=== PATIENT | male | born 1960 | race Caucasian/White ===

== ENCOUNTER 2021-05-28 15:37 | Emergency (ER) | payer BC, SELFPAY ==
--- OUTSIDE RECORDS SUMMARY | 2021-05-28 15:40 | XMS REPORT | Continuity of Care Document ---
:1960 Author Organization [facility] t Address 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 Allergies, Adverse Reactions, Alerts Allergy Allergy Status Severity Reaction(s) Onset Inactive Treating Comm ents Source Name Type Date Date Clinician NO KNOWN Drug Active Univers ALLERGIE Class ity of S [facility] Social History Social Habit Start Date Stop Date Quantity Comments Source Exposure to Yes University of SARS-CoV-2 (event) [facility] Cigarettes smoked 2015-12-19 2015-12-19 Univers ity of current (pack per 00:00:00 00:00:00 ) - Reported Branch Cigarette 2015-12-19 2015-12-19 University of pack-years 00:00:00 00:00:00 [facility] Tobacco use and 2015-12-19 2015-12-19 Former user Universi ty of exposure 00:00:00 00:00:00 [facility] Alcohol intake 2015-12-19 2015-12-19 University of 00:00:00 00:00:00 [facility] History of tobacco 2012-09-29 Snuff User Univer sity of use 00:00:00 [facility] Sex Assigned At [birth year] Universit y of 00:00:00 00:00:00 [facility] Smoking Status Start Date Stop Date Source Former smoker 2015-12-19 00:00:00 2015-12-19 00:00:00 Universi ty [facility] Medications Ordered Filled Start Stop Current Ordering Indication Dosage Frequency Signature Comments Components Source Medication Medication Date Date Medication? Clinician (SIG) Name Name No known No Univers medications [facility] No known No Univers medications [facility] No known No Univers medications [facility] No known No Univers medications [facility] Immunizations Ordered Filled Immunization Date Status Comments Sour e Immunization Name Name SARS-COV-2 COVID-19 2020-07-27 Completed Unive rsity of PFIZER VACCINE 00:00:00 [facility] SARS-COV-2 COVID-19 2020-07-27 Completed Unive rsity of PFIZER VACCINE 00:00:00 [facility] SARS-COV-2 COVID-19 2020-07-27 Completed Unive rsity of PFIZER VACCINE 00:00:00 [facility] SARS-COV-2 COVID-19 2020-07-27 Completed Unive rsity of PFIZER VACCINE 00:00:00 [facility] SARS-COV-2 COVID-19 2020-07-27 Completed Unive rsity of PFIZER VACCINE 00:00:00 [facility] Procedures Procedure Date / Time Performed Performing Clinician Sour e ASSIGNMENT OF BENEFITS 2020-08-05 18:34:40 Doctor Unassigned, No [facility] Plan of Care Planned Activity Planned Date Details Comments Source Future Scheduled 2020-12-04 INFLUENZA VACCINE [facility] [place] Test 00:00:00 (Season Ended) [code = [facility] INFLUENZA VACCINE (Season Ended)] Future Scheduled 2020-08-17 SARS-CoV-2 [facility]COVID-19) [facility] [place]00 Vaccine (2 - Pfizer [facility] 2-dose series) [code = SARS-CoV-2 (COVID-19) Vaccine (2 - Pfizer 2-dose series)] Future Scheduled 2010 Screening for occult Uni versity [facility] Test 00:00:00 blood in feces Medical Bran h (procedure) [code = 011530453] Future Scheduled 2010 Stool DNA-based Universi ty [facility] Test 00:00:00 colorectal cancer Medical Br anch screening (procedure) [code = 861955413715506] Future Scheduled 2010 [facility]00 sigmoidoscopy Medical Branch (procedure) [code = 63326637] Future Scheduled 2010 Screening for University [facility] Test 00:00:00 malignant neoplasm of Medica l Branch colon (procedure) [code = 225706388] Future Scheduled 2010 Screening for [facility] Test 00:00:00 malignant neoplasm of Medica l Branch colon (procedure) [code = 870001058] Future Scheduled 2010 [facility]00 Vaccine (SHINGRIX) (1 Medica l Branch of 2) [code = Zoster Recombinant Vaccine (SHINGRIX) (1 of 2)] Future Scheduled 1979 DTaP,Tdap,and [facility]d [facility] 00:[facility]:00 Vaccines (1 - Tdap) Medical Branch [code = DTaP,Tdap,and Td Vaccines (1 - Tdap)] Future Scheduled 1978 [facility]atitis [facility]00 (procedure) [code = Medical Branch [id number]] Future Scheduled 1972 [facility]00 (procedure) [code = Medical Branch [id number]] Encounters Start End Encounter Admission Attending Care Care Encounter Source Date/Time Date/Time Type Type Clinicians Facility Department ID 2020-08-24 2020-08-24 Outpatient R EBNI [facility] [id number] Univers 10:10:00 10:10:00 [facility] 2020-08-24 2020-08-24 Outpatient R [facility] [id number] Univers 08:20:00 08:20:00 [id number] [facility] 2020-08-22 2020-08-23 Inpatient U SATISH RAZAH [facility] [id number] [facility] 14:08:00 21:04:00 ALEJANDRA 2020-08-08 2020-08-08 Letter Lab, Pcp [facility] [id number] Univers 00:00:00 00:00:00 (Out) [facility] Health [id number] it [facility] [place] [id number] [place] as Professio [phone] Nm dical nal 044 [place] Office [facility] One 2020-08-08 2020-08-08 Letter Lab, Pcp [facility] [id number] Univers 00:00:00 00:00:00 (Out) Covid Health [id number] it [facility] [place] [id number] [place] as Professio [phone] Nm dical nal 044 [facility] One 2020-08-05 2020-08-05 Laboratory Lab, Adc Fam Pob I [facility] [id number] Univers 13:35:13 13:55:13 Only Tamie L[facility] [id number] [facility] [place] [id number] [place] as Professio [phone] Nm dical nal 044 [facility] 2020-08-05 2020-08-05 Outpatient R [facility] [id number] Univers 13:00:00 13:00:00 [id number] ity [facility] 2020-08-05 2020-08-05 [id number] Univers 13:00:00 13:00:00 TAMIE ity [facility] 2020-08-05 2020-08-05 Orders Doctor FRANCISCO [id number] Univers 00:00:00 00:00:00 Only UnassignedLIO [id number] ity of [place] [facility] [id number] [place] as [phone] [address] 2020-07-27 2020-07-27 [facility] [id number] Univers 08:20:00 08:20:00 AMARI [id number] [facility] 2020-07-27 2020-07-27 Outpatient Ami CORTEZ [facility] [id number] Univers 08:20:00 08:20:00 AMARI [facility] Results This patient has no known results.
[2021-05-28] MEDS ORDERED: LORazepam 2 MG/ML VIAL ONE (17:01)
[2021-05-28 17:18] LABS: Urine Blood Negative (Negative); Urine Glucose Negative (Negative); Urine Protein Negative (Negative); Urine pH 7.5 (5.0-7.0)
[2021-05-28 17:37] LABS: Absolute Lymphocytes (CBC) 1.8 K/uL (0.7-4.9); Lymphocytes % 29.3 % (15.3-44.8); MPV 7.2 fL (7.6-11.3); RBC Red Blood Cell Count 4.65 M/uL (4.33-5.43)
[2021-05-28 17:40] LABS: Protime INR 0.78
[2021-05-28 17:43] LABS: Barbiturates NEGATIVE (NEGATIVE); Benzodiazepines NEGATIVE (NEGATIVE); Cocaine NEGATIVE (NEGATIVE); METHAMPHETAM NEGATIVE (NEGATIVE); Methadone NEGATIVE (NEGATIVE); Opiates NEGATIVE (NEGATIVE); Phencyclidine NEGATIVE (NEGATIVE); THC Cannibis NEGATIVE (NEGATIVE)
[2021-05-28 18:05] LABS: ALT/SGPT 39 U/L (12-78); AST/SGOT 35 U/L (15-37); Albumin 3.9 g/dL (3.4-5.0); Alkaline Phosphatase 77 U/L (45-117); BUN Blood Urea Nitrogen 9 mg/dL (7-18); Bicarbonate 33 mmol/L (21-32); Bilirubin Total 0.1 mg/dL (0.2-1.0); Glucose Level 98 mg/dL (74-106); Potassium 3.8 mmol/L (3.5-5.1); Protein, Total 7.6 g/dL (6.4-8.2); Sodium Level 136 mmol/L (136-145)
[2021-05-28 18:06] LABS: Bilirubin Direct < 0.1 mg/dL (0-0.2)
[2021-05-28] MEDS ORDERED: FOLIC ACID 1 MG, MULTIVITAMINS INJ 10 ML, THIAMINE HCL 100 MG in NA CHLORIDE 0.9% 1,000 ML IV ONE (19:00)
--- NOTE | 2021-05-29 15:21 | EDPHYS ---
Physician Documentation [facility] Name: Jak Gauthier Age: 61 yrs Sex: Male : 1960 Arrival Date: 05/28/2021 Time: 15:38 Bed 18 Private MD: ED Physician Bethany Thibodeaux HPI: 05/28 16:30 This 61 yrs old Male presents to ER via Ambulatory with complaints of ETOH Abuse, Psych cp Problem. 16:30 The patient presents to the emergency department with psychosis, has experienced cp auditory hallucinations, voices are telling patient to commit sucide, voices are telling patient to cause harm to someone else. 16:30 Onset: The symptoms/episode began/occurred today. Past psychiatric history: Prior cp diagnosis: bipolar disorder, schizophrenia. Associated signs and symptoms: Pertinent positives; substance abuse, Pertinent negatives: abdominal pain, chest pain, fever. Severity of symptoms: in the emergency department the symptoms are unchanged despite home interventions. Historical: - Allergies: 15:44 No Known Allergies; ap3 - PMHx: 15:44 Alcoholism; Bipolar disorder; Schizophrenia; Depressive disorder; ap3 - Immunization history:: Client reports receiving the 2nd dose of the Covid vaccine, Pneumococcal vaccine is not up to date, Flu vaccine is not up to date. - Social history:: Smoking status: Patient reports the use of cigarette tobacco products, smokes one pack cigarettes per day. Patient uses alcohol, on a daily basis. patient/guardian reports recent binge of alcohol consumption. Patient uses street drugs, Methamphetamine (Meth). ROS: 16:35 Constitutional: Negative for fever, poor PO intake. cp 16:35 Eyes: Negative for injury, pain, redness, and discharge. cp 16:35 Cardiovascular: Negative for chest pain, palpitations. 16:35 Respiratory: Negative for cough, shortness of breath, wheezing. 16:35 Abdomen/GI: Negative for abdominal pain, nausea, vomiting, and diarrhea. 16:35 Psych: Positive for auditory hallucinations. 16:35 All other systems are negative. Exam: 16:40 Constitutional: The patient appears in no acute distress, alert, awake, cp non-diaphoretic, well developed, well nourished. 16:40 Head/Face: Normocephalic, atraumatic. cp 16:40 Eyes: Periorbital structures: appear normal, Conjunctiva: normal, no exudate, no injection, Sclera: no appreciated abnormality, Lids and lashes: appear normal, bilaterally. 16:40 ENT: External ear(s): are unremarkable, Nose: is normal, Mouth: Lips: moist, Oral mucosa: moist, Posterior pharynx: Airway: no evidence of obstruction, patent. 16:40 Chest/axilla: Inspection: normal. 16:40 Cardiovascular: Rate: normal, Rhythm: regular. 16:40 Respiratory: the patient does not display signs of respiratory distress, Respirations: normal, no use of accessory muscles, no retractions, labored breathing, is not present, Breath sounds: are clear throughout, no decreased breath sounds, no stridor, no wheezing. 16:40 Abdomen/GI: Exam negative for discomfort, distension, guarding, Inspection: abdomen appears normal. 16:40 Neuro: Orientation: to person, place \\T\\ time. Mentation: able to follow commands, Motor: moves all fours, strength is normal. 16:40 Psych: Behavior/mood is cooperative, Judgement / Insight is impaired. Delusions/hallucinations auditory hallucinations. 18:35 ECG was reviewed by the Attending Physician. cp Vital Signs: 15:42 BP 149 / 91; Pulse 87; Resp 18; Temp 98.1; Pulse Ox 98% ; Weight 79.38 kg; Height 6 ft. ap3 1 in. (185.42 cm); 05/29 00:16 BP 155 / 80; Pulse 88; Resp 18; Temp 98.2; Pulse Ox 93% ; al4 05:28 BP 149 / 72; Pulse 86; Resp 20; Pulse Ox 95% on R/A; sf1 05/30 01:31 BP 152 / 94; Pulse 70; Resp 15; Temp 97.6(TE); Pulse Ox 96% on R/A; ll3 06:59 BP 153 / 99; Pulse 65; Resp 16; Pulse Ox 96% on R/A; ll3 07:14 BP 142 / 76; Pulse 80; Resp 18; Pulse Ox 99% on R/A; dominique 19:58 BP 159 / 90 LA Supine (auto/reg); Pulse 78 MON; Resp 16 S; Temp 97.8; Pulse Ox 98% on sv1 R/A; 05/28 15:42 Body Mass Index 23.09 (79.38 kg, 185.42 cm) ap3 MDM: 05/28 16:28 Patient medically screened. 18:15 Data reviewed: vital signs, nurses notes, lab test result(s), EKG. 18:15 Test interpretation: by ED physician or midlevel provider: ECG. 05/29 06:14 ED course: ETOH negative now, calling [facility] out for evaluation.. rn 05/30 05:42 ED course: Pt sleeping comfortably, stable vitals, still awaiting transfer. . rn 05/28 16:29 Order name: Acetaminophen; Complete Time: 18:08 05/28 18:08 Interpretation: Reviewed. 05/28 16:29 Order name: Basic Metabolic Panel; Complete Time: 18:08 05/28 18:08 Interpretation: Normal except: CO2 33; GFR 89. 05/28 16:29 Order name: CBC with Diff; Complete Time: 18:08 05/28 18:08 Interpretation: Normal except: MPV 7.2. 05/28 16:29 Order name: ETOH Level; Complete Time: 18:08 05/28 18:08 Interpretation: Abnormal: ETOH 289. 05/28 16:29 Order name: Hepatic Function; Complete Time: 18:08 05/28 16:29 Order name: PT-INR; Complete Time: 18:08 cp 05/28 16:29 Order name: Ptt, Activated; Complete Time: 18:08 05/28 16:29 Order name: Salicylate; Complete Time: 18:08 05/28 16:29 Order name: Urine Drug Screen; Complete Time: 18:08 05/28 18:09 Interpretation: Reviewed. 05/28 17:18 Order name: Urine Dipstick-Ancillary; Complete Time: 18:08 EDMS 05/29 02:18 Order name: ETOH Level; Complete Time: 06:12 cp 05/29 09:35 Order name: SARS-COV-2 RT PCR (Document "Date of Onset" if Symptomatic); Complete Time: em1 15:06 05/28 16:29 Order name: EKG; Complete Time: 16:30 cp 05/28 16:29 Order name: EKG - Nurse/Tech; Complete Time: 18:38 cp 05/28 16:29 Order name: IV Saline Lock; Complete Time: 17:12 cp 05/28 16:29 Order name: Labs collected and sent; Complete Time: 17:12 cp 05/28 16:29 Order name: Suicide Precautions; Complete Time: 17:12 cp 05/28 16:29 Order name: Suicide Screening ([place]); Complete Time: 18:38 cp 05/28 16:29 Order name: Urine Dipstick-Ancillary (obtain specimen); Complete Time: 17:12 cp 05/28 17:12 Order name: Diet Finger Food; Complete Time: 17:12 bp 05/29 07:14 Order name: Diet Finger Food; Complete Time: 07:14 [facility] EC/23 18:35 Rate is 90 beats/min. Rhythm is regular. VT interval is normal. QRS interval is normal. cp QT interval is normal. T waves are Inverted in lead aVR. Interpreted by me. Reviewed by me. Administered Medications: 17:10 Drug: Ativan (LORazepam) 1 mg Route: IVP; Site: right forearm; bp 18:11 Follow up: Response: No adverse reaction; No change in condition bp 18:40 Drug: Banana Bag - (NS 0.9% 1000 ml, foLIC Acid 1 mg, Thiamine 100 mg, Multivitamin 1 bp amp) Route: IV; Rate: 150 ml/hr; Site: right antecubital; Disposition Summary: 05/29/21 15:20 Transfer Ordered Transfer Location: Psych Facility cp Reason: Higher level of care cp Condition: Stable cp Problem: an ongoing problem cp Symptoms: have improved cp Accepting Physician: Dr. Rm Behavioral(05/30/21 23:28) sv1 Diagnosis - Schizophrenia, unspecified cp Forms: - Medication Reconciliation Form cp - SBAR form cp Signatures: Dispatcher [employer] EDJose Meier MD MD rn Mike Ley PA PA cp Kal Faye RN RN bp Maria Teresa Ivey RN RN ap3 Jacob Langston MD MD [facility] Luis Lancaster RN RN sv1 Corrections: (The following items were deleted from the chart) 05/30 22:13 05/29 15:20 Doctor cp [facility] 05/30 23:28 22:13 Dr. Rm Behavioral [facility] sv1
--- NOTE | 2021-05-29 15:21 | ER ---
Nurse's Notes [facility] Name: Jak Gauthier Age: 61 yrs Sex: Male : 1960 Arrival Date: 05/28/2021 Time: 15:38 Bed 18 Private MD: Diagnosis: Schizophrenia, unspecified Presentation: 05/28 15:42 Chief complaint: Patient states: "my brain tells me to kill and to ." He is unsure ap3 at this time if his brain wants him to kill other people more than it wants him to kill himself. He reports not having any sleep for approx one week. Sister is with him, who says she picked him up from his residence. He has a recent uribe of alcohol. Patient us agitated and restless at this time. Coronavirus screen: At this time, the client does not indicate any symptoms associated with coronavirus-19. Ebola Screen: No symptoms or risks identified at this time. Initial Sepsis Screen: Does the patient meet any 2 criteria? No. Patient's initial sepsis screen is negative. Does the patient have a suspected source of infection? No. Patient's initial sepsis screen is negative. Risk Assessment: Do you want to hurt yourself or someone else? Patient reports desire/thoughts of hurting themselves or someone else. Provider notified. Onset of symptoms was May 28, 2021. 15:42 Method Of Arrival: Ambulatory ap3 15:42 Acuity: AMARA 2 ap3 16:00 Note Next of kin is patients sister. Sisters name Jolanta [phone]. ap3 Triage Assessment: 15:46 General: Appears distressed, Behavior is agitated, anxious, fussy, restless, Smells of ap3 alcohol. Pain: Complains of pain in lower back and legs. Neuro: Level of Consciousness is awake, alert, Oriented to person, place. Neuro: Level of Consciousness is Oriented to Patient currently hearing voices. . Cardiovascular: Patient's skin is warm and dry. Respiratory: Airway is patent Respiratory effort is even, unlabored. Historical: - Allergies: 15:44 No Known Allergies; ap3 - PMHx: 15:44 Alcoholism; Bipolar disorder; Schizophrenia; Depressive disorder; ap3 - Immunization history:: Client reports receiving the 2nd dose of the Covid vaccine, Pneumococcal vaccine is not up to date, Flu vaccine is not up to date. - Social history:: Smoking status: Patient reports the use of cigarette tobacco products, smokes one pack cigarettes per day. Patient uses alcohol, on a daily basis. patient/guardian reports recent binge of alcohol consumption. Patient uses street drugs, Methamphetamine (Meth). Screenin:48 Abuse screen: Denies threats or abuse. Nutritional screening: hasn't eaten much in ap3 approx one week. Tuberculosis screening: No symptoms or risk factors identified. 18:41 Fall Risk None identified. bp Assessment: 16:30 General: Appears in no apparent distress. comfortable, Behavior is calm, cooperative, bp appropriate for age, Smells of alcohol, RECD PT AMBULATORY FROM TRIAGE WITH FAMILY. PT AFFECT CHEERFUL, LAUGHING WITH SISTER.. Pain: Denies pain. Neuro: Level of Consciousness is awake, alert, obeys commands, Oriented to Appropriate for age. Cardiovascular: No deficits noted. Respiratory: No deficits noted. GI: No signs and/or symptoms were reported involving the gastrointestinal system. : No signs and/or symptoms were reported regarding the genitourinary system. EENT: No deficits noted. Derm: No deficits noted. Musculoskeletal: No deficits noted. 18:00 Reassessment: PT DENIES SI, STATES "I JUST BEEN DRINKING TOO MUCH. I ACTUALLY BAILEY bp LOVE MYSELF. OTHER PEOPLE ARE KIND OF IRRITATING, THAT'S ALL.". 18:15 Reassessment: MED REQUEST FAXED TO PHARMACY. bp 19:00 General: Appears in no apparent distress. comfortable, Behavior is calm, cooperative. al4 Pain: Denies pain. Neuro: Level of Consciousness is awake, alert, obeys commands, Oriented to person, place, time, situation. Cardiovascular: Capillary refill < 3 seconds Patient's skin is warm and dry. Respiratory: Airway is patent Respiratory effort is even, unlabored, Respiratory pattern is regular, symmetrical. GI: No signs and/or symptoms were reported involving the gastrointestinal system. : No signs and/or symptoms were reported regarding the genitourinary system. EENT: No signs and/or symptoms were reported regarding the EENT system. Derm: No signs and/or symptoms reported regarding the dermatologic system. Musculoskeletal: Range of motion: intact in all extremities. 20:00 Reassessment: Patient is alert, oriented x 3, equal unlabored respirations, skin al4 warm/dry/pink. 21:00 Reassessment: Patient is alert, oriented x 3, equal unlabored respirations, skin al4 warm/dry/pink. 22:00 Reassessment: Patient is alert, oriented x 3, equal unlabored respirations, skin al4 warm/dry/pink. 23:00 Reassessment: patient is sleeping. patient is in no apparent distress. al4 05/29 00:00 Reassessment: Patient is alert, oriented x 3, equal unlabored respirations, skin al4 warm/dry/pink. 01:00 Reassessment: Report given to MICHELE George. al4 07:36 Reassessment: pt awake and states that he is feeling better, no si thoughts at this jh6 time. Pt also reports that he has been off his meds for 2mo because he lost his insurance and has been unable to afford them . Pt live at home with his mother at this time. 13:47 Reassessment: Patient is alert, oriented x 3, equal unlabored respirations, skin jh6 warm/dry/pink. states back pain chronic and repositioned for comfort. 19:00 Reassessment: Patient is alert, oriented x 3, equal unlabored respirations, skin ll3 warm/dry/pink. 23:00 Reassessment: Patient is alert, oriented x 3, equal unlabored respirations, skin ll3 warm/dry/pink. 05/30 06:59 Reassessment: States "I have been off my medication for the past few months and have ll3 been feeling weird ever since, I cant really tell you what they say but my voices tell me weird things", denies wanting to hurt self or others, states feeling better since being here but not feeling 100%. 20:13 Reassessment: VS stable. No acute distress noted. . sv1 23:16 Reassessment: [facility] here to transfer the patient. His belongings were given sv1 to EMS. No acute distress noted.. Psych: 05/28 15:49 [place] Suicide Severity Screening: In the past month, have you wished you were ap3 or wished you could go to sleep and not wake up? Patient responds "yes." Based off the client's responses additional C-SSRS screening is required. "In the past month, have you actually had any thoughts of killing yourself?" Patient responds "yes." Based off the client's response additional [place] suicide severity screening questions to be further documented on paper forms. "In your lifetime, have you ever done anything, started to do anything, or prepared to do anything to end your life?" Patient responds "yes." Patient reports suicidal intent within 3 past months. [place] Suicide Severity Screening: patient has urges to kill others and himself based of the voices he hears, however he denies having a current plan in how to do so. Subjective: Patient's mood is angry, irritable, hopeless, Hallucinations are auditory. Objective: Patient is irritable, restless, Speech is rambling. Patient uses 12 pack of beer, hourly. Last use was within the hour. 20:00 Interventions: Removed personal items and placed in bag. Patient placed in hospital al4 gown. Safety Checks: Personal items have been removed. Door is open. 20:00 [place] Suicide Severity Screening: In the past month, have you wished you were al4 or wished you could go to sleep and not wake up? Patient responds "yes." "In the past month, have you actually had any thoughts of killing yourself?" Patient responds "no." "In your lifetime, have you ever done anything, started to do anything, or prepared to do anything to end your life?" Patient responds "no.". Objective: Patient is cooperative, Speech is slow. 05/30 23:18 Commitment: Patient will be a voluntary commitment. sv1 Vital Signs: 05/28 15:42 BP 149 / 91; Pulse 87; Resp 18; Temp 98.1; Pulse Ox 98% ; Weight 79.38 kg; Height 6 ft. ap3 1 in. (185.42 cm); 05/29 00:16 BP 155 / 80; Pulse 88; Resp 18; Temp 98.2; Pulse Ox 93% ; al4 05:28 BP 149 / 72; Pulse 86; Resp 20; Pulse Ox 95% on R/A; sf1 05/30 01:31 BP 152 / 94; Pulse 70; Resp 15; Temp 97.6(TE); Pulse Ox 96% on R/A; ll3 06:59 BP 153 / 99; Pulse 65; Resp 16; Pulse Ox 96% on R/A; ll3 07:14 BP 142 / 76; Pulse 80; Resp 18; Pulse Ox 99% on R/A; dominique 19:58 BP 159 / 90 LA Supine (auto/reg); Pulse 78 MON; Resp 16 S; Temp 97.8; Pulse Ox 98% on sv1 R/A; 05/28 15:42 Body Mass Index 23.09 (79.38 kg, 185.42 cm) ap3 ED Course: 05/28 15:38 Patient arrived in ED. as 15:44 Triage completed. ap3 15:48 Arm band placed on right wrist. ap3 15:56 Pt visited by sister. ap3 16:21 Kal Faye, RN is Primary Nurse. bp 16:22 Mike Ley PA is PHCP. cp 16:23 Bethany Thibodeaux MD is Attending Physician. cp 17:12 Inserted saline lock: 20 gauge in right forearm, using aseptic technique. Blood bp collected. 18:41 Patient has correct armband on for positive identification. Bed in low position. Call bp light in reach. Side rails up X2. 19:01 Primary Nurse role handed off by Kal Faye, RN mw2 19:30 No apparent distress. Resting quietly. Safety Checks: Personal items have been removed. al4 The door is open or patient has been placed in a hallway bed/chair. Sitter not present at this time Note: collar trimmer aware. 19:30 Guillermo Escobar is Primary Nurse. al4 20:00 No apparent distress. Resting quietly. Safety Checks: The door is open or patient has al4 been placed in a hallway bed/chair. Sitter not present at this time. 20:30 No apparent distress. Resting quietly. Safety Checks: The door is open or patient has al4 been placed in a hallway bed/chair. Sitter not present at this time. 21:00 No apparent distress. Resting quietly. Safety Checks: The door is open or patient has al4 been placed in a hallway bed/chair. Sitter not present at this time. 21:30 No apparent distress. Resting quietly. Safety Checks: The door is open or patient has al4 been placed in a hallway bed/chair. Sitter not present at this time. 22:00 No apparent distress. Resting quietly. Safety Checks: The door is open or patient has al4 been placed in a hallway bed/chair. Sitter not present at this time. 22:25 Warm blanket given. PO fluids given. al4 22:38 No apparent distress. Resting quietly. Safety Checks: The door is open or patient has al4 been placed in a hallway bed/chair. Sitter present at this time. 05/29 04:10 Diet tray given. PO fluids given. sf1 05:29 ETOH Level Sent. sf1 06:[address] [facility] Crisis Line spoke to Jessica to have a screener evaluate the mw2 patient. 08:00 Screener from [facility] called to arrange Facetime screening session; all em1 clinical information faxed to the [facility]. 05/30 07:13 No apparent distress. Safety Checks: Personal items have been removed. The door is open dominique or patient has been placed in a hallway bed/chair. Sitter not present at this time due to or because no sitter available, charge aware. 08:30 faxed patient records to the following facilities in attempt to find placement/ [facility]; [facility]; [facility]; [facility]; [facility]; [facility]; [facility]; [facility]; [facility]; [facility]; and [facility]. 11:10 Palak from [facility] called to decline the patient in transfer/ Did not meet eb criteria. 11:39 Lisa from [facility] called to decline the patient in transfer due to being at eb capacity. 14:33 facesheet updated / faxed to [facility] as requested by [facility] Eduardo. 15:19 called and faxed to [facility]/ [facility] they are at capacity but will eb update his information. 23:17 No provider procedures requiring assistance completed. sv1 23:19 Patient did not have IV access during this emergency room visit. sv1 Administered Medications: 05/28 17:10 Drug: Ativan (LORazepam) 1 mg Route: IVP; Site: right forearm; bp 18:11 Follow up: Response: No adverse reaction; No change in condition bp 18:40 Drug: Banana Bag - (NS 0.9% 1000 ml, foLIC Acid 1 mg, Thiamine 100 mg, Multivitamin 1 bp amp) Route: IV; Rate: 150 ml/hr; Site: right antecubital; Output: 21:00 Urine: 300ml (Voided); Total: 300ml. al4 Outcome: 05/29 15:20 ER care complete, transfer ordered by MD. gandhi 05/30 23:17 Transferred Note: [facility] sv1 23:18 Condition: stable sv1 23:18 Instructed on the need for transfer. 23:28 Patient left the ED. sv1 Signatures: Gisella Shelton Eric em1 Mike Ley PA PA Kal Navarro, RN RN bp Maria Teresa Ivey, RN RN ap3 Pat Escamilla 2 Marina Omalley Lynsea RN RN 3 Reena Hackett RN RN jh6 Guillermo Escobar al4 Luis Lancaster RN RN sv1 GiuliaStageMady brice RN RN Doris Short RN RN sf1 Corrections: (The following items were deleted from the chart) 05/28 15:52 15:42 Chief complaint: Patient states: "my brain tells me to kill and to ." He is ap3 unsure at this time if his brain wants him to kill other people more than it wants him to kill himself. He reports not having any sleep for approx one week. ap3 21:59 21:37 Guillermo Escobar is Primary Nurse. al4 al4
[2021-05-30 23:49] VITALS: BP 159/90; TEMP 97.8; O2SAT 98
== END 2021-05-30 23:28 ==
LOC: ER 15:37 → EDBD 15:37 → ER 05-30 23:28
DX: F20.9 Schizophrenia, unspecified (principal); F10.20 Alcohol dependence, uncomplicated; F17.210 Nicotine dependence, cigarettes, uncomplicated; Z20.822 Contact with and (suspected) exposure to COVID-19
CPT/HCPCS: 85025; 80048; 36415; 80320 ×2; 80329 ×2; 85610; 80076; 85730; 81003; 80307; 99285; U0003; J3411; J7030

== ENCOUNTER 2022-07-28 16:48 | Emergency (ER) | payer BC ==
--- OUTSIDE RECORDS SUMMARY | 2022-07-28 16:51 | XMS REPORT | Continuity of Care Document ---
:1960 Author Organization [facility] t Address [address] [place] [address]. [address] [place] [address] Care Team Providers Name Role Phone DOUGLAS Attending Clinician Unavailable TRAVON BAZAN Attending Clinician Unavailable Kj Raza Attending Clinician KJ RAZA Attending Clinician Unavailable Lab, Pcp Covid Attending Clinician Unavailable Lab, Adc Fam Pob I Attending Clinician Unavailable Tamie Gonzalez Attending Clinician TAMIE HENDERSON Attending Clinician Unavailable Doctor Unassigned, [place] Attending Clinician Unavailable AMARI CORTEZ Attending Clinician Unavailable DOUGLAS Admitting Clinician Unavailable Francisco Hanna Jr Admitting Clinician FRANCISCO HANNA Admitting Clinician Unavailable Payers Payer Name Policy Type Policy Number Effective Date Expiration Date [place] [id number] 2022 ADVANTAGE (HMO) 00:00:00 [facility] BLUE [id number] 2020 [place] [facility] [place]:00 Problems Condition Condition Condition Status Onset Resolution Last Treating Co mments Source Name Details Category Date Date Treatment Clinician Date Schizoaffe Schizoaffe Problem Active S weeny ctive ctive 3-24 Communi disorder, Disorder, 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 l Clinics Anxiety Anxiety Problem Active [place] disorder Disorder 3-24 Commun i 00:00: ty 00 Hospita l Clinics Anemia Anemia Problem Active 2023-0 Weld 3-23 Communi 00:00: ty 00 Hospita Clinics Insomnia Insomnia Problem Active Sween y 3-02 Communi 00:00: ty 00 Hospita Clinics Chronic Chronic Problem Active [place]eld back pain Back Pain 3- Comm uni 00:00: ty 00 Hospita Clinics Auditory Auditory Problem Active Sween y hallucinat Hallucinat 3-02 Co mmuni ions ions 00:00: ty 00 Hospita Clinics Schizophre Schizophre Problem Active S weeny shavon shavon 3- Communi 00:00: ty 00 Hospita Clinics Tobacco Tobacco Problem Active [place] user User 3- Communi 00:00: ty 00 Hospita Clinics AMS AMS Diagnosis Active 2020-08-31 Mem oria Active 08-22 21:37:00 l 08/22/2020 00:00: Terrance bermudez [address] Allergies, Adverse Reactions, Alerts Allergy Allergy Status Severity Reaction(s) Onset Inactive Treating Comm ents Source Name Type Date Date Clinician NO KNOWN Drug Active Univers ALLERGIE Class ity of S [facility] No Known No Known Active Memori a Medicati Medicati l on on Zohaib Allergie Allergie s s Social History Social Habit Start Date Stop Date Quantity Comments Source Exposure to Yes [place] of SARS-CoV-2 (event) [facility] Cigarettes smoked 2015-12-19 2015-12-19 [facility] ity of current (pack per 00:00:00 00:00:00 ) - Reported Branch Cigarette 2015-12-19 2015-12-19 University of pack-years 00:00:00 00:00:00 [facility] Tobacco use and 2015-12-19 2015-12-19 Former user Universi ty of exposure 00:00:00 00:00:00 [facility] Alcohol intake 2015-12-19 2015-12-19 University of 00:00:00 00:00:00 [facility] History of tobacco 2012-09-29 Snuff User Univer sity of use 00:00:00 [facility] Sex Assigned At [birth year] Universit y of 00:00:00 00:00:00 [facility] Smoking Status Start Date Stop Date Source Heavy Tobacco Smoker [facility] Former smoker 2015-12-19 00:00:00 2015-12-19 00:00:00 Universi ty [facility] Medications Ordered Filled Start Stop Current Ordering Indication Dosage Frequency Signature Comments Components Source Medication Medication Date Date Medication? Clinician (SIG) Name Name FLUoxetine Yes 20 mg = 1 Me moria 20 mg oral 5-21 cap, PO, l capsule 21:05: Daily, # Terrance n 00 30 cap, 1 Refill(s), Pharmacy: [facility] [place], 182.88, cm, 08/22/20 17:49:00 CDT, Height, 77.273, kg, 08/22/20 17:49:00 CDT, Weight Vistaril No Notes: Memoria 5-21 (Same as: l 19:27: Vistaril) Prozac No Notes: Memoria 5-21 (Same as: l 19:07: Prozac, [place] 00 [place]) Fluoxetine No PO, 0 Memori a 5-21 Refill(s) l 13:14: Zohaib 00 FLUoxetine No 20 mg = 1 Me moria 20 mg oral 5-21 cap, PO, l capsule 13:14: Daily, # Terrance n 00 30 cap, 0 Refill(s) Docusate No Notes: Memoria Sodium 100 5-21 (Same as: l MG Oral 02:00: Colace) Zohaib Capsule 00 (Do Not Crush) sennosides, No Notes: Larry kimberly [facility] 5-21 (Same as: l 02:00: Senokot) No known No Univers medications ity [facility] No known No [facility] No known No Univers medications [facility] No known No [facility] doxepin 25 doxepin 25 No doxepin 25 Weld mg capsule mg capsule mg capsule Communi TAKE ONE TAKE ONE TAKE ONE ty (1) OR TWO (1) OR TWO (1) OR TWO Hospita (2) (2) (2) l CAPSULE(S) CAPSULE(S) CAPSULE(S) Clinics BY MOUTH AT BY MOUTH AT BY MOUTH BEDTIME. BEDTIME. AT BEDTIME. fluoxetine fluoxetine No fluoxetine Weld 40 mg 40 mg 40 mg Communi capsule capsule capsule ty TAKE ONE TAKE ONE TAKE ONE Hos katie (1) (1) (1) l CAPSULE(S) CAPSULE(S) CAPSULE(S) Clinics BY MOUTH BY MOUTH BY MOUTH DAILY. DAILY. DAILY. gabapentin gabapentin No gabapentin Weld 300 mg 300 mg 300 mg Communi capsule capsule capsule ty TAKE ONE TAKE ONE TAKE ONE Hos katie (1) (1) (1) l CAPSULE(S) CAPSULE(S) CAPSULE(S) Clinics BY MOUTH BY MOUTH BY MOUTH THREE TIMES THREE TIMES THREE A DAY. A DAY. TIMES A DAY. hydrocodone hydrocodone No 1 Q4H hydrocodon Weld 10 10 e 10 Communi mg-acetamin mg-acetamin mg-acetami ty ophen 325 ophen 325 nophen 325 Hospita mg tablet mg tablet mg tablet l Take 1 Take 1 Take 1 Clinics tablet tablet tablet every 4 every 4 every 4 hours by hours by hours by oral route oral route oral route as needed. as needed. as needed. meloxicam meloxicam No meloxicam Weld 15 mg 15 mg 15 mg Communi tablet TAKE tablet TAKE tablet ty ONE (1) ONE (1) TAKE ONE Hospi ta TABLET(S) TABLET(S) (1) l BY MOUTH BY MOUTH TABLET(S) Cl inics ONCE A DAY. ONCE A DAY. BY MOUTH ONCE A DAY. quetiapine quetiapine No quetiapine Weld 25 mg 25 mg 25 mg Communi tablet TAKE tablet TAKE tablet ty ONE (1) ONE (1) TAKE ONE Hospi ta TABLET(S) TABLET(S) (1) l BY MOUTH BY MOUTH TABLET(S) Cl inics TWICE A TWICE A BY MOUTH DAY. DAY. TWICE A DAY. quetiapine quetiapine No quetiapine W[place] 300 mg 300 mg 300 mg Communi tablet TAKE tablet TAKE tablet ty ONE (1) ONE (1) TAKE ONE Hospi ta TABLET(S) TABLET(S) (1) l BY MOUTH AT BY MOUTH AT TABLET(S) Clinics BEDTIME. BEDTIME. BY MOUTH AT BEDTIME. doxepin 25 doxepin 25 No doxepin 25 Weld mg capsule mg capsule mg capsule Communi TAKE ONE TAKE ONE TAKE ONE ty (1) TO TWO (1) TO TWO (1) TO TWO Hospita (2) (2) (2) l CAPSULE(S) CAPSULE(S) CAPSULE(S) Clinics BY MOUTH BY MOUTH BY MOUTH DAILY AT DAILY AT DAILY AT BEDTIME. BEDTIME. BEDTIME. fluoxetine fluoxetine No fluoxetine W[place] 40 mg 40 mg 40 mg Communi capsule capsule capsule ty TAKE ONE TAKE ONE TAKE ONE Hos katie (1) CAPSULE (1) CAPSULE (1) l (40 MG) BY (40 MG) BY CAPSULE Clinics MOUTH MOUTH (40 MG) BY DAILY. DAILY. MOUTH DAILY. gabapentin gabapentin No gabapentin W[place] 300 mg 300 mg 300 mg Communi capsule capsule capsule ty TAKE ONE TAKE ONE TAKE ONE Hos katie (1) CAPSULE (1) CAPSULE (1) l (300 MG) BY (300 MG) BY CAPSULE Clinics MOUTH 3 MOUTH 3 (300 MG) TIMES PER TIMES PER BY MOUTH 3 DAY. DAY. TIMES PER DAY. hydrocodone hydrocodone No hydrocodon Weld 10 10 e 10 Communi mg-acetamin mg-acetamin mg-acetami ty ophen 325 ophen 325 nophen 325 Hospita mg tablet mg tablet mg tablet l TAKE ONE TAKE ONE TAKE ONE Cli nics (1) (1) (1) TABLET(S) TABLET(S) TABLET(S) BY MOUTH BY MOUTH BY MOUTH FOUR TIMES FOUR TIMES FOUR TIMES A DAY A DAY A DAY NEEDED. NEEDED. NEEDED. meloxicam meloxicam No meloxicam Weld 15 mg 15 mg 15 mg Communi tablet TAKE tablet TAKE tablet ty ONE (1) ONE (1) TAKE ONE Hospi ta TABLET(S) TABLET(S) (1) l BY MOUTH BY MOUTH TABLET(S) Cl inics EVERY DAY. EVERY DAY. BY MOUTH EVERY DAY. quetiapine quetiapine No quetiapine Weld 25 mg 25 mg 25 mg Communi tablet TAKE tablet TAKE tablet ty ONE (1) ONE (1) TAKE ONE Hospi ta TABLET(S) TABLET(S) (1) l BY MOUTH BY MOUTH TABLET(S) Cl inics TWICE A TWICE A BY MOUTH DAY. DAY. TWICE A DAY. quetiapine quetiapine No quetiapine Weld 300 mg 300 mg 300 mg Communi tablet TAKE tablet TAKE tablet ty ONE (1) ONE (1) TAKE ONE Hospi ta TABLET(S) TABLET(S) (1) l BY MOUTH AT BY MOUTH AT TABLET(S) Clinics BEDTIME. BEDTIME. BY MOUTH AT BEDTIME. doxepin 25 doxepin 25 No doxepin 25 Weld mg capsule mg capsule mg capsule Communi TAKE ONE TAKE ONE TAKE ONE ty (1) TO TWO (1) TO TWO (1) TO TWO Hospita (2) (2) (2) l CAPSULE(S) CAPSULE(S) CAPSULE(S) Clinics BY MOUTH BY MOUTH BY MOUTH DAILY AT DAILY AT DAILY AT BEDTIME. BEDTIME. BEDTIME. doxepin 50 doxepin 50 No doxepin 50 Weld mg capsule mg capsule mg capsule Communi TAKE ONE TAKE ONE TAKE ONE ty (1) OR TWO (1) OR TWO (1) OR TWO Hospita (2) (2) (2) l CAPSULE(S) CAPSULE(S) CAPSULE(S) Clinics BY MOUTH AT BY MOUTH AT BY MOUTH BEDTIME BEDTIME AT BEDTIME NEEDED. NEEDED. NEEDED. fluoxetine fluoxetine No fluoxetine Weld 40 mg 40 mg 40 mg Communi capsule capsule capsule ty TAKE ONE TAKE ONE TAKE ONE Hos katie (1) CAPSULE (1) CAPSULE (1) l (40 MG) BY (40 MG) BY CAPSULE Clinics MOUTH MOUTH (40 MG) BY DAILY. DAILY. MOUTH DAILY. fluoxetine fluoxetine No fluoxetine Weld 60 mg 60 mg 60 mg Communi tablet TAKE tablet TAKE tablet ty ONE (1) ONE (1) TAKE ONE Hospi ta TABLET(S) TABLET(S) (1) l BY MOUTH BY MOUTH TABLET(S) Cl inics ONCE A DAY. ONCE A DAY. BY MOUTH ONCE A DAY. gabapentin gabapentin No gabapentin Weld 300 mg 300 mg 300 mg Communi capsule capsule capsule ty TAKE ONE TAKE ONE TAKE ONE Hos katie (1) (1) (1) l CAPSULE(S) CAPSULE(S) CAPSULE(S) Clinics BY MOUTH BY MOUTH BY MOUTH THREE TIMES THREE TIMES THREE A DAY. A DAY. TIMES A DAY. hydrocodone hydrocodone No hydrocodon Weld 10 10 e 10 Communi mg-acetamin mg-acetamin mg-acetami ty ophen 325 ophen 325 nophen 325 Hospita mg tablet mg tablet mg tablet l TAKE ONE TAKE ONE TAKE ONE Cli nics (1) (1) (1) TABLET(S) TABLET(S) TABLET(S) BY MOUTH BY MOUTH BY MOUTH FOUR TIMES FOUR TIMES FOUR TIMES A DAY. A DAY. A DAY. meloxicam meloxicam No meloxicam Weld 15 mg 15 mg 15 mg Communi tablet TAKE tablet TAKE tablet ty ONE (1) ONE (1) TAKE ONE Hospi ta TABLET(S) TABLET(S) (1) l BY MOUTH BY MOUTH TABLET(S) Cl inics DAILY. DAILY. BY MOUTH DAILY. quetiapine quetiapine No quetiapine Weld 25 mg 25 mg 25 mg Communi tablet TAKE tablet TAKE tablet ty ONE (1) ONE (1) TAKE ONE Hospi ta TABLET(S) TABLET(S) (1) l BY MOUTH BY MOUTH TABLET(S) Cl inics TWICE A TWICE A BY MOUTH DAY. DAY. TWICE A DAY. quetiapine quetiapine No quetiapine Weld 300 mg 300 mg 300 mg Communi tablet TAKE tablet TAKE tablet ty 1/2 /2 TAKE 1/2 Hospita TABLET(S) TABLET(S) TABLET(S) l BY MOUTH BY MOUTH BY MOUTH Cli nics DAILY AT DAILY AT DAILY AT BEDTIME FOR BEDTIME FOR BEDTIME 1 WEEK THEN 1 WEEK THEN FOR 1 WEEK TAKE ONE TAKE ONE THEN TAKE (1) (1) ONE (1) TABLET(S) TABLET(S) TABLET(S) BY MOUTH BY MOUTH BY MOUTH DAILY. DAILY. DAILY. Immunizations Ordered Filled Immunization Date Status Comments [facility] e Immunization Name Name SARS-COV-2 COVID-19 2020-07-27 Completed Unive rsity of PFIZER VACCINE 00:00:00 [facility] SARS-COV-2 COVID-19 2020-07-27 Completed Unive rsity of PFIZER VACCINE 00:00:00 [facility] SARS-COV-2 COVID-19 2020-07-27 Completed Unive rsity of PFIZER VACCINE 00:00:00 [facility] SARS-COV-2 COVID-19 2020-07-27 Completed Unive rsity of PFIZER VACCINE 00:00:00 [facility] Vital Signs Vital Name Observation Time Observation Value Comments Source Height 2022-07-17 00:00:00 72 [in_i] [facility] s BP Diastolic 2022-06-25 00:00:00 60 mm[Hg] [facility] s Height 2022-06-25 00:00:00 72 [in_i] [facility] s BMI (Body Mass 2022-06-25 00:00:00 25.4 kg/m2 [facility] s BP Systolic 2022-06-25 00:00:00 124 mm[Hg] [facility] s Body Weight 2022-06-25 00:00:00 2992 [oz_av] [facility] s BP Diastolic 2022-06-04 00:00:00 78 mm[Hg] [facility] s Height 2022-06-04 00:00:00 72 [in_i] [facility] s BP Systolic 2022-06-04 00:00:00 118 mm[Hg] [facility] s Temperature Oral (F) 2020-08-24 00:15:00 98.0 F [facility] Heart Rate 2020-08-24 00:15:00 [facility] Respitory Rate 2020-08-24 00:15:00 Memori al [place]ohaib Systolic (mm Hg) 2020-08-24 00:15:00 Larry rial [place] Diastolic (mm Hg) 2020-08-24 00:15:00 Mem orial [place] Temperature Oral (F) 2020-08-23 21:04:00 97.9 F [facility] [place] Heart Rate 2020-08-23 21:04:00 [facility] Zoha[facility] Respitory Rate 2020-08-23 21:04:00 Memori al Zohaib Systolic (mm Hg) 2020-08-23 21:04:00 Larry rial [place] Diastolic (mm Hg) 2020-08-23 21:04:00 Mem orial Zohaib Temperature Oral (F) 2020-08-23 17:14:00 98.2 F [facility] [place] Heart Rate 2020-08-23 17:14:00 [facility] Zoha[facility] Respitory Rate 2020-08-23 17:14:00 Memori al [place] Systolic (mm Hg) 2020-08-23 17:14:00 Larry rial [place] Diastolic (mm Hg) 2020-08-23 17:14:00 Mem orial Zohaib Height 2020-08-22 22:49:00 182.88 cm Luz Elena Zohaib Weight 2020-08-22 22:49:00 Luz Elena Penny BMI Calculated 2020-08-22 22:49:00 Serene Rae Procedures Procedure Date / Time Performing Clinician Source Performed ASSIGNMENT OF BENEFITS 2020-08-05 18:34:40 Doctor Unassigned, No [facility] Circumcision [facility] Extraction of [place] [facility] Remove Tonsils and [facility] Adenoids [facility] Appendectomy [facility] Procedure on Ankle [facility] Plan of Care Planned Activity Planned Date Details Comments Source Diagnostic Test 2022-07-17 fecal occult [facility] nit Pending 00:00:00 blood, stool [facility] s [code = fecal occult blood, stool] Future Appointment 2023-06-17 [facility] [address] [facility] [place] [address] Encounters Start End Encounter Admission Attending Care Care Encounter Source Date/Time Date/Time Type Type Clinicians Facility Department ID 2022-07-17 2022-07-17 Gunnar [facility] [place] 14 [place] 00:00:00 00:00:00 [facility] - DO: [address] [facility] [address], HOSPITAL Clinic s [place], [place] CLINIC, [address] DRISS , Ph. [phone] 2022-06-25 2022-06-25 Outpatient ERMARIYA_R [facility] [id number] [place] 00:00:00 00:00:00 [id number] Commun i ty Hospita l Clinics 2022-06-25 2022-06-25 Outpatient ERMARIYA_R [facility] [id number] [place] 00:00:00 00:00:00 0414 Commun i ty Hospita l Clinics 2022-06-25 2022-06-25 Gunnar DENN[place] 23 [place] 00:00:00 00:00:00 [facility] - ty DO: [address] [facility] [place], [place] CLINIC, [address] DRISS , Ph. [phone] 2022-06-04 2022-06-04 Outpatient ERICKSON_R [facility] [id number] [place] 00:00:00 00:00:00 0302 Commun i ty Hospita l Clinics 2022-06-04 2022-06-04 Outpatient ERICKSON_R [facility] [id number] [place] 00:00:00 00:00:00 0306 Commun i ty Hospita l Clinics 2022-06-04 2022-06-04 [facility] [place] - W[place] Weld 00:00:00 00:00:00 [facility] DO: [address] [place], [address] DRISS , Ph. [phone] 2022-06-03 2022-06-03 Outpatient ERICKSON_R [facility] [address] [place] 00:00:00 00:00:00 0301 Commun i ty Hospita l Clinics 2022-06-02 2022-06-02 Outpatient ERICKSON_R [facility] 12[address] [place] 00:00:00 00:00:00 0228 Commun i ty Hospita l Clinics 2020-08-24 2020-08-24 Outpatient Ami BAZAN [facility] [id number] Univers 10:10:00 10:10:00 TRAVON lyndsay [facility] 2020-08-22 2020-08-24 Inpatient [facility] [id number] Memoria 19:08:00 02:04:00 ami Penny 40 [facility] 2020-08-22 2020-08-23 Outpatient Ry [facility] [id number] 14:08:00 21:04:00 Kj Valdez 40 2020-08-22 2020-08-23 Inpatient U RY [facility] 14:[facility] 21:04:00 KJ 2020-08-08 2020-08-08 Letter Lab, Pcp [facility] [id number] Univers 00:00:00 00:00:00 (Out) Covid Health [id number] it y of [place] [id number] Wil[place] as Professio [phone] Ok dical nal [address] [place] 2020-08-08 2020-08-08 Letter Lab, Pcp [facility] [id number] Univers 00:00:00 00:00:00 (Out) Covid Health [id number] it y of [place] [id number] [place] as Professio [phone] Ok dical nal 044 [facility] One 2020-08-05 2020-08-05 Laboratory Lab, Adc Fam Pob I [facility] [id number] Univers 13:35:13 13:55:13 Only Blake Tamei [facility] [id number] ity of [place] [id number] [place] as Professio [phone] Ok dical nal 044 [facility] One 2020-08-05 2020-08-05 Outpatient Ami HENDERSON [facility] [id number] Univers 13:00:00 13:00:00 TAMIE layton [facility] 2020-08-05 2020-08-05 Orders Doctor FRANCISCO [id number] Univers 00:00:00 00:00:00 Only Unassigned, LIO [id number] ity of [place] [facility] [id number] Wilbur as [phone] [address] 2020-07-27 2020-07-27 Outpatient R DANA [facility] [id number] Univers 08:20:00 08:28:42 AMARI layton [facility] Results Test Description Test Time Test Comments Results Result Comments Source CHEM PANEL 2020-08-23 02:55:00 Test Item Value Reference Range Interpretation Comme nts Ammonia (test code = Ammonia) 22.0 [facility]2021-05-20 23:59:00 Test Item Value Reference Range Interpretation Comments Vitamin B12 Lvl (test code = Vitamin 1629 B12 Lvl) [facility]2021-05-20 23:59:00 Test Item Value Reference Range Interpretation Comments Folate Lvl (test code = Folate Lvl) 16.9 [place] [id number] 23:59:00 Test Item Value Reference Range Interpretation Comments RPR (test code = RPR) Non Reactive (08/22/20 6:59 PM) [place] [id number] 23:59:00 Test Item Value Reference Range Interpretation Comments HIV Ag/Ab 4th Gen Negative *NA*(08/22/20 (test code = HIV 6:59 PM) Ag/Ab 4th Gen) [facility]2021-05-20 22:48:00 Test Item Value Reference Range Interpretation Comments Glucose Lvl (test code = Glucose Lvl) 86 70-99 [facility]2021-05-20 22:48:00 Test Item Value Reference Range Interpretation Comments BUN (test code = BUN) 19 7-22 [facility]2021-05-20 22:48:00 Test Item Value Reference Range Interpretation Comments Creatinine Lvl (test code = Creatinine 0.86 0.50-1.40 Lvl) [facility]2021-05-20 22:48:00 Test Item Value Reference Range Interpretation Comments Sodium Lvl (test code = Sodium Lvl) 140 135-145 [facility]2021-05-20 22:48:00 Test Item Value Reference Range Interpretation Comments Potassium Lvl (test code = Potassium 4.3 3.5-5.1 Lvl) [facility]2021-05-20 22:48:00 Test Item Value Reference Range Interpretation Comments Chloride Lvl (test code = Chloride Lvl) 106 95-109 [facility]2021-05-20 22:48:00 Test Item Value Reference Range Interpretation Comments CO2 (test code = CO2) 32 24-32 [facility]2021-05-20 22:48:00 Test Item Value Reference Range Interpretation Comments Calcium Lvl (test code = Calcium Lvl) 8.7 8.5-10.5 [place] [id number] 22:48:00 Test Item Value Reference Range Interpretation Comments Total Protein (test code = Total 6.6 6.4-8.4 Protein) [facility] [employer] [id number] 22:48:00 Test Item Value Reference Range Interpretation Comments Albumin Lvl (test code = Albumin Lvl) 3.5 3.5-5.0 [facility] [employer] [id number] 22:48:00 Test Item Value Reference Range Interpretation Comments ALT (test code = ALT) 27 See_Comment [Auto mated message] The system which ge nerated this result transmit ginny reference range : <=65. The reference range was not used to interpr et this result as lady l/abnormal. [facility] [employer] [id number] 22:48:00 Test Item Value Reference Range Interpretation Comments AST (test code = AST) 20 See_Comment [Auto mated message] The system which ge nerated this result transmit ginny reference range : <=37. The reference range was not used to interpr et this result as lady l/abnormal. [facility] [employer] [id number] 22:48:00 Test Item Value Reference Range Interpretation Comments Alk Phos (test code = Alk Phos) 58 39-136 [facility] [employer] [id number] 22:48:00 Test Item Value Reference Range Interpretation Comments Bili Total (test code = Bili Total) 0.3 0.2-1.3 [facility] [employer] [id number] 22:48:00 Test Item Value Reference Range Interpretation Comments AGAP (test code = AGAP) 6.3 10.0-20.0 [facility] [employer] [id number] 22:48:00 Test Item Value Reference Range Interpretation Comments B/C Ratio (test code = B/C Ratio) 22 1 6-25 [facility] [employer] [id number] 22:48:00 Test Item Value Reference Range Interpretation Comments Globulin (test code = Globulin) 3.1 2.7-4.2 [facility] [employer] [id number] 22:48:00 Test Item Value Reference Range Interpretation Comments A/G Ratio (test code = A/G Ratio) 1.1 1 0.7-1.6 [facility] [employer] [id number] 22:48:00 Test Item Value Reference Range Interpretation Comments eGFR (test code = eGFR) 94 [id number] 22:48:00 Test Item Value Reference Range Interpretation Comments WBC (test code = WBC) 4.0 3.7-10.4 [id number] 22:48:00 Test Item Value Reference Range Interpretation Comments RBC (test code = RBC) 4.45 4.70-6.10 [id number] 22:48:00 Test Item Value Reference Range Interpretation Comments Hgb (test code = Hgb) 13.5 14.0-18.0 [id number] 22:48:00 Test Item Value Reference Range Interpretation Comments Hct (test code = Hct) 39.8 42.0-54.0 [id number] 22:48:00 Test Item Value Reference Range Interpretation Comments MCV (test code = MCV) 89.3 80.0-94.0 [id number] 22:48:00 Test Item Value Reference Range Interpretation Comments MCH (test code = MCH) 30.3 pg 27.0-31.0 [facility] [id number] 22:48:00 Test Item Value Reference Range Interpretation Comments MCHC (test code = MCHC) 34.0 32.0-36.0 [facility] [id number] 22:48:00 Test Item Value Reference Range Interpretation Comments RDW (test code = RDW) 13.8 11.5-14.5 [id number] 22:48:00 Test Item Value Reference Range Interpretation Comments Platelet (test code = Platelet) 278 133-450 [facility] [id number] 22:48:00 Test Item Value Reference Range Interpretation Comments MPV (test code = MPV) 7.8 7.4-10.4 [place] [id number] 22:48:00 Test Item Value Reference Range Interpretation Comments PT (test code = PT) 12.6 s 12.0-14.7 [id number] 22:48:00 Test Item Value Reference Range Interpretation Comments INR (test code = INR) 0.95 1 0.85-1.17 [place] [id number] 22:48:00 Test Item Value Reference Range Interpretation Comments PTT (test code = PTT) 29.3 s 22.9-35.8 [place] [id number] 22:48:00 Test Item Value Reference Range Interpretation Comments Segs (test code = Segs) 58.2 45.0-75.0 [place] [id number] 22:48:00 Test Item Value Reference Range Interpretation Comments Lymphocytes (test code = Lymphocytes) 28.9 20.0-40.0 [place] [id number] 22:48:00 Test Item Value Reference Range Interpretation Comments Monocytes (test code = Monocytes) 9.7 2.0-12.0 [place] [id number] 22:48:00 Test Item Value Reference Range Interpretation Comments Eosinophils (test code = 2.2 See_Comment [A utomated message] The Eosinophils) system which ge nerated this result tra nsmitted reference range : <=4.0. The reference r suly was not used to int erpret this result as normal/abnormal . [id number] 22:48:00 Test Item Value Reference Range Interpretation Comments Basophils (test code = 1.0 See_Comment [Aut omated message] The Basophils) system which ge nerated this result tra nsmitted reference range : <=1.0. The reference r suly was not used to int erpret this result as normal/abnormal . [id number] 22:48:00 Test Item Value Reference Range Interpretation Comments Neutrophils # (test code = Neutrophils 2.3 1.5-8.1 #) [place] [id number] 22:48:00 Test Item Value Reference Range Interpretation Comments Lymphocytes # (test code = Lymphocytes 1.2 1.0-5.5 #) [place] [id number] 22:48:00 Test Item Value Reference Range Interpretation Comments Monocytes # (test code 0.4 See_Comment [Aut omated message] The = Monocytes #) system which generated this result tra nsmitted reference range : <=0.8. The reference r suly was not used to int erpret this result as normal/abnormal . [place] [id number] 22:48:00 Test Item Value Reference Range Interpretation Comments Eosinophils # (test code 0.1 See_Comment [A utomated message] The = Eosinophils #) system whic h generated this result tra nsmitted reference range : <=0.5. The reference r suly was not used to int erpret this result as normal/abnormal . [facility]2021-05-20 22:48:00 Test Item Value Reference Range Interpretation Comments Ca Ion WB (test code = Ca Ion WB) 1.20 1.05-1.25 [facility]2021-05-20 22:48:00 Test Item Value Reference Range Interpretation Comments Ca Norm WB (test code = Ca Norm WB) 1.16 1.05-1.25 [facility]
--- NOTE | 2022-07-28 18:12 | RAD REPORT ---
EXAM DESCRIPTION: RAD - Hip Right 2 View - 07/28/2022 6:01 pm CLINICAL HISTORY: PAIN COMPARISON: No comparisons FINDINGS: No acute fracture or dislocation is seen. Prominent calcific fragment from prior trauma no ginny superior to the greater trochanter. Partially ligamentous abnormality of the distal femur shaft p robably related to previous trauma.
--- NOTE | 2022-07-28 18:14 | RAD REPORT ---
EXAM DESCRIPTION: RAD - Lumbar Spine 3 Views - 07/28/2022 6:02 pm CLINICAL HISTORY: PAIN Radiculopathy COMPARISON: No comparisons FINDINGS: Vertebral body heights appear maintained. No compression fracture noted. Moderate spondylo sis L4-5 with small endplate osteophytes and vacuum disc degeneration. No spondylolysis or spondyloli sthesis. IMPRESSION: Moderate L4-5 spondylosis.
--- NOTE | 2022-07-28 18:29 | EDPHYS ---
Physician Documentation [facility] Name: Jak Gauthier Age: 62 yrs Sex: Male : 1960 Arrival Date: 07/28/2022 Time: 16:48 Bed IW2 Private MD: ED Physician Desmond Rangel HPI: 07/28 18:29 This 62 yrs old Male presents to ER via Ambulatory with complaints of Fall Injury. ms3 18:29 62-year-old male with past medical history of alcoholism, bipolar disorder, depression, ms3 schizophrenia presents for right hip pain and lower back pain status post fall on Wednesday. Patient states his pain is a 10/10 described as throbbing. Patient states pain is worse with movement. Patient denies alleviating factors. Historical: - Allergies: 17:08 No Known Allergies; ap3 - PMHx: 17:08 Alcoholism; Bipolar disorder; depressive disorder; Schizophrenia; ap3 - Immunization history:: Client reports receiving the 2nd dose of the Covid vaccine. - Social history:: Smoking status: Patient reports the use of cigarette tobacco products, smokes one pack cigarettes per day. ROS: 18:29 Constitutional: Negative for fever, and chills. Neck: Negative for injury, pain, and ms3 swelling, Cardiovascular: Negative for chest pain, and palpitations. Respiratory: Negative for shortness of breath, cough, wheezing, and pleuritic chest pain, Abdomen/GI: Negative for abdominal pain, nausea, vomiting, diarrhea, and constipation. 18:29 Back: Positive for lower back pain. 18:29 MS/extremity: Positive for right hip pain. 18:29 All other systems are negative. Exam: 18:29 Constitutional: This is a well developed, well nourished patient who is awake, alert, ms3 and in no acute distress. Head/Face: Normocephalic, atraumatic. Neck: Trachea midline, no cervical lymphadenopathy. Supple, full range of motion without nuchal rigidity, or vertebral point tenderness. No Meningismus. Chest/axilla: Normal chest wall appearance and motion. Nontender with no deformity. Cardiovascular: Regular rate and rhythm with a normal S1 and S2. No gallops, murmurs, or rubs. Normal PMI, no JVD. No pulse deficits. Respiratory: Lungs have equal breath sounds bilaterally, clear to auscultation and percussion. No rales, rhonchi or wheezes noted. No increased work of breathing, no retractions or nasal flaring. Abdomen/GI: Soft, non-tender, with normal bowel sounds. No distension or tympany. No guarding or rebound. No evidence of tenderness throughout. 18:29 Back: pain, is absent, ROM is normal. 18:29 Musculoskeletal/extremity: Extremities: noted in the right hip pain: pain. Vital Signs: 17:06 BP 162 / 116; Pulse 85; Resp 17; Temp 98.1; Pulse Ox 98% ; Weight 83.91 kg; Pain 10/10; ap3 18:44 BP 158 / 89; Pulse 78; Resp 16; Pulse Ox 99% ; mb9 17:06 Pain Scale: Adult ap3 MDM: 17:12 Patient medically screened. ms3 18:29 Differential diagnosis: contusion, fracture, sprain, strain. Data reviewed: vital ms3 signs, nurses notes, radiologic studies, plain films, and as a result, I will discharge patient. Counseling: I had a detailed discussion with the patient and/or guardian regarding: the historical points, exam findings, and any diagnostic results supporting the discharge/admit diagnosis, radiology results, the need for outpatient follow up, to return to the emergency department if symptoms worsen or persist or if there are any questions or concerns that arise at home. ED course: Discussed x-ray results with patient and his sister. Patient follow-up with Dr. Swan in 2 to 3 days. Patient and his sister understand and agree with plan. All questions were answered. Return precautions discussed include worsening symptoms, or any other concerns. 07/28 17:13 Order name: Hip Right 2 View XRAY; Complete Time: 18:23 ms3 07/28 17:13 Order name: Lumbar Spine (3 Views) XRAY; Complete Time: 18:23 ms3 Administered Medications: No medications were administered Disposition Summary: 07/28/22 18:28 Discharge Ordered Location: Home ms3 Condition: Stable ms3 Diagnosis - Pain in right hip ms3 - Low back pain ms3 Followup: ms3 - With: Km Swan MD - When: 2 - 3 days - Reason: Recheck today's complaints Discharge Instructions: - Discharge Summary Sheet ms3 - Acute Back Pain, Adult ms3 - Hip Pain ms3 Forms: - Medication Reconciliation Form ms3 - Thank You Letter ms3 - Antibiotic Education ms3 - Prescription Opioid Use ms3 Prescriptions: - Ibuprofen 600 mg Oral Tablet - take 1 tablet by ORAL route every 6 hours As needed take with food; 30 tablet; ms3 Refills: 0, Product Selection Permitted Signatures: Dispatcher [employer] Maria Teresa Bergeron RN RN ap3 Desmond Rangel DO DO ms3
--- NOTE | 2022-07-28 18:29 | ER ---
Nurse's Notes [facility] Name: Jak Gauthier Age: 62 yrs Sex: Male : 1960 Arrival Date: 07/28/2022 Time: 16:48 Bed IW2 Private MD: Diagnosis: Pain in right hip;Low back pain Presentation: 07/28 17:06 Chief complaint: Patient states: he fell Wednesday07/24/2022, and is complaining of low ap3 back pain and right sided hip pain. patient reports the pain to be a 10/10 at this time on the pain scale. Coronavirus screen: At this time, the client does not indicate any symptoms associated with coronavirus-19. Ebola Screen: No symptoms or risks identified at this time. Initial Sepsis Screen: Does the patient meet any 2 criteria? No. Patient's initial sepsis screen is negative. Does the patient have a suspected source of infection? No. Patient's initial sepsis screen is negative. Risk Assessment: Do you want to hurt yourself or someone else? Patient reports no desire to harm self or others. Onset of symptoms was July 24, 2022. 17:06 Method Of Arrival: Ambulatory ap3 17:06 Acuity: AMARA 4 ap3 Triage Assessment: 17:09 General: Appears uncomfortable, Behavior is calm, cooperative, appropriate for age. ap3 Pain: Complains of pain in back and right hip. Neuro: Level of Consciousness is awake, alert, obeys commands, Oriented to person, place, time, situation. Cardiovascular: Patient's skin is warm and dry. Respiratory: Airway is patent Respiratory effort is even, unlabored, Respiratory pattern is regular, symmetrical. Historical: - Allergies: 17:08 No Known Allergies; ap3 - PMHx: 17:08 Alcoholism; Bipolar disorder; depressive disorder; Schizophrenia; ap3 - Immunization history:: Client reports receiving the 2nd dose of the Covid vaccine. - Social history:: Smoking status: Patient reports the use of cigarette tobacco products, smokes one pack cigarettes per day. Screenin:09 Abuse screen: Denies threats or abuse. Nutritional screening: No deficits noted. ap3 Tuberculosis screening: No symptoms or risk factors identified. Assessment: 18:44 Reassessment: No changes from previously documented assessment. Patient and/or family mb9 updated on plan of care and expected duration. Pain level reassessed. Patient is alert, oriented x 3, equal unlabored respirations, skin warm/dry/pink. Vital Signs: 17:06 BP 162 / 116; Pulse 85; Resp 17; Temp 98.1; Pulse Ox 98% ; Weight 83.91 kg; Pain 10/10; ap3 18:44 BP 158 / 89; Pulse 78; Resp 16; Pulse Ox 99% ; mb9 17:06 Pain Scale: Adult ap3 ED Course: 16:52 Patient arrived in ED. mr 16:53 Desmond Rangel DO is Attending Physician. ms3 17:08 Triage completed. ap3 17:09 Arm band placed on right wrist. ap3 18:04 Hip Right 2 View XRAY In Process Unspecified. EDMS 18:06 Lumbar Spine (3 Views) XRAY In Process Unspecified. EDMS 18:28 Km Benites MD is Referral Physician. ms3 18:44 No provider procedures requiring assistance completed. Patient did not have IV access mb9 during this emergency room visit. Administered Medications: No medications were administered Medication: 18:45 VIS not applicable for this client. mb9 Outcome: 18:28 Discharge ordered by . ms3 18:44 Discharged to home ambulatory. mb9 18:44 Condition: stable 18:44 Discharge instructions given to patient, Instructed on discharge instructions, follow up and referral plans. Demonstrated understanding of instructions, follow-up care, medications, Prescriptions given X 1. 18:45 Patient left the ED. mb9 Signatures: Dispatcher [employer] [facility] Amarilis Vides Amanda, RN RN ap3 Desmond Rangel DO DO [facility] Amarilis Patel RN RN mb9
[2022-07-28 20:27] VITALS: TEMP 98.1
[2022-07-28 20:28] VITALS: BP 158/89; O2SAT 99
== END 2022-07-28 18:45 | disposition home or self-care (01) ==
LOC: ER 16:48
DX: M25.551 Pain in right hip (principal); M54.50 Low back pain, unspecified; F10.20 Alcohol dependence, uncomplicated; F17.210 Nicotine dependence, cigarettes, uncomplicated
CPT/HCPCS: 72100; 99283

== ENCOUNTER 2022-11-15 09:05 | Observation (INO) | payer BC ==
--- OUTSIDE RECORDS SUMMARY | 2022-11-15 09:14 | XMS REPORT | Continuity of Care Document ---
:1960 Author Organization [facility] t Address [address] [place] [address] [address] [place] [address] Care Team Providers Name Role Phone DOUGLAS Attending Clinician Unavailable TRAVON BAZAN Attending Clinician Unavailable KJ RAZA Attending Clinician Unavailable Kj Raza Attending Clinician Lab, Pcp Covid Attending Clinician Unavailable Lab, Adc Fam Pob I Attending Clinician Unavailable Tamie Gonzalez Attending Clinician TAMIE LOZANO Attending Clinician Unavailable Doctor Unassigned, [facility] Attending Clinician Unavailable AMARI CORTEZ Attending Clinician Unavailable Foot, [facility] Attending Clinician Unavailable Conrado Mejia MD Attending Clinician DOUGLAS Admitting Clinician Unavailable FRANCISCO NORRIS Admitting Clinician Unavailable Francisco Norris Jr Admitting Clinician Payers Payer Name Policy Type Policy Number Effective Date Expiration Date [place] [id number] 2022 ADVANTAGE (HMO) 00:00:00 ROSEANNA BCLUBA BLUE [id number] 2020 ADVANTAGE O 00:00:00 Problems Condition Condition Condition Status Onset Resolution Last Treating Co mments Source Name Details Category Date Date Treatment Clinician Date Chronic Chronic Problem Active [place] kidney Kidney 5-18 Communi disease Disease 00:00: ty stage 3A Stage 3a 00 Hospit a l Clinics Schizoaffe Schizoaffe Problem Active S wealexy ctive ctive 324 Communi disorder, Disorder, 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 l Clinics Anxiety Anxiety Problem Active [place] disorder Disorder 324 Commun i 00:00: ty 00 Hospita l Clinics Anemia Anemia Problem Active [place] 3-23 Communi 00:00: ty 00 [facility]ospita [facility] Clinics Insomnia Insomnia Problem Active [facility] 3- Communi 00:00: ty 00 [facility]ospita [facility] Clinics Chronic Chronic Problem Active [place] back pain Back Pain 3- Comm uni 00:00: ty 00 Hospita l Clinics Auditory Auditory Problem Active [facility] hallucinat Hallucinat 3-02 Co mmuni ions ions 00:00: ty 00 Hospita l Clinics Schizophre Schizophre Problem Active S weeny shavon shavon 3-02 Communi 00:00: ty 00 Hospita l Clinics Tobacco Tobacco Problem Active [place] user User 3-02 Communi 00:00: ty 00 Hospita l Clinics AMS AMS Diagnosis Active 2020-08-31 Mem oria Active 20 21:37:00 l 08/22/2020 00:00: Terrance bermudez [address] Allergies, Adverse Reactions, Alerts Allergy Allergy Status Severity Reaction(s) Onset Inactive Treating Comm ents Source Name Type Date Date Clinician NO KNOWN Drug Active Univers ALLERGIE Class ity of [facility] No Known No Known Active Mem[facility] a Medicati Medicati l on on [place] Allergie Allergie s s Social History Social Habit Start Date Stop Date Quantity Comments Source Exposure to 2020-07-06 2020-08-05 Yes [facility] SARS-CoV-2 (event) 00:00:00 13:39:00 [facility] Alcohol intake 2015-12-19 2015-12-19 0 /d University of 00:00:00 00:00:00 [facility] Cigarettes smoked 2015-09-30 2015-09-30 Univers ity of current (pack per 00:00:00 00:00:00 ) - Reported [facility] Cigarette 2015-09-30 2015-09-30 University of pack-years 00:00:00 00:00:00 [facility] Tobacco use and 2015-09-30 2015-09-30 Former smokeless Uni versity of exposure 00:00:00 00:00:00 tobacco user [facility] History of tobacco 2012-09-29 Snuff User Univer sity of use 00:00:00 [facility] Sex Assigned At [birth year] Universit y of 00:00:00 00:00:00 [facility] Smoking Status Start Date Stop Date Source Heavy Tobacco Smoker [facility] Ex-smoker 2015-09-30 00:00:00 2015-09-30 00:00:00 [facility] Medications Ordered Filled Start Stop Current Ordering Indication Dosage Frequency Signature Comments Components Source Medication Medication Date Date Medication? Clinician (SIG) Name Name FLUoxetine Yes 20 mg = 1 Me moria 20 mg oral 5-21 cap, PO, l capsule 21:05: Daily, # Terrance n 00 30 cap, 1 Refill(s), Pharmacy: [facility] Pharmacy Smoot, 182.88, cm, 08/22/20 17:49:00 CDT, Height, 77.273, kg, 08/22/20 17:49:00 CDT, Weight FLUoxetine Yes 20 mg = 1 Me moria 20 mg oral 5-21 cap, PO, l capsule 21:05: Daily, # Terrance n 00 30 cap, 1 Refill(s), Pharmacy: [facility] Pharmacy Smoot, 182.88, cm, 08/22/20 17:49:00 CDT, Height, 77.273, kg, 08/22/20 17:49:00 CDT, Weight Vistaril No Notes: Memoria 5-21 (Same as: l 19:27: Vistaril) Vistaril No Notes: [facility] 5-21 (Same as: l 19:27: Vistaril) Prozac No Notes: [facility] 5-21 (Same as: l 19:07: Prozac, [place] 00 Sarafem) Prozac No Notes: [facility] 5-21 (Same as: l 19:07: Prozac, [place]) Fluoxetine No PO, 0 Memori a 5-21 Refill(s) l 13:14: FLUoxetine No 20 mg = 1 Me moria 20 mg oral 5-21 cap, PO, l capsule 13:14: Daily, # Terrance n 00 30 cap, 0 Refill(s) Fluoxetine No PO, 0 Memori a 5-21 Refill(s) l 13:14: FLUoxetine No 20 mg = 1 Me moria 20 mg oral 5-21 cap, PO, l capsule 13:14: Daily, # Terrance n 00 30 cap, 0 Refill(s) Docusate No Notes: [facility] Sodium 100 5-21 (Same as: l MG Oral 02:00: Colace) [facility] Capsule 00 (Do Not Crush) sennosides, No Notes: Larry kimberly JAIL 5-21 (Same as: l 02:00: Senokot) Docusate No Notes: [facility] Sodium 100 5-21 (Same as: l MG Oral 02:00: Colace) Capsule (Do Not Crush) sennosides, No Notes: Larry kimberly JAIL 5-21 (Same as: l 02:00: Senokot) No known No [facility] known No [facility] medications [facility] No known No Univers medications [facility] No known No Univers medications [facility] meloxicam meloxicam No meloxicam [place] 15 mg 15 mg 15 mg Communi tablet TAKE tablet TAKE tablet ty ONE (1) ONE (1) TAKE ONE Hospi ta TABLET(S) TABLET(S) (1) l BY MOUTH BY MOUTH TABLET(S) Cl inics DAILY. DAILY. BY MOUTH DAILY. quetiapine quetiapine No quetiapine [place] 25 mg 25 mg 25 mg Communi tablet TAKE tablet TAKE tablet ty ONE (1) ONE (1) TAKE ONE Hospi ta TABLET(S) TABLET(S) (1) l BY MOUTH BY MOUTH TABLET(S) Cl inics TWICE A TWICE A BY MOUTH DAY. DAY. TWICE A DAY. quetiapine quetiapine No quetiapine [place] 300 mg 300 mg 300 mg Communi tablet TAKE tablet TAKE tablet ty ONE (1) ONE (1) TAKE ONE Hospi ta TABLET(S) TABLET(S) (1) l BY MOUTH BY MOUTH TABLET(S) Cl inics DAILY. DAILY. BY MOUTH DAILY. tramadol 50 tramadol 50 No tramadol [place] mg tablet mg tablet 50 mg Comm uni TAKE ONE TAKE ONE tablet ty (1) (1) TAKE ONE Hospita TABLET(S) TABLET(S) (1) l BY MOUTH BY MOUTH TABLET(S) Cl inics ONCE A DAY ONCE A DAY BY MOUTH NEEDED. NEEDED. ONCE A DAY NEEDED. albuterol albuterol No 2puff(s Q6H albuterol [place] sulfate HFA sulfate HFA ) sulfate Communi 90 90 HFA 90 ty mcg/actuati mcg/actuati mcg/actuat Hospita on aerosol on aerosol ion l inhaler inhaler aerosol Clinic s Inhale 2 Inhale 2 inhaler puffs every puffs every Inhale 2 6 hours by 6 hours by puffs inhalation inhalation every 6 route as route as hours by needed. needed. inhalation route as needed. doxepin 50 doxepin 50 No doxepin 50 [place] mg capsule mg capsule mg capsule Communi TAKE ONE TAKE ONE TAKE ONE ty (1) TO 2 (1) TO 2 (1) TO 2 Hos katie CAPSULES BY CAPSULES BY CAPSULES l MOUTH DAILY MOUTH DAILY BY MOUTH Clinics AT BEDTIME AT BEDTIME DAILY AT NEEDED. NEEDED. BEDTIME NEEDED. fluoxetine fluoxetine No fluoxetine [place] 60 mg 60 mg 60 mg Communi tablet TAKE tablet TAKE tablet ty ONE (1) ONE (1) TAKE ONE Hospi ta TABLET(S) TABLET(S) (1) l BY MOUTH BY MOUTH TABLET(S) Cl inics ONCE A DAY. ONCE A DAY. BY MOUTH ONCE A DAY. gabapentin gabapentin No gabapentin [place] 300 mg 300 mg 300 mg Communi capsule capsule capsule ty TAKE ONE TAKE ONE TAKE ONE Hos katie (1) CAPSULE (1) CAPSULE (1) l (300 MG) BY (300 MG) BY CAPSULE Clinics MOUTH 3 MOUTH 3 (300 MG) TIMES PER TIMES PER BY MOUTH 3 DAY. DAY. TIMES PER DAY. hydrocodone hydrocodone No hydrocodon [place] 10 10 e 10 Communi mg-acetamin mg-acetamin mg-acetami ty ophen 325 ophen 325 nophen 325 Hospita mg tablet mg tablet mg tablet l TAKE ONE TAKE ONE TAKE ONE Cli nics (1) (1) (1) TABLET(S) TABLET(S) TABLET(S) BY MOUTH BY MOUTH BY MOUTH FOUR TIMES FOUR TIMES FOUR TIMES A DAY A DAY A DAY NEEDED. NEEDED. NEEDED. meloxicam meloxicam No meloxicam [place] 15 mg 15 mg 15 mg Communi tablet TAKE tablet TAKE tablet ty ONE (1) ONE (1) TAKE ONE Hospi ta TABLET(S) TABLET(S) (1) l BY MOUTH BY MOUTH TABLET(S) Cl inics DAILY. DAILY. BY MOUTH DAILY. quetiapine quetiapine No quetiapine [place] 25 mg 25 mg 25 mg Communi tablet TAKE tablet TAKE tablet ty ONE (1) ONE (1) TAKE ONE Hospi ta TABLET(S) TABLET(S) (1) l BY MOUTH BY MOUTH TABLET(S) Cl inics TWICE A TWICE A BY MOUTH DAY. DAY. TWICE A DAY. quetiapine quetiapine No quetiapine [place] 300 mg 300 mg 300 mg Communi tablet TAKE tablet TAKE tablet ty ONE (1) ONE (1) TAKE ONE Hospi ta TABLET(S) TABLET(S) (1) l BY MOUTH BY MOUTH TABLET(S) Cl inics DAILY. DAILY. BY MOUTH DAILY. tramadol 50 tramadol 50 No tramadol [place] mg tablet mg tablet 50 mg Comm uni TAKE ONE TAKE ONE tablet ty (1) (1) TAKE ONE Hospita TABLET(S) TABLET(S) (1) l BY MOUTH BY MOUTH TABLET(S) Cl inics ONCE A DAY ONCE A DAY BY MOUTH NEEDED. NEEDED. ONCE A DAY NEEDED. albuterol albuterol No albuterol [place] sulfate HFA sulfate HFA sulfate Communi 90 90 HFA 90 ty mcg/actuati mcg/actuati mcg/actuat Hospita on aerosol on aerosol ion l inhaler inhaler aerosol Clinic s INHALE TWO INHALE TWO inhaler (2) PUFF(S) (2) PUFF(S) INHALE TWO BY MOUTH BY MOUTH (2) EVERY SIX EVERY SIX PUFF(S) BY HOURS HOURS MOUTH NEEDED. NEEDED. EVERY SIX HOURS NEEDED. doxepin 50 doxepin 50 No doxepin 50 [place] mg capsule mg capsule mg capsule Communi TAKE ONE TAKE ONE TAKE ONE ty (1) TO 2 (1) TO 2 (1) TO 2 Hos katie CAPSULES BY CAPSULES BY CAPSULES l MOUTH DAILY MOUTH DAILY BY MOUTH Clinics AT BEDTIME AT BEDTIME DAILY AT NEEDED. NEEDED. BEDTIME NEEDED. fluoxetine fluoxetine No fluoxetine [place] 60 mg 60 mg 60 mg Communi tablet TAKE tablet TAKE tablet ty ONE (1) ONE (1) TAKE ONE Hospi ta TABLET(S) TABLET(S) (1) l BY MOUTH BY MOUTH TABLET(S) Cl inics ONCE A DAY. ONCE A DAY. BY MOUTH ONCE A DAY. gabapentin gabapentin No gabapentin [place] 300 mg 300 mg 300 mg Communi capsule capsule capsule ty TAKE ONE TAKE ONE TAKE ONE Hos katie (1) CAPSULE (1) CAPSULE (1) l (300 MG) BY (300 MG) BY CAPSULE Clinics MOUTH 3 MOUTH 3 (300 MG) TIMES PER TIMES PER BY MOUTH 3 DAY. DAY. TIMES PER DAY. hydrocodone hydrocodone No hydrocodon [place] 10 10 e 10 Communi mg-acetamin mg-acetamin mg-acetami ty ophen 325 ophen 325 nophen 325 Hospita mg tablet mg tablet mg tablet l TAKE ONE TAKE ONE TAKE ONE Cli nics (1) (1) (1) TABLET(S) TABLET(S) TABLET(S) BY MOUTH BY MOUTH BY MOUTH FOUR TIMES FOUR TIMES FOUR TIMES A DAY A DAY A DAY NEEDED. NEEDED. NEEDED. meloxicam meloxicam No meloxicam [place] 15 mg 15 mg 15 mg Communi tablet TAKE tablet TAKE tablet ty ONE (1) ONE (1) TAKE ONE Hospi ta TABLET(S) TABLET(S) (1) l BY MOUTH BY MOUTH TABLET(S) Cl inics DAILY. DAILY. BY MOUTH DAILY. quetiapine quetiapine No quetiapine [place] 25 mg 25 mg 25 mg Communi tablet TAKE tablet TAKE tablet ty ONE (1) ONE (1) TAKE ONE Hospi ta TABLET(S) TABLET(S) (1) l BY MOUTH BY MOUTH TABLET(S) Cl inics TWICE A TWICE A BY MOUTH DAY. DAY. TWICE A DAY. quetiapine quetiapine No quetiapine [place] 300 mg 300 mg 300 mg Communi tablet TAKE tablet TAKE tablet ty ONE (1) ONE (1) TAKE ONE Hospi ta TABLET(S) TABLET(S) (1) l BY MOUTH BY MOUTH TABLET(S) Cl inics DAILY. DAILY. BY MOUTH DAILY. tramadol 50 tramadol 50 No tramadol [place] mg tablet mg tablet 50 mg Comm uni TAKE ONE TAKE ONE tablet ty (1) (1) TAKE ONE Hospita TABLET(S) TABLET(S) (1) l BY MOUTH BY MOUTH TABLET(S) Cl inics ONCE A DAY ONCE A DAY BY MOUTH NEEDED. NEEDED. ONCE A DAY NEEDED. doxepin 25 doxepin 25 No doxepin 25 [place] mg capsule mg capsule mg capsule Communi TAKE ONE TAKE ONE TAKE ONE ty (1) OR TWO (1) OR TWO (1) OR TWO Hospita (2) (2) (2) l CAPSULE(S) CAPSULE(S) CAPSULE(S) Clinics BY MOUTH AT BY MOUTH AT BY MOUTH BEDTIME. BEDTIME. AT BEDTIME. fluoxetine fluoxetine No fluoxetine [place] 40 mg 40 mg 40 mg Communi capsule capsule capsule ty TAKE ONE TAKE ONE TAKE ONE Hos katie (1) (1) (1) l CAPSULE(S) CAPSULE(S) CAPSULE(S) Clinics BY MOUTH BY MOUTH BY MOUTH DAILY. DAILY. DAILY. gabapentin gabapentin No gabapentin [place] 300 mg 300 mg 300 mg Communi capsule capsule capsule ty TAKE ONE TAKE ONE TAKE ONE Hos katie (1) (1) (1) l CAPSULE(S) CAPSULE(S) CAPSULE(S) Clinics BY MOUTH BY MOUTH BY MOUTH THREE TIMES THREE TIMES THREE A DAY. A DAY. TIMES A DAY. hydrocodone hydrocodone No 1 Q4H hydrocodon [place] 10 10 e 10 Communi mg-acetamin mg-acetamin mg-acetami ty ophen 325 ophen 325 nophen 325 Hospita mg tablet mg tablet mg tablet l Take 1 Take 1 Take 1 Clinics tablet tablet tablet every 4 every 4 every 4 hours by hours by hours by oral route oral route oral route as needed. as needed. as needed. meloxicam meloxicam No meloxicam [place] 15 mg 15 mg 15 mg Communi tablet TAKE tablet TAKE tablet ty ONE (1) ONE (1) TAKE ONE Hospi ta TABLET(S) TABLET(S) (1) l BY MOUTH BY MOUTH TABLET(S) Cl inics ONCE A DAY. ONCE A DAY. BY MOUTH ONCE A DAY. quetiapine quetiapine No quetiapine [place] 25 mg 25 mg 25 mg Communi tablet TAKE tablet TAKE tablet ty ONE (1) ONE (1) TAKE ONE Hospi ta TABLET(S) TABLET(S) (1) l BY MOUTH BY MOUTH TABLET(S) Cl inics TWICE A TWICE A BY MOUTH DAY. DAY. TWICE A DAY. quetiapine quetiapine No quetiapine [place] 300 mg 300 mg 300 mg Communi tablet TAKE tablet TAKE tablet ty ONE (1) ONE (1) TAKE ONE Hospi ta TABLET(S) TABLET(S) (1) l BY MOUTH AT BY MOUTH AT TABLET(S) Clinics BEDTIME. BEDTIME. BY MOUTH AT BEDTIME. doxepin 25 doxepin 25 No doxepin 25 [place] mg capsule mg capsule mg capsule Communi TAKE ONE TAKE ONE TAKE ONE ty (1) TO TWO (1) TO TWO (1) TO TWO Hospita (2) (2) (2) l CAPSULE(S) CAPSULE(S) CAPSULE(S) Clinics BY MOUTH BY MOUTH BY MOUTH DAILY AT DAILY AT DAILY AT BEDTIME. BEDTIME. BEDTIME. fluoxetine fluoxetine No fluoxetine [place] 40 mg 40 mg 40 mg Communi capsule capsule capsule ty TAKE ONE TAKE ONE TAKE ONE Hos katie (1) CAPSULE (1) CAPSULE (1) l (40 MG) BY (40 MG) BY CAPSULE Clinics MOUTH MOUTH (40 MG) BY DAILY. DAILY. MOUTH DAILY. gabapentin gabapentin No gabapentin [place] 300 mg 300 mg 300 mg Communi capsule capsule capsule ty TAKE ONE TAKE ONE TAKE ONE Hos katie (1) CAPSULE (1) CAPSULE (1) l (300 MG) BY (300 MG) BY CAPSULE Clinics MOUTH 3 MOUTH 3 (300 MG) TIMES PER TIMES PER BY MOUTH 3 DAY. DAY. TIMES PER DAY. hydrocodone hydrocodone No hydrocodon [place] 10 10 e 10 Communi mg-acetamin mg-acetamin mg-acetami ty ophen 325 ophen 325 nophen 325 Hospita mg tablet mg tablet mg tablet l TAKE ONE TAKE ONE TAKE ONE Cli nics (1) (1) (1) TABLET(S) TABLET(S) TABLET(S) BY MOUTH BY MOUTH BY MOUTH FOUR TIMES FOUR TIMES FOUR TIMES A DAY A DAY A DAY NEEDED. NEEDED. NEEDED. meloxicam meloxicam No meloxicam [place] 15 mg 15 mg 15 mg Communi tablet TAKE tablet TAKE tablet ty ONE (1) ONE (1) TAKE ONE Hospi ta TABLET(S) TABLET(S) (1) l BY MOUTH BY MOUTH TABLET(S) Cl inics EVERY DAY. EVERY DAY. BY MOUTH EVERY DAY. quetiapine quetiapine No quetiapine [place] 25 mg 25 mg 25 mg Communi tablet TAKE tablet TAKE tablet ty ONE (1) ONE (1) TAKE ONE Hospi ta TABLET(S) TABLET(S) (1) l BY MOUTH BY MOUTH TABLET(S) Cl inics TWICE A TWICE A BY MOUTH DAY. DAY. TWICE A DAY. quetiapine quetiapine No quetiapine [place] 300 mg 300 mg 300 mg Communi tablet TAKE tablet TAKE tablet ty ONE (1) ONE (1) TAKE ONE Hospi ta TABLET(S) TABLET(S) (1) l BY MOUTH AT BY MOUTH AT TABLET(S) Clinics BEDTIME. BEDTIME. BY MOUTH AT BEDTIME. doxepin 25 doxepin 25 No doxepin 25 [place] mg capsule mg capsule mg capsule Communi TAKE ONE TAKE ONE TAKE ONE ty (1) TO TWO (1) TO TWO (1) TO TWO Hospita (2) (2) (2) l CAPSULE(S) CAPSULE(S) CAPSULE(S) Clinics BY MOUTH BY MOUTH BY MOUTH DAILY AT DAILY AT DAILY AT BEDTIME. BEDTIME. BEDTIME. doxepin 50 doxepin 50 No doxepin 50 [place] mg capsule mg capsule mg capsule Communi TAKE ONE TAKE ONE TAKE ONE ty (1) OR TWO (1) OR TWO (1) OR TWO Hospita (2) (2) (2) l CAPSULE(S) CAPSULE(S) CAPSULE(S) Clinics BY MOUTH AT BY MOUTH AT BY MOUTH BEDTIME BEDTIME AT BEDTIME NEEDED. NEEDED. NEEDED. fluoxetine fluoxetine No fluoxetine [place] 40 mg 40 mg 40 mg Communi capsule capsule capsule ty TAKE ONE TAKE ONE TAKE ONE Hos katie (1) CAPSULE (1) CAPSULE (1) l (40 MG) BY (40 MG) BY CAPSULE Clinics MOUTH MOUTH (40 MG) BY DAILY. DAILY. MOUTH DAILY. fluoxetine fluoxetine No fluoxetine [place] 60 mg 60 mg 60 mg Communi tablet TAKE tablet TAKE tablet ty ONE (1) ONE (1) TAKE ONE Hospi ta TABLET(S) TABLET(S) (1) l BY MOUTH BY MOUTH TABLET(S) Cl inics ONCE A DAY. ONCE A DAY. BY MOUTH ONCE A DAY. gabapentin gabapentin No gabapentin [place] 300 mg 300 mg 300 mg Communi capsule capsule capsule ty TAKE ONE TAKE ONE TAKE ONE Hos katie (1) (1) (1) l CAPSULE(S) CAPSULE(S) CAPSULE(S) Clinics BY MOUTH BY MOUTH BY MOUTH THREE TIMES THREE TIMES THREE A DAY. A DAY. TIMES A DAY. hydrocodone hydrocodone No hydrocodon [place] 10 10 e 10 Communi mg-acetamin mg-acetamin mg-acetami ty ophen 325 ophen 325 nophen 325 Hospita mg tablet mg tablet mg tablet l TAKE ONE TAKE ONE TAKE ONE Cli nics (1) (1) (1) TABLET(S) TABLET(S) TABLET(S) BY MOUTH BY MOUTH BY MOUTH FOUR TIMES FOUR TIMES FOUR TIMES A DAY. A DAY. A DAY. meloxicam meloxicam No meloxicam [place] 15 mg 15 mg 15 mg Communi tablet TAKE tablet TAKE tablet ty ONE (1) ONE (1) TAKE ONE Hospi ta TABLET(S) TABLET(S) (1) l BY MOUTH BY MOUTH TABLET(S) Cl inics DAILY. DAILY. BY MOUTH DAILY. quetiapine quetiapine No quetiapine [place] 25 mg 25 mg 25 mg Communi tablet TAKE tablet TAKE tablet ty ONE (1) ONE (1) TAKE ONE Hospi ta TABLET(S) TABLET(S) (1) l BY MOUTH BY MOUTH TABLET(S) Cl inics TWICE A TWICE A BY MOUTH DAY. DAY. TWICE A DAY. quetiapine quetiapine No quetiapine [place] 300 mg 300 mg 300 mg Communi tablet TAKE tablet TAKE tablet ty /2 /2 TAKE 1/2 Hospita TABLET(S) TABLET(S) TABLET(S) l BY MOUTH BY MOUTH BY MOUTH Cli nics DAILY AT DAILY AT DAILY AT BEDTIME FOR BEDTIME FOR BEDTIME 1 WEEK THEN 1 WEEK THEN FOR 1 WEEK TAKE ONE TAKE ONE THEN TAKE (1) (1) ONE (1) TABLET(S) TABLET(S) TABLET(S) BY MOUTH BY MOUTH BY MOUTH DAILY. DAILY. DAILY. albuterol albuterol No 2puff(s Q6H albuterol [place] sulfate HFA sulfate HFA ) sulfate Communi 90 90 HFA 90 ty mcg/actuati mcg/actuati mcg/actuat Hospita on aerosol on aerosol ion l inhaler inhaler aerosol Clinic s Inhale 2 Inhale 2 inhaler puffs every puffs every Inhale 2 6 hours by 6 hours by puffs inhalation inhalation every 6 route as route as hours by needed. needed. inhalation route as needed. doxepin 50 doxepin 50 No doxepin 50 [place] mg capsule mg capsule mg capsule Communi TAKE ONE TAKE ONE TAKE ONE ty (1) TO 2 (1) TO 2 (1) TO 2 Hos katie CAPSULES BY CAPSULES BY CAPSULES l MOUTH DAILY MOUTH DAILY BY MOUTH Clinics AT BEDTIME AT BEDTIME DAILY AT NEEDED. NEEDED. BEDTIME NEEDED. fluoxetine fluoxetine No fluoxetine [place] 60 mg 60 mg 60 mg Communi tablet TAKE tablet TAKE tablet ty ONE (1) ONE (1) TAKE ONE Hospi ta TABLET(S) TABLET(S) (1) l BY MOUTH BY MOUTH TABLET(S) Cl inics ONCE A DAY. ONCE A DAY. BY MOUTH ONCE A DAY. gabapentin gabapentin No gabapentin [place] 300 mg 300 mg 300 mg Communi capsule capsule capsule ty TAKE ONE TAKE ONE TAKE ONE Hos katie (1) CAPSULE (1) CAPSULE (1) l (300 MG) BY (300 MG) BY CAPSULE Clinics MOUTH 3 MOUTH 3 (300 MG) TIMES PER TIMES PER BY MOUTH 3 DAY. DAY. TIMES PER DAY. hydrocodone hydrocodone No hydrocodon [place] 10 10 e 10 Communi mg-acetamin mg-acetamin mg-acetami ty ophen 325 ophen 325 nophen 325 Hospita mg tablet mg tablet mg tablet l TAKE ONE TAKE ONE TAKE ONE Cli nics (1) (1) (1) TABLET(S) TABLET(S) TABLET(S) BY MOUTH BY MOUTH BY MOUTH FOUR TIMES FOUR TIMES FOUR TIMES A DAY A DAY A DAY NEEDED. NEEDED. NEEDED. Immunizations Ordered Filled Immunization Date Status Comments [facility] e Immunization Name Name SARS-COV-2 COVID-19 2020-07-27 Completed [facility] of User Replay VACCINE 00:00:00 [place] [facility] SARS-COV-2 COVID-19 2020-07-27 Completed Unive rsity of PFIZER VACCINE 00:00:00 [facility] SARS-COV-2 COVID-19 2020-07-27 Completed Unive rsity of PFIZER VACCINE 00:00:00 [facility] SARS-COV-2 COVID-19 2020-07-27 Completed Unive rsity of PFIZER VACCINE 00:00:00 [facility] Vital Signs Vital Name Observation Time Observation Value Comments Source BP Diastolic 2022-08-20 00:00:00 68 mm[Hg] [facility] s Height 2022-08-20 00:00:00 72 [in_i] [facility] s BMI (Body Mass 2022-08-20 00:00:00 25.1 kg/m2 [facility]) [facility] s BP Systolic 2022-08-20 00:00:00 116 mm[Hg] [facility] s Body Weight 2022-08-20 00:00:00 2960 [oz_av] [facility] s BP Diastolic 2022-08-13 00:00:00 70 mm[Hg] [facility] s Height 2022-08-13 00:00:00 72 [in_i] [facility] s BMI (Body Mass 2022-08-13 00:00:00 24.3 kg/m2 [facility] s BP Systolic 2022-08-13 00:00:00 122 mm[Hg] [facility] s Body Weight 2022-08-13 00:00:00 2864 [oz_av] [facility] s Height 2022-07-17 00:00:00 72 [in_i] [facility] s BP Diastolic 2022-06-25 00:00:00 60 mm[Hg] [facility] s Height 2022-06-25 00:00:00 72 [in_i] [facility] s BMI (Body Mass 2022-06-25 00:00:00 25.4 kg/m2 [facility] s BP Systolic 2022-06-25 00:00:00 124 mm[Hg] [facility] s Body Weight 2022-06-25 00:00:00 2992 [oz_av] [facility] s BP Diastolic 2022-06-04 00:00:00 78 mm[Hg] [facility] s Height 2022-06-04 00:00:00 72 [in_i] [facility] s BP Systolic 2022-06-04 00:00:00 118 mm[Hg] [facility] s Body height 2015-12-19 16:25:00 185.4 cm [facility] Body weight 2015-12-19 16:25:00 87.091 kg [facility] BMI 2015-12-19 16:25:00 25.33 kg/m2 [facility] Temperature Oral (F) 2020-08-24 00:15:00 98.0 F [facility] [place] Heart Rate 2020-08-24 00:15:00 [facility] Respitory Rate 2020-08-24 00:15:00 [facility] Systolic (mm Hg) 2020-08-24 00:15:00 Larry rial [facility] Diastolic (mm Hg) 2020-08-24 00:15:00 Mem orial [facility] Temperature Oral (F) 2020-08-23 21:04:00 97.9 F [facility] Heart Rate 2020-08-23 21:04:00 [facility] Respitory Rate 2020-08-23 21:04:00 Mem[facility] al [facility] Systolic (mm Hg) 2020-08-23 21:04:00 Larry [facility] [place] Diastolic (mm Hg) 2020-08-23 21:04:00 Mem o[facility] [place] Temperature Oral (F) 2020-08-23 17:14:00 98.2 F [facility] Heart Rate 2020-08-23 17:14:00 [facility] Respitory Rate 2020-08-23 17:14:00 [facility] [place] Systolic (mm Hg) 2020-08-23 17:14:00 Larry rial [facility] Diastolic (mm Hg) 2020-08-23 17:14:00 Isabella gandhihope [facility] Height 2020-08-22 22:49:00 182.88 cm Luz Elena Penny Weight 2020-08-22 22:49:00 Luz Elena Penny BMI Calculated 2020-08-22 22:49:00 Serene Rae Procedures Procedure Date / Time Performing Clinician Source Performed ASSIGNMENT OF BENEFITS 2020-08-05 18:34:40 Doctor Unassigned, No [facility] ANKLE, MIN. 3 VIEWS 2015-12-19 16:34:00 Seth Pandya [facility] Circumcision [facility] Extraction of Hematite [facility] Remove Tonsils and [facility] Adenoids [facility] Appendectomy [facility] Procedure on Ankle [facility] Plan of Care Planned Activity Planned Date Details Comments Source Diagnostic Test 2022-08-20 BMP, serum or [facility] Pending 00:00:00 plasma [code = Hospital Clin ics BMP, serum or plasma] Future Appointment 2023-06-17 [facility]ar [facility] 12:20:00 [address]; [facility] nics [address], [place] [address] Encounters Start End Encounter Admission Attending Care Care Encounter Source Date/Time Date/Time Type Type Clinicians Facility Department ID 2022-11-10 2022-11-10 Outpatient ERICKSON_R [facility] 12[address] [place] 00:00:00 00:00:00 0808 [facility] 2022-10-06 2022-10-06 Outpatient ERICKSON_R [facility] [address] [place] 00:00:00 00:00:00 0704 [facility] 2022-09-01 2022-09-01 Outpatient ERICKSON_R [facility] [address] [place] 00:00:00 00:00:00 0530 [facility] 2022-08-20 2022-08-20 [facility] [place] 00:00:00 00:00:00 [facility] - ty DO: [address] Hospit a [facility] G, HOSPITAL [facility] [place], [place] CLINIC, [address] DRISS , Ph. 2022-08-17 2022-08-17 [facility] [place] 15 [place] 00:00:00 00:00:00 [facility] - ty DO: [address] Hospit a [facility], HOSPITAL [place], [place] CLINIC, [address] DRISS , Ph. 2022-08-13 2022-08-13 [facility] [place] 00:00:00 00:00:00 [facility] - ty DO: [address] Hospit a [facility], [place] CL[place]IC, [address] DRISS , Ph. [phone] 2022-07-27 2022-07-27 Outpatient ERICKSON_R [facility] [address] [place] 00:00:00 00:00:00 0515 [facility] 2022-07-27 2022-07-27 Outpatient ERICKSON_R [facility] [address] [place] 00:00:00 00:00:00 0518 [facility] 2022-07-27 2022-07-27 Outpatient ERICKSON_R [facility] [address] [place] 00:00:00 00:00:00 0511 [facility] 2022-07-17 2022-07-17 [place] [facility] [place] 14 [place] 00:00:00 00:00:00 [facility] - ty DO: [address] Hospit a [facility], [place]IC, [address] DRISS , Ph. 2022-06-25 2022-06-25 Outpatient ERICKSON_R [facility] [address] [place] 00:00:00 00:00:00 0323 [facility] 2022-06-25 2022-06-25 Outpatient ERICKSON_R [facility] [address] [place] 00:00:00 00:00:00 0414 [facility] 2022-06-25 2022-06-25 [place] [facility] [place] 00:00:00 00:00:00 [facility] DO: [address] [facility] [place], [address] DRISS , Ph. 2022-06-04 2022-06-04 Outpatient ERICKSON_R [facility] [address] [place] 00:00:00 00:00:00 0302 [facility] i [facility] 2022-06-04 2022-06-04 Outpatient ERICKSON_R [facility] [address] [place] 00:00:00 00:00:00 0306 Commun i ty [facility] Clinics 2022-06-04 2022-06-04 [place] [facility] [place] 00:00:00 00:00:00 [facility] DO: [address] [facility] [place] [place], [address] DRISS , Ph. 2022-06-03 2022-06-03 Outpatient ERICKSON_R [facility] [address] [place] 00:00:00 00:00:00 0301 Commun i [facility] 2022-06-02 2022-06-02 Outpatient ERICKSON_R [facility] [address] [place] 00:00:00 00:00:00 0228 [facility] 2020-08-24 2020-08-24 Outpatient Ami BAZAN [facility] [id number] [facility] 10:10:00 10:10:00 TRAVON layton [facility] 2020-08-22 2020-08-24 Inpatient [facility] [id number] [place] 19:08:00 02:04:00 r [place] 40 [facility] 2020-08-22 2020-08-24 Inpatient [facility] [id number] Mem[place] 19:08:00 02:04:00 r Zohaib 40 l [facility] 2020-08-22 2020-08-23 Inpatient U RY, [facility] 1140 [facility] 14:08:00 21:04:00 KJ 2020-08-22 2020-08-23 Outpatient Ry, [facility] [id number] 14:08:00 21:04:00 Kj Valdez 40 2020-08-08 2020-08-08 Letter Lab, Pcp [facility] [id number] [facility] 00:00:00 00:00:00 (Out) [facility] [id number] it y of [place] [id number] [place] as Professio [phone] Mt dical nal [address] [place] [facility] 2020-08-08 2020-08-08 Letter Lab, Pcp [facility] [id number] Univers 00:00:00 00:00:00 (Out) [facility] [id number] it y of [place] [id number] [place] as Professio [phone] Mt dical nal 0[address] [place] [facility] 2020-08-05 2020-08-05 Laboratory Lab, Adc Fam Pob I [facility] 1.2. [id number] [id number] Univers 13:35:13 13:55:13 Only [facility]ie [facility] [id number] ity of [place] [id number] [place] as Professio [phone] Mt dical nal [address] [place] [facility] 2020-08-05 2020-08-05 [facility] [id number] [facility] 13:00:00 13:00:00 TAMIE ity of [facility] 2020-08-05 2020-08-05 Orders Doctor FRANCISCO [id number] [facility] 00:00:00 00:00:00 Only Unassigned, LIO [id number] ity of [facility] [id number] [place] as [phone] [address] 2020-07-27 2020-07-27 [facility] [id number] [facility] 08:20:00 08:28:42 AMARI ity [facility] 2015-12-19 2015-12-19 Office Foot, [facility] TDCJ 1.2.840.11 [id number] [facility] 09:00:00 13:48:[facility] [id number] [id number] [phone] [address] Results Test Description Test Time Test Comments Results Result Comments Source fecal occult blood, stool 2022-08-17 16:59:00 Test Item Value Reference Range Interpretation Comme nts Positive (test code = Positive) 0 Negative (test code = Negative) 3 [facility] [id number] 16:34:00 Test Item Value Reference Range Interpretation Comments Negative (test code = Negative) 3 [facility] [id number] 02:55:00 Test Item Value Reference Range Interpretation Comments Ammonia (test code = Ammonia) 22.0 [id number] 02:55:00 Test Item Value Reference Range Interpretation Comments Ammonia (test code = Ammonia) 22.0 [facility] [id number] 23:59:00 Test Item Value Reference Range Interpretation Comments Vitamin B12 Lvl (test code = Vitamin 1629 B12 Lvl) [facility] [id number] 23:59:00 Test Item Value Reference Range Interpretation Comments Folate Lvl (test code = Folate Lvl) 16.9 [facility] 23:59:00 Test Item Value Reference Range Interpretation Comments RPR (test code = RPR) Non Reactive (08/22/20 6:59 PM) [place] 467681-05-20 23:59:00 Test Item Value Reference Range Interpretation Comments HIV Ag/Ab 4th Gen Negative *NA*(08/22/20 (test code = HIV 6:59 PM) Ag/Ab 4th Gen) [facility] [place] [place]2021-05-20 23:59:00 Test Item Value Reference Range Interpretation Comments Vitamin B12 Lvl (test code = Vitamin 1629 B12 Lvl) [facility] [place]2021-05-20 23:59:00 Test Item Value Reference Range Interpretation Comments Folate Lvl (test code = Folate Lvl) 16.9 [place] 467681-05-20 23:59:00 Test Item Value Reference Range Interpretation Comments RPR (test code = RPR) Non Reactive (08/22/20 6:59 PM) [place] 467681-05-20 23:59:00 Test Item Value Reference Range Interpretation Comments HIV Ag/Ab 4th Gen Negative *NA*(08/22/20 (test code = HIV 6:59 PM) Ag/Ab 4th Gen) [facility]2021-05-20 22:48:00 Test Item Value Reference Range Interpretation Comments Glucose Lvl (test code = Glucose Lvl) 86 70-99 [facility]2021-05-20 22:48:00 Test Item Value Reference Range Interpretation Comments BUN (test code = BUN) 19 7-22 [facility]2021-05-20 22:48:00 Test Item Value Reference Range Interpretation Comments Creatinine Lvl (test code = Creatinine 0.86 0.50-1.40 Lvl) [facility]2021-05-20 22:48:00 Test Item Value Reference Range Interpretation Comments Sodium Lvl (test code = Sodium Lvl) 140 135-145 [facility]2021-05-20 22:48:00 Test Item Value Reference Range Interpretation Comments Potassium Lvl (test code = Potassium 4.3 3.5-5.1 Lvl) [facility]2021-05-20 22:48:00 Test Item Value Reference Range Interpretation Comments Chloride Lvl (test code = Chloride Lvl) 106 95-109 [facility]2021-05-20 22:48:00 Test Item Value Reference Range Interpretation Comments CO2 (test code = CO2) 32 24-32 [facility] [id number] 22:48:00 Test Item Value Reference Range Interpretation Comments Calcium Lvl (test code = Calcium Lvl) 8.7 8.5-10.5 [place] 569391-05-20 22:48:00 Test Item Value Reference Range Interpretation Comments Total Protein (test code = Total 6.6 6.4-8.4 Protein) [place] 569391-05-20 22:48:00 Test Item Value Reference Range Interpretation Comments Albumin Lvl (test code = Albumin Lvl) 3.5 3.5-5.0 [facility] [id number] 22:48:00 Test Item Value Reference Range Interpretation Comments ALT (test code = ALT) 27 See_Comment [Auto mated message] The system which ge nerated this result transmit ginny reference range : <=65. The reference range was not used to interpr et this result as lady l/abnormal. [facility] [id number] 22:48:00 Test Item Value Reference Range Interpretation Comments AST (test code = AST) 20 See_Comment [Auto mated message] The system which ge nerated this result transmit ginny reference range : <=37. The reference range was not used to interpr et this result as lady l/abnormal. [facility] [id number] 22:48:00 Test Item Value Reference Range Interpretation Comments Alk Phos (test code = Alk Phos) 58 39-136 [facility] [id number] 22:48:00 Test Item Value Reference Range Interpretation Comments Bili Total (test code = Bili Total) 0.3 0.2-1.3 [facility] [id number] 22:48:00 Test Item Value Reference Range Interpretation Comments Glucose Lvl (test code = Glucose Lvl) 86 70-99 [facility] [id number] 22:48:00 Test Item Value Reference Range Interpretation Comments BUN (test code = BUN) 19 7-22 [facility] [id number] 22:48:00 Test Item Value Reference Range Interpretation Comments AGAP (test code = AGAP) 6.3 10.0-20.0 [facility] [id number] 22:48:00 Test Item Value Reference Range Interpretation Comments Creatinine Lvl (test code = Creatinine 0.86 0.50-1.40 Lvl) [address]05-20 22:48:00 Test Item Value Reference Range Interpretation Comments Sodium Lvl (test code = Sodium Lvl) 140 135-145 [place] 569391-05-20 22:48:00 Test Item Value Reference Range Interpretation Comments Potassium Lvl (test code = Potassium 4.3 3.5-5.1 Lvl) [place] 569391-05-20 22:48:00 Test Item Value Reference Range Interpretation Comments Chloride Lvl (test code = Chloride Lvl) 106 95-109 [place] 569391-05-20 22:48:00 Test Item Value Reference Range Interpretation Comments CO2 (test code = CO2) 32 24-32 [place] 569391-05-20 22:48:00 Test Item Value Reference Range Interpretation Comments Calcium Lvl (test code = Calcium Lvl) 8.7 8.5-10.5 [place] 569391-05-20 22:48:00 Test Item Value Reference Range Interpretation Comments Total Protein (test code = Total 6.6 6.4-8.4 Protein) [place] 569391-05-20 22:48:00 Test Item Value Reference Range Interpretation Comments Albumin Lvl (test code = Albumin Lvl) 3.5 3.5-5.0 [place] 569391-05-20 22:48:00 Test Item Value Reference Range Interpretation Comments ALT (test code = ALT) 27 See_Comment [Auto mated message] The system which ge nerated this result transmit ginny reference range : <=65. The reference range was not used to interpr et this result as lady l/abnormal. [place] 569391-05-20 22:48:00 Test Item Value Reference Range Interpretation Comments AST (test code = AST) 20 See_Comment [Auto mated message] The system which ge nerated this result transmit ginny reference range : <=37. The reference range was not used to interpr et this result as lady l/abnormal. [place] 569391-05-20 22:48:00 Test Item Value Reference Range Interpretation Comments B/C Ratio (test code = B/C Ratio) 22 1 -25 [facility]2021-05-20 22:48:00 Test Item Value Reference Range Interpretation Comments Alk Phos (test code = Alk Phos) 58 39-136 [place] 569391-05-20 22:48:00 Test Item Value Reference Range Interpretation Comments Bili Total (test code = Bili Total) 0.3 0.2-1.3 [place] 569391-05-20 22:48:00 Test Item Value Reference Range Interpretation Comments AGAP (test code = AGAP) 6.3 10.0-20.0 [place] 569391-05-20 22:48:00 Test Item Value Reference Range Interpretation Comments B/C Ratio (test code = B/C Ratio) 22 1 - [place] 569391-05-20 22:48:00 Test Item Value Reference Range Interpretation Comments Globulin (test code = Globulin) 3.1 2.7-4.2 [place] 569391-05-20 22:48:00 Test Item Value Reference Range Interpretation Comments A/G Ratio (test code = A/G Ratio) 1.1 1 0.7-1.6 [place] 569391-05-20 22:48:00 Test Item Value Reference Range Interpretation Comments eGFR (test code = eGFR) 94 [facility]qvukjsYEHGIJYZIE3648-14-67 22:48:00 Test Item Value Reference Range Interpretation Comments WBC (test code = WBC) 4.0 3.7-10.4 [place] 273451-05-20 22:48:00 Test Item Value Reference Range Interpretation Comments RBC (test code = RBC) 4.45 4.70-6.10 [place] 273451-05-20 22:48:00 Test Item Value Reference Range Interpretation Comments Hgb (test code = Hgb) 13.5 14.0-18.0 [place] 569391-05-20 22:48:00 Test Item Value Reference Range Interpretation Comments Globulin (test code = Globulin) 3.1 2.7-4.2 [place] 273451-05-20 22:48:00 Test Item Value Reference Range Interpretation Comments Hct (test code = Hct) 39.8 42.0-54.0 [place] 273451-05-20 22:48:00 Test Item Value Reference Range Interpretation Comments MCV (test code = MCV) 89.3 80.0-94.0 [facility] HospitalNfbxvxfQKGGDXDHJG9955-17-74 22:48:00 Test Item Value Reference Range Interpretation Comments MCH (test code = MCH) 30.3 pg 27.0-31.0 [facility]GuswgvrDWBNLWYEKX8000-31-29 22:48:00 Test Item Value Reference Range Interpretation Comments MCHC (test code = MCHC) 34.0 32.0-36.0 [facility] HospitalWsjiskzYSIYINSPGE7266-69-42 22:48:00 Test Item Value Reference Range Interpretation Comments RDW (test code = RDW) 13.8 11.5-14.5 [facility] HospitalSmzrmpzRQTJBTAIHC3759-14-89 22:48:00 Test Item Value Reference Range Interpretation Comments Platelet (test code = Platelet) 278 133-450 [facility] HospitalIbhrpoyJJFTTNNSNK2642-82-62 22:48:00 Test Item Value Reference Range Interpretation Comments MPV (test code = MPV) 7.8 7.4-10.4 [place] 273451-05-20 22:48:00 Test Item Value Reference Range Interpretation Comments PT (test code = PT) 12.6 s 12.0-14.7 [facility] HospitalGxxdrceKPEFAVYIPY2596-95-14 22:48:00 Test Item Value Reference Range Interpretation Comments INR (test code = INR) 0.95 1 0.85-1.17 [facility] HospitalXnbzuojJHCGYREJTX3353-82-32 22:48:00 Test Item Value Reference Range Interpretation Comments PTT (test code = PTT) 29.3 s 22.9-35.8 [facility]2021-05-20 22:48:00 Test Item Value Reference Range Interpretation Comments A/G Ratio (test code = A/G Ratio) 1.1 1 0.7-1.6 [place] 273451-05-20 22:48:00 Test Item Value Reference Range Interpretation Comments Segs (test code = Segs) 58.2 45.0-75.0 [facility] HospitalRwpljnqGRKNFWPYLP4476-30-39 22:48:00 Test Item Value Reference Range Interpretation Comments Lymphocytes (test code = Lymphocytes) 28.9 20.0-40.0 [place] 273451-05-20 22:48:00 Test Item Value Reference Range Interpretation Comments Monocytes (test code = Monocytes) 9.7 2.0-12.0 [facility] HospitalZtfngujJDQPHBZQVI3137-20-21 22:48:00 Test Item Value Reference Range Interpretation Comments Eosinophils (test code = 2.2 See_Comment [A utomated message] The Eosinophils) system which ge nerated this result tra nsmitted reference range : <=4.0. The reference r suly was not used to int erpret this result as normal/abnormal . [facility] HospitalVjhxeimJAOIVOEWDZ1709-32-58 22:48:00 Test Item Value Reference Range Interpretation Comments Basophils (test code = 1.0 See_Comment [Aut omated message] The Basophils) system which ge nerated this result tra nsmitted reference range : <=1.0. The reference r suly was not used to int erpret this result as normal/abnormal . [facility] HospitalAtzyprwYYNXHRXYOI8431-55-39 22:48:00 Test Item Value Reference Range Interpretation Comments Neutrophils # (test code = Neutrophils 2.3 1.5-8.1 #) [facility] HospitalDeytjnqQVKCNRJJEB5174-23-10 22:48:00 Test Item Value Reference Range Interpretation Comments Lymphocytes # (test code = Lymphocytes 1.2 1.0-5.5 #) [facility] HospitalDsueobvUIZIYMZCAI2431-03-79 22:48:00 Test Item Value Reference Range Interpretation Comments Monocytes # (test code 0.4 See_Comment [Aut omated message] The = Monocytes #) system which generated this result tra nsmitted reference range : <=0.8. The reference r suly was not used to int erpret this result as normal/abnormal . [facility] HospitalZbhjrkeLHAXBLZWBS9510-65-79 22:48:00 Test Item Value Reference Range Interpretation Comments Eosinophils # (test code 0.1 See_Comment [A utomated message] The = Eosinophils #) system whic h generated this result tra nsmitted reference range : <=0.5. The reference r suly was not used to int erpret this result as normal/abnormal . [facility]2021-05-20 22:48:00 Test Item Value Reference Range Interpretation Comments Ca Ion WB (test code = Ca Ion WB) 1.20 1.05-1.25 [facility]2021-05-20 22:48:00 Test Item Value Reference Range Interpretation Comments eGFR (test code = eGFR) 94 [facility]PARATHYROID [id number] 22:48:00 Test Item Value Reference Range Interpretation Comments Ca Norm WB (test code = Ca Norm WB) 1.16 1.05-1.25 [facility] HospitalKpiqabsZBZMXXQVYZ0199-36-01 22:48:00 Test Item Value Reference Range Interpretation Comments WBC (test code = WBC) 4.0 3.7-10.4 [facility] HospitalWspdkvbKYXPMXTOXS8817-34-98 22:48:00 Test Item Value Reference Range Interpretation Comments RBC (test code = RBC) 4.45 4.70-6.10 [facility] HospitalMwhxymcZZXWQSHWCW0965-77-96 22:48:00 Test Item Value Reference Range Interpretation Comments Hgb (test code = Hgb) 13.5 14.0-18.0 [facility] HospitalJqbjnxiGSLLGHZJSG6360-94-28 22:48:00 Test Item Value Reference Range Interpretation Comments Hct (test code = Hct) 39.8 42.0-54.0 [facility] HospitalBaajdgbQAUZQAJMGO4670-06-64 22:48:00 Test Item Value Reference Range Interpretation Comments MCV (test code = MCV) 89.3 80.0-94.0 [facility] HospitalBerjcviBXNDTQWFWP4478-26-71 22:48:00 Test Item Value Reference Range Interpretation Comments MCH (test code = MCH) 30.3 pg 27.0-31.0 [facility] HospitalPvvrxvtVIMWSHIGVG1364-52-61 22:48:00 Test Item Value Reference Range Interpretation Comments MCHC (test code = MCHC) 34.0 32.0-36.0 [facility] HospitalEyflmncNFKBKNTTQA2007-60-90 22:48:00 Test Item Value Reference Range Interpretation Comments RDW (test code = RDW) 13.8 11.5-14.5 [facility] HospitalMiaqrhaIBATICKMDM4568-94-64 22:48:00 Test Item Value Reference Range Interpretation Comments Platelet (test code = Platelet) 278 133-450 [facility] HospitalWkwktuzVYJSIFGHEB2294-30-31 22:48:00 Test Item Value Reference Range Interpretation Comments MPV (test code = MPV) 7.8 7.4-10.4 [facility] HospitalOxzluetPLPJMGRLXN7345-22-57 22:48:00 Test Item Value Reference Range Interpretation Comments PT (test code = PT) 12.6 s 12.0-14.7 [place] 273451-05-20 22:48:00 Test Item Value Reference Range Interpretation Comments INR (test code = INR) 0.95 1 0.85-1.17 [place] 273451-05-20 22:48:00 Test Item Value Reference Range Interpretation Comments PTT (test code = PTT) 29.3 s 22.9-35.8 [place] 273451-05-20 22:48:00 Test Item Value Reference Range Interpretation Comments Segs (test code = Segs) 58.2 45.0-75.0 [place] 273451-05-20 22:48:00 Test Item Value Reference Range Interpretation Comments Lymphocytes (test code = Lymphocytes) 28.9 20.0-40.0 [place] [address]-05-20 22:48:00 Test Item Value Reference Range Interpretation Comments Monocytes (test code = Monocytes) 9.7 2.0-12.0 [place] 273451-05-20 22:48:00 Test Item Value Reference Range Interpretation Comments Eosinophils (test code = 2.2 See_Comment [A utomated message] The Eosinophils) system which ge nerated this result tra nsmitted reference range : <=4.0. The reference r suly was not used to int erpret this result as normal/abnormal . [place] 273451-05-20 22:48:00 Test Item Value Reference Range Interpretation Comments Basophils (test code = 1.0 See_Comment [Aut omated message] The Basophils) system which ge nerated this result tra nsmitted reference range : <=1.0. The reference r suly was not used to int erpret this result as normal/abnormal . [place] 273451-05-20 22:48:00 Test Item Value Reference Range Interpretation Comments Neutrophils # (test code = Neutrophils 2.3 1.5-8.1 #) [place] [address]-05-20 22:48:00 Test Item Value Reference Range Interpretation Comments Lymphocytes # (test code = Lymphocytes 1.2 1.0-5.5 #) [place] 273451-05-20 22:48:00 Test Item Value Reference Range Interpretation Comments Monocytes # (test code 0.4 See_Comment [Aut omated message] The = Monocytes #) system which generated this result tra nsmitted reference range : <=0.8. The reference r suly was not used to int erpret this result as normal/abnormal . [facility] HospitalYmbuafpDGYBZNOSRA4569-77-55 22:48:00 Test Item Value Reference Range Interpretation Comments Eosinophils # (test code 0.1 See_Comment [A utomated message] The = Eosinophils #) system whic h generated this result tra nsmitted reference range : <=0.5. The reference r suly was not used to int erpret this result as normal/abnormal . [facility]2021-05-20 22:48:00 Test Item Value Reference Range Interpretation Comments Ca Ion WB (test code = Ca Ion WB) 1.20 1.05-1.25 [facility] [id number] 22:48:00 Test Item Value Reference Range Interpretation Comments Ca Norm WB (test code = Ca Norm WB) 1.16 1.05-1.25 [facility] Notes Date/Time Note Provider Source 2020-08-23 03:59:00-00:00 EXAM: MRI BRAIN WITHOUT CONTRAST [facility] DATE: 08/23/2020 3:23 AM Center INDICATION: - encephalopathy, ataxia, confusion, blurry vision. COMPARISON: None available TECHNIQUE: Multiplanar, multisequence MRI of the brain without contrast. IV contrast: None. FINDINGS: No restricted diffusion or hemosiderin depositio n in the brain. Focal T2 hyperintensity in t he right frontal white matter. Otherwise, unremarkable signal emanating from the brain parenchyma. No hydrocephalus, mass effec t, or extra-axial collection. Mild generalized cerebral volume loss. Larger intracranial vascular flow voids are pres erved. Cerebellar tonsils terminate in normal position. Mild paranasal sinus mucosal thickening. Mastoid air cells are clear. Normal marrow signal. No definitive abnormal T2 signal in the optic ne rves or chiasm. IMPRESSION: No acute intracranial abnormality. Focal nonspecific T2 hyperintensity in the deep right frontal white matter.
[2022-11-15 09:32] LABS: Absolute Lymphocytes (CBC) 0.6 K/uL (0.7-4.9); Hematocrit 37.1 % (39.6-49.0); Lymphocytes % 8.5 % (15.3-44.8); MCV 89.6 fL (80-100); MPV 6.6 fL (7.6-11.3); Platelets 537 thou/uL (152-406); RBC Red Blood Cell Count 4.15 M/uL (4.33-5.43)
[2022-11-15] MEDS ORDERED: LORazepam 2 MG/ML VIAL ONE (09:37)
--- NOTE | 2022-11-15 09:41 | RAD REPORT ---
EXAM DESCRIPTION: Paulina Single View11/15/2022 9:20 am CLINICAL HISTORY: sob COMPARISON: none FINDINGS: The lungs appear clear of acute infiltrate. The heart is normal size IMPRESSION: No acute abnormalities displayed
[2022-11-15 09:55] LABS: Albumin 3.8 g/dL (3.4-5.0); Bilirubin Direct 0.2 mg/dL (0-0.2); Bilirubin Indirect, Calculated 0.6 mg/dL (0.2-0.8); Bilirubin Total 0.8 mg/dL (0.2-1.0); Magnesium 1.6 mg/dL (1.6-2.4); Potassium 3.5 mEq/L (3.5-5.1); Protein, Total 7.9 g/dL (6.4-8.2); Troponin High Sensitivity 21.3 pg/mL (<58.9)
--- NOTE | 2022-11-15 11:11 | RAD REPORT ---
EXAM DESCRIPTION: CT - Chest For Pe Angio - 11/15/2022 10:58 am CLINICAL HISTORY: sob COMPARISON: None. TECHNIQUE: Dynamically enhanced axial 3 mm thick images of the chest were obtained during administra tion of 100 mL Isovue 370 IV contrast. Coronal and oblique reconstruction images were generated and r eviewed. Exam utilizes a protocol for optimal evaluation of pulmonary arterial tree. Maximum intensity projections 3D imaging was utilized All CT scans are performed using dose optimization technique as appropriate and may include automated exposure control or mA/KV adjustment according to patient size. FINDINGS: The opacification of the pulmonary arteries is suboptimal. No gross central pulmonary embo missael is seen. Small hiatal hernia. Wall of the esophagus is thickened A thoracic aortic aneurysm is not noted. A pleural effusion is not seen. A pericardial effusion is not seen. A lung consolidation is not present. IMPRESSION: No gross evidence of a central pulmonary embolism Thickening of the wall esophagus may secondary to inflammation or neoplasm
[2022-11-15] MEDS ORDERED: NA CHLORIDE 0.9% 1,000 ML ONE (13:09)
[2022-11-15 14:28] LABS: Potassium 3.7 mEq/L (3.5-5.1)
[2022-11-15] MEDS ORDERED: ONDANSETRON 4 MG/2 ML VIAL ONE (16:01)
--- NOTE | 2022-11-15 16:41 | EDPHYS ---
Physician Documentation [facility] Name: Jak Gauthier Age: 62 yrs Sex: Male : 1960 Arrival Date: 11/15/2022 Time: 09:05 Bed 5 Private MD: ED Physician Elijah Macedo HPI: 11/15 18:24 This 62 yrs old Male presents to ER via EMS with complaints of Nausea and vomiting kdr followed by shortness Of Breath. 18:25 Patient states that about 2 to 3 days ago he began having nausea vomiting and has been kdr since unable to keep his medications down. Since that he has been without his regular meds for the last 2 to 3 days. Patient has persisted with nausea vomiting and also has been very anxious. Vital signs were initially tachycardic and hypertensive. . Onset: The symptoms/episode began/occurred gradually, 3 day(s) ago. Severity of symptoms: At their worst the symptoms were severe incapacitating in the emergency department the symptoms are unchanged. The patient has not experienced similar symptoms in the past. The patient has not recently seen a physician. Historical: - Allergies: 09:12 No Known Allergies; ph - Home Meds: 09:38 gabapentin 300 mg oral capsule 3 times per day [Active]; tramadol 50 mg Oral tablet ph once [Active]; hydrocodone-acetaminophen 10-325 mg Oral tablet every 6 hours [Active]; fluoxetine 40 mg Oral capsule 2 caps daily [Active]; quetiapine 300 mg oral tablet every day at bedtime [Active]; quetiapine 25 mg oral tablet 2 times per day [Active]; doxepin 50 mg Oral capsule every day at bedtime [Active]; meloxicam 15 mg oral tablet daily [Active]; - PMHx: 09:12 Alcoholism; Bipolar disorder; depressive disorder; Schizophrenia; ph - Immunization history:: Adult Immunizations unknown. - Social history:: Smoking status: Patient reports the use of cigarette tobacco products, smokes one-half pack cigarettes per day. ROS: 18:25 Constitutional: Negative for fever, chills, and weight loss, patient is very tremulous kdr and extremely agitated Eyes: Negative for injury, pain, redness, and discharge, Neck: Negative for injury, pain, and swelling, Cardiovascular: Negative for chest pain, palpitations, and edema, Respiratory: Negative for shortness of breath, cough, wheezing, and pleuritic chest pain, Back: Negative for injury and pain, : Negative for injury, bleeding, discharge, and swelling, MS/Extremity: Negative for injury and deformity, Skin: Negative for injury, rash, and discoloration, Neuro: Negative for headache, weakness, numbness, tingling, and seizure activity. Allergy/Immunology: Negative for hives, rash, and allergies, Endocrine: Negative for neck swelling, polydipsia, polyuria, polyphagia, and marked weight changes, Hematologic/Lymphatic: Negative for swollen nodes, abnormal bleeding, and unusual bruising. 18:25 Abdomen/GI: Positive for abdominal pain, nausea and vomiting. Exam: 18:25 Constitutional: This is a well developed, well nourished patient who is awake, alert, kdr and in significant distress with rigors. Patient is unable to get comfortable. Head/Face: Normocephalic, atraumatic. Eyes: Pupils equal round and reactive to light, extra-ocular motions intact. Lids and lashes normal. Conjunctiva and sclera are non-icteric and not injected. Cornea within normal limits. Periorbital areas with no swelling, redness, or edema. Neck: Trachea midline, no thyromegaly or masses palpated, and no cervical lymphadenopathy. Supple, full range of motion without nuchal rigidity, or vertebral point tenderness. No Meningismus. Chest/axilla: Normal chest wall appearance and motion. Nontender with no deformity. No lesions are appreciated. Respiratory: Lungs have equal breath sounds bilaterally, clear to auscultation and percussion. No rales, rhonchi or wheezes noted. No increased work of breathing, no retractions or nasal flaring. Back: No spinal tenderness. No costovertebral tenderness. Full range of motion. Skin: Warm, dry with normal turgor. Normal color with no rashes, no lesions, and no evidence of cellulitis. MS/ Extremity: Pulses equal, no cyanosis. Neurovascular intact. Full, normal range of motion. 18:25 Cardiovascular: Rate: tachycardic, actual rate is 110 bpm, Rhythm: regular, JVD: is kdr not appreciated. 18:25 Abdomen/GI: Inspection: abdomen appears normal, Bowel sounds: diminished, in all quadrants, Palpation: mild abdominal tenderness, in all quadrants. Vital Signs: 09:08 BP 139 / 94; Pulse 114; Resp 28; Temp 99.7; Pulse Ox 96% on R/A; Weight 81.65 kg; ph Height 6 ft. 0 in. ; 09:41 BP 159 / 108; Pulse 101; Resp 22; Pulse Ox 100% on 2 lpm NC; ph 11:11 BP 142 / 98; Pulse 103; Resp 18; Pulse Ox 99% on 3 lpm NC; ph 12:25 BP 163 / 103; Pulse 108; Resp 20; Pulse Ox 100% on R/A; ph 14:12 BP 159 / 89; Pulse 102; Resp 18; Pulse Ox 99% on R/A; ph 15:30 BP 157 / 86; Pulse 105; Resp 18; Pulse Ox 98% on R/A; ph 16:30 BP 157 / 83; Pulse 105; Resp 18; Pulse Ox 98% on 2 lpm NC; ph 17:22 BP 144 / 78; Pulse 103; Resp 18; Pulse Ox 100% on 2 lpm NC; ph 09:08 Body Mass Index 24.41 (81.65 kg, 182.88 cm) ph MDM: 16:40 Patient medically screened. kdr 18:39 Data reviewed: vital signs, nurses notes, lab test result(s). kdr 11/15 09:09 Order name: Basic Metabolic Panel; Complete Time: 10:31 kdr 11/15 09:09 Order name: CBC with Diff; Complete Time: 10:31 kdr 11/15 09:09 Order name: D-Dimer; Complete Time: 10:31 kdr 11/15 09:09 Order name: LFT's; Complete Time: 10:31 kdr 11/15 09:09 Order name: Magnesium; Complete Time: 10:31 kdr 11/15 09:09 Order name: NT PRO-BNP; Complete Time: 10:31 kdr 11/15 09:09 Order name: Troponin HS; Complete Time: 10:31 kdr 11/15 12:53 Order name: Chem 7: Draw when Fluid bolus completed; Complete Time: 15:14 kdr 11/15 17:02 Order name: CBC with Automated Diff EDMS 11/15 17:02 Order name: CBC with Automated Diff EDMS 11/15 17:02 Order name: Comprehensive Metabolic Panel EDMS 11/15 17:02 Order name: Comprehensive Metabolic Panel EDMS 11/15 17:02 Order name: Protime (+INR) EDMA 11/15 17:02 Order name: Protime (+INR) EDMA 11/15 17:02 Order name: PTT, Activated Partial Thromb EDMS 11/15 17:02 Order name: PTT, Activated Partial Thromb EDMS 11/15 09:09 Order name: XRAY Chest (1 view); Complete Time: 10:31 kdr 11/15 10:33 Order name: CT Chest For PE Angio; Complete Time: 12:51 kdr 11/15 09:09 Order name: EKG; Complete Time: 09:09 kdr 11/15 15:48 Order name: Diet Regular; Complete Time: 15:48 ph 11/15 09:09 Order name: Cardiac monitoring; Complete Time: 09:14 kdr 11/15 09:09 Order name: EKG - Nurse/Tech; Complete Time: 09:19 kdr 11/15 09:09 Order name: IV Saline Lock; Complete Time: 09:10 kdr 11/15 09:09 Order name: Labs collected and sent; Complete Time: 09:25 kdr 11/15 09:09 Order name: O2 Per Protocol; Complete Time: 09:14 kdr 11/15 09:09 Order name: O2 Sat Monitoring; Complete Time: 09:14 kdr 11/15 12:53 Order name: PO challenge; Complete Time: 13:03 kdr Administered Medications: 09:30 Drug: Ativan IVP 2 mg Route: IVP; Site: right antecubital; ph 13:03 Drug: NS 0.9% IV 1000 ml Route: IV; Rate: 1 bolus; Site: right antecubital; ph 14:06 Follow up: Response: No adverse reaction; IV Status: Completed infusion; IV Intake: ph 1000ml Disposition Summary: 11/15/22 16:40 Hospitalization Ordered Hospitalization Status: Inpatient Admission kdr Provider: Bethany Mora Location: Telemetry/MedSurg (Inpatient) kdr Condition: Fair kdr Problem: new kdr Symptoms: have improved kdr Bed/Room Type: Standard kdr Room Assignment: 232(11/15/22 18:13) ss Diagnosis - Hypo-osmolality and hyponatremia kdr - Nausea with vomiting, unspecified kdr - Other psychoactive substance dependence with withdrawal, unspecified kdr Forms: - Medication Reconciliation Form kdr - SBAR form kdr - Leadership Thank You Letter kdr Signatures: Dispatcher [employer] EDMS Elijah Macedo MD MD [facility] Vanna Dobbins RN RN Carie Caban RN RN ph Corrections: (The following items were deleted from the chart) 18:13 16:40 kdr 18:37 18:25 Constitutional: Negative for fever, chills, and weight loss, Eyes: Negative for kdr injury, pain, redness, and discharge, Neck: Negative for injury, pain, and swelling, Cardiovascular: Negative for chest pain, palpitations, and edema, Respiratory: Negative for shortness of breath, cough, wheezing, and pleuritic chest pain, Back: Negative for injury and pain, : Negative for injury, bleeding, discharge, and swelling, MS/Extremity: Negative for injury and deformity, Skin: Negative for injury, rash, and discoloration, Neuro: Negative for headache, weakness, numbness, tingling, and seizure activity. Allergy/Immunology: Negative for hives, rash, and allergies, Endocrine: Negative for neck swelling, polydipsia, polyuria, polyphagia, and marked weight changes, Hematologic/Lymphatic: Negative for swollen nodes, abnormal bleeding, and unusual bruising, kdr 18:39 18:25 Constitutional: This is a well developed, well nourished patient who is awake, kdr alert, and in no acute distress. Head/Face: Normocephalic, atraumatic. Eyes: Pupils equal round and reactive to light, extra-ocular motions intact. Lids and lashes normal. Conjunctiva and sclera are non-icteric and not injected. Cornea within normal limits. Periorbital areas with no swelling, redness, or edema. Neck: Trachea midline, no thyromegaly or masses palpated, and no cervical lymphadenopathy. Supple, full range of motion without nuchal rigidity, or vertebral point tenderness. No Meningismus. Chest/axilla: Normal chest wall appearance and motion. Nontender with no deformity. No lesions are appreciated. kdr
--- NOTE | 2022-11-15 16:41 | ER ---
Nurse's Notes [facility] Name: Jak Gauthier Age: 62 yrs Sex: Male : 1960 Arrival Date: 11/15/2022 Time: 09:05 Bed 5 Private MD: Diagnosis: Hypo-osmolality and hyponatremia;Nausea with vomiting, unspecified;Other psychoactive substance dependence with withdrawal, unspecified Presentation: 11/15 09:08 Chief complaint: EMS states: Pt c/o difficulty breathing, also reports N/V x 2 days, ph states that he has been unable to take his normal medications, Spo2 100% on home oxygen for EMS, A\T\A x 1 and solumedrol given, 18 G RAC. Pt appears anxious upon arrival to ED. Coronavirus screen: Vaccine status: Patient reports receiving the 2nd dose of the covid vaccine. Ebola Screen: No symptoms or risks identified at this time. Initial Sepsis Screen: Does the patient meet any 2 criteria? RR > 20 per min. HR > 90 bpm. Yes Does the patient have a suspected source of infection? No. Patient's initial sepsis screen is negative. Risk Assessment: Do you want to hurt yourself or someone else? Patient reports no desire to harm self or others. Onset of symptoms was November 15, 2022. 09:08 Method Of Arrival: EMS: [facility] 09:08 Acuity: AMARA 3 ph Triage Assessment: 09:12 General: Appears in no apparent distress. Behavior is cooperative, anxious. Pain: ph Denies pain. Neuro: Level of Consciousness is awake, alert, obeys commands, Oriented to person, place, time, situation. Cardiovascular: Capillary refill < 3 seconds in bilateral fingers Patient's skin is warm and dry. Respiratory: Reports shortness of breath at rest Airway is patent Respiratory effort is labored, Respiratory pattern is tachypnea Onset: The symptoms/episode began/occurred gradually, the patient has moderate shortness of breath Denies cough. GI: Reports nausea, vomiting. Derm: Skin is pink, warm \T\ dry. Musculoskeletal: Range of motion: intact in all extremities. Historical: - Allergies: 09:12 No Known Allergies; ph - Home Meds: 09:38 gabapentin 300 mg oral capsule 3 times per day [Active]; tramadol 50 mg Oral tablet ph once [Active]; hydrocodone-acetaminophen 10-325 mg Oral tablet every 6 hours [Active]; fluoxetine 40 mg Oral capsule 2 caps daily [Active]; quetiapine 300 mg oral tablet every day at bedtime [Active]; quetiapine 25 mg oral tablet 2 times per day [Active]; doxepin 50 mg Oral capsule every day at bedtime [Active]; meloxicam 15 mg oral tablet daily [Active]; - PMHx: 09:12 Alcoholism; Bipolar disorder; depressive disorder; Schizophrenia; ph - Immunization history:: Adult Immunizations unknown. - Social history:: Smoking status: Patient reports the use of cigarette tobacco products, smokes one-half pack cigarettes per day. Screenin:13 [facility] ED Fall Risk Assessment (Adult) History of falling in the last 3 months, ph including since admission No falls in past 3 months (0 pts) Confusion or Disorientation No (0 pts) Impaired Gait No (0 pts). Abuse screen: Denies threats or abuse. Denies injuries from another. Nutritional screening: No deficits noted. Tuberculosis screening: No symptoms or risk factors identified. Assessment: 09:33 General: SEE TRIAGE ASSESSMENT. ph 11:11 Reassessment: Patient appears in no apparent distress at this time. Patient and/or ph family updated on plan of care and expected duration. Pain level reassessed. Patient is alert, oriented x 3, equal unlabored respirations, skin warm/dry/pink. 13:00 Reassessment: Patient appears in no apparent distress at this time. Patient and/or ph family updated on plan of care and expected duration. Pain level reassessed. Patient is alert, oriented x 3, equal unlabored respirations, skin warm/dry/pink. 15:00 Reassessment: Patient appears in no apparent distress at this time. Patient and/or ph family updated on plan of care and expected duration. Pain level reassessed. Patient is alert, oriented x 3, equal unlabored respirations, skin warm/dry/pink. 17:24 Reassessment: Patient appears in no apparent distress at this time. Patient and/or ph family updated on plan of care and expected duration. Pain level reassessed. Patient is alert, oriented x 3, equal unlabored respirations, skin warm/dry/pink. Vital Signs: 09:08 BP 139 / 94; Pulse 114; Resp 28; Temp 99.7; Pulse Ox 96% on R/A; Weight 81.65 kg; ph Height 6 ft. 0 in. ; 09:41 BP 159 / 108; Pulse 101; Resp 22; Pulse Ox 100% on 2 lpm NC; ph 11:11 BP 142 / 98; Pulse 103; Resp 18; Pulse Ox 99% on 3 lpm NC; ph 12:25 BP 163 / 103; Pulse 108; Resp 20; Pulse Ox 100% on R/A; ph 14:12 BP 159 / 89; Pulse 102; Resp 18; Pulse Ox 99% on R/A; ph 15:30 BP 157 / 86; Pulse 105; Resp 18; Pulse Ox 98% on R/A; ph 16:30 BP 157 / 83; Pulse 105; Resp 18; Pulse Ox 98% on 2 lpm NC; ph 17:22 BP 144 / 78; Pulse 103; Resp 18; Pulse Ox 100% on 2 lpm NC; ph 09:08 Body Mass Index 24.41 (81.65 kg, 182.88 cm) ph ED Course: 09:08 Patient arrived in ED. ss 09:08 Elijah Macedo MD is Attending Physician. kdr 09:08 Carie Caban RN is Primary Nurse. ph 09:12 Triage completed. ph 09:13 Arm band placed on Patient placed in an exam room. ph 09:14 Patient has correct armband on for positive identification. Bed in low position. Call ph light in reach. Side rails up X 1. Client placed on continuous cardiac and pulse oximetry monitoring. NIBP monitoring applied. Verbal reassurance given. 09:22 XRAY Chest (1 view) In Process Unspecified. EDMS 09:25 Basic Metabolic Panel Sent. me1 09:26 CBC with Diff Sent. me1 09:26 D-Dimer Sent. me1 09:26 LFT's Sent. me1 09:26 Magnesium Sent. me1 09:26 NT PRO-BNP Sent. me1 09:26 Troponin HS Sent. me1 09:26 Maintain EMS IV. Dressing intact. Good blood return noted. Site clean \T\ dry. Gauge \T\ me 1 site: 18g. RAC. 11:00 CT Chest For PE Angio In Process Unspecified. EDMS 14:06 Chem 7: Draw when Fluid bolus completed Sent. ph 16:38 Bethany Mora MD is Hospitalizing Provider. kdr Administered Medications: 09:30 Drug: Ativan IVP 2 mg Route: IVP; Site: right antecubital; ph 13:03 Drug: NS 0.9% IV 1000 ml Route: IV; Rate: 1 bolus; Site: right antecubital; ph 14:06 Follow up: Response: No adverse reaction; IV Status: Completed infusion; IV Intake: ph 1000ml Medication: 09:13 VIS not applicable for this client. ph Intake: 14:06 IV: 1000ml; Total: 1000ml. ph Outcome: 16:40 Decision to Hospitalize by Provider. kdr 18:46 Patient left the ED. ph Signatures: Dispatcher [employer] EDMS Elijah Macedo MD MD kdr Vanna Dobbins RN RN Carie Caban RN RN Sue Jordan RN RN me1 Corrections: (The following items were deleted from the chart) 17:22 14:21 BP 157 / 86; Pulse 105bpm; Resp 18bpm; Pulse Ox 98% RA; ph ph 17:24 17:22 BP 144 / 78; Pulse 103bpm; Resp 18bpm; Pulse Ox 100% RA; ph ph
[2022-11-15] MEDS ORDERED: ACETAMINOPHEN 325 MG TABLET PO PRN (16:53)
--- NOTE | 2022-11-15 17:08 | P.HP ---
Certification for Inpatient Patient admitted to: Observation With expected LOS: <2 Midnights Patient will require the following post-hospital care: None Practitioner: I am a practitioner with admitting privileges, knowledge of patient current condition, hospital course, and medical plan of care. Services: Services provided to patient in accordance with Admission requirements found in Title 42 Section 412.3 of the Code of Federal Regulations Patient History Date of Service: 11/15/22 Reason for admission: Unintentional overdose; Intractable nausea and vomiting History of Present Illness: Patient is a 62-year-old gentleman came to the hospital with intractable nausea and vomiting. Patient has a history of neuropathy along with multiple psychiatric conditions. Patient has history of bipolar disorder and schizophrenia patient is also dealing with major depressive disorder. Patient denies being suicidal. Patient was not able to keep anything down. Patient states this happens whenever he does not take his medications properly. Otherwise, patient denies any complaints. He is oxygenating well so will DC his wall oxygen. If he does not have any more nausea and vomiting with some probably discontinue his IV fluids as well. Patient was found to be hyponatremic as well. This is probably related to chronic use of his antipsychotics or a ntidepressants. Pt will be admitted to the hospital for further work-up. Allergies No Known Allergies Allergy (Unverified 11/15/22 19:13) Home Medications: Doxepin HCl 50 mg PO BEDTIME 11/15/22 Fluoxetine HCl [Prozac] 40 mg PO DAILY 11/15/22 Gabapentin 300 mg PO TID 11/15/22 Hydrocodone Bit/Acetaminophen [Hydrocodon-Acetaminophn 10-325] 1 tab PO QID 11/15/22 Meloxicam 15 mg PO DAILY 11/15/22 Quetiapine [Seroquel*] 25 mg PO BID 11/15/22 Quetiapine [Seroquel*] 300 mg PO BEDTIME 11/15/22 Tramadol HCl [Ultram] 50 mg PO DAILY 11/15/22 - Past Medical/Surgical History -: Neuropathy -: Depression -: Bipolar disorder -: Schizophrenia -: Hypertension Past Surgical History: Patient denies surgical history - Family History Father Family History: Reviewed- Non-Contributory - Social History Smoking Status: Current every day smoker Alcohol use: Yes CD- Drugs: No Review of Systems 10-point ROS is otherwise unremarkable Physical Examination - Vital Signs Temperature: 99 F Blood Pressure: 140/90 Pulse: 110 Respirations: 20 Pulse Ox (%): 96 - Physical Exam General: Alert, In no apparent distress, Oriented x3 HEENT: Atraumatic, PERRLA, Mucous membr. moist/pink, EOMI, Sclerae nonicteric Neck: Supple, 2+ carotid pulse no bruit, No LAD, Without JVD or thyroid abnormality Respiratory: Clear to auscultation bilaterally, Normal air movement Cardiovascular: Regular rate/rhythm, Normal S1 S2, No murmurs Gastrointestinal: Normal bowel sounds, Soft and benign, Non-distended, No tenderness, No rebound, No guarding Musculoskeletal: No clubbing, No swelling, No tenderness Integumentary: No rashes Neurological: Normal gait, Normal speech, Normal strength at 5/5 x4 extr, Normal tone, Sensation intact, Cranial nerves 3-12 intact, Normal affect Lymphatics: No axilla or inguinal lymphadenopathy - Studies Laboratory Data (last 24 hrs) 11/15/22 11/15/22 11/15/22 14:05 09:23 09:23 WBC 6.90 Hgb 12.6 L Hct 37.1 L Plt Count 537 H Sodium 127 L 128 L Potassium 3.7 3.5 BUN 16 13 Creatinine 1.01 1.14 Glucose 248 H 123 H Magnesium 1.6 Total Bilirubin 0.8 AST 24 ALT 28 Alkaline Phosphatase 118 H Assessment & Plan - Problems (Diagnosis) (1) Intractable nausea and vomiting Current Visit: Yes Status: Acute (2) Neuropathy Current Visit: Yes Status: Acute (3) Major depressive disorder Current Visit: Yes Status: Acute (4) Hyponatremia Current Visit: Yes Status: Acute (5) Bipolar disorder Current Visit: Yes Status: Acute (6) Schizophrenia Current Visit: Yes Status: Acute (7) Hypertension Current Visit: Yes Status: Acute - Plan Plan: 1. Aggressive IV hydration; antiemetics as needed 2. Monitor sodium level; most likely related to his SIADH from psychiatric meds 3. Monitor neuro status closely 4. Resume psych medications 5. DC her oxygen 6. Anticipate discharge over the next 24-48 hours if patient continues to do well. If we discharge in the morning then patient needs to be changed back to observation status. Discharge Plan: Home Plan to discharge in: 48 Hours - Advance Directives Does patient have a Living Will: No Does patient have a Durable POA for Healthcare: No - Code Status/Comfort Care Code Status Assessed: Yes Code Status: Full Code Critical Care: No Time Spent Managing PTS Care (In Minutes): 45
[2022-11-15] MEDS: NA CHLORIDE 0.9% 1,000 ML IV SCH (18:42)
[2022-11-15] MEDS: ONDANSETRON 4 MG/2 ML VIAL IV PRN (19:48)
[2022-11-16] MEDS: NA CHLORIDE 0.9% 1,000 ML IV SCH ×2 (03:00→05:40)
[2022-11-16 03:55] LABS: Absolute Lymphocytes (CBC) 0.9 K/uL (0.7-4.9); Hematocrit 30.8 % (39.6-49.0); Lymphocytes % 13.7 % (15.3-44.8); MCV 92.2 fL (80-100); Platelets 441 thou/uL (152-406); RBC Red Blood Cell Count 3.34 M/uL (4.33-5.43)
[2022-11-16 04:10] LABS: Protime INR 0.95
[2022-11-16 04:28] LABS: Albumin 2.9 g/dL (3.4-5.0); Bilirubin Total 0.3 mg/dL (0.2-1.0); Potassium 4.1 mEq/L (3.5-5.1); Protein, Total 6.4 g/dL (6.4-8.2); Thyroid Stimulating Hormone 1.32 uIU/mL (0.358-3.740)
[2022-11-16] MEDS: MELOXICAM 7.5 MG TAB PO SCH (09:13)
[2022-11-16] MEDS: GABAPENTIN 300 MG CAP PO SCH ×3 (09:13→21:25)
[2022-11-16] MEDS: HYDROCODONE/APAP 10/325 TAB PO SCH ×4 (09:13→21:25)
[2022-11-16] MEDS: NICOTINE 21 MG/PAT TD SCH (09:13)
[2022-11-16] MEDS: FLUOXETINE 20 MG CAP PO SCH (09:13)
[2022-11-16] MEDS: TRAMADOL HCL 50 MG TAB PO SCH (09:14)
[2022-11-16] MEDS: QUETIAPINE 25 MG TAB PO SCH ×2 (09:14→13:08)
--- NOTE | 2022-11-16 10:49 | P.PN ---
Subjective Date of Service: 11/16/22 Chief Complaint: Unintentional overdose; Intractable nausea and vomiting No acute events overnight. He reports that his nausea has persisted, but he has not had any vomiting overnight. He denies any chest pain or palpitations. Review of Systems 10-point ROS is otherwise unremarkable Gastrointestinal: Nausea Physical Examination - Vital Signs Temperature: 97.9 F Blood Pressure: 175/95 Pulse: 82 Respirations: 16 Pulse Ox (%): 98 - Physical Exam General: Alert, In no apparent distress, Oriented x3 HEENT: Atraumatic, Mucous membr. moist/pink, Sclerae nonicteric Neck: JVD not distended Respiratory: Clear to auscultation bilaterally, Normal air movement Cardiovascular: No edema, Regular rate/rhythm, Normal S1 S2, No gallops, No rubs, No murmurs Gastrointestinal: Normal bowel sounds, Soft and benign, Non-distended, No tenderness, No rebound, No guarding Musculoskeletal: No clubbing Integumentary: No rashes Neurological: Normal speech, Normal affect - Studies Laboratory Data (last 24 hrs) 11/15/22 14:05 Sodium 127 L Potassium 3.7 BUN 16 Creatinine 1.01 Glucose 248 H Assessment And Plan - Plan # Intractable Nausea/Vomiting # SIRS Criteria (Tachycardia, Tachypnea) due to above - no infectious source Unclear etiology, but seems to be improving. He reports a sensation of "food getting stuck in [his] chest," for the last several months. - Radiology: - Chest x-ray = "no acute abnormalities displayed." - CT chest angiogram = "no gross evidence of a central pulmonary embolism. Thickening of the wall esophagus may secondary to inflammation or neoplasm" - Gastroenterology unavailable for consult - Spoke with General Surgery (Dr. Renteria), who is willing to assist with his endoscopic needs - NPO pending Surgery recs - PRN anti-emetics # Hyponatremia - improving - Likely hypovolemic due to vomiting vs SIADH from psychiatric medications - Sodium: 128 -> 127 -> 133 # Schizophrenia # Bipolar Disorder # Major Depressive Disorder - Continue home fluoxetine, doxepin, quetiapine # Hypothyroidism - Continue home levothyroxine # Elevated D-Dimer - D-Dimer = 1412 - CT chest angiogram = "no gross evidence of a central pulmonary embolism. Thickening of the wall esophagus may secondary to inflammation or neoplasm" - Requested bilateral lower extremity Doppler George Roblero M.D.
[2022-11-16] MEDS ORDERED: LIDOCAINE 1% MPF 5 ML VIAL ONE (11:42)
[2022-11-16] MEDS ORDERED: propofoL 200 MG/20 ML VIAL IV ONE ×2 (11:42→12:11)
[2022-11-16] MEDS ORDERED: Ringers Lactate 1,000 ML IV ONE (11:49)
[2022-11-16] MEDS ORDERED: HYDRALAZINE HCL 20 MG/ML VIAL ONE (12:16)
--- NOTE | 2022-11-16 13:00 | CON ---
Date of Consultation: 11/16/2022 Brief History Of Present Illness: The patient is a 62-year-old male, who presents to the hospital wi th persistent 2-3 days of nausea, vomiting, and inability to tolerate any p.o. He states that this h as gotten significantly worse the days leading up to his presentation to the hospital. He states [place] t he has had some dysphagia to solids over the past 1-2 months, which he states would cause central c hest pain. He would relieve this by drinking some liquids, which would ultimately bring the food jess n or on occasion he would retch and pass the vomit food bolus back. It has been happening for approx imately 2 months. He does have a significant tobacco and alcohol use history including a 50 plus pac k-year history of cigarette smoking, which is currently active as well as alcohol usage of 6 pack las ts him between 1 and 2 days depending on his use, but he states he does drink not quite a 6-pack per day of beer. No fever, no chills. No change in bowel or bladder habits. He is unaware bringing up any blood in his emesis before or in the past. He has trouble with passing liquids, predominantly so lids until last 2-3 days, which as when the persistent nausea, vomiting occurred. No fever, no chill s. No weight changes. No other associated complaints. Past Medical History: Significant for bipolar disorder, depression, schizophrenia. Past Surgical History: Includes an appendectomy, tonsillectomy, right leg surgery for injury. Allergies: NO KNOWN DRUG ALLERGIES. Home Medications: Include gabapentin, tramadol, [place], fluoxetine, quetiapine, and meloxicam. Review of Systems: A 10-point review of systems other than HPI, denies. Physical Examination: General: At the time of my examination; he is awake, alert, oriented. Psychiatric: He is appropriate, conversive. HEENT: Normocephalic. Sclerae anicteric. Mucous membranes moist. Oropharynx clear. He has poor d entition. Neck: Supple without JVD. Chest: Expansion and excursion. Cardiovascular: Regular rate and rhythm. Pulmonary: Clear to auscultation bilaterally. Abdomen: Soft, nontender, nondistended. No rebound. No guarding. No focal peritonitis. Extremities: No clubbing, cyanosis, or edema. Skin: Warm and dry. Laboratory Data: Revealed a white blood cell count of 6.7, hemoglobin 10.2, hematocrit 30.8, platele t count was 441. His neutrophils were 73%. His PT 10.4, INR is 0.95, PTT is 31.3. D-dimer was 1412 . His sodium 133, potassium 4.1, chloride 101, carbon dioxide 27, BUN 18, creatinine 1.01. His gluc ose is 104, calcium is 7.9, total bilirubin is 0.3, AST 19, ALT 22, alkaline phosphatase was 90. Cor tisol level was 1.34. He had imaging performed, which included a CT chest, thoracic/CTA, which was o fficially read as small hiatal hernia, wall of the esophagus is thickened, no gross evidence of centr al pulmonary embolism. Thickening of the wall esophagus may be secondary to inflammation of neoplasm . Assessment And Plan: This is a 62-year-old male, who presents with signs and symptoms of dysphagia, persistent nausea, vomiting, and imaging findings concerning for inflammation versus neoplasm. 1.IV fluid hydration. 2.N.p.o. status. 3.I have explained risks, benefits, and alternatives of the upper gastrointestinal endoscopy and eso phagogastroduodenoscopy including, but not limited to bleeding, infection, damage to surrounding tiss ues, perforation, need for further operation and procedure. The patient agreed to proceed as indicat ed. DOTTY/DEVAN Voice ID: [id number] Report ID: [id number]
[2022-11-16] MEDS: ONDANSETRON 4 MG/2 ML VIAL IV PRN (13:08)
--- NOTE | 2022-11-16 13:12 | EKG ---
Test Date: 2022-11-15 Test Time: 09:15:42 Running Instructor: LAVELLE MEASUREMENT RESULTS: Intervals: Rate: 105 NM: 150 QRSD: 76 QT: 382 QTc: 504 [place]: P: -5 NM: 150 QRS: -27 T: 63 INTERPRETIVE STATEMENTS: Sinus tachycardia Cannot rule out Anteroseptal infarct, age undetermined Abnormal ECG Compared to ECG 05/28/2021 18:30:13 Sinus rhythm no longer present Atrial abnormality no longer present Myocardial infarct finding still present Electronically Signed On 11-16-22 13:10:03 CDT by Bladimir Zaman
--- NOTE | 2022-11-16 19:01 | RAD REPORT ---
EXAM DESCRIPTION: US - Extrem Venous W Compress Vinh - 11/16/2022 6:54 pm CLINICAL HISTORY: elevated d-dimer Bilateral leg edema and swelling. COMPARISON: <Comparisons> TECHNIQUE: Real-time sonographic interrogation of the left and right lower extremity deep venous sys tems was performed. FINDINGS: Normal compressibility, flow augmentation, phasic flow and spontaneous flow is identified in both the left and right lower extremity deep venous systems. IMPRESSION: No sonographic evidence of left or right lower extremity deep venous thrombosis.
[2022-11-16] MEDS: QUETIAPINE 100MG TAB PO SCH (21:25)
[2022-11-16] MEDS: DOXEPIN HCL 25 MG CAP PO SCH (21:25)
[2022-11-17 04:52] LABS: Hematocrit 32.4 % (39.6-49.0)
[2022-11-17 05:06] LABS: Phosphorus 2.6 mg/dL (2.5-4.9); Potassium 4.2 mEq/L (3.5-5.1)
[2022-11-17] MEDS: LEVOTHYROXINE SOD 0.1 MG TAB PO SCH (06:17)
[2022-11-17] MEDS: HYDROCODONE/APAP 10/325 TAB PO SCH ×4 (08:20→21:14)
[2022-11-17] MEDS: GABAPENTIN 300 MG CAP PO SCH ×3 (08:20→21:15)
[2022-11-17] MEDS: MELOXICAM 7.5 MG TAB PO SCH (08:20)
[2022-11-17] MEDS: FLUOXETINE 20 MG CAP PO SCH (08:20)
[2022-11-17] MEDS: QUETIAPINE 25 MG TAB PO SCH ×2 (08:20→12:57)
[2022-11-17] MEDS: NICOTINE 21 MG/PAT TD SCH (08:20)
[2022-11-17] MEDS: TRAMADOL HCL 50 MG TAB PO SCH (08:20)
[2022-11-17] MEDS ORDERED: HYDRALAZINE HCL 20 MG/ML VIAL IV ONE (17:45)
--- NOTE | 2022-11-17 20:08 | P.PN ---
Subjective Date of Service: 11/17/22 Chief Complaint: Unintentional overdose; Intractable nausea and vomiting S/P EGD yesterday. He reports that his symptoms have improved with the clear liquid diet. Spoke with Dr. Huff (Pathology), who noted Mayela and H. Pylori, on the biopsy tissue. Infectious Diseases consulted to assist with anti- microbial therapy given prolonged QTc interval. He denies any chest pain or palpitations. Review of Systems 10-point ROS is otherwise unremarkable Physical Examination - Vital Signs Temperature: 97.0 F Blood Pressure: 155/78 Pulse: 86 Respirations: 16 Pulse Ox (%): 96 Assessment And Plan - Plan - Physical Exam General: Alert, In no apparent distress, Oriented x3 HEENT: Atraumatic, Mucous membr. moist/pink, Sclerae nonicteric Respiratory: Clear to auscultation bilaterally, Normal air movement Cardiovascular: No edema, Regular rate/rhythm, No murmurs Gastrointestinal: Normal bowel sounds, Soft, Non-distended, No tenderness Musculoskeletal: No clubbing Integumentary: No rashes Neurological: Normal speech, Normal affect # Intractable Nausea/Vomiting secondary to Mayela and Helicobacter Pylori Esophagitis/Gastritis # SIRS Criteria (Tachycardia, Tachypnea) due to above - no infectious source Unclear etiology, but seems to be improving. He reports a sensation of "food getting stuck in [his] chest," for the last several months. - Radiology: - Chest x-ray = "no acute abnormalities displayed." - CT chest angiogram = "no gross evidence of a central pulmonary embolism. Thickening of the wall esophagus may secondary to inflammation or neoplasm" - Gastroenterology unavailable for consult - Spoke with General Surgery (Dr. Renteria), who is willing to assist with his endoscopic needs - S/P EGD on 11/16 = "mild patchy chronic alcoholic gastritis was seen in the body of the stomach and in the pylorus. A cold forceps biopsy was taken from the body. A small hiatal hernia without obstruction was found at the GE junction Hiatal hernia. The depth of 39 cm to 41 cm from the incisors. The gastroesophageal junction (upper level of gastric folds) was 39 cm from the incisors. Cold forceps biopsy was taken for pathology and H. pylori. 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 The leukoplakia appeared at a depth of 25 cm to 30 cm from the incisors. Multiple cold forceps biopsies were taken from the midesophagus for pathology and H. pylori. Firm thickened midesophagus was noted with abnormal appearing mucosa noted on NBI, tissue was firm, adenomatous ap pearance, multiple cold forceps biopsies were taken from the midesophagus for pathology and H. pylori" - Spoke with Dr. Huff (Pathology), who preliminarily read the slides - she notes that Mayela and Helicobacter Pylori - Consulted Infectious Diseases and spoke with BUSINESS APPLICATIONS ANALYST Lizzette - recommendations appreciated - Given that he has a prolonged QTc interval, will repeat EKG prior to making decision on anti-fungal - Recommends omeprazole, bismuth salicylate, metronidazole, tetracycline - PRN anti-emetics # Hyponatremia - improving - Likely hypovolemic due to vomiting vs SIADH from psychiatric medications - Sodium: 128 -> 127 -> 133 # Schizophrenia # Bipolar Disorder # Major Depressive Disorder - Continue home fluoxetine, doxepin, quetiapine # Hypothyroidism - Continue home levothyroxine # Elevated D-Dimer - D-Dimer = 1412 - CT chest angiogram = "no gross evidence of a central pulmonary embolism. Thickening of the wall esophagus may secondary to inflammation or neoplasm" - Bilateral lower extremity Doppler = "no sonographic evidence of left or right lower extremity deep venous thrombosis." George Roblero M.D.
[2022-11-17] MEDS: QUETIAPINE 100MG TAB PO SCH (21:14)
[2022-11-17] MEDS: DOXEPIN HCL 25 MG CAP PO SCH (21:15)
[2022-11-18] MEDS: LEVOTHYROXINE SOD 0.1 MG TAB PO SCH (05:36)
--- NOTE | 2022-11-18 08:22 | P.CNS ---
Date of Consult: 11/18/22 Reason for Consult: H.pylori, marcio esophagitis Chief Complaint: Unintentional overdose; Intractable nausea and vomiting History of Present Illness: Patient is a 62 yo male with a history of hypertension, depression, bipolar disorder and schizophrenia who presented to the ED with complaints of intractable nausea and vomiting which has been occurring over the past 1-2 months. Patient underwent EGD on 11/17 and was found to have gastritis, H.pylori infection and esophageal candidiasis. Infectious disease was consulted. Allergies No Known Allergies Allergy (Unverified 11/15/22 19:13) Home medications list reviewed: Yes Home Medications: Doxepin HCl 50 mg PO BEDTIME 11/15/22 Fluoxetine HCl [Prozac] 40 mg PO DAILY 11/15/22 Gabapentin 300 mg PO TID 11/15/22 Hydrocodone Bit/Acetaminophen [Hydrocodon-Acetaminophn 10-325] 1 tab PO QID 11/15/22 Meloxicam 15 mg PO DAILY 11/15/22 Quetiapine [Seroquel*] 25 mg PO BID 11/15/22 Quetiapine [Seroquel*] 300 mg PO BEDTIME 11/15/22 Tramadol HCl [Ultram] 50 mg PO DAILY 11/15/22 - Past Medical/Surgical History -: Neuropathy -: Depression -: Bipolar disorder -: Schizophrenia -: Hypertension - Family History Father Family History: Reviewed- Non-Contributory - Social History Smoking Status: Current every day smoker Alcohol use: Yes CD- Drugs: No Caffeine use: Yes Place of Residence: Home Review of Systems 10-point ROS is otherwise unremarkable Gastrointestinal: Nausea, Vomiting, Abdominal Pain, Other (dysphagia) Physical Examination Temp Pulse Resp BP Pulse Ox 98.4 F 85 18 177/93 H 96 11/18/22 04:00 11/18/22 04:00 11/18/22 04:00 11/18/22 04:00 11/18/22 04:00 General: Alert, In no apparent distress, Oriented x3 HEENT: Atraumatic, Normocephalic Neck: JVD not distended Respiratory: Clear to auscultation bilaterally, Normal air movement Cardiovascular: No edema, Normal pulses, Regular rate/rhythm Gastrointestinal: Normal bowel sounds, Soft and benign Musculoskeletal: No clubbing, No swelling Integumentary: No rashes, No breakdown Neurological: Normal speech, Normal tone, Normal affect Conclusions/Impression: Problem List H.pylori Infection Esophageal Candidiasis Gastritis Hypertension Bipolar disorder Schizophrenia Depression Recommendations H.pylori: - Started on oral quadruple therapy with Omeprazole, Bismuth, Metronidazole and Tetracycline. - Tetracycline PO not currently available. Spoke with pharmacy, it has been ordered and will arrive tomorrow. Esophageal Candidiasis - Ideally, would like to start on Fluconazole for 14 days. However, patient's QTc was >500 on admission. Obtain repeat EKG. If QTc remains prolonged, alternative option is Micafungin 150mg IV daily for 14 days. Case discussed with Crys Blair
[2022-11-18] MEDS: metroNIDAZOLE 500 MG TABLET PO SCH ×2 (09:30→22:14)
[2022-11-18] MEDS: MELOXICAM 7.5 MG TAB PO SCH (09:30)
[2022-11-18] MEDS: GABAPENTIN 300 MG CAP PO SCH ×3 (09:30→22:14)
[2022-11-18] MEDS: HYDROCODONE/APAP 10/325 TAB PO SCH ×4 (09:31→22:14)
[2022-11-18] MEDS: TRAMADOL HCL 50 MG TAB PO SCH (09:31)
[2022-11-18] MEDS: FLUOXETINE 20 MG CAP PO SCH (09:31)
[2022-11-18] MEDS: PANTOPRAZOLE 40MG TABLET PO SCH ×2 (09:31→17:54)
[2022-11-18] MEDS: QUETIAPINE 25 MG TAB PO SCH ×2 (09:31→14:07)
[2022-11-18] MEDS: BISMUTH SUBSALICYL 262MG/15ML-240 ML BTL PO SCH ×2 (09:32→22:15)
[2022-11-18] MEDS: AMOXICILLIN TRIHYDR 250 MG CAP PO SCH ×2 (09:32→22:13)
[2022-11-18] MEDS: NICOTINE 21 MG/PAT TD SCH (09:32)
--- NOTE | 2022-11-18 18:26 | EKG ---
Test Date: 2022-11-17 Test Time: 21:53:10 Medical Research Tech: RIVERA MEASUREMENT RESULTS: Intervals: Rate: 81 NC: 162 QRSD: 76 QT: 386 QTc: 448 [place]: P: 16 NC: 162 QRS: -32 T: 44 INTERPRETIVE STATEMENTS: Normal sinus rhythm Left axis deviation Abnormal ECG Compared to ECG 11/15/2022 09:15:42 Left-axis deviation now present Sinus tachycardia no longer present Myocardial infarct finding no longer present Electronically Signed On 11-18-22 18:25:20 CDT by Bladimir Zaman
--- NOTE | 2022-11-18 18:30 | P.PN ---
Subjective Date of Service: 11/18/22 Chief Complaint: Unintentional overdose; Intractable nausea and vomiting He reports that his symptoms are gradually improving. He is on a clear liquid diet, will advance as tolerated. Once tolerating GI soft, can consider discharge tomorrow. He denies any chest pain or palpitations. Review of Systems 10-point ROS is otherwise unremarkable Gastrointestinal: Other (dysphagia) Physical Examination - Vital Signs Temperature: 98.3 F Blood Pressure: 162/96 Pulse: 74 Respirations: 16 Pulse Ox (%): 95 Assessment And Plan - Plan - Physical Exam General: Alert, In no apparent distress, Oriented x3 HEENT: Atraumatic, Mucous membr. moist/pink, Sclerae nonicteric Respiratory: Clear to auscultation bilaterally, Normal air movement Cardiovascular: No edema, Regular rate/rhythm, No murmurs Gastrointestinal: Normal bowel sounds, Soft, Non-distended, No tenderness Musculoskeletal: No clubbing Integumentary: No rashes Neurological: Normal speech, Normal affect # Intractable Nausea/Vomiting secondary to Mayela and Helicobacter Pylori Esophagitis/Gastritis # SIRS Criteria (Tachycardia, Tachypnea) due to above - no infectious source Unclear etiology, but seems to be improving. He reports a sensation of "food getting stuck in [his] chest," for the last several months. - Radiology: - Chest x-ray = "no acute abnormalities displayed." - CT chest angiogram = "no gross evidence of a central pulmonary embolism. Thickening of the wall esophagus may secondary to inflammation or neoplasm" - Gastroenterology unavailable for consult - Spoke with General Surgery (Dr. Renteria), who is willing to assist with his endoscopic needs - S/P EGD on 11/16 = "mild patchy chronic alcoholic gastritis was seen in the body of the stomach and in the pylorus. A cold forceps biopsy was taken from the body. A small hiatal hernia without obstruction was found at the GE junction Hiatal hernia. The depth of 39 cm to 41 cm from the incisors. The gastroesophageal junction (upper level of gastric folds) was 39 cm from the incisors. Cold forceps biopsy was taken for pathology and H. pylori. 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 The leukoplakia appeared at a depth of 25 cm to 30 cm from the incisors. Multiple cold forceps biopsies were taken from the midesophagus for pathology and H. pylori. Firm thickened midesophagus was noted with abnormal appearing mucosa noted on NBI, tissue was firm, adenomatous appearance, multiple cold forceps biopsies were taken from the midesophagus for pathology and H. pylori" - Spoke with Dr. Huff (Pathology), who preliminarily read the slides - she notes that Mayela and Helicobacter Pylori - Consulted Infectious Diseases and spoke with FLIGHT ATTENDANT Lizzette - recommendations appreciated - Plan to start micafungin today given prolonged QTc interval - Recommends omeprazole, bismuth salicylate, metronidazole, amoxicillin (tetracycline currently unavailable, but will be delivered tomorrow per Pharmacy) - PRN anti-emetics - Advance diet as tolerated # Hyponatremia - improving - Likely hypovolemic due to vomiting vs SIADH from psychiatric medications - Sodium: 128 -> 127 -> 133 # Schizophrenia # Bipolar Disorder # Major Depressive Disorder - Continue home fluoxetine, doxepin, quetiapine # Hypothyroidism - Continue home levothyroxine # Elevated D-Dimer - D-Dimer = 1412 - CT chest angiogram = "no gross evidence of a central pulmonary embolism. Thickening of the wall esophagus may secondary to inflammation or neoplasm" - Bilateral lower extremity Doppler = "no sonographic evidence of left or right lower extremity deep venous thrombosis." George Roblero M.D.
[2022-11-18] MEDS ORDERED: MICAFUNGIN SODIUM IV SCH (20:00)
[2022-11-18] MEDS ORDERED: NA CHLORIDE 0.9% IV SCH (20:00)
[2022-11-18] MEDS: QUETIAPINE 100MG TAB PO SCH (22:13)
[2022-11-18] MEDS: DOXEPIN HCL 25 MG CAP PO SCH (22:13)
[2022-11-19] MEDS: LEVOTHYROXINE SOD 0.1 MG TAB PO SCH (06:30)
[2022-11-19 06:33] VITALS: BMI 23.1
[2022-11-19] MEDS: MELOXICAM 7.5 MG TAB PO SCH (08:45)
[2022-11-19] MEDS: FLUOXETINE 20 MG CAP PO SCH (08:45)
--- NOTE | 2022-11-19 08:45 | P.PN ---
Date of Service: 11/19/22 Chief Complaint: Unintentional overdose; Intractable nausea and vomiting Subjective: Patient seen and examined at bedside. Reports improvement in nausea and abdominal pain. Denies any new or worsening complaints. No acute events reported overnight. Physical Examination Temp Pulse Resp BP Pulse Ox 97.2 F 75 16 124/76 97 11/19/22 04:00 11/19/22 04:00 11/19/22 04:00 11/19/22 04:00 11/19/22 04:00 General: Alert, In no apparent distress, Oriented x3 HEENT: Atraumatic, Normocephalic Neck: JVD not distended Respiratory: Clear to auscultation bilaterally, Normal air movement Cardiovascular: No edema, Normal pulses, Regular rate/rhythm Gastrointestinal: Normal bowel sounds, Soft and benign Musculoskeletal: No clubbing, No swelling Integumentary: No rashes, No breakdown Neurological: Normal speech, Normal tone, Normal affect Laboratory Data: - Reviewed Microbiology Data: - Reviewed Imaging Data: - Reviewed Medications List: Reviewed Assessment and Plan Problem List H.pylori Infection Esophageal Candidiasis Gastritis Hypertension Bipolar disorder Schizophrenia Depression Recommendations H.pylori: - On oral quadruple therapy with Omeprazole, Bismuth, Metronidazole and Tetracycline. - Continue for 2 weeks (11/18-12/02) Esophageal Candidiasis - Repeat EKG obtained QTc <480. Discontinue Micafungin IV and start on Fluconazole 200mg PO daily. - Continue for 2 weeks (11/18-12/02) Case discussed with Crys Blair
[2022-11-19] MEDS: PANTOPRAZOLE 40MG TABLET PO SCH (08:46)
[2022-11-19] MEDS: NICOTINE 21 MG/PAT TD SCH (08:47)
[2022-11-19] MEDS: QUETIAPINE 25 MG TAB PO SCH ×2 (08:47→13:23)
[2022-11-19] MEDS: metroNIDAZOLE 500 MG TABLET PO SCH (08:47)
[2022-11-19] MEDS: GABAPENTIN 300 MG CAP PO SCH ×2 (08:47→13:45)
[2022-11-19] MEDS: TETRACYCLINE HCL 250 MG CAP PO SCH ×3 (08:49→15:00)
[2022-11-19] MEDS: HYDROCODONE/APAP 10/325 TAB PO SCH ×2 (08:50→13:23)
[2022-11-19] MEDS: TRAMADOL HCL 50 MG TAB PO SCH (08:50)
[2022-11-19] MEDS: BISMUTH SUBSALICYL 262MG/15ML-240 ML BTL PO SCH (08:51)
[2022-11-19 09:00] VITALS: TEMP 98.3
[2022-11-19] MEDS ORDERED: MICAFUNGIN SODIUM 100 MG VIAL IV SCH (09:00)
[2022-11-19 10:15] VITALS: O2SAT 100
[2022-11-19 11:37] VITALS: BP 168/99
[2022-11-19] MEDS ORDERED: FLUCONAZOLE 100 MG TAB PO SCH (12:00)
--- NOTE | 2022-11-19 12:38 | P.DS ---
Admission Date: 11/15/22 Discharge Date: 11/19/22 Disposition: ROUTINE DISCHARGE Discharge Condition: GOOD Reason for Admission: Unintentional overdose; Intractable nausea and vomiting Consultations: 1. Infectious Diseases 2. General Surgery Procedures: - 11/16/2022 - Esophagogastroduodenoscopy Hospital Course: DIAGNOSES: # Intractable Nausea/Vomiting secondary to Mayela and Helicobacter Pylori Esophagitis/Gastritis # SIRS Criteria (Tachycardia, Tachypnea) due to above - no systemic infectious source # Hyponatremia - improving # Schizophrenia # Bipolar Disorder # Major Depressive Disorder # Hypothyroidism # Elevated D-Dimer HOSPITAL COURSE: Mr. Jak Gauthier is a 62 year old male with a past medical history significant for schizophrenia, bipolar disorder, major depressive disorder, and hypothyroidism who was admitted to the [facility] on for intractable nausea/vomiting. He was admitted to the Medicine service. Upon further evaluation, his CT chest angiogram revealed, "no gross evidence of a central pulmonary embolism. Thicken ing of the wall esophagus may secondary to inflammation or neoplasm." Given these findings, it was felt that he would benefit from an endoscopic evaluation. Gastroenterology was unavailable at our facility, so General Surgery was consulted. Dr. Renteria evaluated him and, on 11/16/2022, he underwent an esophagogastroduodenoscopy, which revealed, "mild patchy chronic alcoholic gastritis was seen in the body of the stomach and in the pylorus. A cold forceps biopsy was taken from the body. A small hiatal hernia without obstruction was found at the GE junction Hiatal hernia. The depth of 39 cm to 41 cm from the incisors. The gastroesophageal junction (upper level of gastric folds) was 39 cm from the incisors. Cold forceps biopsy was taken for pathology and H. pylori. 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 The leukoplakia appeared at a depth of 25 cm to 30 cm from the incisors. Multiple cold forceps biopsies were taken from the midesophagus for pathology and H. pylori. Firm thickened midesophagus was noted with abnormal appearing mucosa noted on NBI, tissue was firm, adenomatous appearance, multiple cold forceps biopsies were taken from the midesophagus for pathology and H. pylori." I spoke with Dr. Huff (Pathology), who preliminarily read the pathology slides. She notes that Mayela and Helicobacter Pylori on the biopsies. Infectious Diseases was consulted and he was evaluated by Dr. Okeefe. He recommended discharge home with 14 days of fluconazole, pantoprazole, bismuth subsalicylate, metronidazole, and tetracycline (end date: 12/02/2022). Over the course of his hospitalization, his diet was gradually advanced to a GI soft diet, and he was able to tolerate this without any issues. On 11/19/2022, he was seen on rounds and deemed medically stable for discharge. He was discharged with instructions to schedule follow-up appointments with his PCP (Dr. Cosby) and with General Surgery (Dr. Renteria). He was provided prescriptions for metronidazole, fluconazole, and tetracycline. He was given the opportunity to ask questions and reported no further questions. Furthermore, all questions were answered to the best of my ability. A copy of this discharge summary will be sent to the above providers to facilitate continuity of care. Today, I personally spent 25 minutes on his case, of which greater than 50% of t he time was spent in patient education, counseling, and coordination of care as described above. - Physical Exam General: Alert, In no apparent distress, Oriented x3 HEENT: Atraumatic, Mucous membr. moist/pink, Sclerae nonicteric Respiratory: Clear to auscultation bilaterally, Normal air movement Cardiovascular: No edema, Regular rate/rhythm, No murmurs Gastrointestinal: Normal bowel sounds, Soft, Non-distended, No tenderness Musculoskeletal: No clubbing Integumentary: No rashes Neurological: Normal speech, Normal affect Vital Signs/Physical Exam: Temp Pulse Resp BP Pulse Ox 98.3 F 83 16 168/99 H 100 11/19/22 11:37 11/19/22 11:37 11/19/22 11:37 11/19/22 11:37 11/19/22 11:37 Laboratory Data at Discharge: WBC 6.70 thou/uL (4.3-10.9) 11/16/22 02:32 Hgb 10.7 g/dL (13.6-17.9) L 11/17/22 03:57 Hct 32.4 % (39.6-49.0) L 11/17/22 03:57 Plt Count 441 thou/uL (152-406) H 11/16/22 02:32 PT 10.4 SECONDS (9.5-12.5) 11/16/22 02:32 INR 0.95 11/16/22 02:32 APTT 31.3 SECONDS (24.3-36.9) 11/16/22 02:32 Sodium 135 mEq/L (136-145) L 11/17/22 03:57 Potassium 4.2 mEq/L (3.5-5.1) 11/17/22 03:57 BUN 7 mg/dL (7-18) 11/17/22 03:57 Creatinine 0.82 mg/dL (0.70-1.30) 11/17/22 03:57 Glucose 93 mg/dL (74-106) 11/17/22 03:57 Phosphorus 2.6 mg/dL (2.5-4.9) 11/17/22 03:57 Magnesium 2.0 mg/dL (1.6-2.4) 11/17/22 03:57 Total Bilirubin 0.3 mg/dL (0.2-1.0) 11/16/22 02:32 AST 19 U/L (15-37) 11/16/22 02:32 ALT 22 U/L (16-61) 11/16/22 02:32 Alkaline Phosphatase 90 U/L (45-117) D 11/16/22 02:32 Home Medications: Doxepin HCl 50 mg PO BEDTIME 11/15/22 Fluoxetine HCl [Prozac] 40 mg PO DAILY 11/15/22 Gabapentin 300 mg PO TID 11/15/22 Hydrocodone Bit/Acetaminophen [Hydrocodon-Acetaminophn 10-325] 1 tab PO QID 11/03 06/25 Meloxicam 15 mg PO DAILY 11/15/22 Quetiapine [Seroquel*] 25 mg PO BID 11/15/22 Quetiapine [Seroquel*] 300 mg PO BEDTIME 11/15/22 Tramadol HCl [Ultram] 50 mg PO DAILY 11/15/22 Bismuth Subsal [[place]-Bismuth*] 15 ml PO BID bottle 11/19/22 Fluconazole 200 mg PO DAILY 13 Days #13 tab 11/19/22 Levothyroxine [Synthroid*] 0.1 mg PO DAILYAC tab 11/19/22 Pantoprazole [Protonix Tab*] 40 mg PO BIDAC 13 Days #26 tab 11/19/22 Tetracycline HCl 500 mg PO QID 13 Days #52 tab 11/19/22 metroNIDAZOLE [Metronidazole] 500 mg PO Q8H 13 Days #39 tab 11/19/22 New Medications: Fluconazole 200 mg PO DAILY 13 Days #13 tab metroNIDAZOLE [Metronidazole] 500 mg PO Q8H 13 Days #39 tab Pantoprazole [Protonix Tab*] 40 mg PO BIDAC 13 Days #26 tab Tetracycline HCl 500 mg PO QID 13 Days #52 tab Physician Discharge Instructions: 1. Please call and schedule a follow-up appointment with your PCP (Dr. Cosby) in 3-5 days - Your blood work showed that you have anemia. Please discuss further evaluation, including a colonoscopy, with your PCP 2. Please call and schedule a follow-up appointment with General Surgery (Dr. Renteria) in 3-5 days - Please have him repeat your H. Pylori test in 2 weeks to make sure the antibiotics have completely taken care of the infection Diet: AHA Activity: Ad agusto Followup: Jose Alberto Renteria MD [ACTIVE - CAN ADMIT] - Time spent managing pt's care (in minutes): 25
== END 2022-11-19 15:40 | disposition home or self-care (01) ==
LOC: ER 09:05 → INTOOBSV 16:54 → ERHOLD 16:54 → 2ND 18:21
PROVIDERS: ADMIT Hospitalist; ATTEND Internal Medicine
PROC: 0DB68ZX Excision of Stomach, Via Natural or Artificial Opening Endoscopic, Diagnostic (ICD-10-PCS; 2022-11-16)
PROC: 0DB38ZX Excision of Lower Esophagus, Via Natural or Artificial Opening Endoscopic, Diagnostic (ICD-10-PCS; 2022-11-16)
PROC: 0DB58ZX Excision of Esophagus, Via Natural or Artificial Opening Endoscopic, Diagnostic (ICD-10-PCS; 2022-11-16)
PROC: 0DB98ZX Excision of Duodenum, Via Natural or Artificial Opening Endoscopic, Diagnostic (ICD-10-PCS; principal; 2022-11-16 13:15)
DX: K22.89 Other specified disease of esophagus (principal); A04.8 Other specified bacterial intestinal infections; B37.81 Candidal esophagitis; R11.2 Nausea with vomiting, unspecified; E87.1 Hypo-osmolality and hyponatremia; F20.9 Schizophrenia, unspecified; F31.9 Bipolar disorder, unspecified; E03.9 Hypothyroidism, unspecified; R13.10 Dysphagia, unspecified; F17.210 Nicotine dependence, cigarettes, uncomplicated; K29.50 Unspecified chronic gastritis without bleeding; K44.9 Diaphragmatic hernia without obstruction or gangrene; K29.20 Alcoholic gastritis without bleeding; T43.201A Poisoning by unspecified antidepressants, accidental (unintentional), initial encounter; F32.A Depression, unspecified; R79.1 Abnormal coagulation profile
CPT/HCPCS: 36415; 71045; 71275; 80048; 80053; 80076; 82533; 82570; 83735; 83880; 84100; 84300; 84439; 84443; 84484; 85014; 85018; 85025; 85379; 85610; 85730; 88305; 88312; 93005; 93970; 96361; 96374; 99284; J0360; J2001; J2248; J2405; J2704; J7030; J7120; Q9967

== ENCOUNTER 2023-01-09 08:36 | Observation (INO) | payer BC, MEDICARE ==
--- OUTSIDE RECORDS SUMMARY | 2023-01-09 08:49 | XMS REPORT | Continuity of Care Document ---
:1960 Author Organization [facility] t Address [address] [place] [address] [address] [place] [address] Care Team Providers Name Role Phone DOUGLAS Attending Clinician Unavailable TRAVON BAZAN Attending Clinician Unavailable ALEJANDRA RAZA Attending Clinician Unavailable Alejandra Raza Attending Clinician Lab, Pcp Covid Attending Clinician Unavailable Lab, Adc Fam Pob I Attending Clinician Unavailable Tamie Gonzalez Attending Clinician TAMIE HENDERSON Attending Clinician Unavailable Doctor Unassigned, [place] Attending Clinician Unavailable AMARI CORTEZ Attending Clinician Unavailable Foot, [facility] Attending Clinician Unavailable Conrado Mejia MD Attending Clinician DOUGLAS Admitting Clinician Unavailable FRANCISCO HANNA Admitting Clinician Unavailable Francisco Hanna Jr Admitting Clinician Payers Payer Name Policy Type Policy Number Effective Date Expiration Date [place] RJ [id number] ADVANTAGE (HMO) 00:00:00 HIM REBECA BLUE [id number] 2020 ADVANTAGE O 00:00:00 Problems Condition Condition Condition Status Onset Resolution Last Treating Co mments Source Name Details Category Date Date Treatment Clinician Date [place] Problem Active Sandeep 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 [facility] 00:00: [facility] Acute Acute Problem Active [place] gastritis Gastritis 11-30 Comm uni 00:00: Hospita l Clinics Hiatal Hiatal Problem Active [place] hernia Hernia 11-30 [facility] Nausea and Nausea and Problem Active S [facility] vomiting Vomiting 11-30 Commun i 00:00: Hospita l Clinics Dysphagia Dysphagia Problem Active Swe linda 11-30 Communi 00:00: [facility] Hyponatrem Hyponatrem Problem Active S [facility] ia ia 11-26 Communi 00:00: ty [facility]ospita [facility] Chronic Chronic Problem Active [place] kidney Kidney 08-20 Communi disease Disease 00:00: ty stage 3A Stage 3a 00 Hospit a [facility] 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, Disorder, 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 l Clinics Anxiety Anxiety Problem Active [place] disorder Disorder 06-26 Commun i [facility]:00: [facility] Anemia Anemia Problem Active [place] 06-25 Communi 00:00: ty [facility] Insomnia Insomnia Problem Active [facility] 3- [facility]i 00:00: [facility] Chronic Chronic Problem Active [place] back pain Back Pain 3- Comm uni 00:00: ty Hospita l Clinics Auditory Auditory Problem Active [place] hallucinat Hallucinat 3-02 Co mmuni ions ions 00:00: ty 00 [facility] Schizophre Schizophre Problem Active S [facility] shavon shavon 3-02 Communi 00:00: ty [facility] Tobacco Tobacco Problem Active [place] user User 3-02 Communi 00:00: ty 00 Hospita l [facility] AMS AMS Diagnosis Active 2020-08-31 Mem oria Active 08-22 21:37:00 l 08/22/2020 00:00: Terrance bermudez [address] Allergies, Adverse Reactions, Alerts Allergy Allergy Status Severity Reaction(s) Onset Inactive Treating Comm ents Source Name Type Date Date Clinician NO KNOWN Drug Active [facility] ALLERGIE Class ity of [facility] No Known No Known Active Memori a Medicati Medicati l on on [place] Allergie Allergie s s Social History Social Habit Start Date Stop Date Quantity Comments Source Exposure to 2020-07-06 2020-08-05 Yes [facility] SARS-CoV-2 (event) 00:00:00 13:39:00 [facility] Alcohol intake 2015-12-19 2015-12-19 0 /d [facility] 00:00:00 00:00:00 [facility] Cigarettes smoked 2015-09-30 2015-09-30 [facility] of current (pack per 00:00:00 00:00:00 [facility] ) - Reported Branch Cigarette 2015-09-30 2015-09-30 University of pack-years 00:00:00 00:00:00 [facility] Tobacco use and 2015-09-30 2015-09-30 Former smokeless Uni versity of exposure 00:00:00 00:00:00 tobacco user [facility] History of tobacco 2012-09-29 Snuff User Univer sity of use 00:00:00 [facility] Sex Assigned At [birth year] [facility] 00:00:00 00:00:00 [facility] Smoking Status Start Date Stop Date Source Heavy Tobacco Smoker [facility] Ex-smoker 2015-09-30 00:00:00 2015-09-30 [facility] Medications Ordered Filled Start Stop Current Ordering Indication Dosage Frequency Signature Comments Components Source Medication Medication Date Date Medication? Clinician (SIG) Name Name FLUoxetine Yes 20 mg = 1 Me moria 20 mg oral 5-21 cap, PO, l capsule 21:05: Daily, # Terrance n 00 30 cap, 1 Refill(s), Pharmacy: [facility] [place], 182.88, cm, 08/22/20 17:49:00 CDT, Height, 77.273, kg, 08/22/20 17:49:00 CDT, Weight FLUoxetine Yes 20 mg = 1 Me moria 20 mg oral 5-21 cap, PO, l capsule 21:05: Daily, # Terrance n 00 30 cap, 1 Refill(s), Pharmacy: [facility] [place], 182.88, cm, 08/22/20 17:49:00 CDT, Height, 77.273, kg, 08/22/20 17:49:00 CDT, Weight FLUoxetine Yes 20 mg = 1 Me moria 20 mg oral 5-21 cap, PO, l capsule 21:05: Daily, # Terrance n 00 30 cap, 1 Refill(s), Pharmacy: [facility] [place], 182.88, cm, 08/22/20 17:49:00 CDT, Height, 77.273, kg, 08/22/20 17:49:00 CDT, Weight Vistaril No Notes: Memoria 5-21 (Same as: l 19:27: Vistaril) Vistaril No Notes: Memoria 5-21 (Same as: l 19:27: Vistaril) [place] Vistaril No Notes: Memoria 5-21 (Same as: l 19:27: Vistaril) Prozac No Notes: Memoria 5-21 (Same as: l 19:07: Prozac, [place] 00 Sarafem) Prozac No Notes: Memoria 5-21 (Same as: l 19:07: Prozac, [place] 00 Sarafem) Prozac No Notes: Memoria 5-21 (Same as: l 19:07: Prozac, Zohaib 00 Sarafem) Fluoxetine No PO, 0 Memori a 5-21 Refill(s) l 13:14: Zohaib Fluoxetine No PO, 0 Memori a 5-21 Refill(s) l 13:14: Zohaib FLUoxetine No 20 mg = 1 Me moria 20 mg oral 5-21 cap, PO, l capsule 13:14: Daily, # Terrance n 00 30 cap, 0 Refill(s) FLUoxetine No 20 mg = 1 Me [...] Not Crush) sennosides, No Notes: Larry kimberly SKILLED NURSING 5-21 (Same as: l 02:00: Senokot) Docusate No Notes: Memoria Sodium 100 5-21 (Same as: l MG Oral 02:00: Colace) [place] Capsule 00 (Do Not Crush) sennosides, No Notes: Larry kimberly SKILLED NURSING 5-21 (Same as: l 02:00: Senokot) Docusate No Notes: Memoria Sodium 100 5-21 (Same as: l MG Oral 02:00: Colace) Zhoaib Capsule 00 (Do Not Crush) sennosides, No Notes: Larry kimberly SKILLED NURSING 5-21 (Same as: l 02:00: Senokot) meloxicam meloxicam No meloxicam [place] 15 mg 15 mg 15 mg Communi tablet TAKE tablet TAKE tablet ty ONE (1) ONE (1) TAKE ONE Hospi ta TABLET(S) TABLET(S) (1) l BY MOUTH BY MOUTH TABLET(S) Cl inics DAILY. DAILY. BY MOUTH DAILY. quetiapine quetiapine No quetiapine [place] 25 mg 25 mg 25 mg Communi tablet TAKE tablet TAKE tablet ty ONE (1) ONE (1) TAKE ONE Hospi ta TABLET(S) TABLET(S) (1) l BY MOUTH BY MOUTH TABLET(S) Cl inics TWICE A TWICE A BY MOUTH DAY. DAY. TWICE A DAY. quetiapine quetiapine No quetiapine [place] 300 mg 300 mg 300 mg Communi tablet TAKE tablet TAKE tablet ty ONE (1) ONE (1) TAKE ONE Hospi ta TABLET(S) TABLET(S) (1) l BY MOUTH BY MOUTH TABLET(S) Cl inics DAILY. DAILY. BY MOUTH DAILY. tramadol 50 tramadol 50 No tramadol [place] mg tablet mg tablet 50 mg Comm uni TAKE ONE TAKE ONE tablet ty (1) (1) TAKE ONE Hospita TABLET(S) TABLET(S) (1) l BY MOUTH BY MOUTH TABLET(S) Cl inics ONCE A DAY ONCE A DAY BY MOUTH NEEDED. NEEDED. ONCE A DAY NEEDED. albuterol albuterol No 2puff(s Q6H albuterol [place] sulfate HFA sulfate HFA ) sulfate Communi [...] doxepin 50 doxepin 50 No doxepin 50 [place] mg capsule mg capsule mg capsule Communi TAKE ONE TAKE ONE TAKE ONE ty (1) TO 2 (1) TO 2 (1) TO 2 Hos katie CAPSULES BY CAPSULES BY CAPSULES l MOUTH DAILY MOUTH DAILY BY MOUTH Clinics AT BEDTIME AT BEDTIME DAILY AT NEEDED. NEEDED. BEDTIME NEEDED. fluoxetine fluoxetine No fluoxetine [place] 60 mg 60 mg 60 mg Communi tablet TAKE tablet TAKE tablet ty ONE (1) ONE (1) TAKE ONE Hospi ta TABLET(S) TABLET(S) (1) l BY MOUTH BY MOUTH TABLET(S) Cl inics ONCE A DAY. ONCE A DAY. BY MOUTH ONCE A DAY. gabapentin gabapentin No gabapentin [place] 300 mg 300 mg 300 mg Communi capsule capsule capsule ty TAKE ONE TAKE ONE TAKE ONE Hos katie (1) CAPSULE (1) CAPSULE (1) l (300 MG) BY (300 MG) BY CAPSULE Clinics MOUTH 3 MOUTH 3 (300 MG) TIMES PER TIMES PER BY MOUTH 3 DAY. DAY. TIMES PER DAY. hydrocodone hydrocodone No hydrocodon [place] 10 10 e 10 Communi mg-acetamin mg-acetamin mg-acetami ty ophen 325 ophen 325 nophen 325 Hospita mg tablet mg tablet mg tablet l TAKE ONE TAKE ONE TAKE ONE Cli nics (1) (1) (1) TABLET(S) TABLET(S) TABLET(S) BY MOUTH BY MOUTH BY MOUTH FOUR TIMES FOUR TIMES FOUR TIMES A DAY A DAY A DAY NEEDED. NEEDED. NEEDED. meloxicam meloxicam No meloxicam [place] 15 mg 15 mg 15 mg Communi tablet TAKE tablet TAKE tablet ty ONE (1) ONE (1) TAKE ONE Hospi ta TABLET(S) TABLET(S) (1) l BY MOUTH BY MOUTH TABLET(S) Cl inics DAILY. DAILY. BY MOUTH DAILY. quetiapine quetiapine No quetiapine [place] 25 mg 25 mg 25 mg Communi tablet TAKE tablet TAKE tablet ty ONE (1) ONE (1) TAKE ONE Hospi ta TABLET(S) TABLET(S) (1) l BY MOUTH BY MOUTH TABLET(S) Cl inics TWICE A TWICE A BY MOUTH DAY. DAY. TWICE A DAY. quetiapine quetiapine No quetiapine [place] 300 mg 300 mg 300 mg Communi tablet TAKE tablet TAKE tablet ty ONE (1) ONE (1) TAKE ONE Hospi ta TABLET(S) TABLET(S) (1) l BY MOUTH BY MOUTH TABLET(S) Cl inics DAILY. DAILY. BY MOUTH DAILY. tramadol 50 tramadol 50 No tramadol [place] mg tablet mg tablet 50 mg Comm uni TAKE ONE TAKE ONE tablet ty (1) (1) TAKE ONE Hospita TABLET(S) TABLET(S) (1) l BY MOUTH BY MOUTH TABLET(S) Cl inics ONCE A DAY ONCE A DAY BY MOUTH NEEDED. NEEDED. ONCE A DAY NEEDED. albuterol albuterol No albuterol [place] sulfate HFA sulfate HFA sulfate Communi 90 [...] doxepin 50 doxepin 50 No doxepin 50 [place] mg capsule mg capsule mg capsule Communi TAKE ONE TAKE ONE TAKE ONE ty (1) TO 2 (1) TO 2 (1) TO 2 Hos katie CAPSULES BY CAPSULES BY CAPSULES l MOUTH DAILY MOUTH DAILY BY MOUTH Clinics AT BEDTIME AT BEDTIME DAILY AT NEEDED. NEEDED. BEDTIME NEEDED. fluoxetine fluoxetine No fluoxetine [place] 60 mg 60 mg 60 mg Communi tablet TAKE tablet TAKE tablet ty ONE (1) ONE (1) TAKE ONE Hospi ta TABLET(S) TABLET(S) (1) l BY MOUTH BY MOUTH TABLET(S) Cl inics ONCE A DAY. ONCE A DAY. BY MOUTH ONCE A DAY. gabapentin gabapentin No gabapentin [place] 300 mg 300 mg 300 mg Communi capsule capsule capsule ty TAKE ONE TAKE ONE TAKE ONE Hos katie (1) CAPSULE (1) CAPSULE (1) l (300 MG) BY (300 MG) BY CAPSULE Clinics MOUTH 3 MOUTH 3 (300 MG) TIMES PER TIMES PER BY MOUTH 3 DAY. DAY. TIMES PER DAY. hydrocodone hydrocodone No hydrocodon [place] 10 10 e 10 Communi mg-acetamin mg-acetamin mg-acetami ty ophen 325 ophen 325 nophen 325 Hospita mg tablet mg tablet mg tablet l TAKE ONE TAKE ONE TAKE ONE Cli nics (1) (1) (1) TABLET(S) TABLET(S) TABLET(S) BY MOUTH BY MOUTH BY MOUTH FOUR TIMES FOUR TIMES FOUR TIMES A DAY A DAY A DAY NEEDED. NEEDED. NEEDED. meloxicam meloxicam No meloxicam [place] 15 mg 15 mg 15 mg Communi tablet TAKE tablet TAKE tablet ty ONE (1) ONE (1) TAKE ONE Hospi ta TABLET(S) TABLET(S) (1) l BY MOUTH BY MOUTH TABLET(S) Cl inics DAILY. DAILY. BY MOUTH DAILY. quetiapine quetiapine No quetiapine [place] 25 mg 25 mg 25 mg Communi tablet TAKE tablet TAKE tablet ty ONE (1) ONE (1) TAKE ONE Hospi ta TABLET(S) TABLET(S) (1) l BY MOUTH BY MOUTH TABLET(S) Cl inics TWICE A TWICE A BY MOUTH DAY. DAY. TWICE A DAY. quetiapine quetiapine No quetiapine [place] 300 mg 300 mg 300 mg Communi tablet TAKE tablet TAKE tablet ty ONE (1) ONE (1) TAKE ONE Hospi ta TABLET(S) TABLET(S) (1) l BY MOUTH BY MOUTH TABLET(S) Cl inics DAILY. DAILY. BY MOUTH DAILY. tramadol 50 tramadol 50 No tramadol [place] mg tablet mg tablet 50 mg Comm uni TAKE ONE TAKE ONE tablet ty (1) (1) TAKE ONE Hospita TABLET(S) TABLET(S) (1) l BY MOUTH BY MOUTH TABLET(S) Cl inics ONCE A DAY ONCE A DAY BY MOUTH NEEDED. NEEDED. ONCE A DAY NEEDED. albuterol albuterol No albuterol [place] sulfate HFA sulfate HFA sulfate Communi 90 90 HFA 90 ty mcg/actuati mcg/actuati mcg/actuat Hospita on aerosol on aerosol ion l inhaler inhaler aerosol Clinic s INHALE TWO INHALE TWO inhaler (2) PUFF(S) (2) PUFF(S) INHALE TWO BY MOUTH BY MOUTH (2) EVERY SIX EVERY SIX PUFF(S) BY HOURS HOURS MOUTH NEEDED. NEEDED. EVERY SIX HOURS NEEDED. clonidine clonidine No 1 Q1D clonidine [place] HCl 0.1 mg HCl 0.1 mg HCl 0.1 mg Communi tablet Take tablet Take tablet ty 1 tablet 1 tablet Take 1 Hospi ta every day every day tablet l by oral by oral every day Clin ics route as route as by oral needed. needed. route as needed. doxepin 50 doxepin 50 No doxepin 50 [place] mg capsule mg capsule mg capsule Communi TAKE ONE TAKE ONE TAKE ONE ty (1) OR TWO (1) OR TWO (1) OR TWO Hospita (2) (2) (2) l CAPSULE(S) CAPSULE(S) CAPSULE(S) Clinics BY MOUTH AT BY MOUTH AT BY MOUTH BEDTIME BEDTIME AT BEDTIME NEEDED. NEEDED. NEEDED. fluconazole fluconazole No fluconazol [place] 200 mg 200 mg e 200 mg Communi tablet TAKE tablet TAKE tablet ty ONE (1) ONE (1) TAKE ONE Hospi ta TABLET(S) TABLET(S) (1) l BY MOUTH BY MOUTH TABLET(S) Cl inics DAILY. DAILY. BY MOUTH DAILY. fluoxetine fluoxetine No fluoxetine [place] 40 mg 40 mg 40 mg Communi capsule capsule capsule ty TAKE TWO TAKE TWO TAKE TWO Hos katie (2) (2) (2) l CAPSULE(S) CAPSULE(S) CAPSULE(S) Clinics BY MOUTH BY MOUTH BY MOUTH DAILY. DAILY. DAILY. gabapentin gabapentin No gabapentin [place] 300 mg 300 mg 300 mg Communi capsule capsule capsule ty TAKE ONE TAKE ONE TAKE ONE Hos katie (1) (1) (1) l CAPSULE(S) CAPSULE(S) CAPSULE(S) Clinics BY MOUTH BY MOUTH BY MOUTH THREE TIMES THREE TIMES THREE A DAY. A DAY. TIMES A DAY. hydrocodone hydrocodone No hydrocodon [place] 10 10 e 10 Communi mg-acetamin mg-acetamin mg-acetami ty ophen 325 ophen 325 nophen 325 Hospita mg tablet mg tablet mg tablet l TAKE ONE TAKE ONE TAKE ONE Cli nics (1) (1) (1) TABLET(S) TABLET(S) TABLET(S) BY MOUTH BY MOUTH BY MOUTH FOUR TIMES FOUR TIMES FOUR TIMES A DAY A DAY A DAY NEEDED. NEEDED. NEEDED. meloxicam meloxicam No meloxicam [place] 15 mg 15 mg 15 mg Communi tablet TAKE tablet TAKE tablet ty ONE (1) ONE (1) TAKE ONE Hospi ta TABLET(S) TABLET(S) (1) l BY MOUTH BY MOUTH TABLET(S) Cl inics DAILY. DAILY. BY MOUTH DAILY. metronidazo metronidazo No metronidaz [place] le 500 mg le 500 mg ole 500 mg Communi tablet TAKE tablet TAKE tablet ty ONE (1) ONE (1) TAKE ONE Hospi ta TABLET(S) TABLET(S) (1) l BY MOUTH BY MOUTH TABLET(S) Cl inics EVERY EIGHT EVERY EIGHT BY MOUTH HOURS. HOURS. EVERY EIGHT HOURS. quetiapine quetiapine No quetiapine [place] 25 mg 25 mg 25 mg Communi tablet TAKE tablet TAKE tablet ty ONE (1) ONE (1) TAKE ONE Hospi ta TABLET(S) TABLET(S) (1) l BY MOUTH BY MOUTH TABLET(S) Cl inics TWICE A TWICE A BY MOUTH DAY. DAY. TWICE A DAY. quetiapine quetiapine No quetiapine [place] 300 mg 300 mg 300 mg Communi tablet TAKE tablet TAKE tablet ty ONE (1) ONE (1) TAKE ONE Hospi ta TABLET(S) TABLET(S) (1) l BY MOUTH AT BY MOUTH AT TABLET(S) Clinics BEDTIME. BEDTIME. BY MOUTH AT BEDTIME. tetracyclin tetracyclin No tetracycli [place] e 500 mg e 500 mg ne 500 mg [facility] capsule capsule capsule ty TAKE ONE TAKE ONE TAKE ONE Hos katie (1) (1) (1) l CAPSULE(S) CAPSULE(S) CAPSULE(S) Clinics BY MOUTH BY MOUTH BY MOUTH FOUR TIMES FOUR TIMES FOUR TIMES A DAY. A DAY. A DAY. tramadol 50 tramadol 50 No tramadol [place] mg tablet mg tablet 50 mg Comm uni TAKE ONE TAKE ONE tablet ty (1) (1) TAKE ONE Hospita TABLET(S) TABLET(S) (1) l BY MOUTH BY MOUTH TABLET(S) Cl inics DAILY DAILY BY MOUTH NEEDED. NEEDED. DAILY NEEDED. albuterol albuterol No albuterol [place] sulfate HFA sulfate HFA sulfate Communi 90 90 HFA 90 ty mcg/actuati mcg/actuati mcg/actuat Hospita on aerosol on aerosol ion l inhaler inhaler aerosol Clinic s INHALE TWO INHALE TWO inhaler (2) PUFF(S) (2) PUFF(S) INHALE TWO BY MOUTH BY MOUTH (2) EVERY SIX EVERY SIX PUFF(S) BY HOURS HOURS MOUTH NEEDED. NEEDED. EVERY SIX HOURS NEEDED. clonidine clonidine No clonidine [place] HCl 0.1 mg HCl 0.1 mg HCl 0.1 mg Communi tablet TAKE tablet TAKE tablet ty ONE (1) ONE (1) TAKE ONE Hospi ta TABLET(S) TABLET(S) (1) l BY MOUTH BY MOUTH TABLET(S) Cl inics ONCE A DAY ONCE A DAY BY MOUTH NEEDED. NEEDED. ONCE A DAY NEEDED. doxepin 50 doxepin 50 No doxepin 50 [place] mg capsule mg capsule mg capsule Communi TAKE ONE TAKE ONE TAKE ONE ty (1) OR TWO (1) OR TWO (1) OR TWO Hospita (2) (2) (2) l CAPSULE(S) CAPSULE(S) CAPSULE(S) Clinics BY MOUTH AT BY MOUTH AT BY MOUTH BEDTIME BEDTIME AT BEDTIME NEEDED. NEEDED. NEEDED. fluconazole fluconazole No fluconazol [place] 200 mg 200 mg e 200 mg Communi tablet TAKE tablet TAKE tablet ty ONE (1) ONE (1) TAKE ONE Hospi ta TABLET(S) TABLET(S) (1) l BY MOUTH BY MOUTH TABLET(S) Cl inics DAILY. DAILY. BY MOUTH DAILY. fluoxetine fluoxetine No fluoxetine [place] 40 mg 40 mg 40 mg Communi capsule capsule capsule ty TAKE TWO TAKE TWO TAKE TWO Hos katie (2) (2) (2) l CAPSULE(S) CAPSULE(S) CAPSULE(S) Clinics BY MOUTH BY MOUTH BY MOUTH DAILY. DAILY. DAILY. gabapentin gabapentin No gabapentin [place] 300 mg 300 mg 300 mg Communi capsule capsule capsule ty TAKE ONE TAKE ONE TAKE ONE Hos katie (1) (1) (1) l CAPSULE(S) CAPSULE(S) CAPSULE(S) Clinics BY MOUTH BY MOUTH BY MOUTH THREE TIMES THREE TIMES THREE A DAY. A DAY. TIMES A DAY. hydrocodone hydrocodone No hydrocodon [place] 10 10 e 10 Communi mg-acetamin mg-acetamin mg-acetami ty ophen 325 ophen 325 nophen 325 Hospita mg tablet mg tablet mg tablet l TAKE ONE TAKE ONE TAKE ONE Cli nics (1) (1) (1) TABLET(S) TABLET(S) TABLET(S) BY MOUTH BY MOUTH BY MOUTH FOUR TIMES FOUR TIMES FOUR TIMES A DAY A DAY A DAY NEEDED. NEEDED. NEEDED. meloxicam meloxicam No meloxicam [place] 15 mg 15 mg 15 mg Communi tablet TAKE tablet TAKE tablet ty ONE (1) ONE (1) TAKE ONE Hospi ta TABLET(S) TABLET(S) (1) l BY MOUTH BY MOUTH TABLET(S) Cl inics EVERY DAY. EVERY DAY. BY MOUTH EVERY DAY. metronidazo metronidazo No metronidaz [place] le 500 mg le 500 mg ole 500 mg Communi tablet TAKE tablet TAKE tablet ty ONE (1) ONE (1) TAKE ONE Hospi ta TABLET(S) TABLET(S) (1) l BY MOUTH BY MOUTH TABLET(S) Cl inics EVERY EIGHT EVERY EIGHT BY MOUTH HOURS. HOURS. EVERY EIGHT HOURS. ondansetron ondansetron No 1 BID ondansetro [place] 8 mg 8 mg n 8 mg Communi disintegrat disintegrat disintegra ty ing tablet ing tablet ting Hos katie Place 1 Place 1 tablet l tablet tablet Place 1 Clinics twice a day twice a day tablet by by twice a translingua translingua day by l route. l route. translingu al route. quetiapine quetiapine No quetiapine [place] 25 mg 25 mg 25 mg Communi tablet TAKE tablet TAKE tablet ty ONE (1) ONE (1) TAKE ONE Hospi ta TABLET(S) TABLET(S) (1) l BY MOUTH BY MOUTH TABLET(S) Cl inics TWICE A TWICE A BY MOUTH DAY. DAY. TWICE A DAY. quetiapine quetiapine No quetiapine [place] 300 mg 300 mg 300 mg Communi tablet TAKE tablet TAKE tablet ty ONE (1) ONE (1) TAKE ONE Hospi ta TABLET(S) TABLET(S) (1) l BY MOUTH AT BY MOUTH AT TABLET(S) Clinics BEDTIME. BEDTIME. BY MOUTH AT BEDTIME. tetracyclin tetracyclin No tetracycli [place] e 500 mg e 500 mg ne 500 mg [facility] capsule capsule capsule ty TAKE ONE TAKE ONE TAKE ONE Hos katie (1) (1) (1) l CAPSULE(S) CAPSULE(S) CAPSULE(S) Clinics BY MOUTH BY MOUTH BY MOUTH FOUR TIMES FOUR TIMES FOUR TIMES A DAY. A DAY. A DAY. tramadol 50 tramadol 50 No tramadol [place] mg tablet mg tablet 50 mg Comm uni TAKE ONE TAKE ONE tablet ty (1) (1) TAKE ONE Hospita TABLET(S) TABLET(S) (1) l BY MOUTH BY MOUTH TABLET(S) Cl inics DAILY DAILY BY MOUTH NEEDED. NEEDED. DAILY NEEDED. doxepin 25 doxepin 25 No doxepin 25 [place] mg capsule mg capsule mg capsule Communi TAKE ONE TAKE ONE TAKE ONE ty (1) OR TWO (1) OR TWO (1) OR TWO Hospita (2) (2) (2) l CAPSULE(S) CAPSULE(S) CAPSULE(S) Clinics BY MOUTH AT BY MOUTH AT BY MOUTH BEDTIME. BEDTIME. AT BEDTIME. albuterol albuterol No albuterol [place] sulfate HFA sulfate HFA sulfate Communi 90 90 HFA 90 ty mcg/actuati mcg/actuati mcg/actuat Hospita on aerosol on aerosol ion l inhaler inhaler aerosol Clinic s INHALE TWO INHALE TWO inhaler (2) PUFF(S) (2) PUFF(S) INHALE TWO BY MOUTH BY MOUTH (2) EVERY SIX EVERY SIX PUFF(S) BY HOURS HOURS MOUTH NEEDED. NEEDED. EVERY SIX HOURS NEEDED. clonidine clonidine No clonidine [place] HCl 0.1 mg HCl 0.1 mg HCl 0.1 mg Communi tablet TAKE tablet TAKE tablet ty ONE (1) ONE (1) TAKE ONE Hospi ta TABLET(S) TABLET(S) (1) l BY MOUTH BY MOUTH TABLET(S) Cl inics ONCE A DAY ONCE A DAY BY MOUTH NEEDED. NEEDED. ONCE A DAY NEEDED. fluoxetine fluoxetine No fluoxetine [place] 40 mg 40 mg 40 mg Communi capsule capsule capsule ty TAKE ONE TAKE ONE TAKE ONE [facility]atie (1) (1) (1) l CAPSULE(S) CAPSULE(S) CAPSULE(S) Clinics BY MOUTH BY MOUTH BY MOUTH DAILY. DAILY. DAILY. doxepin 50 doxepin 50 No doxepin 50 [place] mg capsule mg capsule mg capsule Communi TAKE ONE TAKE ONE TAKE ONE ty (1) OR TWO (1) OR TWO (1) OR TWO Hospita (2) (2) (2) l CAPSULE(S) CAPSULE(S) CAPSULE(S) Clinics BY MOUTH AT BY MOUTH AT BY MOUTH BEDTIME BEDTIME AT BEDTIME NEEDED. NEEDED. NEEDED. fluconazole fluconazole No fluconazol [place] 200 mg 200 mg e 200 mg Communi tablet TAKE tablet TAKE tablet ty ONE (1) ONE (1) TAKE ONE Hospi ta TABLET(S) TABLET(S) (1) l BY MOUTH BY MOUTH TABLET(S) Cl inics DAILY. DAILY. BY MOUTH DAILY. fluoxetine fluoxetine No fluoxetine [place] 40 mg 40 mg 40 mg Communi capsule capsule capsule ty TAKE TWO TAKE TWO TAKE TWO [facility] katie (2) (2) (2) l CAPSULE(S) CAPSULE(S) CAPSULE(S) Clinics BY MOUTH BY MOUTH BY MOUTH DAILY. DAILY. DAILY. gabapentin gabapentin No gabapentin [place] 300 mg 300 mg 300 mg Communi capsule capsule capsule ty TAKE ONE TAKE ONE TAKE ONE [facility] katie (1) (1) (1) l CAPSULE(S) CAPSULE(S) CAPSULE(S) Clinics BY MOUTH BY MOUTH BY MOUTH THREE TIMES THREE TIMES THREE A DAY. A DAY. TIMES A DAY. hydrocodone hydrocodone No hydrocodon [place] 10 10 e 10 Communi mg-acetamin mg-acetamin mg-acetami ty ophen 325 ophen 325 nophen 325 Hospita mg tablet mg tablet mg tablet l TAKE ONE TAKE ONE TAKE ONE Cli nics (1) (1) (1) TABLET(S) TABLET(S) TABLET(S) BY MOUTH BY MOUTH BY MOUTH FOUR TIMES FOUR TIMES FOUR TIMES A DAY A DAY A DAY NEEDED. NEEDED. NEEDED. losartan 50 losartan 50 No 1 Q1D losartan [place] mg tablet mg tablet 50 mg Comm uni Take 1 Take 1 tablet ty tablet tablet Take 1 Hospita every day every day tablet l by oral by oral every day Clin ics route. route. by oral route. meloxicam meloxicam No meloxicam [place] 15 mg 15 mg 15 mg Communi tablet TAKE tablet TAKE tablet ty ONE (1) ONE (1) TAKE ONE Hospi ta TABLET(S) TABLET(S) (1) l BY MOUTH BY MOUTH TABLET(S) Cl inics EVERY DAY. EVERY DAY. BY MOUTH EVERY DAY. metronidazo metronidazo No metronidaz [place] le 500 mg le 500 mg ole 500 mg Communi tablet TAKE tablet TAKE tablet ty ONE (1) ONE (1) TAKE ONE Hospi ta TABLET(S) TABLET(S) (1) l BY MOUTH BY MOUTH TABLET(S) Cl inics EVERY EIGHT EVERY EIGHT BY MOUTH HOURS. HOURS. EVERY EIGHT HOURS. ondansetron ondansetron No 1 BID ondansetro [place] 8 mg 8 mg n 8 mg Communi disintegrat disintegrat disintegra ty ing tablet ing tablet ting [facility] 1 Place 1 tablet l tablet tablet Place 1 Clinics twice a day twice a day tablet by by twice a translingua translingua day by l route. l route. translingu al route. quetiapine quetiapine No quetiapine [place] 25 mg 25 mg 25 mg Communi tablet TAKE tablet TAKE tablet ty ONE (1) ONE (1) TAKE ONE Hospi ta TABLET(S) TABLET(S) (1) l BY MOUTH BY MOUTH TABLET(S) Cl inics TWICE A TWICE A BY MOUTH DAY. DAY. TWICE A DAY. gabapentin gabapentin No gabapentin [place] 300 mg 300 mg 300 mg Communi capsule capsule capsule ty TAKE ONE TAKE ONE TAKE ONE Hos katie (1) (1) (1) l CAPSULE(S) CAPSULE(S) CAPSULE(S) Clinics BY MOUTH BY MOUTH BY MOUTH THREE TIMES THREE TIMES THREE A DAY. A DAY. TIMES A DAY. quetiapine quetiapine No quetiapine [place] 300 mg 300 mg 300 mg Communi tablet TAKE tablet TAKE tablet ty ONE (1) ONE (1) TAKE ONE Hospi ta TABLET(S) TABLET(S) (1) l BY MOUTH AT BY MOUTH AT TABLET(S) Clinics BEDTIME. BEDTIME. BY MOUTH AT BEDTIME. tetracyclin tetracyclin No tetracycli [place] e 500 mg e 500 mg ne 500 mg Co [facility] capsule capsule capsule ty TAKE ONE TAKE ONE TAKE ONE Hos katie (1) (1) (1) l CAPSULE(S) CAPSULE(S) CAPSULE(S) Clinics BY MOUTH BY MOUTH BY MOUTH FOUR TIMES FOUR TIMES FOUR TIMES A DAY. A DAY. A DAY. tramadol 50 tramadol 50 No tramadol [place] mg tablet mg tablet 50 mg Comm uni TAKE ONE TAKE ONE tablet ty (1) (1) TAKE ONE Hospita TABLET(S) TABLET(S) (1) l BY MOUTH BY MOUTH TABLET(S) Cl inics DAILY DAILY BY MOUTH NEEDED. NEEDED. DAILY NEEDED. hydrocodone hydrocodone No 1 Q4H hydrocodon [place] 10 10 e 10 Communi mg-acetamin mg-acetamin mg-acetami ty ophen 325 ophen 325 nophen 325 Hospita mg tablet mg tablet mg tablet l Take 1 Take 1 Take 1 Clinics tablet tablet tablet every 4 every 4 every 4 hours by hours by hours by oral route oral route oral route as needed. as needed. as needed. albuterol albuterol No albuterol [place] sulfate HFA sulfate HFA sulfate Communi 90 90 HFA 90 ty mcg/actuati mcg/actuati mcg/actuat Hospita on aerosol on aerosol ion l inhaler inhaler aerosol Clinic s INHALE TWO INHALE TWO inhaler (2) PUFF(S) (2) PUFF(S) INHALE TWO BY MOUTH BY MOUTH (2) EVERY SIX EVERY SIX PUFF(S) BY HOURS HOURS MOUTH NEEDED. NEEDED. EVERY SIX HOURS NEEDED. clonidine clonidine No clonidine [place] HCl 0.1 mg HCl 0.1 mg HCl 0.1 mg Communi tablet TAKE tablet TAKE tablet ty ONE (1) ONE (1) TAKE ONE Hospi ta TABLET(S) TABLET(S) (1) l BY MOUTH BY MOUTH TABLET(S) Cl inics ONCE A DAY ONCE A DAY BY MOUTH NEEDED. NEEDED. ONCE A DAY NEEDED. doxepin 50 doxepin 50 No doxepin 50 [place] mg capsule mg capsule mg capsule Communi TAKE ONE TAKE ONE TAKE ONE ty (1) OR TWO (1) OR TWO (1) OR TWO Hospita (2) (2) (2) l CAPSULE(S) CAPSULE(S) CAPSULE(S) Clinics BY MOUTH BY MOUTH BY MOUTH DAILY AT DAILY AT DAILY AT BEDTIME BEDTIME BEDTIME NEEDED. NEEDED. NEEDED. fluconazole fluconazole No fluconazol [place] 200 mg 200 mg e 200 mg Communi tablet TAKE tablet TAKE tablet ty ONE (1) ONE (1) TAKE ONE Hospi ta TABLET(S) TABLET(S) (1) l BY MOUTH BY MOUTH TABLET(S) Cl inics DAILY. DAILY. BY MOUTH DAILY. fluoxetine fluoxetine No fluoxetine [place] 40 mg 40 mg 40 mg Communi capsule capsule capsule ty TAKE TWO TAKE TWO TAKE TWO Hos katie (2) (2) (2) l CAPSULE(S) CAPSULE(S) CAPSULE(S) Clinics BY MOUTH BY MOUTH BY MOUTH DAILY. DAILY. DAILY. gabapentin gabapentin No gabapentin [place] 300 mg 300 mg 300 mg Communi capsule capsule capsule ty TAKE ONE TAKE ONE TAKE ONE Hos katie (1) (1) (1) l CAPSULE(S) CAPSULE(S) CAPSULE(S) Clinics BY MOUTH BY MOUTH BY MOUTH THREE TIMES THREE TIMES THREE A DAY. A DAY. TIMES A DAY. hydrocodone hydrocodone No hydrocodon [place] 10 10 e 10 Communi mg-acetamin mg-acetamin mg-acetami ty ophen 325 ophen 325 nophen 325 Hospita mg tablet mg tablet mg tablet l TAKE ONE TAKE ONE TAKE ONE Cli nics (1) (1) (1) TABLET(S) TABLET(S) TABLET(S) BY MOUTH BY MOUTH BY MOUTH FOUR TIMES FOUR TIMES FOUR TIMES A DAY A DAY A DAY NEEDED. NEEDED. NEEDED. meloxicam meloxicam No meloxicam [place] 15 mg 15 mg 15 mg Communi tablet TAKE tablet TAKE tablet ty ONE (1) ONE (1) TAKE ONE Hospi ta TABLET(S) TABLET(S) (1) l BY MOUTH BY MOUTH TABLET(S) Cl inics ONCE A DAY. ONCE A DAY. BY MOUTH ONCE A DAY. losartan 50 losartan 50 No 1 Q1D losartan [place] mg tablet mg tablet 50 mg Comm uni Take 1 Take 1 tablet ty tablet tablet Take 1 Hospita every day every day tablet l by oral by oral every day Clin ics route. route. by oral route. meloxicam meloxicam No meloxicam [place] 15 mg 15 mg 15 mg Communi tablet TAKE tablet TAKE tablet ty ONE (1) ONE (1) TAKE ONE Hospi ta TABLET(S) TABLET(S) (1) l BY MOUTH BY MOUTH TABLET(S) Cl inics EVERY DAY. EVERY DAY. BY MOUTH EVERY DAY. metronidazo metronidazo No metronidaz [place] le 500 mg le 500 mg ole 500 mg Communi tablet TAKE tablet TAKE tablet ty ONE (1) ONE (1) TAKE ONE Hospi ta TABLET(S) TABLET(S) (1) l BY MOUTH BY MOUTH TABLET(S) Cl inics EVERY EIGHT EVERY EIGHT BY MOUTH HOURS. HOURS. EVERY EIGHT HOURS. ondansetron ondansetron No ondansetro [place] 8 mg 8 mg n 8 mg Communi disintegrat disintegrat disintegra ty ing tablet ing tablet ting Hos katie TAKE ONE TAKE ONE tablet l (1) (1) TAKE ONE Clinics TABLET(S) TABLET(S) (1) BY MOUTH BY MOUTH TABLET(S) TWICE A TWICE A BY MOUTH DAY. DAY. TWICE A DAY. quetiapine quetiapine No quetiapine [place] 25 mg 25 mg 25 mg [facility]i tablet TAKE tablet TAKE tablet ty ONE (1) ONE (1) TAKE ONE Hospi ta TABLET(S) TABLET(S) (1) l BY MOUTH BY MOUTH TABLET(S) Cl inics TWICE A TWICE A BY MOUTH DAY. DAY. TWICE A DAY. quetiapine quetiapine No quetiapine [place] 300 mg 300 mg 300 mg Communi tablet TAKE tablet TAKE tablet ty ONE (1) ONE (1) TAKE ONE Hospi ta TABLET(S) TABLET(S) (1) l BY MOUTH AT BY MOUTH AT TABLET(S) Clinics BEDTIME. BEDTIME. BY MOUTH AT BEDTIME. rabeprazole rabeprazole No rabeprazol [place] 20 mg 20 mg e 20 mg Communi tablet,bonny tablet,bonny tablet,del ty yed release yed release ayed H ospita TAKE ONE TAKE ONE release l (1) (1) TAKE ONE Clinics TABLET(S) TABLET(S) (1) BY MOUTH BY MOUTH TABLET(S) TWICE A TWICE A BY MOUTH DAY. DAY. TWICE A DAY. sucralfate sucralfate No sucralfate [place] 1 gram 1 gram 1 gram Communi tablet TAKE tablet TAKE tablet ty ONE (1) ONE (1) TAKE ONE Hospi ta TABLET(S) TABLET(S) (1) l BY MOUTH BY MOUTH TABLET(S) Cl inics THREE TIMES THREE TIMES BY MOUTH A DAY ON AN A DAY ON AN THREE EMPTY EMPTY TIMES A STOMACH. STOMACH. DAY ON AN EMPTY STOMACH. tetracyclin tetracyclin No tetracycli [place] e 500 mg e 500 mg ne 500 mg [facility] capsule capsule capsule ty TAKE ONE TAKE ONE TAKE ONE Hos katie (1) (1) (1) l CAPSULE(S) CAPSULE(S) CAPSULE(S) Clinics BY MOUTH BY MOUTH BY MOUTH FOUR TIMES FOUR TIMES FOUR TIMES A DAY. A DAY. A DAY. tramadol 50 tramadol 50 No tramadol [place] mg tablet mg tablet 50 mg Comm uni TAKE ONE TAKE ONE tablet ty (1) (1) TAKE ONE Hospita TABLET(S) TABLET(S) (1) l BY MOUTH BY MOUTH TABLET(S) Cl inics DAILY DAILY BY MOUTH NEEDED. NEEDED. DAILY NEEDED. quetiapine quetiapine No quetiapine [place] 25 mg 25 mg 25 mg Communi tablet TAKE tablet TAKE tablet ty ONE (1) ONE (1) TAKE ONE Hospi ta TABLET(S) TABLET(S) (1) l BY MOUTH BY MOUTH TABLET(S) Cl inics TWICE A TWICE A BY MOUTH DAY. DAY. TWICE A DAY. quetiapine quetiapine No quetiapine [place] 300 mg 300 mg 300 mg Commun[facility] tablet TAKE tablet TAKE tablet ty ONE (1) ONE (1) TAKE ONE Hospi ta TABLET(S) TABLET(S) (1) l BY MOUTH AT BY MOUTH AT TABLET(S) Clinics BEDTIME. BEDTIME. BY MOUTH AT BEDTIME. doxepin 25 doxepin 25 No doxepin 25 [place] mg capsule mg capsule mg capsule Communi TAKE ONE TAKE ONE TAKE ONE ty (1) TO TWO (1) TO TWO (1) TO TWO Hospita (2) (2) (2) l CAPSULE(S) CAPSULE(S) CAPSULE(S) Clinics BY MOUTH BY MOUTH BY MOUTH DAILY AT DAILY AT DAILY AT BEDTIME. BEDTIME. BEDTIME. fluoxetine fluoxetine No fluoxetine [place] 40 mg 40 mg 40 mg Commun[facility] capsule capsule capsule ty TAKE ONE TAKE ONE TAKE ONE Hos [facility]atie (1) CAPSULE (1) CAPSULE (1) l (40 MG) BY (40 MG) BY CAPSULE Clinics MOUTH MOUTH (40 MG) BY DAILY. DAILY. MOUTH DAILY. gabapentin gabapentin No gabapentin [place] 300 mg 300 mg 300 mg Communi capsule capsule capsule ty TAKE ONE TAKE ONE TAKE ONE Hos katie (1) CAPSULE (1) CAPSULE (1) l (300 MG) BY (300 MG) BY CAPSULE Clinics MOUTH 3 MOUTH 3 (300 MG) TIMES PER TIMES PER BY MOUTH 3 DAY. DAY. TIMES PER DAY. hydrocodone hydrocodone No hydrocodon [place] 10 10 e 10 Communi mg-acetamin mg-acetamin mg-acetami ty ophen 325 ophen 325 nophen 325 Hospita mg tablet mg tablet mg tablet l TAKE ONE TAKE ONE TAKE ONE Cli nics (1) (1) (1) TABLET(S) TABLET(S) TABLET(S) BY MOUTH BY MOUTH BY MOUTH FOUR TIMES FOUR TIMES FOUR TIMES A DAY A DAY A DAY NEEDED. NEEDED. NEEDED. meloxicam meloxicam No meloxicam [place] 15 mg 15 mg 15 mg [facility] tablet TAKE tablet TAKE tablet ty ONE (1) ONE (1) TAKE ONE Hospi ta TABLET(S) TABLET(S) (1) l BY MOUTH BY MOUTH TABLET(S) Cl inics EVERY DAY. EVERY DAY. BY MOUTH EVERY DAY. quetiapine quetiapine No quetiapine [place] 25 mg 25 mg 25 mg [facility] tablet TAKE tablet TAKE tablet ty ONE (1) ONE (1) TAKE ONE Hospi ta TABLET(S) TABLET(S) (1) l BY MOUTH BY MOUTH TABLET(S) Cl inics TWICE A TWICE A BY MOUTH DAY. DAY. TWICE A DAY. quetiapine quetiapine No quetiapine [place] 300 mg 300 mg 300 mg [facility] tablet TAKE tablet TAKE tablet ty ONE (1) ONE (1) TAKE ONE Hospi ta TABLET(S) TABLET(S) (1) l BY MOUTH AT BY MOUTH AT TABLET(S) Clinics BEDTIME. BEDTIME. BY MOUTH AT BEDTIME. doxepin 25 doxepin 25 No doxepin 25 [place] mg capsule mg capsule mg capsule Communi TAKE ONE TAKE ONE TAKE ONE ty (1) TO TWO (1) TO TWO (1) TO TWO Hospita (2) (2) (2) l CAPSULE(S) CAPSULE(S) CAPSULE(S) Clinics BY MOUTH BY MOUTH BY MOUTH DAILY AT DAILY AT DAILY AT BEDTIME. BEDTIME. BEDTIME. doxepin 50 doxepin 50 No doxepin 50 [place] mg capsule mg capsule mg capsule Communi TAKE ONE TAKE ONE TAKE ONE ty (1) OR TWO (1) OR TWO (1) OR TWO Hospita (2) (2) (2) l CAPSULE(S) CAPSULE(S) CAPSULE(S) Clinics BY MOUTH AT BY MOUTH AT BY MOUTH BEDTIME BEDTIME AT BEDTIME NEEDED. NEEDED. NEEDED. fluoxetine fluoxetine No fluoxetine [place] 40 mg 40 mg 40 mg Communi capsule capsule capsule ty TAKE ONE TAKE ONE TAKE ONE Hos [facility]atie (1) CAPSULE (1) CAPSULE (1) l (40 MG) BY (40 MG) BY CAPSULE Clinics MOUTH MOUTH (40 MG) BY DAILY. DAILY. MOUTH DAILY. fluoxetine fluoxetine No fluoxetine [place] 60 mg 60 mg 60 mg Communi tablet TAKE tablet TAKE tablet ty ONE (1) ONE (1) TAKE ONE Hospi ta TABLET(S) TABLET(S) (1) l BY MOUTH BY MOUTH TABLET(S) Cl inics ONCE A DAY. ONCE A DAY. BY MOUTH ONCE A DAY. gabapentin gabapentin No gabapentin [place] 300 mg 300 mg 300 mg Communi capsule capsule capsule ty TAKE ONE TAKE ONE TAKE ONE Hos katie (1) (1) (1) l CAPSULE(S) CAPSULE(S) CAPSULE(S) Clinics BY MOUTH BY MOUTH BY MOUTH THREE TIMES THREE TIMES THREE A DAY. A DAY. TIMES A DAY. hydrocodone hydrocodone No hydrocodon [place] 10 10 e 10 Communi mg-acetamin mg-acetamin mg-acetami ty ophen 325 ophen 325 nophen 325 Hospita mg tablet mg tablet mg tablet l TAKE ONE TAKE ONE TAKE ONE Cli nics (1) (1) (1) TABLET(S) TABLET(S) TABLET(S) BY MOUTH BY MOUTH BY MOUTH FOUR TIMES FOUR TIMES FOUR TIMES A DAY. A DAY. A DAY. meloxicam meloxicam No meloxicam [place] 15 mg 15 mg 15 mg Communi tablet TAKE tablet TAKE tablet ty ONE (1) ONE (1) TAKE ONE Hospi ta TABLET(S) TABLET(S) (1) l BY MOUTH BY MOUTH TABLET(S) Cl inics DAILY. DAILY. BY MOUTH DAILY. quetiapine quetiapine No quetiapine [place] 25 mg 25 mg 25 mg [facility] tablet TAKE tablet TAKE tablet ty ONE (1) ONE (1) TAKE ONE Hospi ta TABLET(S) TABLET(S) (1) l BY MOUTH BY MOUTH TABLET(S) Cl inics TWICE A TWICE A BY MOUTH DAY. DAY. TWICE A DAY. quetiapine quetiapine No quetiapine [place] 300 mg 300 mg 300 mg Communi tablet TAKE tablet TAKE tablet ty /2 2 TAKE 1/2 Hospita TABLET(S) TABLET(S) TABLET(S) l BY MOUTH BY MOUTH BY MOUTH Cli nics DAILY AT DAILY AT DAILY AT BEDTIME FOR BEDTIME FOR BEDTIME 1 WEEK THEN 1 WEEK THEN FOR 1 WEEK TAKE ONE TAKE ONE THEN TAKE (1) (1) ONE (1) TABLET(S) TABLET(S) TABLET(S) BY MOUTH BY MOUTH BY MOUTH DAILY. DAILY. DAILY. albuterol albuterol No 2puff(s Q6H albuterol [place] sulfate HFA sulfate HFA ) sulfate Communi [...] doxepin 50 doxepin 50 No doxepin 50 [place] mg capsule mg capsule mg capsule Communi TAKE ONE TAKE ONE TAKE ONE ty (1) TO 2 (1) TO 2 (1) TO 2 Hos [facility]atie CAPSULES BY CAPSULES BY CAPSULES l MOUTH DAILY MOUTH DAILY BY MOUTH Clinics AT BEDTIME AT BEDTIME DAILY AT NEEDED. NEEDED. BEDTIME NEEDED. fluoxetine fluoxetine No fluoxetine [place] 60 mg 60 mg 60 mg Communi tablet TAKE tablet TAKE tablet ty ONE (1) ONE (1) TAKE ONE Hospi ta TABLET(S) TABLET(S) (1) l BY MOUTH BY MOUTH TABLET(S) Cl inics ONCE A DAY. ONCE A DAY. BY MOUTH ONCE A DAY. gabapentin gabapentin No gabapentin [place] 300 mg 300 mg 300 mg Communi capsule capsule capsule ty TAKE ONE TAKE ONE TAKE ONE Hos katie (1) CAPSULE (1) CAPSULE (1) l (300 MG) BY (300 MG) BY CAPSULE Clinics MOUTH 3 MOUTH 3 (300 MG) TIMES PER TIMES PER BY MOUTH 3 DAY. DAY. TIMES PER DAY. hydrocodone hydrocodone No hydrocodon [place] 10 10 e 10 Communi mg-acetamin mg-acetamin mg-acetami ty ophen 325 ophen 325 nophen 325 Hospita mg tablet mg tablet mg tablet l TAKE ONE TAKE ONE TAKE ONE Cli nics (1) (1) (1) TABLET(S) TABLET(S) TABLET(S) BY MOUTH BY MOUTH BY MOUTH FOUR TIMES FOUR TIMES FOUR TIMES A DAY A DAY A DAY NEEDED. NEEDED. NEEDED. No known No [facility] medications [facility] No known No [facility] medications [facility] No known No [facility] medications [facility] No known No [facility] medications [facility] Vital Signs Vital Name Observation Time Observation Value Comments Source Height 2022-12-22 00:00:00 72 [in_i] [facility] BP Diastolic 2022-12-22 00:00:00 84 mm[Hg] [facility] s BP Systolic 2022-12-22 00:00:00 122 mm[Hg] [facility] s BMI (Body Mass 2022-12-22 00:00:00 24.4 kg/m2 [place] [facility] Index) [facility] Body Weight 2022-12-22 00:00:00 2880 [oz_av] [facility] s BMI (Body Mass 2022-11-30 00:00:00 23.6 kg/m2 [facility] Index) [facility] BP Systolic 2022-11-30 00:00:00 168 mm[Hg] [facility] s BP Diastolic 2022-11-30 00:00:00 78 mm[Hg] [facility] s Height 2022-11-30 00:00:00 72 [in_i] [facility] s Body Weight 2022-11-30 00:00:00 2784 [oz_av] [facility] s Height 2022-11-26 00:00:00 72 [in_i] [facility] s Body Weight 2022-11-26 00:00:00 2752 [oz_av] [facility] s BMI (Body Mass 2022-11-26 00:00:00 23.3 kg/m2 [facility]) [facility] BP Systolic 2022-11-26 00:00:00 128 mm[Hg] [facility] s BP Diastolic 2022-11-26 00:00:00 84 mm[Hg] [facility] s BP Diastolic 2022-08-20 00:00:00 68 mm[Hg] [facility] s Height 2022-08-20 00:00:00 72 [in_i] [facility] s BMI (Body Mass 2022-08-20 00:00:00 25.1 kg/m2 [facility]) [facility] BP Systolic 2022-08-20 00:00:00 116 mm[Hg] [facility] s Body Weight 2022-08-20 00:00:00 2960 [oz_av] [facility] s BP Diastolic 2022-08-13 00:00:00 70 mm[Hg] [facility] s Height 2022-08-13 00:00:00 72 [in_i] [facility] s BMI (Body Mass 2022-08-13 00:00:00 24.3 kg/m2 [facility]) [facility] BP Systolic 2022-08-13 00:00:00 122 mm[Hg] [facility] s Body Weight 2022-08-13 00:00:00 2864 [oz_av] [facility] s Height 2022-07-17 00:00:00 72 [in_i] [facility] s BP Diastolic 2022-06-25 00:00:00 60 mm[Hg] [facility] s Height 2022-06-25 00:00:00 72 [in_i] [facility] s BMI (Body Mass 2022-06-25 00:00:00 25.4 kg/m2 [facility] BP Systolic 2022-06-25 00:00:00 124 mm[Hg] [facility] s Body Weight 2022-06-25 00:00:00 2992 [oz_av] [facility] s BP Diastolic 2022-06-04 00:00:00 78 mm[Hg] [facility] s Height 2022-06-04 00:00:00 72 [in_i] [facility] s BP Systolic 2022-06-04 00:00:00 118 mm[Hg] [facility] s Body height 2015-12-19 16:25:00 185.4 cm [facility] Body weight 2015-12-19 16:25:00 87.091 kg [facility] BMI 2015-12-19 16:25:00 25.33 kg/m2 [facility] Temperature Oral (F) 2020-08-24 00:15:00 98.0 F [facility] Heart Rate 2020-08-24 00:15:00 [facility] Respitory Rate 2020-08-24 00:15:00 [facility] Systolic (mm Hg) 2020-08-24 00:15:00 [facility] Diastolic (mm Hg) 2020-08-24 00:15:00 [facility] Temperature Oral (F) 2020-08-23 21:04:00 97.9 F [facility] Heart Rate 2020-08-23 21:04:00 [facility] Respitory Rate 2020-08-23 21:04:00 [facility] Systolic (mm Hg) 2020-08-23 21:04:00 [facility] Diastolic (mm Hg) 2020-08-23 21:04:00 [facility] Temperature Oral (F) 2020-08-23 17:14:00 98.2 F [facility] Heart Rate 2020-08-23 17:14:00 [facility] Respitory Rate 2020-08-23 17:14:00 [facility] Systolic (mm Hg) 2020-08-23 17:14:00 Larry [facility] Diastolic (mm Hg) 2020-08-23 17:14:00 [facility] Height 2020-08-22 22:49:00 182.88 cm [facility] Weight 2020-08-22 22:49:00 [facility] BMI Calculated 2020-08-22 22:49:00 [facility] Procedures Procedure Date / Time Performing Clinician Source Performed ASSIGNMENT OF BENEFITS 2020-08-05 18:34:40 Doctor Unassigned, No [facility] ANKLE, MIN. 3 VIEWS 2015-12-19 16:34:00 Seth Pandya [facility] Circumcision [facility] Extraction of [place] [facility] Tooth [facility] Remove Tonsils and [facility] Adenoids [facility] Appendectomy [facility] Procedure on Ankle [facility] Plan of Care Planned Activity Planned Date Details Comments Source Diagnostic Test 2022-11-26 BMP, serum or [place] [facility] vivian Pending 00:00:00 plasma [code = Hospital Clin ics BMP, serum or plasma] Diagnostic Test 2022-11-26 CBC w/ auto diff [place] [facility] Pending 00:00:00 [code = CBC w/ Hospital Clin ics auto diff] [facility] Elsa Miller; [place] [address] Future App[facility]ment 2023[facility]02-21 [facility] Elsa Miller; [place] [address] Encounters Start End Encounter Admission Attending Care Care Encounter Source Date/Time Date/Time Type Type Clinicians Facility Department ID 2023-01-02 2023-01-02 Outpatient [facility] [id number] [place] 00:00:00 00:00:00 [id number] [facility] 2022-12-22 2022-12-22 [facility] [place] 00:00:00 00:00:00 [facility] - ty DO: [address] [facility] [place] CLINIC, [address] DRISS , Ph. 2022-12-15 2022-12-15 Outpatient [facility] 12[address] [place] 00:00:00 00:00:00 [id number] Commun i ty Hospita [facility] Clinics 2022-12-15 2022-12-15 Outpatient [facility] 12[address] [place] 00:00:00 00:00:00 [id number] Commun i ty [facility] Clinics 2022-11-30 2022-11-30 Outpatient [facility] 12[address] [place] 00:00:00 00:00:00 [id number] [facility] i ty [facility] Clinics 2022-11-30 2022-11-30 Gunn[facility] [place] [id number] [place] 00:00:00 00:00:00 [facility] - ty DO: [address] [facility] [place], [place] CLINIC, [address] DRISS , Ph. 2022-11-26 2022-11-26 Gunnar [facility] [place] [id number] 24 [place] 00:00:00 00:00:00 [facility] ty DO: [address] Hospit a [facility], HOSPITAL [place], [place] CLINIC, [address] DRISS , Ph. [phone] 2022-11-10 2022-11-10 Outpatient [facility] 12[address] [place] 00:00:00 00:00:00 [id number] Commun i ty Hospita [facility] Clinics 2022-11-10 2022-11-10 Outpatient [facility] 12[address] [place] 00:00:00 00:00:00 [id number] [facility] i ty [facility] Clinics 2022-10-06 2022-10-06 Outpatient [facility] 12[address] [place] 00:00:00 00:00:00 [id number] Commun i ty H[facility] Clinics 2022-09-01 2022-09-01 Outpatient [facility] 12[address] [place] 00:00:00 00:00:00 0530 Commun i ty Hospita [facility] Clinics 2022-08-20 2022-08-20 [facility] [place] 00:00:00 00:00:00 [facility] - ty DO: [address] [facility] [place], [place] CLINIC, [address] DRISS , Ph. 2022-08-17 2022-08-[address] [facility] [place] [id number] 15 [place] 00:00:00 00:00:00 [facility] - ty DO: [address] Hospit rosalio [facility], HOSPITAL [place], [place] CLINIC, [address] DRISS , Ph. 2022-08-13 2022-08-13 Gunn[facility] [place] [id number] [place] 00:00:00 00:00:00 [facility] - ty DO: [address] Hospit a [facility], H[facility]PITAL [place], [place] CLINIC, [address] DRISS , Ph. 2022-07-27 2022-07-27 Outpatient [facility] 12[address] [place] 00:00:00 00:00:00 0515 Commun i ty Hosp[facility] Clinics 2022-07-27 2022-07-27 Outpatient [facility] 12[address] [place] 00:00:00 00:00:00 0518 Commun i ty Hosp[facility] Clinics 2022-07-27 2022-07-27 Outpatient [facility] 12[address] [place] 00:00:00 00:00:00 0511 Commun i ty Hosp[facility] Clinics 2022-07-17 2022-07-17 [facility] [place] 14 [place] 00:00:00 00:00:00 [facility] DO: [address] a [facility] HOSPITAL [place], [place] CLINIC, [address] DRISS , Ph. [phone] 2022-06-25 2022-06-25 Outpatient [facility] 1294 [place] 00:00:00 00:00:00 0323 Commun i ty Hospita [facility] Clinics 2022-06-25 2022-06-25 Outpatient [facility] 12[address] [place] 00:00:00 00:00:00 0414 Commun i ty H[facility] Clinics 2022-06-25 2022-06-25 Gunn[facility] [place] [id number] 23 [place] 00:00:00 00:00:00 [facility] DO: [address] a [facility], HOSPITAL [place], [place] CLINIC, [address] DRISS , Ph. 2022-06-04 2022-06-04 Outpatient [facility] 1294 [place] 00:00:00 00:00:00 0302 Commun i ty Hospita [facility] Clinics 2022-06-04 2022-06-04 Outpatient [facility] 1294 eny 00:00:00 00:00:00 0306 Commun i ty Hospita [facility] Clinics 2022-06-04 2022-06-[address] [facility] [place] 00:00:00 00:00:00 [facility] DO: [address] Hospit a [facility] [address], HOSPITAL Clinic s [place], [place] CLINIC, [address] DRISS , Ph. 2022-06-03 2022-06-03 Outpatient [facility] 12[address] [place] 00:00:00 00:00:00 0301 [facility] i ty [facility] Clinics 2022-06-02 2022-06-02 Outpatient [facility]R [facility] [address] [place] 00:00:00 00:00:00 [id number] [facility] 2020-08-24 2020-08-24 Outpatient Ami BAZAN [facility] [id number] 10:10:00 10:10:00 TRAVON layton [facility] 2020-08-22 2020-08-24 Inpatient [facility] [id number] Mem[place] 19:08:00 02:04:[address] 2020-08-22 2020-08-24 Inpatient [facility] [id number] Memoria 19:08:00 02:04:[address] 2020-08-22 2020-08-23 Inpatient U YR, [facility] [address] [facility] 14:08:00 21:04:00 ALEJANDRA 2020-08-22 2020-08-23 Outpatient Ry [facility] [id number] 14:08:00 21:04:00 Alejandra Ali 40 2020-08-08 2020-08-08 Letter Lab, Pcp [facility] [id number] Univers 00:00:00 00:00:00 (Out) [facility] [id number] it y sirena [place] [id number] [place] as Professio [phone] Vt dical nal [address] [place] [address] 2020-08-08 2020-08-08 Letter Lab, Pcp [facility] [id number] Univers 00:00:00 00:00:00 (Out) [facility] [id number] it y of [place] [id number] [place] as Professio [phone] [address] Office [address] One 2020-08-05 2020-08-05 Laboratory Lab, Adc Fam Pob I [facility] 1.2. [id number] [id number] Univers 13:35:13 13:55:13 Only Tamie Henderson [facility] [id number] ity of [place] [id number] [place] as Professio [phone] [address] Office [facility] One 2020-08-05 2020-08-05 Outpatient Ami HENDERSON [facility] [id number] Univers 13:00:00 13:00:00 TAMIE ity of [facility] 2020-08-05 2020-08-05 Orders Doctor FRANCISCO [id number] Univers 00:00:00 00:00:00 Only Unassigned, LIO [id number] ity of [place] [facility] [id number] [place] as [phone] [address] 2020-07-27 2020-07-27 Outpatient Ami CORTEZ [facility] [id number] Univers 08:20:00 08:28:42 AMARI ity of [facility] 2015-12-19 2015-12-19 Office Foot, Tdc Ortho TDCJ [id number] Univers 09:00:00 13:48:36 Visit Conrado Mejia [facility] [id number] [phone] [address] Results Test Description Test Time Test Comments Results Result Comments Source fecal occult blood, stool 2022-08-17 16:59:00 Test Item Value Reference Range Interpretation Comme nts Positive (test code = Positive) 0 Negative (test code = Negative) [facility] [id number] 16:34:00 Test Item Value Reference Range Interpretation Comments Negative (test code = Negative) [facility] [id number] 02:55:00 Test Item Value Reference Range Interpretation Comments Ammonia (test code = Ammonia) 22.0 [facility]2021-05-21 02:55:00 Test Item Value Reference Range Interpretation Comments Ammonia (test code = Ammonia) 22.0 [facility]2021-05-21 02:55:00 Test Item Value Reference Range Interpretation Comments Ammonia (test code = Ammonia) 22.0 [facility]2021-05-20 23:59:00 Test Item Value Reference Range Interpretation Comments Vitamin B12 Lvl (test code = Vitamin 1629 B12 Lvl) [facility]2021-05-20 23:59:00 Test Item Value Reference Range Interpretation Comments Folate Lvl (test code = Folate Lvl) 16.9 [facility]zbPMFOPYCHXF9399-77-42 23:59:00 Test Item Value Reference Range Interpretation Comments RPR (test code = RPR) Non Reactive (08/22/20 6:59 PM) [facility]leBfvrzufXMLPFWULGJ9185-98-43 23:59:00 Test Item Value Reference Range Interpretation Comments HIV Ag/Ab 4th Gen Negative *NA*(08/22/20 (test code = HIV 6:59 PM) Ag/Ab 4th Gen) [facility]2021-05-20 23:59:00 Test Item Value Reference Range Interpretation Comments Vitamin B12 Lvl (test code = Vitamin 1629 B12 Lvl) [facility]2021-05-20 23:59:00 Test Item Value Reference Range Interpretation Comments Folate Lvl (test code = Folate Lvl) 16.9 [facility]leFtxqdpvLVLZKLZPNI9501-30-28 23:59:00 Test Item Value Reference Range Interpretation Comments RPR (test code = RPR) Non Reactive (08/22/20 6:59 PM) [facility]leRgvrnynUGIKBIFHMN4092-93-11 23:59:00 Test Item Value Reference Range Interpretation Comments HIV Ag/Ab 4th Gen Negative *NA*(08/22/20 (test code = HIV 6:59 PM) Ag/Ab 4th Gen) [facility]2021-05-20 23:59:00 Test Item Value Reference Range Interpretation Comments Vitamin B12 Lvl (test code = Vitamin 1629 B12 Lvl) [facility]2021-05-20 23:59:00 Test Item Value Reference Range Interpretation Comments Folate Lvl (test code = Folate Lvl) 16.9 [place] 032191-05-20 23:59:00 Test Item Value Reference Range Interpretation Comments RPR (test code = RPR) Non Reactive (08/22/20 6:59 PM) [place] 032191-05-20 23:59:00 Test Item Value Reference Range Interpretation Comments HIV Ag/Ab 4th Gen Negative *NA*(08/22/20 (test code = HIV 6:59 PM) Ag/Ab 4th Gen) [place] 871931-05-20 22:48:00 Test Item Value Reference Range Interpretation Comments Lymphocytes (test code = Lymphocytes) 28.9 20.0-40.0 [place] 871931-05-20 22:48:00 Test Item Value Reference Range Interpretation Comments Monocytes (test code = Monocytes) 9.7 2.0-12.0 [facility] CampusSqhsapfNGFMYWLBMR9440-61-18 22:48:00 Test Item Value Reference Range Interpretation Comments Eosinophils (test code = 2.2 See_Comment [A utomated message] The Eosinophils) system which ge nerated this result tra nsmitted reference range : <=4.0. The reference r suly was not used to int erpret this result as normal/abnormal . [facility] CampusHfsuoyvORDTSOZGBQ6037-74-04 22:48:00 Test Item Value Reference Range Interpretation Comments Basophils (test code = 1.0 See_Comment [Aut omated message] The Basophils) system which ge nerated this result tra nsmitted reference range : <=1.0. The reference r suly was not used to int erpret this result as normal/abnormal . [place] 871931-05-20 22:48:00 Test Item Value Reference Range Interpretation Comments Neutrophils # (test code = Neutrophils 2.3 1.5-8.1 #) [facility] CampusGmyeescQLVDYQNORU1207-33-50 22:48:00 Test Item Value Reference Range Interpretation Comments Lymphocytes # (test code = Lymphocytes 1.2 1.0-5.5 #) [place] 871931-05-20 22:48:00 Test Item Value Reference Range Interpretation Comments Monocytes # (test code 0.4 See_Comment [Aut omated message] The = Monocytes #) system which generated this result tra nsmitted reference range : <=0.8. The reference r suly was not used to int erpret this result as normal/abnormal . [facility] CampusEhsunfnBASTHEJOXA4135-16-85 22:48:00 Test Item Value Reference Range Interpretation Comments Eosinophils # (test code 0.1 See_Comment [A utomated message] The = Eosinophils #) system whic h generated this result tra nsmitted reference range : <=0.5. The reference r suly was not used to int erpret this result as normal/abnormal . [facility]2021-05-20 22:48:00 Test Item Value Reference Range Interpretation Comments Ca Ion WB (test code = Ca Ion WB) 1.20 1.05-1.25 [place] 424991-05-20 22:48:00 Test Item Value Reference Range Interpretation Comments Ca Norm WB (test code = Ca Norm WB) 1.16 1.05-1.25 [place] 042161-05-20 22:48:00 Test Item Value Reference Range Interpretation Comments Glucose Lvl (test code = Glucose Lvl) 86 70-99 [place] 042161-05-20 22:48:00 Test Item Value Reference Range Interpretation Comments BUN (test code = BUN) 19 7-22 [place] 042161-05-20 22:48:00 Test Item Value Reference Range Interpretation Comments Creatinine Lvl (test code = Creatinine 0.86 0.50-1.40 Lvl) [place] 042161-05-20 22:48:00 Test Item Value Reference Range Interpretation Comments Sodium Lvl (test code = Sodium Lvl) 140 135-145 [facility]Smart[facility]rowdz [id number] 22:48:00 Test Item Value Reference Range Interpretation Comments Potassium Lvl (test code = Potassium 4.3 3.5-5.1 Lvl) [place] 042161-05-20 22:48:00 Test Item Value Reference Range Interpretation Comments Chloride Lvl (test code = Chloride Lvl) 106 95-109 [place] 042161-05-20 22:48:00 Test Item Value Reference Range Interpretation Comments CO2 (test code = CO2) 32 24-32 [place] [address]-05-20 22:48:00 Test Item Value Reference Range Interpretation Comments Calcium Lvl (test code = Calcium Lvl) 8.7 8.5-10.5 [facility] HospitalSmartDrive SystemsJAMIE VILLE [id number] 22:48:00 Test Item Value Reference Range Interpretation Comments Total Protein (test code = Total 6.6 6.4-8.4 Protein) [address]05-20 22:48:00 Test Item Value Reference Range Interpretation Comments Albumin Lvl (test code = Albumin Lvl) 3.5 3.5-5.0 [facility] [id number] 22:48:00 Test Item Value Reference Range Interpretation Comments ALT (test code = ALT) 27 See_Comment [Auto mated message] The system which ge nerated this result transmit ginny reference range : <=65. The reference range was not used to interpr et this result as lady l/abnormal. [facility] CenterSmart[facility]dz [id number] 22:48:00 Test Item Value Reference Range Interpretation Comments AST (test code = AST) 20 See_Comment [Auto mated message] The system which ge nerated this result transmit ginny reference range : <=37. The reference range was not used to interpr et this result as lady l/abnormal. [facility] Center[facility] [id number] 22:48:00 Test Item Value Reference Range Interpretation Comments Alk Phos (test code = Alk Phos) 58 39-136 [facility] [id number] 22:48:00 Test Item Value Reference Range Interpretation Comments Bili Total (test code = Bili Total) 0.3 0.2-1.3 [facility] Center[facility] IRAHD1516-03-02 22:48:00 Test Item Value Reference Range Interpretation Comments AGAP (test code = AGAP) 6.3 10.0-20.0 [facility] CenterSmart[facility] [id number] 22:48:00 Test Item Value Reference Range Interpretation Comments B/C Ratio (test code = B/C Ratio) 22 1 6-25 [facility] [id number] 22:48:00 Test Item Value Reference Range Interpretation Comments Globulin (test code = Globulin) 3.1 2.7-4.2 [facility] CenterCHEM [id number] 22:48:00 Test Item Value Reference Range Interpretation Comments A/G Ratio (test code = A/G Ratio) 1.1 1 0.7-1.6 [facility] CenterCHEM [id number] 22:48:00 Test Item Value Reference Range Interpretation Comments eGFR (test code = eGFR) 94 [facility] HealthTsoqciwRVIWPNBLTF4442-60-47 22:48:00 Test Item Value Reference Range Interpretation Comments WBC (test code = WBC) 4.0 3.7-10.4 [facility] HealthNnwzvdqFQADRBPCSO2732-06-43 22:48:00 Test Item Value Reference Range Interpretation Comments RBC (test code = RBC) 4.45 4.70-6.10 [facility] HealthTqwtoxuFIXPZLUXWQ9091-00-72 22:48:00 Test Item Value Reference Range Interpretation Comments Hgb (test code = Hgb) 13.5 14.0-18.0 [facility] HealthReislbvPIQMRDFENJ6538-34-78 22:48:00 Test Item Value Reference Range Interpretation Comments Hct (test code = Hct) 39.8 42.0-54.0 [facility] HealthFxnszxpBMKRHPZKXF0826-31-77 22:48:00 Test Item Value Reference Range Interpretation Comments MCV (test code = MCV) 89.3 80.0-94.0 [facility] HealthSdnojkdOPQKGFAHTV8954-44-49 22:48:00 Test Item Value Reference Range Interpretation Comments MCH (test code = MCH) 30.3 pg 27.0-31.0 [facility] HealthGcptadxHWJQWZBIML5486-19-31 22:48:00 Test Item Value Reference Range Interpretation Comments MCHC (test code = MCHC) 34.0 32.0-36.0 [facility] CampusBikgrwfWHUDSFFHAP3910-90-52 22:48:00 Test Item Value Reference Range Interpretation Comments RDW (test code = RDW) 13.8 11.5-14.5 [facility] CampusPibonxyAGFLYUVMDH9162-94-80 22:48:00 Test Item Value Reference Range Interpretation Comments Platelet (test code = Platelet) 278 133-450 [facility] HealthBjyflyqLEXLQULTLD2312-98-10 22:48:00 Test Item Value Reference Range Interpretation Comments MPV (test code = MPV) 7.8 7.4-10.4 [place] 871931-05-20 22:48:00 Test Item Value Reference Range Interpretation Comments PT (test code = PT) 12.6 s 12.0-14.7 [place] 871931-05-20 22:48:00 Test Item Value Reference Range Interpretation Comments INR (test code = INR) 0.95 1 0.85-1.17 [place] 871931-05-20 22:48:00 Test Item Value Reference Range Interpretation Comments PTT (test code = PTT) 29.3 s 22.9-35.8 [place] [address]-05-20 22:48:00 Test Item Value Reference Range Interpretation Comments Segs (test code = Segs) 58.2 45.0-75.0 [place] 871931-05-20 22:48:00 Test Item Value Reference Range Interpretation Comments Lymphocytes (test code = Lymphocytes) 28.9 20.0-40.0 [place] 871931-05-20 22:48:00 Test Item Value Reference Range Interpretation Comments Monocytes (test code = Monocytes) 9.7 2.0-12.0 [place] 871931-05-20 22:48:00 Test Item Value Reference Range Interpretation Comments Eosinophils (test code = 2.2 See_Comment [A utomated message] The Eosinophils) system which ge nerated this result tra nsmitted reference range : <=4.0. The reference r suly was not used to int erpret this result as normal/abnormal . [facility] CampusAiuyxmwHOMQEBROEP2323-01-08 22:48:00 Test Item Value Reference Range Interpretation Comments Basophils (test code = 1.0 See_Comment [Aut omated message] The Basophils) system which ge nerated this result tra nsmitted reference range : <=1.0. The reference r suly was not used to int erpret this result as normal/abnormal . [facility] CampusDdaejmjIVXRAHVCNP7718-74-61 22:48:00 Test Item Value Reference Range Interpretation Comments Neutrophils # (test code = Neutrophils 2.3 1.5-8.1 #) [facility] CampusQdbroofLAOCIDCYFP3645-61-81 22:48:00 Test Item Value Reference Range Interpretation Comments Lymphocytes # (test code = Lymphocytes 1.2 1.0-5.5 #) [place] 871931-05-20 22:48:00 Test Item Value Reference Range Interpretation Comments Monocytes # (test code 0.4 See_Comment [Aut omated message] The = Monocytes #) system which generated this result tra nsmitted reference range : <=0.8. The reference r suly was not used to int erpret this result as normal/abnormal . [facility] CampusMjjdjofTPCLYDQFXP0444-91-91 22:48:00 Test Item Value Reference Range Interpretation Comments Eosinophils # (test code 0.1 See_Comment [A utomated message] The = Eosinophils #) system whic h generated this result tra nsmitted reference range : <=0.5. The reference r suly was not used to int erpret this result as normal/abnormal . [facility]RO[facility] [id number] 22:48:00 Test Item Value Reference Range Interpretation Comments Ca Ion WB (test code = Ca Ion WB) 1.20 1.05-1.25 [facility]2021-05-20 22:48:00 Test Item Value Reference Range Interpretation Comments Ca Norm WB (test code = Ca Norm WB) 1.16 1.05-1.25 [place] 042161-05-20 22:48:00 Test Item Value Reference Range Interpretation Comments Glucose Lvl (test code = Glucose Lvl) 86 70-99 [facility]2021-05-20 22:48:00 Test Item Value Reference Range Interpretation Comments BUN (test code = BUN) 19 7-22 [facility]2021-05-20 22:48:00 Test Item Value Reference Range Interpretation Comments Creatinine Lvl (test code = Creatinine 0.86 0.50-1.40 Lvl) [place] 042161-05-20 22:48:00 Test Item Value Reference Range Interpretation Comments Sodium Lvl (test code = Sodium Lvl) 140 135-145 [facility] [id number] 22:48:00 Test Item Value Reference Range Interpretation Comments Potassium Lvl (test code = Potassium 4.3 3.5-5.1 Lvl) [place] 042161-05-20 22:48:00 Test Item Value Reference Range Interpretation Comments Chloride Lvl (test code = Chloride Lvl) 106 95-109 [facility] [id number] 22:48:00 Test Item Value Reference Range Interpretation Comments CO2 (test code = CO2) 32 24-32 [facility]2021-05-20 22:48:00 Test Item Value Reference Range Interpretation Comments Calcium Lvl (test code = Calcium Lvl) 8.7 8.5-10.5 [place] 042161-05-20 22:48:00 Test Item Value Reference Range Interpretation Comments Total Protein (test code = Total 6.6 6.4-8.4 Protein) [place] 042161-05-20 22:48:00 Test Item Value Reference Range Interpretation Comments Albumin Lvl (test code = Albumin Lvl) 3.5 3.5-5.0 [place] 042161-05-20 22:48:00 Test Item Value Reference Range Interpretation Comments Glucose Lvl (test code = Glucose Lvl) 86 70-99 [place] 042161-05-20 22:48:00 Test Item Value Reference Range Interpretation Comments BUN (test code = BUN) 19 7-22 [place] 042161-05-20 22:48:00 Test Item Value Reference Range Interpretation Comments Creatinine Lvl (test code = Creatinine 0.86 0.50-1.40 Lvl) [place] 042161-05-20 22:48:00 Test Item Value Reference Range Interpretation Comments Sodium Lvl (test code = Sodium Lvl) 140 135-145 [place] 042161-05-20 22:48:00 Test Item Value Reference Range Interpretation Comments Potassium Lvl (test code = Potassium 4.3 3.5-5.1 Lvl) [place] 042161-05-20 22:48:00 Test Item Value Reference Range Interpretation Comments Chloride Lvl (test code = Chloride Lvl) 106 95-109 [place] 042161-05-20 22:48:00 Test Item Value Reference Range Interpretation Comments CO2 (test code = CO2) 32 24-32 [facility]2021-05-20 22:48:00 Test Item Value Reference Range Interpretation Comments Calcium Lvl (test code = Calcium Lvl) 8.7 8.5-10.5 [place] 042161-05-20 22:48:00 Test Item Value Reference Range Interpretation Comments Total Protein (test code = Total 6.6 6.4-8.4 Protein) [address]05-20 22:48:00 Test Item Value Reference Range Interpretation Comments Albumin Lvl (test code = Albumin Lvl) 3.5 3.5-5.[address]05-20 22:48:00 Test Item Value Reference Range Interpretation Comments ALT (test code = ALT) 27 <=65 [address]05-20 22:48:00 Test Item Value Reference Range Interpretation Comments AST (test code = AST) 20 <=37 [place] 042161-05-20 22:48:00 Test Item Value Reference Range Interpretation Comments Alk Phos (test code = Alk Phos) 58 39-136 [place] 042161-05-20 22:48:00 Test Item Value Reference Range Interpretation Comments Bili Total (test code = Bili Total) 0.3 0.2-1.[address]05-20 22:48:00 Test Item Value Reference Range Interpretation Comments AGAP (test code = AGAP) 6.3 10.0-20.0 [address]05-20 22:48:00 Test Item Value Reference Range Interpretation Comments B/C Ratio (test code = B/C Ratio) 22 1 6-[address]05-20 22:48:00 Test Item Value Reference Range Interpretation Comments Globulin (test code = Globulin) 3.1 2.7-4.[address]05-20 22:48:00 Test Item Value Reference Range Interpretation Comments A/G Ratio (test code = A/G Ratio) 1.1 1 0.7-1.[address]05-20 22:48:00 Test Item Value Reference Range Interpretation Comments eGFR (test code = eGFR) [address]05-20 22:48:00 Test Item Value Reference Range Interpretation Comments WBC (test code = WBC) 4.0 3.7-10.[address]05-20 22:48:00 Test Item Value Reference Range Interpretation Comments RBC (test code = RBC) 4.45 4.70-6.[address]05-20 22:48:00 Test Item Value Reference Range Interpretation Comments Hgb (test code = Hgb) 13.5 14.0-18.0 [place] 871931-05-20 22:48:00 Test Item Value Reference Range Interpretation Comments Hct (test code = Hct) 39.8 42.0-54.0 [place] 871931-05-20 22:48:00 Test Item Value Reference Range Interpretation Comments MCV (test code = MCV) 89.3 80.0-94.0 [place] 871931-05-20 22:48:00 Test Item Value Reference Range Interpretation Comments MCH (test code = MCH) 30.3 pg 27.0-31.0 [place] 871931-05-20 22:48:00 Test Item Value Reference Range Interpretation Comments MCHC (test code = MCHC) 34.0 32.0-36.0 [place] 871931-05-20 22:48:00 Test Item Value Reference Range Interpretation Comments RDW (test code = RDW) 13.8 11.5-14.5 [place] 871931-05-20 22:48:00 Test Item Value Reference Range Interpretation Comments Platelet (test code = Platelet) 278 133-450 [facility] CampusCpznugkOHJGGVAJUV4040-87-29 22:48:00 Test Item Value Reference Range Interpretation Comments MPV (test code = MPV) 7.8 7.4-10.4 [place] 871931-05-20 22:48:00 Test Item Value Reference Range Interpretation Comments PT (test code = PT) 12.6 s 12.0-14.7 [place] 871931-05-20 22:48:00 Test Item Value Reference Range Interpretation Comments INR (test code = INR) 0.95 1 0.85-1.17 [place] 871931-05-20 22:48:00 Test Item Value Reference Range Interpretation Comments PTT (test code = PTT) 29.3 s 22.9-35.8 [place] [address]-05-20 22:48:00 Test Item Value Reference Range Interpretation Comments Segs (test code = Segs) 58.2 45.0-75.0 [place] 871931-05-20 22:48:00 Test Item Value Reference Range Interpretation Comments Lymphocytes (test code = Lymphocytes) 28.9 20.0-40.0 [place] 871931-05-20 22:48:00 Test Item Value Reference Range Interpretation Comments Monocytes (test code = Monocytes) 9.7 2.0-12.0 [place] 871931-05-20 22:48:00 Test Item Value Reference Range Interpretation Comments Eosinophils (test code = Eosinophils) 2.2 <=4.0 [place] 871931-05-20 22:48:00 Test Item Value Reference Range Interpretation Comments Basophils (test code = Basophils) 1.0 <=1.0 [place] 871931-05-20 22:48:00 Test Item Value Reference Range Interpretation Comments Neutrophils # (test code = Neutrophils 2.3 1.5-8.1 #) [place] 871931-05-20 22:48:00 Test Item Value Reference Range Interpretation Comments Lymphocytes # (test code = Lymphocytes 1.2 1.0-5.5 #) [facility] CampusFntvqncPVASHORUPM2042-30-40 22:48:00 Test Item Value Reference Range Interpretation Comments Monocytes # (test code = Monocytes #) 0.4 <=0.8 [place] 871931-05-20 22:48:00 Test Item Value Reference Range Interpretation Comments Eosinophils # (test code = Eosinophils 0.1 <=0.5 #) [facility]2021-05-20 22:48:00 Test Item Value Reference Range Interpretation Comments Ca Ion WB (test code = Ca Ion WB) 1.20 1.05-1.25 [facility]2021-05-20 22:48:00 Test Item Value Reference Range Interpretation Comments Ca Norm WB (test code = Ca Norm WB) 1.16 1.05-1.25 [facility]Smart[facility] [id number] 22:48:00 Test Item Value Reference Range Interpretation Comments ALT (test code = ALT) 27 See_Comment [Auto mated message] The system which ge nerated this result transmit ginny reference range : <=65. The reference range was not used to interpr et this result as lady l/abnormal. [facility] [id number] 22:48:00 Test Item Value Reference Range Interpretation Comments AST (test code = AST) 20 See_Comment [Auto mated message] The system which ge nerated this result transmit ginny reference range : <=37. The reference range was not used to interpr et this result as lady l/abnormal. [place] 042161-05-20 22:48:00 Test Item Value Reference Range Interpretation Comments Alk Phos (test code = Alk Phos) 58 39-136 [place] [address]-05-20 22:48:00 Test Item Value Reference Range Interpretation Comments Bili Total (test code = Bili Total) 0.3 0.2-1.[address]05-20 22:48:00 Test Item Value Reference Range Interpretation Comments AGAP (test code = AGAP) 6.3 10.0-20.[address]05-20 22:48:00 Test Item Value Reference Range Interpretation Comments B/C Ratio (test code = B/C Ratio) 22 1 6-[address]05-20 22:48:00 Test Item Value Reference Range Interpretation Comments Globulin (test code = Globulin) 3.1 2.7-4.[address]05-20 22:48:00 Test Item Value Reference Range Interpretation Comments A/G Ratio (test code = A/G Ratio) 1.1 1 0.7-1.6 [address] [address]20 22:48:00 Test Item Value Reference Range Interpretation Comments eGFR (test code = eGFR) [address] 22:48:00 Test Item Value Reference Range Interpretation Comments WBC (test code = WBC) 4.0 3.7-10.[address]05[address]20 22:48:00 Test Item Value Reference Range Interpretation Comments RBC (test code = RBC) 4.45 4.70-6.[address]05[address]20 22:48:00 Test Item Value Reference Range Interpretation Comments Hgb (test code = Hgb) 13.5 14.0-18.[address]05[address] 22:48:00 Test Item Value Reference Range Interpretation Comments Hct (test code = Hct) 39.8 42.0-54.0 [place] [address]-05-20 22:48:00 Test Item Value Reference Range Interpretation Comments MCV (test code = MCV) 89.3 80.0-94.0 [id number] 22:48:00 Test Item Value Reference Range Interpretation Comments MCH (test code = MCH) 30.3 pg 27.0-31.0 [facility] [id number] 22:48:00 Test Item Value Reference Range Interpretation Comments MCHC (test code = MCHC) 34.0 32.0-36.0 [facility] [id number] 22:48:00 Test Item Value Reference Range Interpretation Comments RDW (test code = RDW) 13.8 11.5-14.5 [place] [id number] 22:48:00 Test Item Value Reference Range Interpretation Comments Platelet (test code = Platelet) 278 133-450 [facility] [id number] 22:48:00 Test Item Value Reference Range Interpretation Comments MPV (test code = MPV) 7.8 7.4-10.4 [place] [id number] 22:48:00 Test Item Value Reference Range Interpretation Comments PT (test code = PT) 12.6 s 12.0-14.7 [place] [id number] 22:48:00 Test Item Value Reference Range Interpretation Comments INR (test code = INR) 0.95 1 0.85-1.17 [facility] [id number] 22:48:00 Test Item Value Reference Range Interpretation Comments PTT (test code = PTT) 29.3 s 22.9-35.8 [place] [id number] 22:48:00 Test Item Value Reference Range Interpretation Comments Segs (test code = Segs) 58.2 45.0-75.0 [facility]
[2023-01-09 09:18] LABS: Absolute Lymphocytes (CBC) 0.6 K/uL (0.7-4.9); Lymphocytes % 9.1 % (15.3-44.8); MCV 88.3 fL (80-100); MPV 6.3 fL (7.6-11.3); Platelets 347 thou/uL (152-406); RBC Red Blood Cell Count 4.19 M/uL (4.33-5.43)
[2023-01-09 09:27] LABS: Protime INR 0.93
[2023-01-09] MEDS ORDERED: FENTANYL CITR 100 MCG/2 ML ONE (09:27)
[2023-01-09] MEDS ORDERED: ONDANSETRON 4 MG/2 ML VIAL ONE (09:27)
[2023-01-09 09:37] LABS: Albumin 4.1 g/dL (3.4-5.0); Bilirubin Direct 0.2 mg/dL (0-0.2); Bilirubin Indirect, Calculated 0.5 mg/dL (0.2-0.8); Bilirubin Total 0.7 mg/dL (0.2-1.0); Magnesium 1.8 mg/dL (1.6-2.4); Potassium 4.9 mEq/L (3.5-5.1); Troponin High Sensitivity 22.6 pg/mL (<58.9)
[2023-01-09] MEDS ORDERED: NA CHLORIDE 0.9% 1,000 ML ONE (10:25)
--- NOTE | 2023-01-09 10:36 | RAD REPORT ---
EXAM DESCRIPTION: CT - Head Brain Wo Cont - 01/09/2023 9:59 am CLINICAL HISTORY: DIZZINESS Headache, drowsiness, dizziness COMPARISON: HEAD BRAIN W O CONTRAST dated 09/03/2012 TECHNIQUE: All CT scans are performed using dose optimization technique as appropriate and may inclu de automated exposure control or mA/KV adjustment according to patient size. FINDINGS: No intracranial hemorrhage, hydrocephalus or extra-axial fluid collection.Mild generalized brain atrophy.No areas of brain edema or evidence of midline shift. The paranasal sinuses and mastoids are clear except for mild thickening of the right maxillary antrum . . The calvarium is intact. IMPRESSION: No acute intracranial abnormality.
--- NOTE | 2023-01-09 10:43 | RAD REPORT ---
EXAM DESCRIPTION: CT - Chest Abdomen Pelvis W Cont - 01/09/2023 9:59 am CLINICAL HISTORY: Chest and abdomen pain. TRAUMA COMPARISON: Chest For Pe Angio dated 11/15/2022 TECHNIQUE: Approximately 100 mL nonionic IV contrast was administered to the patient. All CT scans are performed using dose optimization technique as appropriate and may include automated exposure control or mA/KV adjustment according to patient size. FINDINGS: The lungs are mildly emphysematous with atelectasis in the left lung base.7 mm subpleural nodule seen left lung base laterally. 4 mm nodule is seen in the right middle lobe. No pleural or per icardial effusion.No intrathoracic adenopathy. There is dilatation of the esophagus with fluid mild wall thickening. Soft tissue fullness measuring up to 4-5 cm is seen within the stomach at the level of the gastroesophageal junction, warranting dir ect visualization. Mild diffuse fatty liver is seen. No liver mass or biliary dilatation. The spleen, pancreas, adrenal glands kidneys are within normal limits. No bowel obstruction, free air, free fluid or abscess. Normal appendix. Sigmoid diverticulosis coli i s present without diverticulitis. No pathologic lymphadenopathy in the abdomen or pelvis. Mildly displaced fracture posterior right tenth, eleventh and twelfth ribs. Right transverse process of L1 is fractured. IMPRESSION: Mildly displaced fracture of the right lateral tenth, eleventh and twelfth ribs.Mild fra cture right transverse process L1. Soft tissue fullness within the stomach medially and superiorly adjacent to the gastroesophageal junc tion with mild to moderate fluid distention of the esophagus present. Recommend direct visualization with follow-up endoscopy. Mild diffuse fatty liver. Sigmoid diverticulosis coli without diverticulitis. Noncalcified pulmonary nodules as described. Low-dose CT lung cancer screening follow-up study would be recommended 3-6 months.
--- NOTE | 2023-01-09 10:51 | RAD REPORT ---
EXAM DESCRIPTION: CT - Soft Tissue Neck W/Contr CLINICAL HISTORY: dysphagia, hx of esophageal problems;Sore throat Pain and swelling COMPARISON: No comparisons TECHNIQUE All CT scans are performed using dose optimization technique as appropriate and may includ e automated exposure control or mA/KV adjustment according to patient size. FINDINGS: Nasopharyngeal tissues are normal in appearance. Fossa Rosenmller are normal. No peritonsillar or prevertebral fluid collection or abscess. Tongue base structures are normal. Epiglottis and aryepiglottic folds are normal. Piriform sinuses are well aerated. Thyroid gland is normal sized. A few mildly prominent bilateral jugular chain lymph nodes are nonspec ific but favored to be a reactive. The vocal cords are normal in appearance. Salivary glands are normal in appearance. 4 mm anterolisthesis is present, presumably degenerative in nature, of C5 on C6. Visualized upper eso phagus is mildly air dilated. IMPRESSION: No acute neck abnormality is detected.
--- NOTE | 2023-01-09 11:28 | EDPHYS ---
Physician Documentation [facility] Name: Jak Gauthier Age: 62 yrs Sex: Male : 1960 Arrival Date: 01/09/2023 Time: 08:36 Bed 7 Private MD: ED Physician Osmel Pate HPI: 01/09 08:50 This 62 yrs old Male presents to ER via Ambulatory with complaints of Fall Injury, Rib jh7 pain, Throat problem. 08:50 Details of fall: The patient fell from an upright position, while standing. Onset: The jh7 symptoms/episode began/occurred 2 day(s) ago. Associated injuries: The patient sustained injury to the head, abrasion, injury to the chest, contusion, tenderness, injury to the abdomen, tenderness. 62-year-old male reports a fall yesterday and 2 days ago resulting in bilateral rib pain and abdominal pain. The patient states that both falls were a result of him becoming dizzy. Denies LOC. Also reports that he has esophageal issues and that he has had increased difficulty swallowing.. Historical: - Allergies: 08:47 No Known Allergies; ll1 - Home Meds: 09:30 doxepin 50 mg Oral capsule every day at bedtime [Active]; fluoxetine 40 mg Oral capsule ll1 2 caps daily [Active]; hydrocodone-acetaminophen 10-325 mg Oral tablet every 6 hours [Active]; gabapentin 300 mg Oral capsule 3 times per day [Active]; meloxicam 15 mg Oral tablet daily [Active]; quetiapine 25 mg Oral tablet 2 times per day [Active]; quetiapine 300 mg Oral tablet every day at bedtime [Active]; tramadol 50 mg Oral tablet once [Active]; Albuterol Inhl 2 inhalations [Active]; losartan 50 mg oral tablet 1 tab daily [Active]; clonidine HCl 0.1 mg Oral tablet 1 tab as needed for hypertension [Active]; rabeprazole 20 mg oral tablet, delayed release (enteric coated) 1 tab every 12 hours [Active]; - PMHx: 08:47 Alcoholism; Bipolar disorder; depressive disorder; Schizophrenia; ll1 - Immunization history:: Adult Immunizations up to date. - Social history:: Smoking status: Patient reports the use of cigarette tobacco products, smokes one pack cigarettes per day. - Immunization history: Last tetanus immunization: - up to date. ROS: 08:50 Constitutional: Negative for fever, chills, and weight loss, Eyes: Negative for injury, jh7 pain, redness, and discharge, 08:50 Back: Negative for injury and pain, MS/Extremity: Negative for injury and deformity, Skin: Negative for injury, rash, and discoloration, Neuro: Negative for headache, weakness, numbness, tingling, and seizure, 08:50 ENT: Positive for difficulty swallowing, 08:50 Cardiovascular: Positive for rib pain, 08:50 Abdomen/GI: Positive for abdominal pain, Negative for nausea, vomiting, and diarrhea, 08:50 All other systems are negative, Exam: 08:50 Eyes: Pupils equal round and reactive to light, extra-ocular motions intact. Lids and jh7 lashes normal. Conjunctiva and sclera are non-icteric and not injected. Cornea within normal limits. Periorbital areas with no swelling, redness, or edema. Neck: Trachea midline, no thyromegaly or masses palpated, and no cervical lymphadenopathy. Supple, full range of motion without nuchal rigidity, or vertebral point tenderness. No Meningismus. Cardiovascular: Regular rate and rhythm with a normal S1 and S2. No gallops, murmurs, or rubs. Normal PMI, no JVD. No pulse deficits. Respiratory: Lungs have equal breath sounds bilaterally, clear to auscultation and percussion. No rales, rhonchi or wheezes noted. No increased work of breathing, no retractions or nasal flaring. 08:50 Constitutional: The patient appears alert, awake, uncomfortable, 08:50 Head/face: Noted is abrasion(s), that are mild, of the right cheek and chin, 08:50 ENT: Posterior pharynx: is normal, Voice: is normal, 08:50 Chest/axilla: Palpation: tenderness, of the diaphragm, right lateral anterior chest and left lateral anterior chest, that totally reproduces the patient's complaints, 08:50 Abdomen/GI: Inspection: abdomen appears normal, Bowel sounds: normal, Palpation: soft, mild abdominal tenderness, in all quadrants, Vital Signs: 08:52 BP 153 / 91; Pulse 96; Resp 20; Temp 99.2(O); Pulse Ox 98% on R/A; Weight 81.65 kg; hb Height 6 ft. 0 in. ; Pain 10/10; 09:29 BP 146 / 93; Pulse Ox 99% on R/A; ll1 10:22 BP 153 / 84; Pulse 80; ll1 11:07 BP 185 / 100; Pulse 83; Resp 18; Pulse Ox 98% on R/A; Pain 9/10; ll1 11:18 BP 162 / 85; ll1 12:48 BP 163 / 94; Pulse 86; Resp 20; Temp 97.4; Pulse Ox 100% on R/A; ll1 08:52 Body Mass Index 24.41 (81.65 kg, 182.88 cm) hb 08:52 Pain Scale: Adult hb 11:07 Pain Scale: Adult ll1 Jennifer Coma Score: 10:07 Eye Response: spontaneous(4). Motor Response: obeys commands(6). Verbal Response: ll1 oriented(5). Total: 15. Trauma Score (Adult): 10:07 Eye Response: spontaneous(1); Verbal Response: oriented(1); Motor Response: obeys ll1 commands(2); Systolic BP: > 89 mm Hg(4); Respiratory Rate: 10 to 29 per min(4); [place] Score: 15; Trauma Score: 12 MDM: 08:40 Patient medically screened. [facility] 11:00 Differential diagnosis: closed head injury, fracture, multiple trauma, Cardiac [facility] arrhythmia, electrolyte abnormality. Data reviewed: vital signs, nurses notes, lab test result(s), EKG, radiologic studies, CT scan. Consideration of Admission/Observation Patient was admitted/placed on observation. Management of patient was discussed with the following: Hospitalist: Dr. Mora. I considered the following discharge prescriptions or medication management in the emergency department Medications were administered in the Emergency Department. See MAR. Care significantly affected by the following chronic conditions: psych. Counseling: I had a detailed discussion with the patient and/or guardian regarding the historical points, exam findings, and any diagnostic results supporting the discharge/admit diagnosis, the need for further work-up and treatment in the hospital. Response to treatment: the patient's symptoms have mildly improved after treatment. 11:47 Management of patient was discussed with the following: [place] [employer]: Nephrology. [facility] 01/09 09:04 Order name: Basic Metabolic Panel; Complete Time: 09:38 [facility] 01/09 09:04 Order name: CBC with Diff; Complete Time: 09:38 7 01/09 09:04 Order name: LFT's; Complete Time: 09:38 7 01/09 09:04 Order name: Magnesium; Complete Time: 09:38 7 01/09 09:04 Order name: NT PRO-BNP; Complete Time: 09:38 7 01/09 09:04 Order name: PT-INR; Complete Time: 09:38 7 01/09 09:04 Order name: Troponin HS; Complete Time: 09:38 7 01/09 10:08 Order name: Cortisol EDMS 01/09 10:08 Order name: Osmolality, Urine EDMS 01/09 10:08 Order name: Thyroid Stimulating Hormone EDMS 01/09 10:08 Order name: UR POTASSIUM EDMS 01/09 10:08 Order name: UR SODIUM EDMS 01/09 10:08 Order name: Osmolality, Serum EDMS 01/09 10:08 Order name: Osmolality, Serum EDMS 01/09 10:08 Order name: Osmolality, Serum EDMS 01/09 10:08 Order name: Osmolality, Serum EDMS 01/09 10:08 Order name: Osmolality, Serum EDMS 01/09 10:08 Order name: Osmolality, Serum EDMS 01/09 10:08 Order name: Renal Panel EDMS 01/09 10:08 Order name: Renal Panel EDMS 01/09 10:08 Order name: Renal Panel EDMS 01/09 10:08 Order name: Renal Panel EDMS 01/09 10:08 Order name: Renal Panel EDMS 01/09 10:08 Order name: Renal Panel EDMS 01/09 10:19 Order name: BMP: Due at 1615 ll1 01/09 10:35 Order name: Osmolality, Urine; Complete Time: 11:10 EDMS 01/09 10:35 Order name: UR SODIUM; Complete Time: 11:10 EDMS 01/09 10:35 Order name: UR POTASSIUM; Complete Time: 11:10 EDMS 01/09 12:09 Order name: CBC with Automated Diff EDMS 01/09 12:09 Order name: CBC with Automated Diff EDMS 01/09 12:09 Order name: Comprehensive Metabolic Panel EDMS 01/09 12:09 Order name: Comprehensive Metabolic Panel EDMS 01/09 09:04 Order name: CT Chest, Abdomen, Pelvis - W/Contrast; Complete Time: 10:56 [facility] 01/09 09:04 Order name: CT Head Brain wo Cont; Complete Time: 10:56 [facility] 01/09 09:04 Order name: CT Soft Tissue Neck W/contr; Complete Time: 10:56 [facility] 01/09 09:04 Order name: EKG; Complete Time: 09:05 [facility] 01/09 12:09 Order name: CONS Physician Consult EDCT 01/09 09:04 Order name: Cardiac monitoring; Complete Time: 09:27 [facility] 01/09 09:04 Order name: EKG - Nurse/Tech; Complete Time: 09:25 [facility] 01/09 09:04 Order name: IV Saline Lock; Complete Time: 09:27 [facility] 01/09 09:04 Order name: Labs collected and sent; Complete Time: 09:27 [facility] 01/09 09:04 Order name: O2 Per Protocol; Complete Time: 09:04 [facility] 01/09 09:04 Order name: O2 Sat Monitoring; Complete Time: 09:04 [facility] 01/09 11:10 Order name: Recheck Blood Pressure; Complete Time: 11:18 jh7 EC:50 Rate is 91 beats/min. Rhythm is regular. QRS [place] is Normal. GA interval is normal at [facility] 162 msec. QRS interval is normal at 74 msec. QT interval is normal at 366 msec. No Q waves. T waves are Normal. No ST changes noted. Clinical impression: Normal ECG. Administered Medications: 09:16 Drug: Ondansetron IVP 4 mg IVP once; over 2 minutes Route: IVP; Site: right forearm; [facility] 10:18 Follow up: Response: No adverse reaction [facility] 09:18 Drug: fentaNYL (PF) IVP 50 mcg IVP once Route: IVP; Site: right forearm; 1 10:18 Follow up: Response: No adverse reaction [facility] 10:15 Drug: NS 0.9% IV 1000 ml IV at 75 ml/hr continuous Route: IV; Rate: 75 ml/hr; Site: ll1 right forearm; 12:36 Follow up: Response: No adverse reaction; IV Status: Infusion continued upon admission; 1 IV Intake: 150ml 11:07 Drug: fentaNYL (PF) IVP 50 mcg IVP once Route: IVP; Site: right forearm; 1 12:36 Follow up: Response: No adverse reaction; Pain is decreased; RASS: Alert and Calm (0) ll1 12:48 Drug: HYDROmorphone IVP 0.5 mg IVP once; From [place] [employer] orders Route: IVP; Site: right ll1 forearm; 13:04 Follow up: Response: No adverse reaction; Pain is decreased; RASS: Alert and Calm (0) ll1 Disposition: 14:53 Co-signature as Attending Physician, Osmel Pate MD I reviewed the patient's care rt provided by the Advanced Practice Provider and agree with the diagnosis and treatment plan. Disposition Summary: 01/09/23 11:28 Hospitalization Ordered Notes: Hospitalization Status: Inpatient Admission [facility] Provider: Bethany Mora [facility] Location: Telemetry/MedSurg (Inpatient) [facility] Condition: Stable [facility] Problem: new [facility] Symptoms: are unchanged [facility] Bed/Room Type: Standard [facility] Room Assignment: 207(01/09/23 12:40) Diagnosis - Hypo-osmolality and hyponatremia [facility] - Multiple fractures of ribs, right side [facility] - Fracture of lumbar vertebra [facility] Forms: - Medication Reconciliation Form [facility] - SBAR form [facility] - Leadership Thank You Letter [facility] Signatures: Dispatcher [employer] Ericka Banda RN RN dw Sukhdeep Guzman RN RN 1 Reena Moss FNP REMARKETING REP [facility] Osmel Pate MD MD rt Corrections: (The following items were deleted from the chart) 12:40 11:28 [facility] tri
--- NOTE | 2023-01-09 11:28 | ER ---
Nurse's Notes [facility] Name: Jak Gauthier Age: 62 yrs Sex: Male : 1960 Arrival Date: 01/09/2023 Time: 08:36 Bed 7 Private MD: Diagnosis: Hypo-osmolality and hyponatremia;Multiple fractures of ribs, right side;Fracture of lumbar vertebra Presentation: 01/09 08:47 Method Of Arrival: Ambulatory [facility] 08:51 Chief complaint: Right sided chest wall and back pain after fall 2 days ago, and hb difficulty swallowing > 1 month. Care prior to arrival: None. 08:51 Acuity: AMARA 3 hb 08:52 Coronavirus screen: At this time, the client does not indicate any symptoms associated hb with coronavirus-19. Ebola Screen: No symptoms or risks identified at this time. Initial Sepsis Screen: Does the patient meet any 2 criteria? No. Patient's initial sepsis screen is negative. Does the patient have a suspected source of infection? No. Patient's initial sepsis screen is negative. Risk Assessment: Do you want to hurt yourself or someone else? Patient reports no desire to harm self or others. Onset of symptoms is unknown. 13:03 Mechanism of Injury: Fall. Trauma event details: Injury occurred in the county of [address] Trauma Activation: Not Applicable Physician: ED Physician; Name: ; Notified At: ; Arrived At: Physician: General Surgeon; Name: ; Notified At: ; Arrived At: Physician: Radiology; Name: ; Notified At: ; Arrived At: Physician: Respiratory; Name: ; Notified At: ; Arrived At: Physician: Lab; Name: ; Notified At: ; Arrived At: Historical: - Allergies: 08:47 No Known Allergies; [facility] - Home Meds: 09:30 doxepin 50 mg Oral capsule every day at bedtime [Active]; fluoxetine 40 mg Oral capsule [facility] 2 caps daily [Active]; hydrocodone-acetaminophen 10-325 mg Oral tablet every 6 hours [Active]; gabapentin 300 mg Oral capsule 3 times per day [Active]; meloxicam 15 mg Oral tablet daily [Active]; quetiapine 25 mg Oral tablet 2 times per day [Active]; quetiapine 300 mg Oral tablet every day at bedtime [Active]; tramadol 50 mg Oral tablet once [Active]; Albuterol Inhl 2 inhalations [Active]; losartan 50 mg oral tablet 1 tab daily [Active]; clonidine HCl 0.1 mg Oral tablet 1 tab as needed for hypertension [Active]; rabeprazole 20 mg oral tablet, delayed release (enteric coated) 1 tab every 12 hours [Active]; - PMHx: 08:47 Alcoholism; Bipolar disorder; depressive disorder; Schizophrenia; ll1 - Immunization history:: Adult Immunizations up to date. - Social history:: Smoking status: Patient reports the use of cigarette tobacco products, smokes one pack cigarettes per day. - Immunization history: Last tetanus immunization: - up to date. Screenin:07 [facility] ED Fall Risk Assessment (Adult) History of falling in the last 3 months, ll1 including since admission Yes- physiologic fall (2 pts) Score/Fall Risk Level 0 - 2 = Low Risk Oriented to surroundings, Maintained a safe environment, Educated pt \T\ family on fall prevention, incl call for assistance when getting out of bed, Hourly rounding (assess needs \T\ fall precautionary measures) done. Abuse screen: Denies threats or abuse. Nutritional screening: No deficits noted. Tuberculosis screening: No symptoms or risk factors identified. Primary Survey: 13:02 NO uncontrolled hemorrhage observed. A: The client is awake and alert. The airway is ll1 patent. Breathing/Chest: Spontaneous respiratory effort, equal unlabored respirations, breath sounds clear bilaterally, regular pattern, symmetrical chest rise and fall. Circulation: No external hemorrhage present. Regular and strong central pulse, skin warm/dry/normal color. Disability Client is alert. Exposure/Environment: A warming method has been applied: A warm blanket has been provided to the patient. 13:02 Reassessment Alertness and Airway: Awake and alert. The airway is patent. Breathing: ll1 Spontaneous respiratory effort, equal unlabored respirations, breath sounds clear bilaterally, regular pattern with symmetrical chest rise and fall. Circulation: No external hemorrhage noted. Regular and strong central pulse, skin warm/dry/normal color. Disability: Alert. Assessment: 09:27 General: Appears uncomfortable, Behavior is cooperative, appropriate for age, restless. ll1 Pain: Complains of pain in right lateral anterior chest Pain currently is 10 out of 10 on a pain scale. Quality of pain is described as aching, sharp, Pain began 2-3 days ago. Aggravated by cough/deep breathe. Neuro: Reports dizziness, a syncopal episode. Cardiovascular: Reports chest pain, shortness of breath. Respiratory: Reports cough that is pain with cough. EENT: Reports difficulty swallowing since over a month pain when swallowing. 09:33 Reassessment: No changes from previously documented assessment. Patient and/or family ll1 updated on plan of care and expected duration. Pain level reassessed. 10:06 Reassessment: No changes from previously documented assessment. Patient and/or family ll1 updated on plan of care and expected duration. Pain level reassessed. Back from CT. 10:19 Reassessment: No changes from previously documented assessment. Patient and/or family ll1 updated on plan of care and expected duration. Pain level reassessed. Patient is alert, oriented x 3, equal unlabored respirations, skin warm/dry/pink. 11:02 Reassessment: No changes from previously documented assessment. Gait steady to restroom.ll1 12:54 Reassessment: No changes from previously documented assessment. Patient and/or family ll1 updated on plan of care and expected duration. Pain level reassessed. Patient is alert, oriented x 3, equal unlabored respirations, skin warm/dry/pink. Vital Signs: 08:52 BP 153 / 91; Pulse 96; Resp 20; Temp 99.2(O); Pulse Ox 98% on R/A; Weight 81.65 kg; hb Height 6 ft. 0 in. ; Pain 10/10; 09:29 BP 146 / 93; Pulse Ox 99% on R/A; ll1 10:22 BP 153 / 84; Pulse 80; ll1 11:07 BP 185 / 100; Pulse 83; Resp 18; Pulse Ox 98% on R/A; Pain 9/10; ll1 11:18 BP 162 / 85; ll1 12:48 BP 163 / 94; Pulse 86; Resp 20; Temp 97.4; Pulse Ox 100% on R/A; ll1 08:52 Body Mass Index 24.41 (81.65 kg, 182.88 cm) hb 08:52 Pain Scale: Adult hb 11:07 Pain Scale: Adult ll1 Jennifer Coma Score: 10:07 Eye Response: spontaneous(4). Motor Response: obeys commands(6). Verbal Response: ll1 oriented(5). Total: 15. Trauma Score (Adult): 10:07 Eye Response: spontaneous(1); Verbal Response: oriented(1); Motor Response: obeys ll1 commands(2); Systolic BP: > 89 mm Hg(4); Respiratory Rate: 10 to 29 per min(4); Phoenix Score: 15; Trauma Score: 12 ED Course: 08:39 Patient arrived in ED. mr 08:40 Reena Moss FNP [facility]. jh7 08:40 Osmel Pate MD is Attending Physician. jh7 08:46 Sukhdeep Guzman, MICHELE is Primary Nurse. ll1 08:46 Arm band placed on Patient placed in an exam room, on a stretcher. ll1 08:52 Triage completed. hb 09:00 Inserted saline lock: 22 gauge in right forearm, using aseptic technique. Blood ll1 collected. 09:25 EKG done, by ED staff, reviewed by Reena ELLIOTT. em1 10:00 CT Chest, Abdomen, Pelvis - W/Contrast In Process Unspecified. EDMS 10:01 CT Head Brain wo Cont In Process Unspecified. EDMS 10:01 CT Soft Tissue Neck W/contr In Process Unspecified. EDMS 11:27 Bethany Mora MD is Hospitalizing Provider. 7 13:01 Patient has correct armband on for positive identification. Bed in low position. Call 1 light in reach. Side rails up X 1. Provided Education on: n/a. Client placed on continuous cardiac and pulse oximetry monitoring. NIBP monitoring applied. monitoring engineer on. 13:01 No provider procedures requiring assistance completed. Patient admitted, IV remains in ll1 place. 13:03 Patient maintains SpO2 saturation greater than 95% on room air. ll1 13:03 Thermoregulation: warm blanket given to patient. ll1 Administered Medications: 09:16 Drug: Ondansetron IVP 4 mg IVP once; over 2 minutes Route: IVP; Site: right forearm; ll1 10:18 Follow up: Response: No adverse reaction ll1 09:18 Drug: fentaNYL (PF) IVP 50 mcg IVP once Route: IVP; Site: right forearm; ll1 10:18 Follow up: Response: No adverse reaction 1 10:15 Drug: NS 0.9% IV 1000 ml IV at 75 ml/hr continuous Route: IV; Rate: 75 ml/hr; Site: ll right forearm; 12:36 Follow up: Response: No adverse reaction; IV Status: Infusion continued upon admission; [facility] IV Intake: 150ml 11:07 Drug: fentaNYL (PF) IVP 50 mcg IVP once Route: IVP; Site: right forearm; 1 12:36 Follow up: Response: No adverse reaction; Pain is decreased; RASS: Alert and Calm (0) [facility] 12:48 Drug: HYDROmorphone IVP 0.5 mg IVP once; From [employer] orders Route: IVP; Site: right ll1 forearm; 13:04 Follow up: Response: No adverse reaction; Pain is decreased; RASS: Alert and Calm (0) [facility] Medication: 13:03 VIS not applicable for this client. 1 Intake: 12:36 IV: 150ml; Total: 150ml. 1 13:03 PO: 0ml; Total: 150ml. 1 Output: 13:03 Urine: 500ml (Voided); Total: 500ml. [facility] Outcome: 11:28 Decision to Hospitalize by Provider. darren 13:02 Admitted to Med/surg accompanied by deepak, via wheelchair, room 207, with chart, Report [facility] called to MICHELE Vergara 13:02 Condition: stable 13:02 Instructed on the need for admit, 13:03 Patient's length of stay was not longer than 2 hours. [facility] 13:06 Patient left the ED. mb9 Signatures: Dispatcher [employer] EDUT VidesAmarilis santamaria, Reg Reg Matti Cochran em1 Mady Dominguez RN RN hb Lewis, Lynsay, RN RN 1 Reena Moss, DOBIE WORKER DOBIE WORKER Amarilis Mathew RN RN mb9
--- NOTE | 2023-01-09 11:39 | CON ---
Date of Consultation: 01/09/2023 Reason For Consultation: Hyponatremia. History Of Present Illness: This is a pleasant unfortunate 62-year-old gentleman with significant past medical history of neuropathy, multiple pain syndrome. History of hyponatremia before secondary to psych medication. The patient came to the hospital because he could not keep anything in the mouth, nausea and vomiting secondary to his hiatal hernia. Upon arrival to the hospital, the patient found to have hyponatremia, sodium down to 124. For that reason, we have been consulted. The patient on multiple psych medications and also the patient on meloxicam 15 mg daily. Otherwise, the patient not on any diuretic. The patient on losartan without any hydrochlorothiazide. The patient was started on gentle hydration. The patient denied any tremor, but had recurrent fall. Past Medical History: Includes: 1. Neuropathy. 2. Depression. 3. Bipolar. 4. Schizophrenia. 5. Hypertension. Past Surgical History: Denied any surgical history. Family History: Positive for hypertension. Social History: Active smoker. Occasional alcohol. Denied drug abuse. Allergies: NO KNOWN DRUG ALLERGY. Home Medications: Include doxepin, fluoxetine, gabapentin, hydrocodone, meloxicam, quetiapine, tramadol, losartan. Review of Systems: Head and Neck: Had headache. GI: Has nausea. Could not keep up anything in the mouth. : No polyuria. No dysuria. No hematuria. Customer Service Professional: Not applicable. Respiratory: No shortness of breath. Cardiovascular: No chest pain. Endocrine: No polydipsia. Skin: No rash. Neuro: Has neuropathy. Has multiple falls. Musculoskeletal: No joint pain. Physical Examination: General: When I saw the patient, the patient lying in bed not in any distress. Vital Signs: Blood pressure 168/99, pulse of 83, afebrile. Chest: Clear to auscultation. Heart: S1, S2. Regular. Abdomen: Soft, nontender. Extremities: No edema. Neurologic: Alert. No focality. Laboratory Data: Back in November 2022, hemoglobin 10.1. At that time, sodium down up to 133. Today lab data; sodium 124, potassium 4.9, bicarb 27, BUN 15, creatinine 1, GFR of 80, calcium 9.3. Urinalysis still pending. Hemoglobin today up to 12.8. Assessment And Plan: 1. Hyponatremia secondary to mostly depletional, secondary to poor intake, questionable if this is secondary to psych medication as before. I am going to start the patient on hydration of normal saline. We will send for urine electrolytes for better evaluation of his etiology if it is a prerenal, depletional, or secondary to psych medication, syndrome of inappropriate antidiuretic hormone and we will follow up. 2. Discontinue meloxicam. 3. We will send for cortisol and TSH. 4. Hypertension. Continue to resume losartan. 5. Multiple pain complaint. We will follow up with primary. Thank you, Dr. Mora, for allowing us to participate in the care of your patient. Time spent examining the patient [id number], reviewing data, lab and radiology, placing order, discussing the case with the patient, discussing the case with the submarine advisory team watch officer including the hospitalist and nursing staff more than 35 minutes. MARGUERITE Voice ID: [id number] Report ID: [id number] UZIEL
[2023-01-09] MEDS ORDERED: ACETAMINOPHEN 500 MG TAB PO PRN (12:05)
[2023-01-09] MEDS ORDERED: ONDANSETRON 4 MG/2 ML VIAL IV PRN (12:05)
--- NOTE | 2023-01-09 12:09 | P.HP ---
Certification for Inpatient Patient admitted to: Observation With expected LOS: <2 Midnights Patient will require the following post-hospital care: None Practitioner: I am a practitioner with admitting privileges, knowledge of patient current condition, hospital course, and medical plan of care. Services: Services provided to patient in accordance with Admission requirements found in Title 42 Section 412.3 of the Code of Federal Regulations Patient History Date of Service: 01/09/23 Reason for admission: Status post fall; syncope/collapse; rib fx and transverse process fx History of Present Illness: Patient is a 62-year-old gentleman came to the hospital after falling. Patient suffered multiple injuries including rib fracture and transverse process fracture. Patient had an episode of syncope and collapse. Patient came into the emergency room for further evaluation. In the emergency room, patient multiple diagnostic studies performed. Patient's workup as mentioned above. Patient will be admitted to the hospital for further workup. Allergies No Known Allergies Allergy (Unverified 11/15/22 19:13) Home Medications: Doxepin HCl 50 mg PO BEDTIME 11/15/22 Fluoxetine HCl [Prozac] 40 mg PO DAILY 11/15/22 Gabapentin 300 mg PO TID 11/15/22 Hydrocodone Bit/Acetaminophen [Hydrocodon-Acetaminophn 10-325] 1 tab PO QID PRN 11/15/22 Quetiapine [Seroquel*] 25 mg PO BID 11/15/22 Tramadol HCl [Ultram] 50 mg PO DAILY PRN 11/15/22 Albuterol Sulfate [Proair Digihaler] 2 puff IH Q6H PRN 01/09/23 Losartan Potassium 50 mg PO DAILY 01/09/23 Rabeprazole Sodium 20 mg PO BID 01/09/23 Magic Mouthwash [Magic Mouthwash*] 15 ml PO QIDP PRN #1 btl 01/10/23 Magic Mouthwash [Magic Mouthwash*] 15 ml PO QIDP PRN #200 ml 01/10/23 Nystatin 5 ml PO AC #150 ml 01/10/23 Quetiapine Fumarate [Seroquel] 100 mg PO BEDTIME #30 tab 01/10/23 predniSONE [Deltasone] 20 mg PO BID #11 tab 01/10/23 - Past Medical/Surgical History -: Neuropathy -: Depression -: Bipolar disorder -: Schizophrenia -: Hypertension - Family History Father Family History: Reviewed- Non-Contributory - Social History Smoking Status: Former smoker Alcohol use: Yes CD- Drugs: No Caffeine use: Yes Review of Systems 10-point ROS is otherwise unremarkable Physical Examination - Vital Signs Temperature: 98 F (reviewed) - Physical Exam General: Alert, In no apparent distress, Oriented x3 HEENT: Atraumatic, PERRLA, Mucous membr. moist/pink, EOMI, Sclerae nonicteric Neck: Supple, 2+ carotid pulse no bruit, No LAD, Without JVD or thyroid abnormality Respiratory: Diminished Cardiovascular: Regular rate/rhythm, Normal S1 S2, Systolic murmur Gastrointestinal: Normal bowel sounds, Soft and benign, Non-distended, No tenderness Musculoskeletal: No clubbing, No swelling, No tenderness Integumentary: No rashes Neurological: Normal speech, Normal tone, Sensation intact, Cranial nerves 3-12 intact, Normal affect, Abnormal gait, Abnormal strength Lymphatics: No axilla or inguinal lymphadenopathy - Studies Laboratory Data (last 24 hrs) 01/09/23 01/09/23 01/09/23 09:10 09:10 09:10 WBC 6.80 Hgb 12.8 L Hct 37.0 L Plt Count 347 PT 10.2 INR 0.93 Sodium 124 L Potassium 4.9 BUN 15 Creatinine 1.05 Glucose 117 H Magnesium 1.8 Total Bilirubin 0.7 AST 26 ALT 26 Alkaline Phosphatase 126 H Assessment & Plan - Problems (Diagnosis) (1) Status post fall Status: Acute (2) Rib fracture Status: Acute (3) Lumbar transverse process fracture Status: Acute (4) Hypertension Status: Acute (5) Major depressive disorder Status: Acute - Plan Plan: 1. Continue with pain control 2. Monitor on telemetry 3. Carotid Doppler and echocardiogram 4. GI and DVT prophylaxis - Advance Directives Does patient have a Living Will: No Does patient have a Durable POA for Healthcare: No
[2023-01-09] MEDS ORDERED: HYDROMORPHONE HCL 0.5 MG/0.5 ML INJ ONE (12:56)
[2023-01-09 13:58] VITALS: BMI 24.0
[2023-01-09] MEDS: NA CHLORIDE 0.9% 1,000 ML IV SCH ×2 (14:08→21:47)
[2023-01-09] MEDS ORDERED: INFLUENZA VACCINE (for 6+ mo) 0.5 ML DOSE IMVAC ONE (15:00)
[2023-01-09] MEDS: HYDROMORPHONE HCL 0.5 MG/0.5 ML INJ IV PRN ×2 (17:00→21:43)
[2023-01-09 18:12] LABS: Potassium 4.7 mEq/L (3.5-5.1)
[2023-01-10] MEDS: HYDROMORPHONE HCL 0.5 MG/0.5 ML INJ IV PRN ×3 (01:40→10:14)
[2023-01-10 03:23] LABS: Absolute Lymphocytes (CBC) 0.7 K/uL (0.7-4.9); Hematocrit 35.4 % (39.6-49.0); Lymphocytes % 15.1 % (15.3-44.8); MCV 88.6 fL (80-100); MPV 6.7 fL (7.6-11.3); Platelets 298 thou/uL (152-406)
[2023-01-10 03:48] LABS: Albumin 3.5 g/dL (3.4-5.0); Bilirubin Total 0.6 mg/dL (0.2-1.0); Phosphorus 3.5 mg/dL (2.5-4.9); Potassium 4.8 mEq/L (3.5-5.1); Protein, Total 7.3 g/dL (6.4-8.2); Thyroid Stimulating Hormone 2.18 uIU/mL (0.358-3.740)
[2023-01-10 04:23] VITALS: O2SAT 95
[2023-01-10] MEDS: NA CHLORIDE 0.9% 1,000 ML IV SCH (08:52)
[2023-01-10] MEDS ORDERED: LOSARTAN POTASSIUM 50 MG TABLET PO SCH (09:00)
[2023-01-10 10:52] VITALS: BP 170/90
--- NOTE | 2023-01-10 16:03 | PN ---
Date of Progress Note: 01/10/2023 Subjective: The patient was admitted with hyponatremia. Patient had recurrent admission with hypona tremia at this time because of poor intake and hiatal hernia. Physical Examination: Vital Signs: Blood pressure 170/90, pulse of 98, afebrile. Chest: Clear to auscultation. Heart: S1, S2. Regular. Abdomen: Soft, nontender. Extremity: No edema. Neurologic: Alert. No focality. Laboratory Data: Hemoglobin 12.4, sodium 129, potassium 4.8, bicarb 29, BUN 14, creatinine 0.7. Cor tisol level 17. Urine sodium 37. Urine osmolality 250. Current Medications: The patient on include normal saline, Zofran, losartan. Assessment And Plan: 1.Hyponatremia, depletional, secondary to poor intake with mild component of psych SSRI medication i nduced, but the main component is prerenal. I am going to continue IV fluid, appropriate trending up on the sodium and we will continue to monitor. 2.Hypertension, not controlled. I am going to increase losartan. 3.Depression as by primary. 4.Neuropathy as by primary. CLEO/DEVAN Voice ID: [id number] Report ID: [id number]
[2023-01-11] MEDS ORDERED: LOSARTAN POTASSIUM 50 MG TABLET PO SCH (09:00)
--- NOTE | 2023-01-11 12:20 | EKG ---
Test Date: 2023-01-09 Test Time: 09:13:55 Health Service Worker: DONALD MEASUREMENT RESULTS: Intervals: Rate: 91 CA: 162 QRSD: 74 QT: 366 QTc: 450 Mckee: P: 21 CA: 162 QRS: -23 T: 61 INTERPRETIVE STATEMENTS: Normal sinus rhythm Normal ECG Compared to ECG 11/17/2022 21:53:10 Left-axis deviation no longer present Electronically Signed On 01-11-23 12:16:25 CDT by Bladimir Zaman
[2023-01-16 02:06] VITALS: TEMP 98
--- NOTE | 2023-01-16 02:11 | P.DS ---
Discharge Date: 01/10/23 Disposition: ROUTINE DISCHARGE Discharge Condition: GOOD Reason for Admission: Status post fall; syncope/collapse; rib fx and transverse process fx - Problems (1) Status post fall Status: Acute (2) Rib fracture Status: Acute (3) Lumbar transverse process fracture Status: Acute (4) Hypertension Status: Acute (5) Major depressive disorder Status: Acute Brief History of Present Illness: Patient is a 62-year-old gentleman came to the hospital after falling. Patient suffered multiple injuries including rib fracture and transverse process fracture. Patient had an episode of syncope and collapse. Patient came into the emergency room for further evaluation. In the emergency room, patient multiple diagnostic studies performed. Patient's workup as mentioned above. Patient will be admitted to the hospital for further workup. Hospital Course: Patient has done well during hospital stay. Clinically, patient is much better. At this time, patient is stable for discharge home. Patient will follow-up with consultants and PCP as an outpatient. Vital Signs/Physical Exam: Temp Pulse Resp BP Pulse Ox 98 F 98 H 18 170/90 H 95 01/16/23 02:09 01/10/23 08:00 01/10/23 10:44 01/10/23 08:00 01/10/23 10:44 General: Alert, In no apparent distress, Oriented x3 Laboratory Data at Discharge: WBC 4.60 thou/uL (4.3-10.9) 01/10/23 03:05 Hgb 12.4 g/dL (13.6-17.9) L 01/10/23 03:05 Hct 35.4 % (39.6-49.0) L 01/10/23 03:05 Plt Count 298 thou/uL (152-406) 01/10/23 03:05 PT 10.2 SECONDS (9.5-12.5) 01/09/23 09:10 INR 0.93 01/09/23 09:10 Sodium 129 mEq/L (136-145) L 01/10/23 03:05 Potassium 4.8 mEq/L (3.5-5.1) 01/10/23 03:05 BUN 14 mg/dL (7-18) 01/10/23 03:05 Creatinine 0.79 mg/dL (0.70-1.30) 01/10/23 03:05 Glucose 106 mg/dL (74-106) 01/10/23 03:05 Phosphorus 3.5 mg/dL (2.5-4.9) 01/10/23 03:05 Magnesium 1.8 mg/dL (1.6-2.4) 01/09/23 09:10 Total Bilirubin 0.6 mg/dL (0.2-1.0) 01/10/23 03:05 AST 21 U/L (15-37) 01/10/23 03:05 ALT 23 U/L (16-61) 01/10/23 03:05 Alkaline Phosphatase 115 U/L (45-117) 01/10/23 03:05 Home Medications: Doxepin HCl 50 mg PO BEDTIME 11/15/22 Fluoxetine HCl [Prozac] 40 mg PO DAILY 11/15/22 Gabapentin 300 mg PO TID 11/15/22 Hydrocodone Bit/Acetaminophen [Hydrocodon-Acetaminophn 10-325] 1 tab PO QID PRN 11/15/22 Quetiapine [Seroquel*] 25 mg PO BID 11/15/22 Tramadol HCl [Ultram] 50 mg PO DAILY PRN 11/15/22 Albuterol Sulfate [Proair Digihaler] 2 puff IH Q6H PRN 01/09/23 Losartan Potassium 50 mg PO DAILY 01/09/23 Rabeprazole Sodium 20 mg PO BID 01/09/23 Magic Mouthwash [Magic Mouthwash*] 15 ml PO QIDP PRN #1 btl 01/10/23 Magic Mouthwash [Magic Mouthwash*] 15 ml PO QIDP PRN #200 ml 01/10/23 Nystatin 5 ml PO AC #150 ml 01/10/23 Quetiapine Fumarate [Seroquel] 100 mg PO BEDTIME #30 tab 01/10/23 predniSONE [Deltasone] 20 mg PO BID #11 tab 01/10/23 New Medications: Magic Mouthwash [Magic Mouthwash*] 15 ml PO QIDP PRN #1 btl PRN Reason: DYSPHAGIA Magic Mouthwash [Magic Mouthwash*] 15 ml PO QIDP PRN #200 ml PRN Reason: DYSPHAGIA Nystatin 5 ml PO AC #150 ml predniSONE [Deltasone] 20 mg PO BID #11 tab Quetiapine Fumarate [Seroquel] 100 mg PO BEDTIME #30 tab Physician Discharge Instructions: -DC IV and DC home -Follow-up with PCP in 1 to 2 weeks -Follow-up with Cardiology in 1 to 2 weeks -Follow-up with Nephrology in 1 to 2 weeks. -Please call Dr. Mora at [phone] if any questions regarding hospital stay -Please call nursing station at [phone] if any nursing or medication quest ions -Return to the emergency room if symptoms worsen Diet: AHA Activity: Fall precautions Followup: Ziggy Dan MD [ACTIVE - CAN ADMIT] - NONE,NONE [Primary Care Provider] - Bladimir Zaman MD [ACTIVE - CAN ADMIT] - Time spent managing pt's care (in minutes): 35
== END 2023-01-10 15:17 | disposition home or self-care (01) ==
LOC: ER 08:36 → ERHOLD 12:05 → 2ND 12:55
PROVIDERS: ADMIT Hospitalist; ATTEND Hospitalist
DX: S22.41XA Multiple fractures of ribs, right side, initial encounter for closed fracture (principal); S32.009A Unspecified fracture of unspecified lumbar vertebra, initial encounter for closed fracture; W18.39XA Other fall on same level, initial encounter; Y93.9 Activity, unspecified; Y92.9 Unspecified place or not applicable; E87.1 Hypo-osmolality and hyponatremia; I10 Essential (primary) hypertension; E86.9 Volume depletion, unspecified; F32.A Depression, unspecified; G62.9 Polyneuropathy, unspecified
CPT/HCPCS: 96361; 93005; 85025 ×2; 80048 ×2; 36415; 83735; 84132 ×2; 85610; 84300 ×2; 80076; 80069; 84443; 84484; 80053; 82533; 83880; 83930 ×2; 83935 ×2; 70450; 71260; 70491; 74177; 96375; 96374; 99285; Q9967; J3010; J1170 ×6; J2405; J7030 ×3; G0378 ×3

== ENCOUNTER 2023-09-07 15:41 | Inpatient (IN) | payer BC, OTHER ==
[2023-09-07 17:03] LABS: Absolute Lymphocytes (CBC) 0.9 K/uL (0.7-4.9); Absolute Monocytes 1.1 K/uL (0.1-1.3); Absolute Neutrophil 5.8 K/uL (1.8-8.0); Basophils % 0.5 % (0-1.3); Eosinophils % 0.2 % (0-4.4); Hematocrit 38.7 % (39.6-49.0); Hemoglobin 13.5 g/dL (13.6-17.9); Lymphocytes % 11.6 % (15.3-44.8); MCH 31.8 pg (27.0-35.0); MCHC 34.9 g/dL (32.0-36.0); MPV 6.8 fL (7.6-11.3); Monocytes % 14.3 % (3.3-12.3); Neutrophils % 73.4 % (41.7-73.7); Nucleated Red Blood Cells % 0.2 % (0-0); Platelets 463 thou/uL (152-406); RBC Red Blood Cell Count 4.26 M/uL (4.33-5.43); Red Cell Distribution Width 13.6 % (12.1-15.2)
[2023-09-07] MEDS ORDERED: DIAZEPAM 10 MG/2 ML INJ SYRINGE ONE ×2 (17:07→18:28)
[2023-09-07] MEDS ORDERED: HALOPERIDOL LACT 5 MG/ML INJ ONE (17:07)
[2023-09-07] MEDS ORDERED: NA CHLORIDE 0.9% 1,000 ML ONE ×2 (17:07→17:35)
[2023-09-07 17:16] LABS: Albumin/Globulin Ratio 0.9 (1.1-1.8); Anion Gap 14.5 mEq/L (5.0-15.0); Bilirubin Total 0.4 mg/dL (0.2-1.0); Globulin 4.4 g/dL (2.3-3.5); Potassium 3.5 mEq/L (3.5-5.1); Protein, Total 8.4 g/dL (6.4-8.2)
[2023-09-07 17:34] LABS: PT Prothrombin Time 12.1 SECONDS (9.5-12.5); PTT, Activated Partial Thromb 32.4 SECONDS (24.3-36.9); Protime INR 1.1
--- NOTE | 2023-09-07 17:48 | RAD REPORT ---
EXAM DESCRIPTION: CT - Head Brain Wo Cont - 09/07/2023 5:40 pm CLINICAL HISTORY: Alteration of awareness/confusion COMPARISON: August 2023 TECHNIQUE: Computed axial tomography of the head was obtained. IV contrast was not requested. All CT scans are performed using dose optimization technique as appropriate and may include automated exposure control or mA/KV adjustment according to patient size. FINDINGS: An intracranial bleed is not seen The ventricles are normal in caliber No extra-axial fluid collection is noted. No significant hypodensity within the brain is seen. Mild cerebral Fluid within the sinuses/ mastoids is not seen. IMPRESSION: No acute intracranial abnormality is seen If patient's symptoms persist MRI of the brain would be recommended
--- NOTE | 2023-09-07 18:12 | RAD REPORT ---
EXAM DESCRIPTION: CT - Abdomen Pelvis W Contrast - 09/07/2023 5:41 pm CLINICAL HISTORY: Abdominal pain COMPARISON: 2022 TECHNIQUE: Computed axial tomography of the abdomen pelvis was obtained. 100 cc Isovue-300 was admin istered intravenously. Oral contrast was not requested which limits evaluation of bowel and appendix All CT scans are performed using dose optimization technique as appropriate and may include automated exposure control or mA/KV adjustment according to patient size. FINDINGS: Many of the images are degraded by patient motion artifact Small to moderate hiatal hernia The liver, spleen, pancreas, adrenal and kidneys appear unremarkable. There is no evidence of diverticulitis. IMPRESSION: No acute abnormality is displayed.
--- NOTE | 2023-09-07 18:12 | RAD REPORT ---
EXAM DESCRIPTION: Paulina Single View09/07/2023 5:18 pm CLINICAL HISTORY: cough COMPARISON: August 2023 FINDINGS: The lungs appear clear of acute infiltrate. The heart is normal size IMPRESSION: No acute abnormalities displayed
[2023-09-07] MEDS ORDERED: LABETALOL 20 MG/4ML SYRINGE IV ONE (18:28)
[2023-09-07 19:12] LABS: Specific Gravity > 1.030 (1.005-1.030); Sqamous Epithelial <5 /HPF (None Seen); Urine Bacteria None Seen /HPF (<20); Urine Bilirubin NEGATIVE (Negative); Urine Blood Negative (Negative); Urine Clarity Clear (Clear); Urine Color Light-Yellow (Yellow); Urine Culture Reflex Order NOT NEEDED; Urine Glucose NEGATIVE (Negative); Urine Ketones 1+ (Negative); Urine Microscopic Reflex YN ORDER UMIC; Urine Mucus Slight /HPF (None Seen); Urine Nitrite NEGATIVE (Negative); Urine Protein 1+ (Negative); Urine RBC <5 /HPF (None Seen); Urine Urobilinogen Normal (Normal); Urine WBC <5 /HPF (<5); Urine pH 8.5 (5.0-7.0)
[2023-09-07 19:14] LABS: Barbiturates NEGATIVE (NEGATIVE); Benzodiazepines NEGATIVE (NEGATIVE); Cocaine NEGATIVE (NEGATIVE); METHAMPHETAM NEGATIVE (NEGATIVE); Methadone NEGATIVE (NEGATIVE); Opiates NEGATIVE (NEGATIVE); Phencyclidine NEGATIVE (NEGATIVE); THC Cannibis NEGATIVE (NEGATIVE)
--- NOTE | 2023-09-07 19:23 | ER ---
Nurse's Notes [facility] Name: Jak Gauthier Age: 63 yrs Sex: Male : 1960 Arrival Date: 09/07/2023 Time: 15:41 Bed 19 Private MD: Diagnosis: Altered mental status, unspecified Presentation: 09/06 15:55 Chief complaint: Parent and/or Guardian states: "For the past 2-3 days, he has been mb9 altered. He usually tells me what's wrong and he can't even tell me. He;s not acting like himself.". Coronavirus screen: Vaccine status: Patient reports receiving the 2nd dose of the covid vaccine. Ebola Screen: No symptoms or risks identified at this time. Initial Sepsis Screen: Does the patient meet any 2 criteria? No. Patient's initial sepsis screen is negative. Does the patient have a suspected source of infection? No. Patient's initial sepsis screen is negative. Risk Assessment: Do you want to hurt yourself or someone else? Patient reports no desire to harm self or others. Onset of symptoms was September 07, 2023. 15:55 Method Of Arrival: Wheelchair mb9 15:55 Acuity: AMARA 2 mb9 Triage Assessment: 15:59 General: Appears uncomfortable, Behavior is cooperative. Neuro: Level of Consciousness mb9 is confused, Oriented to none. Historical: - Allergies: 15:57 No Known Allergies; mb9 - Home Meds: 15:57 clonidine HCl 0.1 mg Oral tablet 1 tab as needed for Hypertension [Active]; gabapentin mb9 300 mg Oral capsule 3 times per day [Active]; fluoxetine 40 mg Oral capsule 2 caps daily [Active]; tramadol 50 mg Oral tablet once [Active]; quetiapine 300 mg Oral tablet every day at bedtime [Active]; losartan 50 mg Oral tablet 1 tab daily [Active]; - PMHx: 15:51 Alcoholism; depressive disorder; Schizophrenia; Bipolar disorder; mb9 - PSHx: 15:57 None; mb9 - Immunization history:: Adult Immunizations up to date. - Infectious Disease History:: Denies. - Social history:: Smoking status: Patient reports the use of cigarette tobacco products, denies chronic smoking, but will smoke occasionally. Screenin:56 [facility] ED Fall Risk Assessment (Adult) History of falling in the last 3 months, tl4 including since admission No falls in past 3 months (0 pts) Confusion or Disorientation No (0 pts) Intoxicated or Sedated No (0 pts) Impaired Gait No (0 pts) Mobility Assist Device Used No (0 pt) Altered Elimination No (0 pt) Score/Fall Risk Level 0 - 2 = Low Risk Oriented to surroundings, Maintained a safe environment, Educated pt \\T\\ family on fall prevention, incl call for assistance when getting out of bed, Assessed \\T\\ reinforced patient's understanding of fall precautions. Abuse screen: Denies threats or abuse. Denies injuries from another. Nutritional screening: No deficits noted. Tuberculosis screening: No symptoms or risk factors identified. Assessment: 16:57 General: Appears in no apparent distress. Behavior is flat. Pain: Denies pain. Neuro: tl4 Level of Consciousness is awake, obeys commands, confused, Oriented to person, Moves all extremities. Full function Speech Pt is currently non-verbal. Cardiovascular: Denies chest pain, Capillary refill < 3 seconds Patient's skin is warm and dry. Rhythm is sinus tachycardia. Respiratory: Airway is patent Respiratory effort is even, unlabored, Respiratory pattern is regular, symmetrical, Breath sounds are clear bilaterally. GI: No signs and/or symptoms were reported involving the gastrointestinal system. : No signs and/or symptoms were reported regarding the genitourinary system. EENT: No signs and/or symptoms were reported regarding the EENT system. Derm: No signs and/or symptoms reported regarding the dermatologic system. Musculoskeletal: No signs and/or symptoms reported regarding the musculoskeletal system. 17:45 Reassessment: Patient and/or family updated on plan of care and expected duration. Pain tl4 level reassessed. Patient is alert, oriented x 3, equal unlabored respirations, skin warm/dry/pink. Pt denies any needs at this time. Family at bedside. Will continue to monitor. 18:57 Reassessment: Patient and/or family updated on plan of care and expected duration. Pain tl4 level reassessed. Patient is alert, oriented x 3, equal unlabored respirations, skin warm/dry/pink. Pt speaking more than previously, able to answer simple questions. Pt denies any needs at this time. Family at bedside. Will continue to monitor. 20:00 Reassessment: Patient and/or family updated on plan of care and expected duration. Pain tl4 level reassessed. Patient is alert, oriented x 3, equal unlabored respirations, skin warm/dry/pink. Pt denies any needs at this time. Pt resting quietly. Will continue to monitor. 21:12 Reassessment: Patient and/or family updated on plan of care and expected duration. Pain tl4 level reassessed. Patient is alert, oriented x 3, equal unlabored respirations, skin warm/dry/pink. Pt updated on status. Hospitalist at bedside. Will continue to monitor. Vital Signs: 15:55 BP 131 / 91; Pulse 119; Resp 24; Temp 98.1; Pulse Ox 100% ; Weight 90.72 kg; Height 6 mb9 ft. 2 in. ; 17:19 BP 206 / 115; Pulse 106; Resp 20; Pulse Ox 97% on R/A; tl4 18:00 BP 185 / 121; Pulse 113; Resp 22; Pulse Ox 100% ; tl4 18:39 BP 198 / 115; Pulse 94; Resp 22; Pulse Ox 98% on R/A; tl4 18:54 BP 198 / 115; Pulse 94; ec2 19:00 BP 189 / 124; Pulse 97; Resp 18; Pulse Ox 95% on R/A; tl4 19:10 BP 189 / 124; Pulse 94; ec2 19:30 BP 220 / 134; Pulse 98; Resp 18; Pulse Ox 98% on R/A; Pain 0/10; tl4 20:00 BP 187 / 125; Pulse 97; Resp 22; Pulse Ox 97% on R/A; tl4 21:00 BP 190 / 120; Pulse 97; Resp 20; Temp 98.1(O); Pulse Ox 98% on R/A; tl4 15:55 Body Mass Index 25.68 (90.72 kg, 187.96 cm) mb9 19:30 Pain Scale: Adult tl4 ED Course: 15:42 Patient arrived in ED. rg4 15:57 Triage completed. mb9 15:57 Arm band placed on. mb9 16:15 Vargas De Oliveira MD is Attending Physician. ec2 16:55 Blood Culture Adult (2) Sent. tl4 16:55 Inserted saline lock: 22 gauge in right forearm, using aseptic technique. Blood tl4 collected. 16:55 No provider procedures requiring assistance completed. Initial lab(s) drawn, by me, tl4 sent to lab. First set of blood cultures drawn EKG done, by ED staff, reviewed by Vargas De Oliveira MD. 16:56 Patient has correct armband on for positive identification. Placed in gown. Bed in low tl4 position. Call light in reach. Side rails up X2. Adult w/ patient. Provided Education on: ed process, call pope. Client placed on continuous cardiac and pulse oximetry monitoring. NIBP monitoring applied. sales development director on. Door closed. Noise minimized. Lights dimmed. Moved to private room. Warm blanket given. Pillow given. 17:18 Chest Single View XRAY Sent. tl4 17:20 Chest Single View XRAY In Process Unspecified. EDMS 17:29 Second set of blood cultures drawn by me. tl4 17:42 CT Head Brain wo Cont In Process Unspecified. EDMS 17:42 CT Abd/Pelvis - IV Contrast Only In Process Unspecified. EDMS 18:51 Urinalysis w/ reflexes Sent. tl4 18:52 UDS Sent. tl4 18:56 Román Orosco, MICHELE is Primary Nurse. tl4 19:23 Kiel Hernandez MD is Hospitalizing Provider. ec2 Administered Medications: 16:26 CANCELLED (Physician Discretion): ondansetron 4 mg IVP once; over 2 minutes ec2 17:18 Drug: Diazepam IVP 5 mg IVP once Route: IVP; Site: right forearm; tl4 17:31 Follow up: Response: No adverse reaction tl4 17:18 Drug: NS 0.9% IV 1000 ml IV at 1 bolus Per protocol; 1000 mL bolus Route: IV; Rate: 1 tl4 bolus; Site: right forearm; Delivery: Primary tubing; 21:16 Follow up: Response: No adverse reaction; IV Status: Completed infusion; IV Intake: tl4 1000ml 17:18 Drug: Haloperidol IVP 5 mg IVP once Route: IVP; Site: right forearm; tl4 17:31 Follow up: Response: No adverse reaction tl4 17:41 Drug: NS 0.9% IV 1000 ml IV at 1 bolus Per protocol; 1000 mL bolus Route: IV; Rate: 1 tl4 bolus; Site: right forearm; Delivery: Primary tubing; 21:16 Follow up: Response: No adverse reaction; IV Status: Completed infusion; IV Intake: tl4 1000ml 18:29 Drug: Diazepam IVP 10 mg IVP once Route: IVP; Site: right forearm; tl4 21:17 Follow up: Response: No adverse reaction tl4 18:29 Drug: Labetalol IV 10 mg IV at bolus once Route: IV; Rate: bolus; Site: right forearm; tl4 21:17 Follow up: Response: No adverse reaction; IV Status: Completed infusion tl4 Medication: 16:56 VIS not applicable for this client. tl4 Intake: 21:16 IV: 1000ml; Total: 1000ml. tl4 21:16 IV: 1000ml; Total: 2000ml. tl4 Outcome: 19:23 Decision to Hospitalize by Provider. ec2 22:12 Patient left the ED. tl4 Signatures: Dispatcher [employer] Marnie Myers rg4 Jorge, Amarilis El RN RN mb9 Vargas De Oliveira MD MD ec2 Román Orosco RN RN tl4 Corrections: (The following items were deleted from the chart) 15:58 15:55 Pulse 119bpm; Resp 24bpm; Pulse Ox 100%; Temp 98.1F; 90.72 kg; Height 6 ft. 2 mb9 in.; BMI: 25.6; mb9 19:20 18:59 BP 198 / 115; Pulse 94bpm; Resp 22bpm; Pulse Ox 98% RA; tl4 tl4 21:16 21:00 BP 190 / 120; Pulse 97bpm; Resp 20bpm; Pulse Ox 98% RA; tl4 tl4
--- NOTE | 2023-09-07 19:23 | EDPHYS ---
Physician Documentation [facility] Name: Jak Gauthier Age: 63 yrs Sex: Male : 1960 Arrival Date: 09/07/2023 Time: 15:41 Bed 19 Private MD: ED Physician Vargas De Oliveira HPI: 09/06 16:25 This 63 yrs old Male presents to ER via Wheelchair with complaints of Altered ec2 Mental Status. 16:26 Patient arrives today for evaluation of altered mental status. Patient has been having ec2 altered mental status ongoing for the past 3 days. Patient has been staring blankly at his significant other when she talks to him. No recent significant falls injuries or trauma. No chest pain or difficulty breathing. Patient is also been experiencing some nausea and vomiting. Has no reported urinary complaints.. Historical: - Allergies: 15:57 No Known Allergies; mb9 - Home Meds: 15:57 clonidine HCl 0.1 mg Oral tablet 1 tab as needed for Hypertension [Active]; gabapentin mb9 300 mg Oral capsule 3 times per day [Active]; fluoxetine 40 mg Oral capsule 2 caps daily [Active]; tramadol 50 mg Oral tablet once [Active]; quetiapine 300 mg Oral tablet every day at bedtime [Active]; losartan 50 mg Oral tablet 1 tab daily [Active]; - PMHx: 15:51 Alcoholism; depressive disorder; Schizophrenia; Bipolar disorder; mb9 - PSHx: 15:57 None; mb9 - Immunization history:: Adult Immunizations up to date. - Infectious Disease History:: Denies. - Social history:: Smoking status: Patient reports the use of cigarette tobacco products, denies chronic smoking, but will smoke occasionally. ROS: 16:26 Constitutional: as per hpi ec2 Exam: 16:26 Constitutional: GEN: NAD Head: atraumatic Eyes: EOMI Ears: External ears are ec2 normal. CV: Tachycardia LUNGS: no respiratory distress ABD: non-distended, soft, generally tender, not guarding, not rigid. SKIN: no evidence of rashes MSK: no evidence of trauma NEURO: moves all extremities equally, ambulatory without issue. Psych: Withdrawn Vital Signs: 15:55 BP 131 / 91; Pulse 119; Resp 24; Temp 98.1; Pulse Ox 100% ; Weight 90.72 kg; Height 6 mb9 ft. 2 in. ; 17:19 BP 206 / 115; Pulse 106; Resp 20; Pulse Ox 97% on R/A; tl4 18:00 BP 185 / 121; Pulse 113; Resp 22; Pulse Ox 100% ; tl4 18:39 BP 198 / 115; Pulse 94; Resp 22; Pulse Ox 98% on R/A; tl4 18:54 BP 198 / 115; Pulse 94; ec2 19:00 BP 189 / 124; Pulse 97; Resp 18; Pulse Ox 95% on R/A; tl4 19:10 BP 189 / 124; Pulse 94; ec2 19:30 BP 220 / 134; Pulse 98; Resp 18; Pulse Ox 98% on R/A; Pain 0/10; tl4 20:00 BP 187 / 125; Pulse 97; Resp 22; Pulse Ox 97% on R/A; tl4 21:00 BP 190 / 120; Pulse 97; Resp 20; Temp 98.1(O); Pulse Ox 98% on R/A; tl4 15:55 Body Mass Index 25.68 (90.72 kg, 187.96 cm) mb9 19:30 Pain Scale: Adult tl4 MDM: 16:16 Patient medically screened. ec2 16:26 Data reviewed: vital signs. ED course: Patient arrives today for evaluation of several ec2 days of altered mental status. Examination remarkable for withdrawn individual who stares blankly when you engage with him otherwise has a tender abdomen on palpation. Will obtain a septic workup, CT imaging of the abdomen pelvis, urine studies and as well as a chest x-ray. Differential diagnosis includes substance abuse, schizophrenia, intra-abdominal infection, intracranial mass. Will give the patient crystalloid, Haldol as well as Valium.. 16:55 ED course: EKG independently reviewed and interpreted by me, shows sinus tachycardia, ec2 rate of 111, no acute ST segment elevations, intervals nonconcerning.. 17:59 ED course: LactateCBC shows slight anemia. Metabolic profile with appropriate ec2 electrolytes and renal function. Is minimally elevated at 2.2. CT scan of the head showed no acute intracranial abnormality. Pending CT of the abdomen pelvis . 18:17 ED course: Chest x-ray independently reviewed and interpreted by me, shows no acute ec2 intra-abdominal process. CT of the abd/pelvis shows no acute intra-abdominal process. . 19:22 ED course: On reassessment patient with marked improvement in his symptoms, patient is ec2 awake and alert and conversational, seems to be more at his baseline however does seem a bit delayed still. I will admit the patient for altered mental status. Differential diagnosis additionally includes hypertensive encephalopathy,PRES. 19:38 ED course: MDM: Differential diagnosis as documented above in ED course; All lab tests ec2 ordered and reviewed as documented above; Independent interpretation of tests: EKG as above; radiograph as above; History gathered from independent historian: Yes, significant other; Discuss inpatient hospitalization: Yes; I discussed the case with: Hospitalist . 09/06 16:16 Order name: Blood Culture Adult (2) ec2 / 16:16 Order name: CBC with Diff; Complete Time: 17:59 ec2 / 16:16 Order name: CMP; Complete Time: 17:59 ec2 / 16:16 Order name: Lactate w/ 2H reflex if indic.; Complete Time: 17:59 ec2 / 16:16 Order name: Protime (+inr); Complete Time: 17:59 ec2 / 16:16 Order name: Ptt, Activated; Complete Time: 17:59 ec2 / 16:16 Order name: Urinalysis w/ reflexes; Complete Time: 19:16 ec2 / 17:28 Order name: Glucose, Ancillary Testing; Complete Time: 17:59 EDMS / 18:18 Order name: UDS; Complete Time: 19:16 ec2 / 20:42 Order name: Lactate Sepsis 2 HR Follow-up EDMS / 20:59 Order name: CBC with Automated Diff EDMS / 20:59 Order name: CBC with Automated Diff EDMS / 20:59 Order name: Comprehensive Metabolic Panel EDMS 09/06 20:59 Order name: Comprehensive Metabolic Panel EDMS 09/06 20:59 Order name: Lipid Profile EDMS 09/06 20:59 Order name: Lipid Profile EDMS / 16:16 Order name: Chest Single View XRAY; Complete Time: 18:16 ec2 09/06 16:24 Order name: CT Head Brain wo Cont; Complete Time: 17:59 ec2 09/06 16:24 Order name: CT Abd/Pelvis - IV Contrast Only; Complete Time: 18:16 ec2 04 16:16 Order name: EKG; Complete Time: 16:16 ec2 04 20:59 Order name: CONS Physician Consult EDNC 09/06 16:16 Order name: Accucheck; Complete Time: 17:18 ec2 09/06 16:16 Order name: Cardiac monitoring; Complete Time: 16:55 ec2 04 16:16 Order name: Cath; Complete Time: 18:51 ec2 09/06 16:16 Order name: EKG - Nurse/Tech; Complete Time: 16:55 ec2 09/06 16:16 Order name: IV Saline Lock - Large Bore; Complete Time: 16:55 ec2 04 16:16 Order name: Labs collected and sent; Complete Time: 16:55 ec2 04 16:16 Order name: O2 Per Protocol; Complete Time: 16:55 ec2 04 16:16 Order name: O2 Sat Monitoring; Complete Time: 16:55 ec2 04 16:16 Order name: Vital Signs; Complete Time: 16:55 ec2 04 18:18 Order name: Misc. Order: urine please; Complete Time: 18:51 ec2 Administered Medications: 16:26 CANCELLED (Physician Discretion): ondansetron 4 mg IVP once; over 2 minutes ec2 17:18 Drug: Diazepam IVP 5 mg IVP once Route: IVP; Site: right forearm; tl4 17:31 Follow up: Response: No adverse reaction tl4 17:18 Drug: NS 0.9% IV 1000 ml IV at 1 bolus Per protocol; 1000 mL bolus Route: IV; Rate: 1 tl4 bolus; Site: right forearm; Delivery: Primary tubing; 21:16 Follow up: Response: No adverse reaction; IV Status: Completed infusion; IV Intake: tl4 1000ml 17:18 Drug: Haloperidol IVP 5 mg IVP once Route: IVP; Site: right forearm; tl4 17:31 Follow up: Response: No adverse reaction tl4 17:41 Drug: NS 0.9% IV 1000 ml IV at 1 bolus Per protocol; 1000 mL bolus Route: IV; Rate: 1 tl4 bolus; Site: right forearm; Delivery: Primary tubing; 21:16 Follow up: Response: No adverse reaction; IV Status: Completed infusion; IV Intake: tl4 1000ml 18:29 Drug: Diazepam IVP 10 mg IVP once Route: IVP; Site: right forearm; tl4 21:17 Follow up: Response: No adverse reaction tl4 18:29 Drug: Labetalol IV 10 mg IV at bolus once Route: IV; Rate: bolus; Site: right forearm; tl4 21:17 Follow up: Response: No adverse reaction; IV Status: Completed infusion tl4 Disposition Summary: 09/07/23 19:23 Hospitalization Ordered Notes: Hospitalization Status: Inpatient Admission ec2 Provider: Kiel Hernandez ec2 Location: Telemetry/[facility] (Inpatient) ec2 Condition: Stable ec2 Problem: an acute exacerbation ec2 Symptoms: have improved ec2 Bed/Room Type: Standard ec2 Room Assignment: 403(09/07/23 21:08) rv1 Diagnosis - Altered mental status, unspecified ec2 Forms: - Medication Reconciliation Form ec2 - SBAR form ec2 - Leadership Thank You Letter ec2 Signatures: Dispatcher [employer] EDAmarilis Evangelista RN RN mb9 Megha Andrews rv1 Vargas De Oliveira MD MD ec2 Román Orosco RN RN tl4 Corrections: (The following items were deleted from the chart) 16:26 16:24 Ondansetron IVP 4 mg IVP once; over 2 minutes ordered. ec2 ec2 19:31 19:22 ED course: On reassessment patient with marked improvement in his symptoms, ec2 patient is awake and alert and conversational, seems to be more at his baseline however does seem a bit delayed still. I will admit the patient for altered mental status. Differential diagnosis additionally includes hypertensive encephalopathy. . ec2 21:08 19:23 ec2 rv1
[2023-09-07] MEDS ORDERED: ALBUTEROL 2.5 MG/3 ML NEB SOL NEB PRN (20:53)
--- NOTE | 2023-09-07 20:53 | P.HP ---
Certification for Inpatient Patient admitted to: Observation With expected LOS: <2 Midnights Patient will require the following post-hospital care: None Practitioner: I am a practitioner with admitting privileges, knowledge of patient current condition, hospital course, and medical plan of care. Services: Services provided to patient in accordance with Admission requirements found in Title 42 Section 412.3 of the Code of Federal Regulations Patient History Date of Service: 09/07/23 Reason for admission: Altered mental status History of Present Illness: 63-year-old male with past medical history of chronic alcoholism, chronic tobacco use, schizoaffective disorder, hypertension who presented after being brought in by caregiver because of increasing altered mental status. Patient at baseline is usually conversant and able to express needs to caregiver but since the last 3 days he has been unable to express or say anything. He has been relatively nonverbal. No reported fever or chills, no reported fall or recent trauma. Caregiver states patient has not had any known drug overdose. On arrival in the ED blood pressure was initially stable at 131/91 but later was seen to 205/115. Of note patient does take clonidine as needed at home. Blood pressure improved after IV labetalol to the 190s over 100s. Febrile, chest x- ray shows no acute infiltrate, abdominal CT shows no acute intra-abdominal pathology. Head CT shows no acute intracranial bleed. Laboratory workup was unremarkable except for lactic acid of 2.2 but improved to 1.1. Patient is being admitted for unclear altered mental status. Urine drug screen still pending Allergies No Known Allergies Allergy (Unverified 11/15/22 19:13) Home Medications: Hydrocodone Bit/Acetaminophen [Hydrocodon-Acetaminophn 10-325] 1 tab PO QID PRN 11/15/22 Tramadol HCl [Ultram] 50 mg PO DAILY PRN 11/15/22 Doxepin HCl 50 mg PO BEDTIME 08/16/23 Gabapentin 300 mg PO TID 08/16/23 Meloxicam 15 mg PO DAILY 08/16/23 Metoprolol Succinate [Toprol Xl*] 100 mg PO DAILY 08/16/23 Quetiapine Fumarate [Seroquel] 300 mg PO BEDTIME 08/16/23 Quetiapine [Seroquel*] 25 mg PO BID 08/16/23 hydroCHLOROthiazide [Hydrochlorothiazide] 50 mg PO DAILY 05/13/24 Cefdinir [Omnicef] 300 mg PO BID 5 Days #10 cap 08/18/23 Folic Acid 1 mg PO DAILY 10 Days #10 tab 08/18/23 Thiamine HCl [Vitamin B-1*] 100 mg PO DAILY 10 Days #10 tab 08/18/23 - Past Medical/Surgical History Diabetic: No -: Neuropathy -: Depression -: Bipolar disorder -: Schizophrenia -: Hypertension -: alcohol abuse -: Sx right leg - Social History Smoking Status: Current every day smoker Counseled patient to stop smoking for: more than 10 minutes Smoking therapy provided: Yes Alcohol use: Yes CD- Drugs: No Caffeine use: Yes Place of Residence: Home Review of Systems is unable to be obtained (Due to related with nonverbal status) Physical Examination - Physical Exam General: Alert, In no apparent distress, Cooperative, Other (Non verbal ) HEENT: Atraumatic, Normocephalic, PERRLA Neck: Supple, 2+ carotid pulse no bruit, JVD not distended Respiratory: Clear to auscultation bilaterally, Normal air movement Cardiovascular: No edema, Normal pulses, Regular rate/rhythm, Normal S1 S2 Gastrointestinal: Normal bowel sounds, Soft and benign, Non-distended Musculoskeletal: No clubbing, No swelling Integumentary: No rashes, No breakdown, No significant lesion Neurological: Normal strength at 5/5 x4 extr, Normal tone, Sensation intact - Studies Laboratory Data (last 24 hrs) 09/07/23 09/07/23 09/07/23 16:45 16:45 16:45 WBC 7.90 Hgb 13.5 L Hct 38.7 L Plt Count 463 H PT 12.1 INR 1.10 APTT 32.4 Sodium 133 L Potassium 3.5 BUN 12 Creatinine 1.25 Glucose 129 H Total Bilirubin 0.4 AST 20 ALT 28 Alkaline Phosphatase 120 H Assessment and Plan - Problems (Diagnosis) (1) Acute encephalopathy Current Visit: No Status: Acute (2) Hypertension Current Visit: No Status: Acute - Plan Impression Acute metabolic encephalopathyrule out drug overdose History of schizophrenia/bipolar disorder Hypertensive urgencymay be due to clonidine withdrawal/use Chronic tobacco use Plan Will admit patient to observation Neurochecks every 6 Start gentle IV fluid Hold sedative medications including anticytotoxin for now Geodon every 6 as needed agitation Follow-up with controlled BP, start Norvasc/increase metoprolol to 100 mg bid IV Labetalol as needed systolic above 160 Follow and monitor response of mental status to improvement in blood pressure Neurology evaluation in a.m. Subcutaneous Lovenox for DVT prophylaxis Will continue to monitor Total time spent in evaluation and discussion greater than 60 minutes At the time of reevaluation 2 hours later, blood pressure down to 170/95 range, patient more conversant, able to express his needs. He states he is in pain. Unable to tell where he has pain. He is stating he has some heartburn symptoms. He is requesting Pepto-Bismol. Mylanta and Pepcid given - Advance Directives Does patient have a Living Will: No Does patient have a Durable POA for Healthcare: No Physician Review: Patient Assessed, Agree with Above Assessment and Plan Time Spent Managing Pts Care (In Minutes): 65
[2023-09-07] MEDS: LORazepam 2 MG/ML VIAL ONE (22:47)
[2023-09-07] MEDS: HYDRALAZINE HCL 20 MG/ML VIAL ONE (22:48)
[2023-09-07] MEDS: LORazepam 2 MG/ML VIAL IV ONE (22:53)
[2023-09-07 22:55] VITALS: O2SAT 98
[2023-09-07] MEDS: LABETALOL 20 MG/4ML SYRINGE IV ONE (22:58)
[2023-09-07] MEDS ORDERED: WATER FOR INJ,STERILE 10 ML IM PRN (23:01)
[2023-09-07] MEDS: HYDRALAZINE HCL 20 MG/ML VIAL IV ONE (23:01)
[2023-09-07] MEDS: ZIPRASIDONE MESYLA 20 MG/VIAL IM ONE (23:02)
[2023-09-07] MEDS: WATER FOR INJ,STERILE 10 ML ONE (23:02)
[2023-09-07] MEDS: ZIPRASIDONE MESYLA 20 MG/VIAL IM STA (23:07)
[2023-09-07] MEDS: AMLODIPINE 5 MG TAB PO SCH (23:08)
[2023-09-07] MEDS: QUETIAPINE 25 MG TAB PO SCH (23:08)
[2023-09-07] MEDS: FAMOTIDINE 20 MG TAB PO SCH (23:08)
[2023-09-07] MEDS: METOPROLOL TAR 50 MG TAB PO SCH (23:08)
[2023-09-07] MEDS: D5 0.9 NS 1,000 ML IV SCH (23:08)
[2023-09-07] MEDS: MAGNES/ALUMIN/SIMET 30ML UCUP PO ONE (23:08)
[2023-09-07] MEDS ORDERED: ZIPRASIDONE MESYLA 20 MG/VIAL IM PRN (23:15)
[2023-09-07] MEDS ORDERED: DEXMEDETOMIDINE HCL 200 MCG in NA CHLORIDE 0.9% 98 ML IV SCH (23:45)
[2023-09-08] MEDS: WATER FOR INJ,STERILE 10 ML IM PRN (00:06)
[2023-09-08] MEDS: CLONIDINE 0.2 MG/PATCH TD SCH (00:54)
[2023-09-08] MEDS: LABETALOL 20 MG/4ML SYRINGE IV PRN ×2 (03:09→06:14)
[2023-09-08 06:09] LABS: Absolute Lymphocytes (CBC) 0.7 K/uL (0.7-4.9); Absolute Neutrophil 6.6 K/uL (1.8-8.0); Basophils % 0.2 % (0-1.3); Eosinophils % 0.1 % (0-4.4); Hematocrit 34.6 % (39.6-49.0); Hemoglobin 11.8 g/dL (13.6-17.9); Lymphocytes % 8.3 % (15.3-44.8); MCV 91.3 fL (80-100); MPV 6.8 fL (7.6-11.3); Monocytes % 11.8 % (3.3-12.3); Neutrophils % 79.6 % (41.7-73.7); Platelets 407 thou/uL (152-406); RBC Red Blood Cell Count 3.79 M/uL (4.33-5.43); Red Cell Distribution Width 13.9 % (12.1-15.2)
[2023-09-08 06:24] LABS: Albumin 3.2 g/dL (3.4-5.0); Albumin/Globulin Ratio 0.9 (1.1-1.8); Anion Gap 9.2 mEq/L (5.0-15.0); Bilirubin Total 0.3 mg/dL (0.2-1.0); Globulin 3.6 g/dL (2.3-3.5); Potassium 3.2 mEq/L (3.5-5.1); Protein, Total 6.8 g/dL (6.4-8.2)
[2023-09-08] MEDS: levETIRAcetam 1,000 MG in NA CHLORIDE 0.9% 100 ML IV ONE ×2 (06:34→09:02)
--- NOTE | 2023-09-08 06:43 | P.PN ---
Date of Service: 09/08/23 Subjective: ROS: 10 point ROS as noted above, otherwise negative Physical Exam: GEN: Alert, oriented, NAD HEENT: Normal conjunctiva, sclera anicteric CV: Regular rate and rhythm, no edema Pulm: Nonlabored respirations on room air, clear bilaterally ABD: Soft, nontender, nondistended Neuro: Normal speech, normal affect vitals reviewed Problem List: VTE: Code: Dispo:
[2023-09-08] MEDS: FAMOTIDINE 20 MG TAB PO SCH (06:44)
[2023-09-08] MEDS ORDERED: NITROGLYCERIN/D5W 50 MG/250 ML BTL IV SCH (07:00)
--- NOTE | 2023-09-08 07:54 | P.PN ---
Subjective Date of Service: 09/08/23 Chief Complaint: Altered mental status Subjective: Worsening (apparent rapid response overnight on floor. Pt had seizure like activity and HTN emergency. Transfered to ICU 8 with prn antihypertensives) <Bev Parker - Last Filed: 09/08/23 08:16> Date of Service: 09/08/23 <Maria Fernanda Orellana - Last Filed: 09/08/23 22:12> Review of Systems 10-point ROS is otherwise unremarkable General: As per HPI ENT: Other (tongue swelling) Neurological: Seizures <Bev Parker - Last Filed: 09/08/23 08:16> Physical Examination - Vital Signs Temperature: 99 F Blood Pressure: 193/158 Pulse: 101 Respirations: 23 Pulse Ox (%): 98 - Physical Exam General: Oriented x1, Mild distress, Other (agitated.) HEENT: Atraumatic, Normocephalic, Other (left greater than right full thickness tongue edema s/p biting injury with possible seizure) Neck: Supple Respiratory: Normal air movement Cardiovascular: Other (mild tachycardia) Capillary refill: <2 Seconds Gastrointestinal: Soft and benign Musculoskeletal: No clubbing Integumentary: No rashes Neurological: Normal speech, Abnormal tone (increased), Abnormal affect Lymphatics: No axilla or inguinal lymphadenopathy External genitalia: Deferred Rectal: Deferred - Studies Laboratory Data (last 24 hrs) 09/07/23 09/07/23 09/07/23 16:45 16:45 16:45 WBC 7.90 Hgb 13.5 L Hct 38.7 L Plt Count 463 H PT 12.1 INR 1.10 APTT 32.4 Sodium 133 L Potassium 3.5 BUN 12 Creatinine 1.25 Glucose 129 H Total Bilirubin 0.4 AST 20 ALT 28 Alkaline Phosphatase 120 H <Bev Parkerlen - Last Filed: 09/08/23 08:16> - Studies Laboratory Data (last 24 hrs) 09/08/23 09/08/23 05:42 05:42 WBC 8.30 Hgb 11.8 L D Hct 34.6 L Plt Count 407 H Sodium 133 L Potassium 3.2 L BUN 9 Creatinine 0.88 Glucose 145 H Total Bilirubin 0.3 AST 18 ALT 21 Alkaline Phosphatase 97 Triglycerides 56 Cholesterol 154 HDL Cholesterol 58 Cholesterol/HDL Ratio 2.66 <Nina Orellanaukwu C - Last Filed: 09/08/23 22:12> Assessment And Plan - Plan Impression per Dr. Hernandez Acute metabolic encephalopathyrule out drug overdose History of schizophrenia/bipolar disorder Hypertensive urgencymay be due to clonidine withdrawal/use Chronic tobacco use Plan Will admit patient to observation Neurochecks every 6 Start gentle IV fluid Hold sedative medications including anticytotoxin for now Geodon every 6 as needed agitation Follow-up with controlled BP, start Norvasc/increase metoprolol to 100 mg bid IV Labetalol as needed systolic above 160 Follow and monitor response of mental status to improvement in blood pressure Neurology evaluation in a.m. Will continue to monitor Total time spent in evaluation and discussion greater than 60 minutes At the time of reevaluation 2 hours later, blood pressure down to 170/95 range, patient more conversant, able to express his needs. He states he is in pain. Unable to tell where he has pain. He is stating he has some heartburn symptoms. He is requesting Pepto-Bismol. Mylanta and Pepcid given" 09/08/23 at 0600 HTN emergency with elevated troponin CT head negative this am for bleed Nicardipine drip initiated to goal of 160/100 ASA 81mg po tele Dr. Rodriguez following Consult Dr. Lacey Tongue trauma s/p seizure multiple meds have been given, unable to give benadryl now Pepcid 20mg IV BID ice chips HOB up 30 degrees Hyponatremia gentle hydration consult Nephrology Hypokalemia monitor and replete Physician Review: Patient Assessed, Agree with Above Assessment and Plan <Bev Parker - Last Filed: 09/08/23 08:16> - Plan Pt seen and examined. I agree with the note by the TURN OUT WORKER. Pt was transferred to the ICU afterhe had a seizure-like activity and hypertensive urgency. Continue cardene drip. Consulted Dr. Lacey. CT head is unremarkable. Cardiology is following. <Maria Fernanda Orellana - Last Filed: 09/08/23 22:12>
[2023-09-08] MEDS ORDERED: HEPARIN/D5W 25,000 UNIT/500 ML BAG IV SCH (08:00)
--- NOTE | 2023-09-08 08:00 | RAD REPORT ---
EXAM DESCRIPTION: CT - Ct Stroke Brain Wo Cont - 09/08/2023 7:32 am CLINICAL HISTORY: htn urg/seizure/r/o bleed COMPARISON: Head Brain Wo Cont dated 09/07/2023; Ct Stroke Brain Wo Cont dated 08/15/2023 TECHNIQUE: Noncontrast head CT images were obtained without IV contrast. Multiplanar reformats were generated and reviewed. All CT scans are performed using dose optimization technique as appropriate and may include automated exposure control or mA/KV adjustment according to patient size. FINDINGS: No intracranial hemorrhage, mass, or edema. Midline structures are unremarkable. Normal ventricular caliber for age. Hoskins-white matter differentiation is preserved, without evidence of acute infarct. Likely artifactual reduction of the hoskins-white matter contrast throughout the right hemisphere, due to patient's tilted positioning. No abnormal extra-axial fluid collections. Mastoid air cells and visualized portions of the paranasal sinuses are clear. No acute bony findings. IMPRESSION: No evidence of an acute intracranial process. The findings were communicated to Bev Parker on 09/08/2023 at 07:53 hours.
--- NOTE | 2023-09-08 08:52 | RAD REPORT ---
EXAM DESCRIPTION: US - CP - 09/08/2023 8:28 am CLINICAL HISTORY: seizure, htn urgency COMPARISON: Soft Tissue Neck W/Contr dated 01/09/2023 TECHNIQUE: Real-time sonographic grayscale, color duplex, and spectral wave Doppler evaluation of isaias th carotid systems was performed. FINDINGS: Normal high resistance waveforms are noted in both external carotid arteries. The common c arotid arteries and internal carotid arteries show normal low resistance waveforms. Mild smooth calcified plaque formation more prominent at the left more than right carotid bulb. Peak systolic velocity less than 125 cm/ sec bilaterally. ICA/CCA peak systolic ratios less than 2.0 bila [address]ally. Antegrade flow seen in both vertebral arteries. IMPRESSION: Mild bilateral carotid bulb atherosclerotic changes noted. Less than 50% ICA stenosis bilaterally. Evaluation of carotid artery stenosis, if any, is reported based on consensus recommendations of the Society of Radiologists in Ultrasound (Duncan et al., Radiology, 2003)
[2023-09-08] MEDS ORDERED: ENOXAPARIN 40 MG/0.4 ML SQ SCH (09:00)
[2023-09-08] MEDS: AMLODIPINE 10 MG TAB PO SCH (09:00)
[2023-09-08] MEDS ORDERED: FAMOTIDINE 20 MG/2 ML VIAL IV SCH ×3 (09:00)
[2023-09-08] MEDS: KCL 20 MEQ/100 mL IVPB 20 MEQ/100 ML BAG IV SCH (09:01)
[2023-09-08] MEDS: NICOTINE 21 MG/PAT TD SCH (09:01)
[2023-09-08] MEDS: FAMOTIDINE 20 MG/2 ML VIAL IV SCH (09:02)
[2023-09-08] MEDS: ONDANSETRON 4 MG/2 ML VIAL IV PRN (09:02)
[2023-09-08] MEDS: Nicardipine/NS 25 MG/250 ML KIT IV SCH (09:03)
[2023-09-08] MEDS: MORPHINE 2 MG/ML SYR IV PRN (09:32)
--- NOTE | 2023-09-08 11:12 | P.CNS ---
Date of Consult: 09/08/23 Chief Complaint: Altered mental status History of Present Illness: Patient with PMH of HTN, ETOH use, anxiety and bipolar presented with altered mental status for the last 3 days, report that he has been having some epigastric discomfort, no chest pain, no palpitations, no syncope. Allergies No Known Allergies Allergy (Unverified 11/15/22 19:13) Home Medications: Hydrocodone Bit/Acetaminophen [Hydrocodon-Acetaminophn 10-325] 1 tab PO QID PRN 11/15/22 Tramadol HCl [Ultram] 50 mg PO DAILY PRN 11/15/22 Doxepin HCl 50 mg PO BEDTIME PRN 08/16/23 Gabapentin 300 mg PO TID 08/16/23 Meloxicam 15 mg PO DAILY 08/16/23 Metoprolol Succinate [Toprol Xl*] 100 mg PO DAILY 08/16/23 Quetiapine Fumarate [Seroquel] 300 mg PO BEDTIME 08/16/23 Quetiapine [Seroquel*] 25 mg PO BID 08/16/23 hydroCHLOROthiazide [Hydrochlorothiazide] 50 mg PO DAILY 08/16/23 Fluoxetine HCl [Prozac] 2 cap PO DAILY 09/08/23 Losartan Potassium 100 mg PO DAILY 09/08/23 cloNIDine HCL [Clonidine HCl] 0.1 mg PO DAILY PRN 09/08/23 - Past Medical/Surgical History Diabetic: No -: Neuropathy -: Depression -: Bipolar disorder -: Schizophrenia -: Hypertension -: alcohol abuse -: Sx right leg - Social History Smoking Status: Current some day smoker Alcohol use: Yes CD- Drugs: No Caffeine use: Yes Place of Residence: Home Review of Systems 10-point ROS is otherwise unremarkable Physical Examination Temp Pulse Resp BP Pulse Ox 99 F 88 21 H 112/49 L 98 09/08/23 08:17 09/08/23 10:00 09/08/23 10:00 09/08/23 10:00 09/08/23 10:00 General: Alert, In no apparent distress HEENT: Atraumatic, PERRLA, Mucous membr. moist/pink, EOMI, Sclerae nonicteric Neck: Supple, 2+ carotid pulse no bruit, No LAD, Without JVD or thyroid abnormality Respiratory: Clear to auscultation bilaterally, Normal air movement Cardiovascular: Regular rate/rhythm, Normal S1 S2 Gastrointestinal: Normal bowel sounds, No tenderness Musculoskeletal: No tenderness Integumentary: No rashes Neurological: Normal gait, Normal speech, Normal tone, Normal affect Lymphatics: No axilla or inguinal lymphadenopathy Laboratory Data (last 24 hrs) 09/08/23 09/08/23 09/07/23 05:42 05:42 16:45 WBC 8.30 Hgb 11.8 L D Hct 34.6 L Plt Count 407 H PT 12.1 INR 1.10 APTT 32.4 Sodium 133 L Potassium 3.2 L BUN 9 Creatinine 0.88 Glucose 145 H Total Bilirubin 0.3 AST 18 ALT 21 Alkaline Phosphatase 97 Triglycerides 56 Cholesterol 154 HDL Cholesterol 58 Cholesterol/HDL Ratio 2.66 09/07/23 09/07/23 16:45 16:45 WBC 7.90 Hgb 13.5 L Hct 38.7 L Plt Count 463 H PT INR APTT Sodium 133 L Potassium 3.5 BUN 12 Creatinine 1.25 Glucose 129 H Total Bilirubin 0.4 AST 20 ALT 28 Alkaline Phosphatase 120 H Triglycerides Cholesterol HDL Cholesterol Cholesterol/HDL Ratio - Problems (1) Hypertensive emergency Current Visit: Yes Status: Acute Plan: patient was started on Nicardipine drip, titrate up to goal systolic BP of 150- 160 for the next 24 hours, avoid rapid drop in BP, continue lopressor and Norvasc stop Lisinopril.. get Echo (2) NSTEMI (non-ST elevated myocardial infarction) Current Visit: Yes Status: Acute Plan: most likely demand ischemia from hypertensive emergency continue to trend cardiac enzymes.
[2023-09-08] MEDS: lisinopriL 20 MG TAB PO SCH (12:31)
[2023-09-08 13:16] LABS: UR PROTEIN 11.8 mg/dL (<11.9)
[2023-09-08 13:18] LABS: UR CREAT < 18.0 mg/dL (20-370)
--- NOTE | 2023-09-08 16:14 | CON ---
Date of Consultation: 09/08/2023 Reason Of Consultation: Elevated BUN and creatinine, electrolyte imbalance. History Of Present Illness: This is a pleasant 63-year-old gentleman. All the information has been obtained from the record as the patient confused. The patient came to the hospital with altered mental status. Patient known to have alcohol, tobacco abuse, schizoaffective disorder, and hypertension, brought with the caregiver because of altered mental status. Upon arrival to the hospital, found to have elevation in blood pressure up to 200. Patient being on clonidine p.r.n. Primary workup showed elevation in BUN and creatinine. Creatinine up to 1.25 with decline in his GFR. Also show hypokalemia and hypomagnesemia with hyponatremia. Patient was started on IV hydration. Kidney function started being improving. The patient continued to be confused. Past Medical History: 1. Schizoaffective disorder. 2. Hypertension. 3. Neuropathy. 4. Alcohol abuse. Past Surgical History: Include right leg surgery. Home Medications: Include multiple pain medications including hydrocodone, tramadol, doxepin, gabapentin, metoprolol, meloxicam, hydrochlorothiazide, and thiamine. Social History: Active smoker. Active alcohol. Denied drugs abuse. Review of Systems: Nonobtainable as patient confused. Physical Examination: Vital Signs: When I saw the patient, blood pressure 188/110, pulse of 98, afebrile. General: Patient had good urine output. Chest: Clear to auscultation. Heart: S1, S2. Systolic murmur. Abdomen: Soft, nontender. Extremity: No edema. Neurologic: Alert, confused. No focality. Laboratory Data: When I saw the patient yesterday, sodium 133, potassium 3.5, bicarb 27, BUN 12, creatinine 1.2, GFR 65, calcium 10.8. Lactic acid 2.2. WBC 7.9, hemoglobin 13.5. Today's lab data; sodium 133, potassium 3.5, bicarb 25, BUN 9, creatinine 0.8, calcium 8.8, albumin 3.2. WBC 8.3, hemoglobin 11.8. Current Medications: The patient on, it includes: 1. IV fluid. 2. Albuterol. 3. Nicotine. 4. Clonidine 0.2 patch. 5. Metoprolol. 6. Keppra. Assessment And Plan: 1. Acute kidney injury, multifactorial, secondary to prerenal, poor perfusion ATN, superimposed with nonsteroidal use and hydrochlorothiazide. No hyperkalemia. No acidosis. Kidney function back to normal. a. I am going to continue hydration. I agree with holding the hydrochlorothiazide especially with the hyponatremia and we will continue to monitor. Given the altered mental status, I am going to add CK and we will send for a protein creatinine. 2. Hypokalemia. We will continue aggressive supplement. 3. Hypertension, not controlled. I agree with the clonidine. With the presence of hypokalemia and hyponatremia, discontinue hydrochlorothiazide. We will start the patient on lisinopril and follow up the patient. 4. Hypokalemia secondary to poor intake and alcoholism. We will continue supplement. Send for magnesium and TSH. 5. Hyponatremia secondary to multiple pain medications, nonsteroid use and hydrochlorothiazide with depletional component, stable. No need for supplement. Continue hydration. Discontinue hydrochlorothiazide. Discontinue nonsteroid and we will follow up. 6. Hypercalcemia secondary to depletional, recovered, resolved. Time spent examining the patient [id number], reviewing data, lab and radiology, discussing the case with the forensics team director including ICU nursing staff and the hospitalist more than 75 minutes. MARGUERITE Voice ID: [id number] Report ID: [id number] UZIEL
--- NOTE | 2023-09-08 16:33 | EKG ---
Test Date: 2023-09-07 Test Time: 16:31:12 Snow Maker: TL MEASUREMENT RESULTS: Intervals: Rate: 111 UT: 162 QRSD: 76 QT: 364 QTc: 495 [place]: P: 12 UT: 162 QRS: -64 T: 49 INTERPRETIVE STATEMENTS: Sinus tachycardia Left anterior fascicular block Inferior infarct, age undetermined Anteroseptal infarct, age undetermined Abnormal ECG Compared to ECG 08/15/2023 19:49:28 No significant changes Electronically Signed On 09-08-23 16:32:23 CDT by Guanakito Rodriguez
[2023-09-09 00:57] VITALS: BMI 23.3
[2023-09-09 05:10] LABS: Absolute Eosinophils 0.1 K/uL (0-0.5); Absolute Lymphocytes (CBC) 0.9 K/uL (0.7-4.9); Absolute Monocytes 0.7 K/uL (0.1-1.3); Absolute Neutrophil 4.9 K/uL (1.8-8.0); Basophils % 0.6 % (0-1.3); Eosinophils % 1.8 % (0-4.4); Hematocrit 31.4 % (39.6-49.0); Hemoglobin 10.8 g/dL (13.6-17.9); MCH 31.6 pg (27.0-35.0); MCHC 34.4 g/dL (32.0-36.0); MCV 91.9 fL (80-100); MPV 6.7 fL (7.6-11.3); Monocytes % 10.5 % (3.3-12.3); Neutrophils % 73.1 % (41.7-73.7); Platelets 343 thou/uL (152-406); RBC Red Blood Cell Count 3.42 M/uL (4.33-5.43); Red Cell Distribution Width 13.8 % (12.1-15.2)
[2023-09-09 05:38] LABS: Albumin 2.9 g/dL (3.4-5.0); Anion Gap 7.7 mEq/L (5.0-15.0); Magnesium 1.8 mg/dL (1.6-2.4); Phosphorus 2.2 mg/dL (2.5-4.9); Potassium 3.7 mEq/L (3.5-5.1); Thyroid Stimulating Hormone 2.09 uIU/mL (0.358-3.740)
--- NOTE | 2023-09-09 07:08 | ECHO ---
HEIGHT: 6 ft 2 in WEIGHT: 182 lb 0 oz DATE OF STUDY: 09/08/[address]: Bev Parker TURN LASTER-BC 2-DIMENSIONAL: YES M.MODE: YES DOPPLER: YES COLOR FLOW: YES TDS: PORTABLE: YES DEFINITY: BUBBLE STUDY: DIAGNOSIS: HYPERTENSION EMERGENCY CARDIAC HISTORY: CATHERIZATION: NO SURGERY: NO PROSTHETIC VALVE: NO PACEMAKER: NO MEASUREMENTS (cm) DIASTOLIC (NORMALS) SYSTOLIC (NORMALS) IVSd 1.2 (0.6-1.2) LA Diam 3.0 (1.9-4.0) LVEF 68% LVIDd 3.2 (3.5-5.7) LVIDs 2.0 (2.0-3.5) %FS 37% LVPWd 1.3 (0.6-1.2) Ao Diam 3.1 (2.0-3.7) 2 DIMENSIONAL ASSESSMENT: RIGHT ATRIUM: NORMAL LEFT ATRIUM: NORMAL RIGHT VENTRICLE: NORMAL LEFT VENTRICLE: NORMAL TRICUSPID VALVE: TRACE TRICUSPID REGURGITATION MITRAL VALVE: TRACE MITRAL REGURGITATION PULMONIC VALVE: NORMAL AORTIC VALVE: NORMAL PERICARDIAL EFFUSION: NONE AORTIC ROOT: NORMAL LEFT VENTRICULAR WALL MOTION: NORMAL DOPPLER/COLOR FLOW: NORMAL COMMENTS: 1. NORMAL LEFT VENTRICULAR SYSTOLIC FUNCTION, EJECTION FRACTION 60-65%, NORMAL WALL MOTION 2. NORMAL DIASTOLIC FUNCTION TECHNOLOGIST: KAMAR DELVALLE
[2023-09-09] MEDS ORDERED: lisinopriL 20 MG TAB PO SCH (09:00)
[2023-09-09] MEDS: METOPROLOL TAR 50 MG TAB PO SCH (09:25)
--- NOTE | 2023-09-09 10:06 | P.PN ---
Subjective Date of Service: 09/09/23 Chief Complaint: Altered mental status Subjective: Improving (off Cardene drip, will continue norvasc, lisinopril, and lopressor) <Bev Parker - Last Filed: 09/09/23 10:00> Date of Service: 09/09/23 <Maria Fernanda Orellana Domitila - Last Filed: 09/09/23 21:57> Review of Systems 10-point ROS is otherwise unremarkable General: As per HPI <Bev Parker - Last Filed: 09/09/23 10:00> Physical Examination - Vital Signs Temperature: 98.7 F Blood Pressure: 139/79 Pulse: 95 Respirations: 22 Pulse Ox (%): 99 - Physical Exam General: Alert, Oriented x3, Cooperative HEENT: Atraumatic, Normocephalic, Other (tongue mildly thickened on left but improved from previous) Neck: Supple Respiratory: Normal air movement Cardiovascular: Normal pulses Capillary refill: <2 Seconds Gastrointestinal: Soft and benign Musculoskeletal: No clubbing Integumentary: No rashes - Studies Laboratory Data (last 24 hrs) 09/08/23 05:42 Sodium 133 L Potassium 3.2 L BUN 9 Creatinine 0.88 Glucose 145 H Total Bilirubin 0.3 AST 18 ALT 21 Alkaline Phosphatase 97 Triglycerides 56 Cholesterol 154 HDL Cholesterol 58 Cholesterol/HDL Ratio 2.66 <Bev Parker - Last Filed: 09/09/23 10:00> Assessment And Plan - Plan Impression per Dr. Hernandez Acute metabolic encephalopathyrule out drug overdose History of schizophrenia/bipolar disorder Hypertensive urgencymay be due to clonidine withdrawal/use Chronic tobacco use Plan Will admit patient to observation Neurochecks every 6 Start gentle IV fluid Hold sedative medications including anticytotoxin for now Geodon every 6 as needed agitation Follow-up with controlled BP, start Norvasc/increase metoprolol to 100 mg bid IV Labetalol as needed systolic above 160 Follow and monitor response of mental status to improvement in blood pressure Neurology evaluation in a.m. Will continue to monitor Total time spent in evaluation and discussion greater than 60 minutes At the time of reevaluation 2 hours later, blood pressure down to 170/95 range, patient more conversant, able to express his needs. He states he is in pain. Unable to tell where he has pain. He is stating he has some heartburn symptoms. He is requesting Pepto-Bismol. Mylanta and Pepcid given" 09/08/23 at 0600 HTN emergency with elevated troponin CT head negative this am for bleed - 09/08/23 negative, 09/09/23 more alert, decreased confusion. Nicardipine drip initiated to goal of 160/100 ASA 81mg po tele Dr. Rodriguez following - 09/08 off Cardene drip, adjusted po meds, ECHO normal, trop trended down Consult Dr. Lacey record review shows this is a repeat visit for s/s. Endoscopy done last visit, showed yeast esophagitis. 09/08 HIV negative, hx of ETOH abuse, malnourished Downgrade to tele Tongue trauma s/p seizure multiple meds have been given, unable to give benadryl now Pepcid 20mg IV BID ice chips HOB up 30 degrees 09/09/23 improved Hyponatremia gentle hydration consult Nephrology 09/08 improved Hypokalemia monitor and replete Home medications for psych dx clarify and give home med schedule Physician Review: Patient Assessed, Agree with Above Assessment and Plan <Bev Parker - Last Filed: 09/09/23 10:00> - Plan Pt seen and examined. I agree with the note by the LAST REPAIRER HELPER. BP has improved. Pt has been off Cardene drip since yesterday. Consulted Dr. Lacey for possible seizure. Monitor electrolytes <Maria Fernanda Orellana - Last Filed: 09/09/23 21:57>
--- NOTE | 2023-09-09 10:18 | P.PN ---
Subjective Date of Service: 09/09/23 Chief Complaint: Altered mental status Subjective: No new changes, No C/O voiced, Tolerating diet, Ambulating, Improving Review of Systems 10-point ROS is otherwise unremarkable Physical Examination - Vital Signs Temperature: 98.7 F Blood Pressure: 139/79 Pulse: 95 Respirations: 22 Pulse Ox (%): 99 - Physical Exam General: Alert, In no apparent distress HEENT: Atraumatic, PERRLA, EOMI Neck: Supple, JVD not distended Respiratory: Clear to auscultation bilaterally, Normal air movement Cardiovascular: Regular rate/rhythm, Normal S1 S2 Gastrointestinal: Normal bowel sounds, No tenderness Musculoskeletal: No tenderness Integumentary: No rashes Neurological: Normal speech, Normal tone, Normal affect Lymphatics: No axilla or inguinal lymphadenopathy - Studies Laboratory Data (last 24 hrs) 09/08/23 05:42 Sodium 133 L Potassium 3.2 L BUN 9 Creatinine 0.88 Glucose 145 H Total Bilirubin 0.3 AST 18 ALT 21 Alkaline Phosphatase 97 Triglycerides 56 Cholesterol 154 HDL Cholesterol 58 Cholesterol/HDL Ratio 2.66 Medications List Reviewed: Yes Assessment And Plan - Current Problems (Diagnosis) (1) Hypertensive emergency Current Visit: Yes Status: Acute Plan: patient BP is better today, able to take PO medications, continue lopressor 50 mg po BID continue Lisinopril continue Norvasc Echo is normal (2) NSTEMI (non-ST elevated myocardial infarction) Current Visit: Yes Status: Acute Plan: most likely demand ischemia from hypertensive emergency cardiac enzymes trended down with normal echo outpatient evaluation for possible stress test. Physician Review: Patient Assessed, Agree with Above Assessment and Plan
[2023-09-09] MEDS: POTASSIUM PHOS IN 0.9 % NACL 15 MMOL/250 ML BAG IV ONE (13:49)
[2023-09-09] MEDS: MAGNESIUM SULFATE 1 gm IVPB 1 GM/100 ML BAG IV ONE (14:34)
--- NOTE | 2023-09-09 18:37 | PN ---
Date of Progress Note: 09/09/2023 Subjective: The patient was admitted to the hospital with altered mental status, hyponatremia, alcoh ol intoxication. The patient was treated, recovered. The patient is feeling better. Awake today. Physical Examination: Vital Signs: Blood pressure 138/93, pulse of 75, afebrile. Chest: Clear to auscultation. Heart: S1, S2. Regular. Abdomen: Soft, nontender. Extremities: No edema. Neuro: Alert. No focality. Laboratory Data: Hemoglobin 10.8. Sodium 130, potassium 3.7, bicarb 24, BUN 5, creatinine 0.8, calc ium 8.3. Phosphorus 2.2, magnesium 1.8. Albumin 2.9, corrected. Calcium is 9.1. Current Medications: The patient is on include amlodipine 10 mg, lisinopril 20, metoprolol, Keppra, Pepcid, and IV fluid. Assessment And Plan: 1.Acute kidney injury secondary to prerenal, recovered, back to baseline, normal volume. I am going to keep holding hydrochlorothiazide and nonsteroidal. Discontinue IV fluid and we will monitor. 2.Hypokalemia and hypomagnesemia. We will supplement. Hypophosphatemia, we will supplement. 3.Hyponatremia secondary to hydrochlorothiazide and depletional, recovered, resolved. I am going to discontinue IV fluid. 4.Hypercalcemia secondary to dehydration, resolved. 5.Alcohol intoxication as by primary. CLEO/DEVAN Voice ID: [id number] Report ID: [id number]
[2023-09-09] MEDS ORDERED: LABETALOL 20 MG/4ML SYRINGE IV SCH (21:00)
[2023-09-10 07:03] LABS: Albumin 2.8 g/dL (3.4-5.0); Anion Gap 8.2 mEq/L (5.0-15.0); Magnesium 2.3 mg/dL (1.6-2.4); Phosphorus 2.8 mg/dL (2.5-4.9); Potassium 4.2 mEq/L (3.5-5.1)
--- NOTE | 2023-09-10 08:29 | P.DS ---
Admission Date: 09/08/23 Discharge Date: 09/10/23 Reason for Admission: Altered mental status Consultations: Dr. Jennifer Lacey Brief History of Present Illness: 63-year-old male with past medical history of chronic alcoholism, chronic tobac co use, schizoaffective disorder, hypertension who presented after being brought in by caregiver because of increasing altered mental status. Patient at baseline is usually conversant and able to express needs to caregiver but since the last 3 days he has been unable to express or say anything. He has been relatively nonverbal. No reported fever or chills, no reported fall or recent trauma. Caregiver states patient has not had any known drug overdose. On arrival in the ED blood pressure was initially stable at 131/91 but later was seen to 205/115. Of note patient does take clonidine as needed at home. Blood pressure improved after IV labetalol to the 190s over 100s. Febrile, chest x- ray shows no acute infiltrate, abdominal CT shows no acute intra-abdominal pathology. Head CT shows no acute intracranial bleed. Laboratory workup was unremarkable except for lactic acid of 2.2 but improved to 1.1. Patient is being admitted for unclear altered mental status. Urine drug screen still pending A few hours post admission, rapid response for seizure-like activity, blood pressure 200s/120s. Pt seen per overnight MD, moved to ICU Impression per Dr. Hernandez At the time of reevaluation 2 hours later, blood pressure down to 170/95 range, patient more conversant, able to express his needs. He states he is in pain. Unable to tell where he has pain. He is stating he has some heartburn symptoms. He is requesting Pepto-Bismol. Mylanta and Pepcid given" Blood pressure management/stabilization in ICU and then transferred back to acute bed. Pt awake and alert on discharge this am Hospital Course: Blood pressure management/stabilization in ICU and then transferred back to acute bed. Pt awake and alert on discharge this am. Will need blood pressure lo gs for PCP and consults, discharge medications: Lisinopril 20 mg p.o. daily, Lopressor 50 mg p.o. twice daily, Norvasc 10 mg p.o. daily. Okay to DC IV and DC home Follow-up with primary care provider in 1 to 2 weeks Follow-up with cardiology in 1 to 2-weeks Please call the inpatient unit for any questions or concerns regarding hospital stay Return to the ER for worsening symptoms <Bev Parker - Last Filed: 09/10/23 08:58> Admission Date: 09/08/23 Discharge Date: 09/10/23 Hospital Course: Pt seen and examined. I agree with the note by the CLOTH CARRIER. Continue BP regimen as prescribed. Follow up with PCP within 1 - 2 weeks. <Maria Fernanda Orellana - Last Filed: 09/10/23 15:33> Disposition: ROUTINE DISCHARGE Discharge Condition: GOOD Vital Signs/Physical Exam: Temp Pulse Resp BP Pulse Ox 97.2 F 66 20 125/75 96 09/10/23 04:00 09/10/23 04:00 09/10/23 04:36 09/10/23 04:00 09/10/23 04:36 General: Alert, In no apparent distress, Oriented x3 HEENT: Atraumatic, Normocephalic Neck: Supple Respiratory: Normal air movement Cardiovascular: Normal pulses, Regular rate/rhythm Capillary refill: <2 Seconds Gastrointestinal: Soft and benign Musculoskeletal: No clubbing Integumentary: No rashes Neurological: Normal speech, Normal tone, Normal affect Lymphatics: No axilla or inguinal lymphadenopathy External genitalia: Deferred Rectal: Deferred Laboratory Data at Discharge: WBC 6.70 thou/uL (4.3-10.9) 09/09/23 04:39 Hgb 10.8 g/dL (13.6-17.9) L D 09/09/23 04:39 Hct 31.4 % (39.6-49.0) L 09/09/23 04:39 Plt Count 343 thou/uL (152-406) 09/09/23 04:39 PT 12.1 SECONDS (9.5-12.5) 09/07/23 16:45 INR 1.10 09/07/23 16:45 APTT 32.4 SECONDS (24.3-36.9) 09/07/23 16:45 Sodium 131 mEq/L (136-145) L 09/10/23 05:40 Potassium 4.2 mEq/L (3.5-5.1) D 09/10/23 05:40 BUN 8 mg/dL (7-18) 09/10/23 05:40 Creatinine 0.82 mg/dL (0.70-1.30) 09/10/23 05:40 Glucose 88 mg/dL (74-106) 09/10/23 05:40 Phosphorus 2.8 mg/dL (2.5-4.9) 09/10/23 05:40 Magnesium 2.3 mg/dL (1.6-2.4) 09/10/23 05:40 Total Bilirubin 0.3 mg/dL (0.2-1.0) 09/08/23 05:42 AST 18 U/L (15-37) 09/08/23 05:42 ALT 21 U/L (16-61) 09/08/23 05:42 Alkaline Phosphatase 97 U/L (45-117) 09/08/23 05:42 Triglycerides 56 mg/dL (<150) 09/08/23 05:42 Cholesterol 154 mg/dL (<200) 09/08/23 05:42 HDL Cholesterol 58 mg/dL (40-60) 09/08/23 05:42 Cholesterol/HDL Ratio 2.66 09/08/23 05:42 <Parker,Bev Rosalino - Last Filed: 09/10/23 08:58> Vital Signs/Physical Exam: Temp Pulse Resp BP Pulse Ox 97.8 F 68 18 154/86 H 98 09/10/23 08:00 09/10/23 09:22 09/10/23 09:24 09/10/23 09:22 09/10/23 09:24 Laboratory Data at Discharge: WBC 6.70 thou/uL (4.3-10.9) 09/09/23 04:39 Hgb 10.8 g/dL (13.6-17.9) L D 09/09/23 04:39 Hct 31.4 % (39.6-49.0) L 09/09/23 04:39 Plt Count 343 thou/uL (152-406) 09/09/23 04:39 PT 12.1 SECONDS (9.5-12.5) 09/07/23 16:45 INR 1.10 09/07/23 16:45 APTT 32.4 SECONDS (24.3-36.9) 09/07/23 16:45 Sodium 131 mEq/L (136-145) L 09/10/23 05:40 Potassium 4.2 mEq/L (3.5-5.1) D 09/10/23 05:40 BUN 8 mg/dL (7-18) 09/10/23 05:40 Creatinine 0.82 mg/dL (0.70-1.30) 09/10/23 05:40 Glucose 88 mg/dL (74-106) 09/10/23 05:40 Phosphorus 2.8 mg/dL (2.5-4.9) 09/10/23 05:40 Magnesium 2.3 mg/dL (1.6-2.4) 09/10/23 05:40 Total Bilirubin 0.3 mg/dL (0.2-1.0) 09/08/23 05:42 AST 18 U/L (15-37) 09/08/23 05:42 ALT 21 U/L (16-61) 09/08/23 05:42 Alkaline Phosphatase 97 U/L (45-117) 09/08/23 05:42 Triglycerides 56 mg/dL (<150) 09/08/23 05:42 Cholesterol 154 mg/dL (<200) 09/08/23 05:42 HDL Cholesterol 58 mg/dL (40-60) 09/08/23 05:42 Cholesterol/HDL Ratio 2.66 09/08/23 05:42 <Maria Fernanda Orellana - Last Filed: 09/10/23 15:33> Diet: AHA Activity: Ad agusto <Elena,Bev Jerry - Last Filed: 09/10/23 08:58> <Maria Fernanda Orellana - Last Filed: 09/10/23 15:33> Home Medications: Hydrocodone Bit/Acetaminophen [Hydrocodon-Acetaminophn 10-325] 1 tab PO QID PRN 11/15/22 Tramadol HCl [Ultram] 50 mg PO DAILY PRN 11/15/22 Doxepin HCl 50 mg PO BEDTIME PRN 08/16/23 Gabapentin 300 mg PO TID 08/16/23 Quetiapine Fumarate [Seroquel] 300 mg PO BEDTIME 08/16/23 Fluoxetine HCl [Prozac] 2 cap PO DAILY 09/08/23 Amlodipine [Norvasc*] 10 mg PO DAILY #90 tab 09/10/23 Metoprolol Tartrate [Lopressor*] 50 mg PO BID #240 tab 09/10/23 lisinopriL [Prinivil*] 20 mg PO DAILY #90 tab 09/10/23 New Medications: Metoprolol Tartrate [Lopressor*] 50 mg PO BID #240 tab Amlodipine [Norvasc*] 10 mg PO DAILY #90 tab lisinopriL [Prinivil*] 20 mg PO DAILY #90 tab Physician Discharge Instructions: Blood pressure management/stabilization in ICU and then transferred back to acute bed. Pt awake and alert on discharge this am. Will need blood pressure logs for PCP and consults, discharge medications: Lisinopril 20 mg p.o. daily, Lopressor 50 mg p.o. twice daily, Norvasc 10 mg p.o. daily. Please follow up with PCP in 1-2 weeks, Dr. Rodriguez in 2-3 weeks. Keep blood pressure log. Okay to DC IV and DC home Follow-up with primary care provider in 1 to 2 weeks Follow-up with cardiology in 2 to 3-weeks Please call the inpatient unit for any questions or concerns regarding hospital stay Return to the ER for worsening symptoms Followup: Amee Clark MD [Primary Care Provider] -
[2023-09-10 09:33] VITALS: BP 154/86
[2023-09-10 10:10] VITALS: TEMP 97.8
--- NOTE | 2023-09-11 01:14 | PN ---
Date of Progress Note: 09/10/2023 Subjective: The patient is admitted to the hospital because of altered mental status. He was found to have hyponatremia, alcohol intoxication. The patient was treated for hyponatremia and electrolyte s have improved. Sodium level is ranging in the 130 range and potassium was 3.7. The patient has hy poalbuminemia. Albumin is 2.9. The patient is more alert today. Review of Systems: Denies chest pain, palpitation. Physical Examination: Lungs: Clear to auscultation bilaterally. Heart: S1, S2. No pericardial friction rub. Abdomen: Soft, benign, not tender. Extremities: No edema. Neurological: The patient is alert. He does not have any tremor. Laboratory Data: BUN 5, creatinine 0.8, sodium 130, potassium 3.7. Phosphorus 2.2, magnesium 1.8, a lbumin 2.9, calcium 9.1. Impression And Plan: 1.Acute kidney injury secondary to prerenal azotemia and nonoliguric acute tubular necrosis. Renal function has improved to baseline. The patient does not have fluid overload. He will continue p.o. fluid intake. The patient needs to avoid hydrochlorothiazide and nonsteroidal anti-inflammatory medi cation. The patient had multifactorial hyponatremia and he cannot tolerate hydrochlorothiazide becau se it may cause hyponatremia recurrence. 2.Hypokalemia and hypomagnesemia. Continue supplements. 3.Hypophosphatemia. Recommend to increase p.o. protein intake. 4.Hyponatremia secondary to volume depletion and electrolyte imbalance due to diminished solute inta ke. Continue p.o. hydration and advance diet as tolerated. 5.Hypercalcemia secondary to volume depletion, resolved. 6.Alcohol intoxication. Recommendation per primary team. EB/MODL Voice ID: [id number] Report ID: [id number]
== END 2023-09-10 10:58 | disposition home or self-care (01) | DRG 280 ==
LOC: ER 15:41 → ERHOLD 20:53 → 4TH 21:25 → 3RD-ICU 23:49 → OBSVTOIN 09-08 08:15 → 4TH 09-09 12:09
PROVIDERS: ADMIT Internal Medicine; ATTEND Hospitalist
DX: I16.1 Hypertensive emergency (principal); G93.41 Metabolic encephalopathy; I21.A1 Myocardial infarction type 2; N17.0 Acute kidney failure with tubular necrosis; E87.1 Hypo-osmolality and hyponatremia; E87.21 Acute metabolic acidosis; F10.229 Alcohol dependence with intoxication, unspecified; D64.9 Anemia, unspecified; I10 Essential (primary) hypertension; E87.6 Hypokalemia; E86.0 Dehydration; E83.52 Hypercalcemia; E86.9 Volume depletion, unspecified; E83.42 Hypomagnesemia; F25.9 Schizoaffective disorder, unspecified; F17.210 Nicotine dependence, cigarettes, uncomplicated; T50.2X5A Adverse effect of carbonic-anhydrase inhibitors, benzothiadiazides and other diuretics, initial encounter; R79.89 Other specified abnormal findings of blood chemistry; Z78.1 Physical restraint status; Z79.899 Other long term (current) drug therapy
CPT/HCPCS: 36415; 70450; 71045; 74177; 80053; 80061; 80069; 80307; 81001; 82550; 82570; 82947; 83605; 83735; 84146; 84156; 84443; 84484; 85025; 85610; 85730; 87040; 87389; 93005; 93306; 93880; 96361; 96365; 96366; 96375; 99285; G0378; J0360; J1630; J1953; J2270; J2405; J3360; J3475; J3480; J3486; J7030; J7042; Q9967

== ENCOUNTER 2023-09-13 16:58 | Observation (INO) | payer BC, OTHER ==
[2023-09-13 17:47] LABS: Absolute Eosinophils 0.1 K/uL (0-0.5); Absolute Lymphocytes (CBC) 1.1 K/uL (0.7-4.9); Absolute Monocytes 0.5 K/uL (0.1-1.3); Basophils % 0.8 % (0-1.3); Eosinophils % 1.8 % (0-4.4); Hematocrit 34.4 % (39.6-49.0); Hemoglobin 11.8 g/dL (13.6-17.9); Lymphocytes % 19.1 % (15.3-44.8); MCH 31.6 pg (27.0-35.0); MCHC 34.2 g/dL (32.0-36.0); MCV 92.1 fL (80-100); MPV 6.7 fL (7.6-11.3); Monocytes % 9.4 % (3.3-12.3); Neutrophils % 68.9 % (41.7-73.7); Nucleated Red Blood Cells % 0.1 % (0-0); Platelets 433 thou/uL (152-406); RBC Red Blood Cell Count 3.74 M/uL (4.33-5.43); Red Cell Distribution Width 13.9 % (12.1-15.2)
[2023-09-13 17:54] LABS: PTT, Activated Partial Thromb 32.6 SECONDS (24.3-36.9)
[2023-09-13] MEDS ORDERED: THIAMINE 200 MG/2 ML INJ ONE (17:58)
[2023-09-13 18:11] LABS: Specific Gravity 1.006 (1.005-1.030); Urine Bilirubin NEGATIVE (Negative); Urine Blood Negative (Negative); Urine Clarity Clear (Clear); Urine Color Colorless (Yellow); Urine Glucose NEGATIVE (Negative); Urine Ketones NEGATIVE (Negative); Urine Microscopic Reflex YN NO UMIC; Urine Nitrite NEGATIVE (Negative); Urine Protein NEGATIVE (Negative); Urine Urobilinogen Normal (Normal)
[2023-09-13 18:13] LABS: ALT/SGPT 31 U/L (16-61); AST/SGOT 19 U/L (15-37); Albumin 3.3 g/dL (3.4-5.0); Albumin/Globulin Ratio 0.9 (1.1-1.8); Alkaline Phosphatase 90 U/L (45-117); Anion Gap 10.9 mEq/L (5.0-15.0); BUN Blood Urea Nitrogen 9 mg/dL (7-18); Bicarbonate 24 mEq/L (21-32); Bilirubin Total 0.2 mg/dL (0.2-1.0); Creatine Phosphokinase 144 U/L (39-308); Globulin 3.8 g/dL (2.3-3.5); Glomerular Filtration Rate 96 ml/min (=/>90); Glucose Level 100 mg/dL (74-106); Magnesium 1.8 mg/dL (1.6-2.4); Potassium 3.9 mEq/L (3.5-5.1); Protein, Total 7.1 g/dL (6.4-8.2); Sodium Level 128 mEq/L (136-145); Troponin High Sensitivity 27.6 pg/mL (<58.9)
[2023-09-13 18:21] LABS: Bilirubin Direct < 0.2 mg/dL (0-0.2)
[2023-09-13 18:24] LABS: Barbiturates NEGATIVE (NEGATIVE); Benzodiazepines NEGATIVE (NEGATIVE); Cocaine NEGATIVE (NEGATIVE); METHAMPHETAM NEGATIVE (NEGATIVE); Methadone NEGATIVE (NEGATIVE); Opiates NEGATIVE (NEGATIVE); Phencyclidine NEGATIVE (NEGATIVE); THC Cannibis NEGATIVE (NEGATIVE)
--- NOTE | 2023-09-13 18:25 | RAD REPORT ---
EXAM DESCRIPTION: Paulina Single View09/13/2023 5:42 pm CLINICAL HISTORY: Confusion COMPARISON: September 07, 2023 FINDINGS: The lungs appear clear of acute infiltrate. The heart is borderline enlarged IMPRESSION: No acute abnormalities displayed
--- NOTE | 2023-09-13 18:32 | RAD REPORT ---
EXAM DESCRIPTION: CT - Head Brain Wo Cont - 09/13/2023 5:53 pm CLINICAL HISTORY: Alteration of awareness/confusion COMPARISON: August 2023 TECHNIQUE: Computed axial tomography of the head was obtained. IV contrast was not requested. All CT scans are performed using dose optimization technique as appropriate and may include automated exposure control or mA/KV adjustment according to patient size. FINDINGS: An intracranial bleed is not seen The ventricles are normal in caliber No extra-axial fluid collection is noted. Mild low-density areas within periventricular, deep and subcortical white matter likely represent isc hemic changes secondary to small vessel disease. Fluid within the sinuses/ mastoids is not seen. IMPRESSION: No acute intracranial abnormality is seen If patient's symptoms persist MRI of the brain would be recommended
[2023-09-13] MEDS ORDERED: ONDANSETRON 4 MG/2 ML VIAL ONE ×2 (20:02→21:26)
--- NOTE | 2023-09-13 20:05 | ER ---
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 He knows mb9 his name. Pt smells of ETOH. 18 g to right FA and 4 mg of Zofran administered.". Coronavirus screen: Vaccine status: At this time, the client does not indicate any symptoms associated with coronavirus-19. Ebola Screen: No symptoms or risks identified at this time. Initial Sepsis Screen: Does the patient meet any 2 criteria? No. Patient's initial sepsis screen is negative. Does the patient have a suspected source of infection? No. Patient's initial sepsis screen is negative. Risk Assessment: Do you want to hurt yourself or someone else? Unable to obtain. Onset of symptoms was September 13, 2023. 17:14 Method Of Arrival: EMS: [facility] mb9 17:14 Acuity: AMARA 2 mb9 Triage Assessment: 17:27 General: Appears in no apparent distress. Behavior is appropriate for age. Pain: Denies mb9 pain. EENT: No signs and/or symptoms were reported regarding the EENT system. Neuro: Level of Consciousness is awake, obeys commands, confused, Oriented to person. Cardiovascular: Patient's skin is warm and dry. Respiratory: Airway is patent Respiratory effort is even, unlabored, Respiratory pattern is regular, symmetrical. GI: No signs and/or symptoms were reported involving the gastrointestinal system. : No signs and/or symptoms were reported regarding the genitourinary system. Derm: Skin is pink, warm \\T\\ dry. Musculoskeletal: Range of motion: intact in all extremities. Historical: - Allergies: 17:12 No Known Allergies; mb9 - Home Meds: 17:12 tramadol 50 mg Oral tablet once [Active]; losartan 50 mg Oral tablet 1 tab daily mb9 [Active]; quetiapine 300 mg Oral tablet every day at bedtime [Active]; rabeprazole 20 mg Oral tablet 1 tab every 12 hours [Active]; quetiapine 25 mg Oral tablet 2 times per day [Active]; meloxicam 15 mg Oral tablet daily [Active]; hydrocodone-acetaminophen 10-325 mg Oral tablet every 6 hours [Active]; gabapentin 300 mg Oral capsule 3 times per day [Active]; fluoxetine 40 mg Oral capsule 2 caps daily [Active]; doxepin 50 mg Oral capsule every day at bedtime [Active]; Albuterol Inhl 2 inhalations [Active]; clonidine HCl 0.1 mg Oral tablet 1 tab as needed for Hypertension [Active]; - PMHx: 17:12 Alcoholism; Bipolar disorder; depressive disorder; Schizophrenia; mb9 - PSHx: 17:12 None; mb9 - Immunization history:: Adult Immunizations up to date. - Infectious Disease History:: Denies. - Social history:: Smoking status: unknown. - Family history:: not pertinent. Screenin:27 [facility] ED Fall Risk Assessment (Adult) History of falling in the last 3 months, mb9 including since admission No falls in past 3 months (0 pts) Confusion or Disorientation Yes (5 pts) Intoxicated or Sedated No (0 pts) Impaired Gait No (0 pts) Mobility Assist Device Used No (0 pt) Altered Elimination No (0 pt) Score/Fall Risk Level 0 - 2 = Low Risk Oriented to surroundings, Maintained a safe environment, Educated pt \\T\\ family on fall prevention, incl call for assistance when getting out of bed. Abuse screen: Denies threats or abuse. Nutritional screening: No deficits noted. Tuberculosis screening: No symptoms or risk factors identified. Assessment: 17:42 General: patient denies any SI/HI at this time. ap3 19:10 General: Appears in no apparent distress. comfortable, Behavior is calm, cooperative. jw7 Pain: Denies pain. Neuro: Level of Consciousness is awake, Oriented to person. Cardiovascular: Heart tones S1 S2 present Capillary refill < 3 seconds Clubbing of nail beds is absent JVD is absent Patient's skin is warm and dry. Respiratory: Airway is patent Trachea midline Respiratory effort is even, unlabored, Respiratory pattern is regular, symmetrical. GI: Abdomen is round non-distended, Bowel sounds present X 4 quads. Abd is soft and non tender X 4 quads. : No deficits noted. No signs and/or symptoms were reported regarding the genitourinary system. EENT: No deficits noted. No signs and/or symptoms were reported regarding the EENT system. Derm: Skin is intact, is healthy with good turgor, Skin is dry, Skin is normal, Skin temperature is warm. Musculoskeletal: Circulation, motion, and sensation intact. Range of motion: intact in all extremities. 20:00 Reassessment: Patient appears in no apparent distress at this time. No changes from [facility] previously documented assessment. Patient and/or family updated on plan of care and expected duration. Pain level reassessed. 21:00 Reassessment: Patient appears in no apparent distress at this time. No changes from [facility] previously documented assessment. Patient and/or family updated on plan of care and expected duration. Pain level reassessed. 22:00 General: Attempted to call report to 2nd floor, floor desk and charge nurse phone jw7 called with no answer. Publications Editor notified of report being faxed to 2nd floor. . 22:00 Reassessment: Patient appears in no apparent distress at this time. No changes from [facility] previously documented assessment. Patient and/or family updated on plan of care and expected duration. Pain level reassessed. 23:00 Reassessment: Patient appears in no apparent distress at this time. No changes from [facility] previously documented assessment. Patient and/or family updated on plan of care and expected duration. Pain level reassessed. Vital Signs: 17:14 Resp 18; Weight 83.91 kg; Height 5 ft. 11 in. ; Pain 0/10; mb9 17:28 BP 181 / 102; Pulse 73; Resp 18; Temp 98.5; Pulse Ox 100% on R/A; mb9 18:29 BP 180 / 104; Pulse 77; Resp 18; Pulse Ox 100% on R/A; mb9 19:00 BP 160 / 108; Pulse 79; Resp 17 S; Pulse Ox 95% on R/A; jw7 20:00 BP 218 / 122; Pulse 91; Resp 16 S; Pulse Ox 97% on R/A; jw7 21:00 BP 191 / 80; Pulse 89; Resp 17 S; Pulse Ox 95% on R/A; jw7 22:00 BP 197 / 110; Pulse 86; Resp 17 S; Pulse Ox 95% on R/A; jw7 23:00 BP 195 / 96; Pulse 85; Resp 16 S; Temp 98.7(TE); Pulse Ox 97% on R/A; jw7 17:14 Body Mass Index 25.80 (83.91 kg, 180.34 cm) mb9 17:14 Pain Scale: Adult mb9 ED Course: 17:12 Patient arrived in ED. ll1 17:12 Amarilis Patel RN is Primary Nurse. mb9 17:12 Arm band placed on. mb9 17:13 Osmel Pate MD is Attending Physician. rt 17:17 Triage completed. mb9 17:26 EKG done, by ED staff, reviewed by Osmel Pate MD. Maintain EMS IV. Dressing mb9 intact. Good blood return noted. Site clean \\T\\ dry. Gauge \\T\\ site: 18g right FA. 17:27 Placed in gown. Bed in low position. Call light in reach. Side rails up X 1. Provided mb9 Education on: press call light if needing anything. Client placed on continuous cardiac and pulse oximetry monitoring. NIBP monitoring applied. siding mechanic on. 17:42 Initial lab(s) drawn, by me, sent to lab. ap3 17:44 XRAY Chest (1 view) In Process Unspecified. EDMS 17:55 CT Head Brain wo Cont In Process Unspecified. EDMS 18:10 No provider procedures requiring assistance completed. mb9 18:35 Assisted to bathroom. Repositioned patient. mb9 19:03 Report given to MICHELE Allan. mb9 20:03 Tariq Peña MD is Hospitalizing Provider. rt 23:04 Patient admitted, IV remains in place. jw7 Administered Medications: 18:07 Drug: Thiamine IV 100 mg IV at calculated rate once Route: IV; Rate: calculated rate; mb9 Site: right forearm; 22:21 Follow up: Response: No adverse reaction; IV Status: Completed infusion; IV Intake: jw7 100ml 20:23 Drug: Ondansetron IVP 4 mg IVP once; over 2 minutes Route: IVP; Site: right forearm; jw7 22:21 Follow up: Response: No adverse reaction; Marked relief of symptoms; Nausea is decreasedjw7 Medication: 17:28 VIS not applicable for this client. mb9 Intake: 22:21 IV: 100ml; Total: 100ml. jw7 Outcome: 20:04 Decision to Hospitalize by Provider. rt 23:00 Admitted to Med/surg accompanied by tech, via stretcher, room 214, jw7 23:00 Condition: stable 23:00 Instructed on the need for admit, Demonstrated understanding of instructions, 23:04 Patient left the ED. jw7 Signatures: Dispatcher [employer] Maria Teresa Bergeron RN RN ap3 Sukhdeep Guzman RN RN ll1 Sanjana Browning RN RN jw7 Amarilis Patel RN RN mb9 Osmel Pate MD MD rt
--- NOTE | 2023-09-13 20:05 | EDPHYS ---
Physician Documentation [facility] Name: Jak Gauthier Age: 63 yrs Sex: Male : 1960 Arrival Date: 09/13/2023 Time: 16:58 Bed 14 Private MD: ED Physician Osmel Pate HPI: 09/12 20:05 This 63 yrs old Male presents to ER via EMS with complaints of Altered Mental Status. rt 20:05 Patient presents to the ED with altered mental status, history was limited due to rt altered mental status. Patient was recently to the hospital for the same. In the past 24 hours, the patient is able to climb his mental status, went to the doctor's office today, was confused and would not leave. Does not know where he is or what day it is. Denies other acute complaints, symptoms are moderate in severity, no other aggravating alleviating factors.. Historical: - Allergies: 17:12 No Known Allergies; mb9 - Home Meds: 17:12 tramadol 50 mg Oral tablet once [Active]; losartan 50 mg Oral tablet 1 tab daily mb9 [Active]; quetiapine 300 mg Oral tablet every day at bedtime [Active]; rabeprazole 20 mg Oral tablet 1 tab every 12 hours [Active]; quetiapine 25 mg Oral tablet 2 times per day [Active]; meloxicam 15 mg Oral tablet daily [Active]; hydrocodone-acetaminophen 10-325 mg Oral tablet every 6 hours [Active]; gabapentin 300 mg Oral capsule 3 times per day [Active]; fluoxetine 40 mg Oral capsule 2 caps daily [Active]; doxepin 50 mg Oral capsule every day at bedtime [Active]; Albuterol Inhl 2 inhalations [Active]; clonidine HCl 0.1 mg Oral tablet 1 tab as needed for Hypertension [Active]; - PMHx: 17:12 Alcoholism; Bipolar disorder; depressive disorder; Schizophrenia; mb9 - PSHx: 17:12 None; mb9 - Immunization history:: Adult Immunizations up to date. - Infectious Disease History:: Denies. - Social history:: Smoking status: unknown. - Family history:: not pertinent. ROS: 20:05 Unable to obtain ROS due to altered mental status, rt Exam: 20:05 Chest/axilla: Normal chest wall appearance and motion. Nontender with no deformity. rt No lesions are appreciated. Cardiovascular: Regular rate and rhythm with a normal S1 and S2. No gallops, murmurs, or rubs. Normal PMI, no JVD. No pulse deficits. Respiratory: Lungs have equal breath sounds bilaterally, clear to auscultation and percussion. No rales, rhonchi or wheezes noted. No increased work of breathing, no retractions or nasal flaring. Abdomen/GI: Soft, non-tender, with normal bowel sounds. No distension or tympany. No guarding or rebound. No evidence of tenderness throughout. Skin: Warm, dry with normal turgor. Normal color with no rashes, no lesions, and no evidence of cellulitis. MS/ Extremity: Pulses equal, no cyanosis. Neurovascular intact. Full, normal range of motion. 20:05 Constitutional: The patient appears Withdrawn, oriented to person only 20:05 ECG was reviewed by the Attending Physician. 20:05 Neuro: Oriented to person only, moves all 4 extremities equally, Vital Signs: 17:14 Resp 18; Weight 83.91 kg; Height 5 ft. 11 in. ; Pain 0/10; mb9 17:28 BP 181 / 102; Pulse 73; Resp 18; Temp 98.5; Pulse Ox 100% on R/A; mb9 18:29 BP 180 / 104; Pulse 77; Resp 18; Pulse Ox 100% on R/A; mb9 19:00 BP 160 / 108; Pulse 79; Resp 17 S; Pulse Ox 95% on R/A; jw7 20:00 BP 218 / 122; Pulse 91; Resp 16 S; Pulse Ox 97% on R/A; jw7 21:00 BP 191 / 80; Pulse 89; Resp 17 S; Pulse Ox 95% on R/A; jw7 22:00 BP 197 / 110; Pulse 86; Resp 17 S; Pulse Ox 95% on R/A; jw7 23:00 BP 195 / 96; Pulse 85; Resp 16 S; Temp 98.7(TE); Pulse Ox 97% on R/A; jw7 17:14 Body Mass Index 25.80 (83.91 kg, 180.34 cm) mb9 17:14 Pain Scale: Adult mb9 MDM: 17:23 Patient medically screened. rt 20:05 Differential Diagnosis: Electrolyte disturbance, intracranial hemorrhage, intoxication. rt Data reviewed: vital signs, nurses notes, lab test result(s), EKG, radiologic studies. Consideration of Admission/Observation Patient was admitted/placed on observation. Management of patient was discussed with the following: Hospitalist: Agrees to admit. I considered the following discharge prescriptions or medication management in the emergency department Medications were administered in the Emergency Department. See MAR. Independent interpretation of the following test(s) in the Emergency Department CT Scan: My interpretation is No intracranial hemorrhage seen on interpretation of CT scan images. Care significantly affected by the following Social Determinants of Health: Misuse of alcohol and/or drugs. Counseling: I had a detailed discussion with the patient and/or guardian regarding the historical points, exam findings, and any diagnostic results supporting the discharge/admit diagnosis, lab results, radiology results, the need for further work-up and treatment in the hospital. Response to treatment: the patient's symptoms have mildly improved after treatment. 09/12 17:31 Order name: Basic Metabolic Panel; Complete Time: 18:25 rt 09/12 17:31 Order name: CBC with Diff; Complete Time: 18:25 rt 09/12 17:31 Order name: LFT's; Complete Time: 18:25 rt 09/12 17:31 Order name: Magnesium; Complete Time: 18:25 rt 09/12 17:31 Order name: Troponin HS; Complete Time: 18:25 rt 09/12 17:31 Order name: CPK; Complete Time: 18:25 rt 09/12 17:31 Order name: Acetaminophen; Complete Time: 18:25 rt 09/12 17:31 Order name: ETOH Level; Complete Time: 18:25 rt 09/12 17:31 Order name: PT-INR; Complete Time: 18:25 rt 09/12 17:31 Order name: Ptt, Activated; Complete Time: 18:25 rt 09/12 17:31 Order name: Salicylate; Complete Time: 18:25 rt 09/12 17:31 Order name: Urinalysis w/ reflexes; Complete Time: 18:25 rt 09/12 17:31 Order name: Urine Drug Screen; Complete Time: 18:25 rt 09/12 20:59 Order name: CBC with Automated Diff EDMS 09/12 20:59 Order name: CBC with Automated Diff EDMS 09/12 20:59 Order name: Comprehensive Metabolic Panel EDMS 09/12 20:59 Order name: Comprehensive Metabolic Panel EDMO 09/12 17:31 Order name: XRAY Chest (1 view); Complete Time: 18:38 rt 09/12 17:31 Order name: CT Head Brain wo Cont; Complete Time: 18:38 rt 09/12 17:31 Order name: EKG; Complete Time: 17:31 rt 09/12 17:31 Order name: Cardiac monitoring; Complete Time: 17:32 rt 09/12 17:31 Order name: EKG - Nurse/Tech; Complete Time: 17:32 rt 09/12 17:31 Order name: IV Saline Lock; Complete Time: 17:32 rt 09/12 17:31 Order name: Labs collected and sent; Complete Time: 17:42 rt 09/12 17:31 Order name: O2 Per Protocol; Complete Time: 17:32 rt 09/12 17:31 Order name: O2 Sat Monitoring; Complete Time: 17:32 rt 09/12 17:31 Order name: Suicide Screening ([place]); Complete Time: 17:42 rt EC:05 Rate is 76 beats/min. Rhythm is regular, Normal Sinus Rhythm with No ectopy. QRS [place] rt is Normal. NC interval is normal. QRS interval is normal. QT interval is normal. No Q waves. No ST changes noted. Interpreted by me. Administered Medications: 18:07 Drug: Thiamine IV 100 mg IV at calculated rate once Route: IV; Rate: calculated rate; mb9 Site: right forearm; 22:21 Follow up: Response: No adverse reaction; IV Status: Completed infusion; IV Intake: jw7 100ml 20:23 Drug: Ondansetron IVP 4 mg IVP once; over 2 minutes Route: IVP; Site: right forearm; jw7 22:21 Follow up: Response: No adverse reaction; Marked relief of symptoms; Nausea is decreasedjw7 Disposition Summary: 09/13/23 20:04 Hospitalization Ordered Notes: Hospitalization Status: Observation rt Provider: Tariq Peña rt Location: Telemetry/MedSurg (observation) rt Condition: Stable rt Problem: new rt Symptoms: are unchanged rt Bed/Room Type: Standard rt Room Assignment: 212(09/13/23 21:03) ty Diagnosis - Altered mental status rt - Hyponatremia rt Forms: - Medication Reconciliation Form rt - SBAR form rt - Leadership Thank You Letter rt Signatures: Dispatcher [employer] EDMO Sanjana Browning, RN RN jw7 Jorge, Amarilis El, RN RN mb9 Osmel Pate MD MD rt Ciaran Sifuentes ty Corrections: (The following items were deleted from the chart) 17:32 17:31 BASIC METABOLIC PANEL+C.LAB.BRZ ordered. EDMS EDMS 17:32 17:31 CBC+H.LAB.BRZ ordered. EDMS EDMS 17:32 17:31 HEPATIC FUNCTION+C.LAB.BRZ ordered. EDMS EDMS 17:32 17:31 MAGNESIUM+C.LAB.BRZ ordered. EDMS EDMS 17:32 17:31 Troponin High Sensitivity+C.LAB.BRZ ordered. EDMS EDMS 17:32 17:31 CREATINE PHOSPHOKINASE+C.LAB.BRZ ordered. EDMS EDMS 17:32 17:31 ACETAMINOPHEN+C.LAB.BRZ ordered. EDMS EDMS 17:32 17:31 ETHANOL+C.LAB.BRZ ordered. EDMS EDMS 17:32 17:31 PROTIME (+INR)+COAG.LAB.BRZ ordered. EDMS EDMS 17:32 17:31 PTT, ACTIVATED+COAG.LAB.BRZ ordered. EDMS EDMS 17:32 17:31 SALICYLATE+C.LAB.BRZ ordered. EDMS EDMS 17:32 17:31 Urinalysis+U.LAB.BRZ ordered. EDMS EDMS 17:32 17:31 URINE DRUG SCREEN+UC.LAB.BRZ ordered. EDMS EDMS 21:03 20:04 rt ty
--- NOTE | 2023-09-13 20:53 | P.HP ---
Certification for Inpatient Patient admitted to: Observation With expected LOS: <2 Midnights Practitioner: I am a practitioner with admitting privileges, knowledge of patient current condition, hospital course, and medical plan of care. Services: Services provided to patient in accordance with Admission requirements found in Title 42 Section 412.3 of the Code of Federal Regulations Patient History Date of Service: 09/13/23 Reason for admission: Altered mental status History of Present Illness: Patient is 63 years of age admitted with altered mental started which started last week present at the bedside currently he has been incoherent he was here in the hospital was discharged 10 days and alcoholic also has schizoaffective disorders not coherent to be disoriented no diarrhea vomiting fever or chills Allergies No Known Allergies Allergy (Unverified 11/15/22 19:13) Home Medications: Hydrocodone Bit/Acetaminophen [Hydrocodon-Acetaminophn 10-325] 1 tab PO QID PRN 11/15/22 Tramadol HCl [Ultram] 50 mg PO DAILY PRN 11/15/22 Doxepin HCl 50 mg PO BEDTIME PRN 08/16/23 Gabapentin 300 mg PO TID 08/16/23 Quetiapine Fumarate [Seroquel] 300 mg PO BEDTIME 08/16/23 Fluoxetine HCl [Prozac] 2 cap PO DAILY 09/08/23 Amlodipine [Norvasc*] 10 mg PO DAILY #90 tab 09/10/23 Metoprolol Tartrate [Lopressor*] 50 mg PO BID #240 tab 09/10/23 lisinopriL [Prinivil*] 20 mg PO DAILY #90 tab 09/10/23 - Past Medical/Surgical History Diabetic: No -: Neuropathy -: Depression -: Bipolar disorder -: Schizophrenia -: Hypertension -: alcohol abuse -: Sx right leg - Social History Alcohol use: Yes CD- Drugs: No Caffeine use: Yes Review of Systems 10-point ROS is otherwise unremarkable General: Weakness Physical Examination - Vital Signs Temperature: 98.5 F Blood Pressure: 181/102 Pulse: 73 Respirations: 18 Pulse Ox (%): 100 - Physical Exam General: Oriented x1 HEENT: Atraumatic Neck: Supple Respiratory: Clear to auscultation bilaterally Cardiovascular: No edema, Regular rate/rhythm, Normal S1 S2 Gastrointestinal: Normal bowel sounds, Soft and benign Musculoskeletal: No clubbing, No swelling Integumentary: No rashes, No breakdown Neurological: Normal speech, Normal strength at 5/5 x4 extr - Studies Laboratory Data (last 24 hrs) 09/13/23 09/13/23 09/13/23 17:39 17:39 17:39 WBC 5.80 Hgb 11.8 L Hct 34.4 L Plt Count 433 H PT 11.0 INR 1.00 APTT 32.6 Sodium 128 L Potassium 3.9 BUN 9 Creatinine 0.89 Glucose 100 Magnesium 1.8 Total Bilirubin 0.2 AST 19 ALT 31 Alkaline Phosphatase 90 Assessment and Plan - Problems (Diagnosis) (1) Altered mental status Current Visit: Yes Status: Acute Plan: Patient is 63 years of age she is disabled history of alcohol schizoaffective disorders. With altered mental status apparently was here about a week ago into his 's been incoherent is also been drinking and is mildly hyponatremic chest x-ray is negative head CT negative pressure is elevated will admit observe with thiamine labs CT scan x-rays all reviewed pressure control Qualifiers: Altered mental status type: disorientation Qualified Code(s): R41.0 - Disorientation, unspecified - Advance Directives Does patient have a Living Will: No Does patient have a Durable POA for Healthcare: No
[2023-09-13] MEDS: ONDANSETRON 4 MG/2 ML VIAL IV PRN (21:34)
[2023-09-13] MEDS: NA CHLORIDE 0.9% 1,000 ML IV SCH (23:12)
[2023-09-14 00:34] VITALS: BMI 25.0
[2023-09-14 00:35] VITALS: O2SAT 97
[2023-09-14] MEDS: MAGNES/ALUMIN/SIMET 30ML UCUP PO PRN (02:13)
[2023-09-14] MEDS: AMLODIPINE 5 MG TAB PO SCH (02:13)
[2023-09-14 03:40] LABS: Absolute Lymphocytes (CBC) 0.8 K/uL (0.7-4.9); Absolute Monocytes 0.5 K/uL (0.1-1.3); Absolute Neutrophil 4.8 K/uL (1.8-8.0); Basophils % 0.8 % (0-1.3); Eosinophils % 0.6 % (0-4.4); Hematocrit 35.2 % (39.6-49.0); Hemoglobin 12.3 g/dL (13.6-17.9); Lymphocytes % 13.4 % (15.3-44.8); MCH 31.9 pg (27.0-35.0); MCHC 34.9 g/dL (32.0-36.0); MCV 91.4 fL (80-100); MPV 7.3 fL (7.6-11.3); Monocytes % 7.5 % (3.3-12.3); Neutrophils % 77.7 % (41.7-73.7); Platelets 488 thou/uL (152-406); RBC Red Blood Cell Count 3.85 M/uL (4.33-5.43); Red Cell Distribution Width 13.8 % (12.1-15.2)
[2023-09-14 04:05] LABS: Albumin 3.4 g/dL (3.4-5.0); Albumin/Globulin Ratio 0.9 (1.1-1.8); Anion Gap 9.3 mEq/L (5.0-15.0); Bilirubin Total 0.3 mg/dL (0.2-1.0); Potassium 4.3 mEq/L (3.5-5.1); Protein, Total 7.4 g/dL (6.4-8.2)
[2023-09-14] MEDS: AMLODIPINE 10 MG TAB PO SCH (04:46)
[2023-09-14] MEDS ORDERED: HYDRALAZINE HCL 20 MG/ML VIAL IV PRN (07:52)
[2023-09-14] MEDS ORDERED: FLUMAZENIL 0.1 MG/ML (5 mL VIAL) IV PRN ×2 (07:54→14:07)
[2023-09-14] MEDS: TRAMADOL HCL 50 MG TAB PO PRN (09:09)
[2023-09-14] MEDS: METOPROLOL TAR 50 MG TAB PO SCH (09:10)
[2023-09-14] MEDS: FLUOXETINE 20 MG CAP PO SCH (09:11)
[2023-09-14] MEDS: QUETIAPINE 25 MG TAB PO SCH (09:12)
[2023-09-14] MEDS: lisinopriL 20 MG TAB PO SCH (09:12)
[2023-09-14] MEDS: THIAMINE 200 MG/2 ML INJ IVP SCH (09:13)
[2023-09-14] MEDS: HYDROCODONE/APAP 10/325 TAB PO PRN (11:55)
[2023-09-14] MEDS: GABAPENTIN 300 MG CAP PO SCH (14:03)
[2023-09-14] MEDS ORDERED: LORAZEPAM 1 MG TABLET PO PRN (14:07)
[2023-09-14] MEDS: NICOTINE 21 MG/PAT TD SCH (14:52)
--- NOTE | 2023-09-14 15:07 | EKG ---
Test Date: 2023-09-13 Test Time: 17:25:05 Auditing Coder: MB MEASUREMENT RESULTS: Intervals: Rate: 76 [place]: 172 QRSD: 82 QT: 416 QTc: 468 [place]: P: 42 [place]: 172 QRS: -27 T: 54 INTERPRETIVE STATEMENTS: Normal sinus rhythm Septal infarct, age undetermined Abnormal ECG Compared to ECG 09/07/2023 16:31:12 Sinus tachycardia no longer present Left anterior fascicular block no longer present Myocardial infarct finding still present Electronically Signed On 09-14-23 15:05:47 CDT by Bladimir Zaman
--- NOTE | 2023-09-14 17:30 | P.DS ---
Admission Date: 09/13/23 Discharge Date: 09/14/23 Disposition: ROUTINE DISCHARGE Discharge Condition: FAIR Reason for Admission: Altered mental status - Problems (1) Alcohol intoxication Current Visit: Yes Status: Acute (2) Chronic pain syndrome Current Visit: Yes Status: Acute (3) Acute encephalopathy Current Visit: No Status: Acute (4) Bipolar disorder Current Visit: No Status: Acute (5) Hypertensive emergency Current Visit: No Status: Acute (6) Hyponatremia Current Visit: No Status: Acute Hospital Course: Patient was brought to the emergency department due to altered mental status. He was recently discharged from hospital 3 days prior for similar presentation. He was incoherent, blood work remarkable for alcohol level of 156 and mild hyponatremia. No witnessed seizure activity. Patient was hospitalized for altered mental status. Patient was monitored overnight, mental status improved to baseline, hyponatremia also improved. Patient had severe hypertension which also improved after dose of amlodipine. Prior BP readings reviewed and noted patient's BP fluctuate and occasionally soft. Will therefore avoid permanent addition of amlodipine and recommend hydralazine as needed for BP spikes. Patient has been tolerating diet, ambulating and has no complaint. He is alert and oriented, no tremors or unsteady gait. He reported prior history of seizures. 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 Case discussed with neurology Dr. Lacey who recommended Keppra 500 mg twice daily. Patient currently has no PT needs. He is discharged with oral Keppra. He mentioned his gabapentin dose was recently decreased. He has been informed that alcohol together with his other medications including doxepin, Prozac and gabapentin can also depress his mental status and making him unconscious and has been advised to quit drinking. Patient was also advised to stop driving until he is reviewed by neurologist. He is informed to call neurologist Dr. Lacey's for an appointment for follow- up. He is advised to check his BP daily and to take hydralazine as needed for systolic blood pressure greater than 160. Vital Signs/Physical Exam: Temp Pulse Resp BP Pulse Ox 98.6 F 71 16 160/93 H 97 09/14/23 16:00 09/14/23 16:00 09/14/23 17:07 09/14/23 16:00 09/14/23 17:07 General: Alert, In no apparent distress, Oriented x3 HEENT: Mucous membr. moist/pink, Sclerae nonicteric Neck: Supple, JVD not distended Respiratory: Clear to auscultation bilaterally, Normal air movement Cardiovascular: No edema, Regular rate/rhythm, Normal S1 S2 Gastrointestinal: Normal bowel sounds, Soft and benign, Non-distended, No ascites Musculoskeletal: No swelling, No tenderness Integumentary: No rashes, No cyanosis Neurological: Normal gait, Normal speech, Normal strength at 5/5 x4 extr, Cranial nerves 3-12 intact Lymphatics: No axilla or inguinal lymphadenopathy Laboratory Data at Discharge: WBC 6.20 thou/uL (4.3-10.9) 09/14/23 02:57 Hgb 12.3 g/dL (13.6-17.9) L 09/14/23 02:57 Hct 35.2 % (39.6-49.0) L 09/14/23 02:57 Plt Count 488 thou/uL (152-406) H 09/14/23 02:57 PT 11.0 SECONDS (9.5-12.5) 09/13/23 17:39 INR 1.00 09/13/23 17:39 APTT 32.6 SECONDS (24.3-36.9) 09/13/23 17:39 Sodium 134 mEq/L (136-145) L D 09/14/23 02:57 Potassium 4.3 mEq/L (3.5-5.1) 09/14/23 02:57 BUN 8 mg/dL (7-18) 09/14/23 02:57 Creatinine 0.93 mg/dL (0.70-1.30) 09/14/23 02:57 Glucose 117 mg/dL (74-106) H 09/14/23 02:57 Magnesium 1.8 mg/dL (1.6-2.4) 09/13/23 17:39 Total Bilirubin 0.3 mg/dL (0.2-1.0) 09/14/23 02:57 AST 19 U/L (15-37) 09/14/23 02:57 ALT 31 U/L (16-61) 09/14/23 02:57 Alkaline Phosphatase 109 U/L (45-117) D 09/14/23 02:57 Home Medications: Hydrocodone Bit/Acetaminophen [Hydrocodon-Acetaminophn 10-325] 1 tab PO QID PRN 11/15/22 Doxepin HCl 50 mg PO BEDTIME PRN 08/16/23 Gabapentin 300 mg PO TID 08/16/23 Fluoxetine HCl [Prozac] 40 mg PO DAILY 09/08/23 Metoprolol Tartrate [Lopressor*] 50 mg PO BID #240 tab 09/10/23 lisinopriL [Prinivil*] 20 mg PO DAILY #90 tab 09/10/23 Hydralazine HCl 25 mg PO DAILY PRN #30 tab 09/14/23 Quetiapine Fumarate [Seroquel] 25 mg PO BID 09/14/23 levETIRAcetam [Keppra] 500 mg PO BID #60 tab 09/14/23 New Medications: Hydralazine HCl 25 mg PO DAILY PRN #30 tab PRN Reason: For SBP > 160 levETIRAcetam [Keppra] 500 mg PO BID #60 tab Physician Discharge Instructions: Patient was brought to the emergency department due to altered mental status. He was recently discharged from hospital 3 days prior for similar presentation. He was incoherent, blood work remarkable for alcohol level of 156 and mild hyponatremia. No witnessed seizure activity. Patient was hospitalized for altered mental status. Patient was monitored overnight, mental status improved to baseline, hyponatremia also improved. Patient had severe hypertension which also improved after dose of amlodipine. Prior BP readings reviewed and noted patient's BP fluctuate and occasionally soft. Will therefore avoid permanent addition of amlodipine and recommend hydralazine as needed for BP spikes. Patient has been tolerating diet, ambulating and has no complaint. He is alert and oriented, no tremors or unsteady gait. He reported prior history of seizures. 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 Case discussed with neurology Dr. Lacey who recommended Keppra 500 mg twice daily. Patient currently has no PT needs. He is discharged with oral Keppra. He mentioned his gabapentin dose was recently decreased. He has been informed that alcohol together with his other medications including doxepin, Prozac and gabapentin can also depress his mental status and making him unconscious and has been advised to quit drinking. Patient was also advised to stop driving until he is reviewed by neurologist. He is informed to call neurologist Dr. Lacey's for an appointment for follow- up. He is advised to check his BP daily and to take hydralazine as needed for systolic blood pressure greater than 160. Diet: AHA Activity: Fall precautions Followup: Husam Lacey MD [ASSOCIATE-ACTIVE - CAN ADMIT] - (Please call for appointment) NONE,NONE [Primary Care Provider] - Time spent managing pt's care (in minutes): 28
[2023-09-14 17:38] VITALS: BP 160/93; TEMP 98.6
[2023-09-14] MEDS: HYDRALAZINE HCL 20 MG/ML VIAL IV ONE (17:48)
[2023-09-15] MEDS ORDERED: NICOTINE 21 MG/PAT TD SCH (09:00)
== END 2023-09-14 18:47 | disposition home or self-care (01) ==
LOC: ER 16:58 → ERHOLD 20:54 → 2ND 22:01
PROVIDERS: ADMIT Internal Medicine Sleep Medicine; ATTEND Internal Medicine
DX: R41.82 Altered mental status, unspecified (principal); F10.129 Alcohol abuse with intoxication, unspecified; G89.4 Chronic pain syndrome; G93.40 Encephalopathy, unspecified; F31.9 Bipolar disorder, unspecified; I16.0 Hypertensive urgency; E87.1 Hypo-osmolality and hyponatremia
CPT/HCPCS: 96365; 93005; 85025 ×2; 80048; 36415; 83735; 82550; 85610; 82947; 80076; 85730; 81003; 84484; 80053; 80307; 70450; 71045; 96375; 99285; 96366; 80143; 80179; 82077; J3411 ×2; J0360; J2405 ×2; J7030 ×2; G0378 ×3

== ENCOUNTER 2024-07-18 18:41 | Inpatient (IN) | payer OTHER ==
--- OUTSIDE RECORDS SUMMARY | 2024-07-18 18:45 | XMS REPORT | Continuity of Care Document ---
Author Name Unknown Address [address] [facility] [address] [place] [address] [facility] Address [address] 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 Name Role Phone Amee Clark Attending Clinician Unavail able ROUSE_F Attending Clinician Unavailable ERICKSON_R Attending Clinician Unavailable TRAVON BAZAN Attending Clinician Unavail able ALEJANDRA RAZA Attending Clinician Unavaila ble Lab, Pcp Covjaylyn Attending Clinician Unavailable Lab, Adc Fam Pob I Attending Clinician Unavailab Tamie Denney Attending Clinician [phone] TAMIE HENDERSON Attending Clinician Unavailable Doctor Unassigned, Michie Attending Clinician U AMARI Dent Attending Clinician Unavailable Foot, [facility] Attending Clinician Unavailable Conrado Mejia MD Attending Clinician [phone] ROUSE_F Admitting Clinician Unavailable ERICKSON_R Admitting Clinician Unavailable FRANCISCO HANNA Admitting Clinician Unavailab le Payers Payer Name Policy Type Policy Number Effective Date Expirati on Date Source [place] [id number] 2022 00:00:00 [facility] BCBS BLUE ADVANTAGE HMO [id number] 2020 00:00:00 Problems Condition Name Condition Details Condition Category Status Onset Date Resolution Date Last Treatment Date Treating Clinician Comments Source [place] a of esophagus [place] a of Esophagus Problem Active 11-30 00:00: 00 [facility] Acute gastritis Acute Gastritis Problem Active 11-30 00:00: 00 [facility] Hiatal hernia Hiatal Hernia Problem Active 11-30 00:00: 00 [facility] Nausea and vomiting Nausea and Vomiting Problem Active 11-30 00:00: 00 [facility] Dysphagia Dysphagia Problem Active 11-30 00:00: 00 [facility] Hyponatrem ia Hyponatrem ia Problem Active 11-26 00:00: 00 [facility] Chronic kidney disease stage 3A Chronic Kidney Disease Stage 3a Problem Active 08-20 00:00: 00 [facility] Schizoaffe ctive disorder, depressive type Schizoaffe ctive Disorder, Depressive Type Problem Active 06-26 00:00: 00 [facility] Anxiety disorder Anxiety Disorder Problem Active 06-26 00:00: 00 [facility] Anemia Anemia Problem Active 06-25 00:00: 00 [facility] Insomnia Insomnia Problem Active 06-04 00:00: 00 [facility] Chronic back pain Chronic Back Pain Problem Active 06-04 00:00: 00 [facility] Auditory hallucinat ions Auditory Hallucinat ions Problem Active 3- 00:00: 00 [facility] Schizophre shavon Schizophre shavon Problem Active 3 00:00: 00 [facility] Tobacco user Tobacco User Problem Active 3- 00:00: 00 [facility] AMS AMS Active 08/22/2020 [facility] Diagnosis Active 08-22 00:00: 00 2020-08-31 21:37:00 [facility] Allergies, Adverse Reactions, Alerts Allergy Name Allergy Type Status Severity Reaction(s) Onset Date Inactive Date Treating Clinician Comments Source No Known Medicati on Allergie s No Known Medicati on Allergie s Active Ferny Penny NO KNOWN ALLERGIE S Drug Class Active [facility] Social History Social Habit Start Date Stop Date Quantity Comments Source Exposure to SARS-CoV-2 (event) 2020-07-06 00:00:00 2020-08-05 13:39:00 Yes [facility] Alcohol intake 2015-12-19 00:00:00 2015-12-19 00:00:00 0 /d [facility] Cigarettes smoked current (pack per day) - Reported 2015-09-30 00:00:00 2015-09-30 00:00:00 [facility] Cigarette pack-years 2015-09-30 00:00:00 2015-09-30 00:00:00 [facility] Tobacco use and exposure 2015-09-30 00:00:00 2015-09-30 00:00:00 Former smokeless tobacco user [facility] History of tobacco use 2012-09-29 00:00:00 Snuff User [facility] Sex Assigned At 1960 00:00:00 1960 00:00:00 [facility] Smoking Status Start Date Stop Date Source Heavy Tobacco Smoker [facility] Ex-smoker 2015-09-30 00:00:00 [facility] Ordered Medication Name Filled Medication Name Start Date Stop Date Current Medication? Ordering Clinician Indication Dosage Frequency Signature (SIG) Comments Components Source FLUoxetine 20 mg oral capsule 08-23 21:05: 00 Yes 20 mg = 1 cap, PO, Daily, # 30 cap, 1 Refill(s), Pharmacy: [facility] [place], 182.88, cm, 08/22/20 17:49:00 CDT, Height, 77.273, kg, 08/22/20 17:49:00 CDT, Weight Ferny Penny Vistaril 08-23 19:27: 00 No Notes: (Same as: Vistaril) Ferny Penny Prozac 08-23 19:07: 00 No Notes: (Same as: Prozac, Sarafem) Ferny Penny Fluoxetine 08-23 13:14: 00 No PO, 0 Refill(s) Ferny Penny FLUoxetine 20 mg oral capsule 08-23 13:14: 00 No 20 mg = 1 cap, PO, Daily, # 30 cap, 0 Refill(s) Ferny Penny Docusate Sodium 100 MG Oral Capsule 08-23 02:00: 00 No Notes: (Same as: Colace) (Do Not Crush) Ferny Penny sennosides, HALF-WAY 08-23 02:00: 00 No Notes: (Same as: Senokot) Ferny Penny meloxicam 15 mg tablet TAKE ONE (1) TABLET(S) BY MOUTH DAILY. meloxicam 15 mg tablet TAKE ONE (1) TABLET(S) BY MOUTH DAILY. No meloxicam 15 mg tablet TAKE ONE (1) TABLET(S) BY MOUTH DAILY. [facility] quetiapine 25 mg tablet TAKE ONE (1) TABLET(S) BY MOUTH TWICE A DAY. quetiapine 25 mg tablet TAKE ONE (1) TABLET(S) BY MOUTH TWICE A DAY. No quetiapine 25 mg tablet TAKE ONE (1) TABLET(S) BY MOUTH TWICE A DAY. [facility] quetiapine 300 mg tablet TAKE ONE (1) TABLET(S) BY MOUTH DAILY. quetiapine 300 mg tablet TAKE ONE (1) TABLET(S) BY MOUTH DAILY. No quetiapine 300 mg tablet TAKE ONE (1) TABLET(S) BY MOUTH DAILY. [facility] tramadol 50 mg tablet TAKE ONE (1) TABLET(S) BY MOUTH ONCE A DAY NEEDED. tramadol 50 mg tablet TAKE ONE (1) TABLET(S) BY MOUTH ONCE A DAY NEEDED. No tramadol 50 mg tablet TAKE ONE (1) TABLET(S) BY MOUTH ONCE A DAY NEEDED. [facility] albuterol sulfate HFA 90 mcg/actuati on aerosol inhaler Inhale 2 puffs every 6 hours by inhalation route as needed. albuterol sulfate HFA 90 mcg/actuati on aerosol inhaler Inhale 2 puffs every 6 hours by inhalation route as needed. No 2puff(s ) Q6H albuterol sulfate HFA 90 mcg/actuat ion aerosol inhaler Inhale 2 puffs every 6 hours by inhalation route as needed. [facility] doxepin 50 mg capsule TAKE ONE (1) TO 2 CAPSULES BY MOUTH DAILY AT BEDTIME NEEDED. doxepin 50 mg capsule TAKE ONE (1) TO 2 CAPSULES BY MOUTH DAILY AT BEDTIME NEEDED. No doxepin 50 mg capsule TAKE ONE (1) TO 2 CAPSULES BY MOUTH DAILY AT BEDTIME NEEDED. [facility] fluoxetine 60 mg tablet TAKE ONE (1) TABLET(S) BY MOUTH ONCE A DAY. fluoxetine 60 mg tablet TAKE ONE (1) TABLET(S) BY MOUTH ONCE A DAY. No fluoxetine 60 mg tablet TAKE ONE (1) TABLET(S) BY MOUTH ONCE A DAY. [facility] gabapentin 300 mg capsule TAKE ONE (1) CAPSULE (300 MG) BY MOUTH 3 TIMES PER DAY. gabapentin 300 mg capsule TAKE ONE (1) CAPSULE (300 MG) BY MOUTH 3 TIMES PER DAY. No gabapentin 300 mg capsule TAKE ONE (1) CAPSULE (300 MG) BY MOUTH 3 TIMES PER DAY. [facility] hydrocodone 10 mg-acetamin ophen 325 mg tablet TAKE ONE (1) TABLET(S) BY MOUTH FOUR TIMES A DAY NEEDED. hydrocodone 10 mg-acetamin ophen 325 mg tablet TAKE ONE (1) TABLET(S) BY MOUTH FOUR TIMES A DAY NEEDED. No hydrocodon e 10 mg-acetami nophen 325 mg tablet TAKE ONE (1) TABLET(S) BY MOUTH FOUR TIMES A DAY NEEDED. [facility] meloxicam 15 mg tablet TAKE ONE (1) TABLET(S) BY MOUTH DAILY. meloxicam 15 mg tablet TAKE ONE (1) TABLET(S) BY MOUTH DAILY. No meloxicam 15 mg tablet TAKE ONE (1) TABLET(S) BY MOUTH DAILY. [facility] quetiapine 25 mg tablet TAKE ONE (1) TABLET(S) BY MOUTH TWICE A DAY. quetiapine 25 mg tablet TAKE ONE (1) TABLET(S) BY MOUTH TWICE A DAY. No quetiapine 25 mg tablet TAKE ONE (1) TABLET(S) BY MOUTH TWICE A DAY. [facility] quetiapine 300 mg tablet TAKE ONE (1) TABLET(S) BY MOUTH DAILY. quetiapine 300 mg tablet TAKE ONE (1) TABLET(S) BY MOUTH DAILY. No quetiapine 300 mg tablet TAKE ONE (1) TABLET(S) BY MOUTH DAILY. [facility] tramadol 50 mg tablet TAKE ONE (1) TABLET(S) BY MOUTH ONCE A DAY NEEDED. tramadol 50 mg tablet TAKE ONE (1) TABLET(S) BY MOUTH ONCE A DAY NEEDED. No tramadol 50 mg tablet TAKE ONE (1) TABLET(S) BY MOUTH ONCE A DAY NEEDED. [facility] albuterol sulfate HFA 90 mcg/actuati on aerosol inhaler INHALE TWO (2) PUFF(S) BY MOUTH EVERY SIX HOURS NEEDED. albuterol sulfate HFA 90 mcg/actuati on aerosol inhaler INHALE TWO (2) PUFF(S) BY MOUTH EVERY SIX HOURS NEEDED. No albuterol sulfate HFA 90 mcg/actuat ion aerosol inhaler INHALE TWO (2) PUFF(S) BY MOUTH EVERY SIX HOURS NEEDED. [facility] doxepin 50 mg capsule TAKE ONE (1) TO 2 CAPSULES BY MOUTH DAILY AT BEDTIME NEEDED. doxepin 50 mg capsule TAKE ONE (1) TO 2 CAPSULES BY MOUTH DAILY AT BEDTIME NEEDED. No doxepin 50 mg capsule TAKE ONE (1) TO 2 CAPSULES BY MOUTH DAILY AT BEDTIME NEEDED. [facility] fluoxetine 60 mg tablet TAKE ONE (1) TABLET(S) BY MOUTH ONCE A DAY. fluoxetine 60 mg tablet TAKE ONE (1) TABLET(S) BY MOUTH ONCE A DAY. No fluoxetine 60 mg tablet TAKE ONE (1) TABLET(S) BY MOUTH ONCE A DAY. [facility] gabapentin 300 mg capsule TAKE ONE (1) CAPSULE (300 MG) BY MOUTH 3 TIMES PER DAY. gabapentin 300 mg capsule TAKE ONE (1) CAPSULE (300 MG) BY MOUTH 3 TIMES PER DAY. No gabapentin 300 mg capsule TAKE ONE (1) CAPSULE (300 MG) BY MOUTH 3 TIMES PER DAY. [facility] hydrocodone 10 mg-acetamin ophen 325 mg tablet TAKE ONE (1) TABLET(S) BY MOUTH FOUR TIMES A DAY NEEDED. hydrocodone 10 mg-acetamin ophen 325 mg tablet TAKE ONE (1) TABLET(S) BY MOUTH FOUR TIMES A DAY NEEDED. No hydrocodon e 10 mg-acetami nophen 325 mg tablet TAKE ONE (1) TABLET(S) BY MOUTH FOUR TIMES A DAY NEEDED. [facility] meloxicam 15 mg tablet TAKE ONE (1) TABLET(S) BY MOUTH DAILY. meloxicam 15 mg tablet TAKE ONE (1) TABLET(S) BY MOUTH DAILY. No meloxicam 15 mg tablet TAKE ONE (1) TABLET(S) BY MOUTH DAILY. [facility] quetiapine 25 mg tablet TAKE ONE (1) TABLET(S) BY MOUTH TWICE A DAY. quetiapine 25 mg tablet TAKE ONE (1) TABLET(S) BY MOUTH TWICE A DAY. No quetiapine 25 mg tablet TAKE ONE (1) TABLET(S) BY MOUTH TWICE A DAY. [facility] quetiapine 300 mg tablet TAKE ONE (1) TABLET(S) BY MOUTH DAILY. quetiapine 300 mg tablet TAKE ONE (1) TABLET(S) BY MOUTH DAILY. No quetiapine 300 mg tablet TAKE ONE (1) TABLET(S) BY MOUTH DAILY. [facility] tramadol 50 mg tablet TAKE ONE (1) TABLET(S) BY MOUTH ONCE A DAY NEEDED. tramadol 50 mg tablet TAKE ONE (1) TABLET(S) BY MOUTH ONCE A DAY NEEDED. No tramadol 50 mg tablet TAKE ONE (1) TABLET(S) BY MOUTH ONCE A DAY NEEDED. [facility] albuterol sulfate HFA 90 mcg/actuati on aerosol inhaler INHALE TWO (2) PUFF(S) BY MOUTH EVERY SIX HOURS NEEDED. albuterol sulfate HFA 90 mcg/actuati on aerosol inhaler INHALE TWO (2) PUFF(S) BY MOUTH EVERY SIX HOURS NEEDED. No albuterol sulfate HFA 90 mcg/actuat ion aerosol inhaler INHALE TWO (2) PUFF(S) BY MOUTH EVERY SIX HOURS NEEDED. [facility] clonidine HCl 0.1 mg tablet Take 1 tablet every day by oral route as needed. clonidine HCl 0.1 mg tablet Take 1 tablet every day by oral route as needed. No 1 Q1D clonidine HCl 0.1 mg tablet Take 1 tablet every day by oral route as needed. [facility] doxepin 50 mg capsule TAKE ONE (1) OR TWO (2) CAPSULE(S) BY MOUTH AT BEDTIME NEEDED. doxepin 50 mg capsule TAKE ONE (1) OR TWO (2) CAPSULE(S) BY MOUTH AT BEDTIME NEEDED. No doxepin 50 mg capsule TAKE ONE (1) OR TWO (2) CAPSULE(S) BY MOUTH AT BEDTIME NEEDED. [facility] fluconazole 200 mg tablet TAKE ONE (1) TABLET(S) BY MOUTH DAILY. fluconazole 200 mg tablet TAKE ONE (1) TABLET(S) BY MOUTH DAILY. No fluconazol e 200 mg tablet TAKE ONE (1) TABLET(S) BY MOUTH DAILY. [facility] fluoxetine 40 mg capsule TAKE TWO (2) CAPSULE(S) BY MOUTH DAILY. fluoxetine 40 mg capsule TAKE TWO (2) CAPSULE(S) BY MOUTH DAILY. No fluoxetine 40 mg capsule TAKE TWO (2) CAPSULE(S) BY MOUTH DAILY. [facility] gabapentin 300 mg capsule TAKE ONE (1) CAPSULE(S) BY MOUTH THREE TIMES A DAY. gabapentin 300 mg capsule TAKE ONE (1) CAPSULE(S) BY MOUTH THREE TIMES A DAY. No gabapentin 300 mg capsule TAKE ONE (1) CAPSULE(S) BY MOUTH THREE TIMES A DAY. [facility] hydrocodone 10 mg-acetamin ophen 325 mg tablet TAKE ONE (1) TABLET(S) BY MOUTH FOUR TIMES A DAY NEEDED. hydrocodone 10 mg-acetamin ophen 325 mg tablet TAKE ONE (1) TABLET(S) BY MOUTH FOUR TIMES A DAY NEEDED. No hydrocodon e 10 mg-acetami nophen 325 mg tablet TAKE ONE (1) TABLET(S) BY MOUTH FOUR TIMES A DAY NEEDED. [facility] meloxicam 15 mg tablet TAKE ONE (1) TABLET(S) BY MOUTH DAILY. meloxicam 15 mg tablet TAKE ONE (1) TABLET(S) BY MOUTH DAILY. No meloxicam 15 mg tablet TAKE ONE (1) TABLET(S) BY MOUTH DAILY. [facility] metronidazo le 500 mg tablet TAKE ONE (1) TABLET(S) BY MOUTH EVERY EIGHT HOURS. metronidazo le 500 mg tablet TAKE ONE (1) TABLET(S) BY MOUTH EVERY EIGHT HOURS. No metronidaz ole 500 mg tablet TAKE ONE (1) TABLET(S) BY MOUTH EVERY EIGHT HOURS. [facility] quetiapine 25 mg tablet TAKE ONE (1) TABLET(S) BY MOUTH TWICE A DAY. quetiapine 25 mg tablet TAKE ONE (1) TABLET(S) BY MOUTH TWICE A DAY. No quetiapine 25 mg tablet TAKE ONE (1) TABLET(S) BY MOUTH TWICE A DAY. [facility] quetiapine 300 mg tablet TAKE ONE (1) TABLET(S) BY MOUTH AT BEDTIME. quetiapine 300 mg tablet TAKE ONE (1) TABLET(S) BY MOUTH AT BEDTIME. No quetiapine 300 mg tablet TAKE ONE (1) TABLET(S) BY MOUTH AT BEDTIME. [facility] tetracyclin e 500 mg capsule TAKE ONE (1) CAPSULE(S) BY MOUTH FOUR TIMES A DAY. tetracyclin e 500 mg capsule TAKE ONE (1) CAPSULE(S) BY MOUTH FOUR TIMES A DAY. No tetracycli ne 500 mg capsule TAKE ONE (1) CAPSULE(S) BY MOUTH FOUR TIMES A DAY. [facility] tramadol 50 mg tablet TAKE ONE (1) TABLET(S) BY MOUTH DAILY NEEDED. tramadol 50 mg tablet TAKE ONE (1) TABLET(S) BY MOUTH DAILY NEEDED. No tramadol 50 mg tablet TAKE ONE (1) TABLET(S) BY MOUTH DAILY NEEDED. [facility] albuterol sulfate HFA 90 mcg/actuati on aerosol inhaler INHALE TWO (2) PUFF(S) BY MOUTH EVERY SIX HOURS NEEDED. albuterol sulfate HFA 90 mcg/actuati on aerosol inhaler INHALE TWO (2) PUFF(S) BY MOUTH EVERY SIX HOURS NEEDED. No albuterol sulfate HFA 90 mcg/actuat ion aerosol inhaler INHALE TWO (2) PUFF(S) BY MOUTH EVERY SIX HOURS NEEDED. [facility] clonidine HCl 0.1 mg tablet TAKE ONE (1) TABLET(S) BY MOUTH ONCE A DAY NEEDED. clonidine HCl 0.1 mg tablet TAKE ONE (1) TABLET(S) BY MOUTH ONCE A DAY NEEDED. No clonidine HCl 0.1 mg tablet TAKE ONE (1) TABLET(S) BY MOUTH ONCE A DAY NEEDED. [facility] doxepin 50 mg capsule TAKE ONE (1) OR TWO (2) CAPSULE(S) BY MOUTH AT BEDTIME NEEDED. doxepin 50 mg capsule TAKE ONE (1) OR TWO (2) CAPSULE(S) BY MOUTH AT BEDTIME NEEDED. No doxepin 50 mg capsule TAKE ONE (1) OR TWO (2) CAPSULE(S) BY MOUTH AT BEDTIME NEEDED. [facility] fluconazole 200 mg tablet TAKE ONE (1) TABLET(S) BY MOUTH DAILY. fluconazole 200 mg tablet TAKE ONE (1) TABLET(S) BY MOUTH DAILY. No fluconazol e 200 mg tablet TAKE ONE (1) TABLET(S) BY MOUTH DAILY. [facility] fluoxetine 40 mg capsule TAKE TWO (2) CAPSULE(S) BY MOUTH DAILY. fluoxetine 40 mg capsule TAKE TWO (2) CAPSULE(S) BY MOUTH DAILY. No fluoxetine 40 mg capsule TAKE TWO (2) CAPSULE(S) BY MOUTH DAILY. [facility] gabapentin 300 mg capsule TAKE ONE (1) CAPSULE(S) BY MOUTH THREE TIMES A DAY. gabapentin 300 mg capsule TAKE ONE (1) CAPSULE(S) BY MOUTH THREE TIMES A DAY. No gabapentin 300 mg capsule TAKE ONE (1) CAPSULE(S) BY MOUTH THREE TIMES A DAY. [facility] hydrocodone 10 mg-acetamin ophen 325 mg tablet TAKE ONE (1) TABLET(S) BY MOUTH FOUR TIMES A DAY NEEDED. hydrocodone 10 mg-acetamin ophen 325 mg tablet TAKE ONE (1) TABLET(S) BY MOUTH FOUR TIMES A DAY NEEDED. No hydrocodon e 10 mg-acetami nophen 325 mg tablet TAKE ONE (1) TABLET(S) BY MOUTH FOUR TIMES A DAY NEEDED. [facility] meloxicam 15 mg tablet TAKE ONE (1) TABLET(S) BY MOUTH EVERY DAY. meloxicam 15 mg tablet TAKE ONE (1) TABLET(S) BY MOUTH EVERY DAY. No meloxicam 15 mg tablet TAKE ONE (1) TABLET(S) BY MOUTH EVERY DAY. [facility] metronidazo le 500 mg tablet TAKE ONE (1) TABLET(S) BY MOUTH EVERY EIGHT HOURS. metronidazo le 500 mg tablet TAKE ONE (1) TABLET(S) BY MOUTH EVERY EIGHT HOURS. No metronidaz ole 500 mg tablet TAKE ONE (1) TABLET(S) BY MOUTH EVERY EIGHT HOURS. [facility] ondansetron 8 mg disintegrat ing tablet Place 1 tablet twice a day by translingua l route. ondansetron 8 mg disintegrat ing tablet Place 1 tablet twice a day by translingua l route. No 1 BID ondansetro n 8 mg disintegra ting tablet Place 1 tablet twice a day by translingu al route. [facility] quetiapine 25 mg tablet TAKE ONE (1) TABLET(S) BY MOUTH TWICE A DAY. quetiapine 25 mg tablet TAKE ONE (1) TABLET(S) BY MOUTH TWICE A DAY. No quetiapine 25 mg tablet TAKE ONE (1) TABLET(S) BY MOUTH TWICE A DAY. [facility] quetiapine 300 mg tablet TAKE ONE (1) TABLET(S) BY MOUTH AT BEDTIME. quetiapine 300 mg tablet TAKE ONE (1) TABLET(S) BY MOUTH AT BEDTIME. No quetiapine 300 mg tablet TAKE ONE (1) TABLET(S) BY MOUTH AT BEDTIME. [facility] tetracyclin e 500 mg capsule TAKE ONE (1) CAPSULE(S) BY MOUTH FOUR TIMES A DAY. tetracyclin e 500 mg capsule TAKE ONE (1) CAPSULE(S) BY MOUTH FOUR TIMES A DAY. No tetracycli ne 500 mg capsule TAKE ONE (1) CAPSULE(S) BY MOUTH FOUR TIMES A DAY. [facility] tramadol 50 mg tablet TAKE ONE (1) TABLET(S) BY MOUTH DAILY NEEDED. tramadol 50 mg tablet TAKE ONE (1) TABLET(S) BY MOUTH DAILY NEEDED. No tramadol 50 mg tablet TAKE ONE (1) TABLET(S) BY MOUTH DAILY NEEDED. [facility] doxepin 25 mg capsule TAKE ONE (1) OR TWO (2) CAPSULE(S) BY MOUTH AT BEDTIME. doxepin 25 mg capsule TAKE ONE (1) OR TWO (2) CAPSULE(S) BY MOUTH AT BEDTIME. No doxepin 25 mg capsule TAKE ONE (1) OR TWO (2) CAPSULE(S) BY MOUTH AT BEDTIME. [facility] albuterol sulfate HFA 90 mcg/actuati on aerosol inhaler INHALE TWO (2) PUFF(S) BY MOUTH EVERY SIX HOURS NEEDED. albuterol sulfate HFA 90 mcg/actuati on aerosol inhaler INHALE TWO (2) PUFF(S) BY MOUTH EVERY SIX HOURS NEEDED. No albuterol sulfate HFA 90 mcg/actuat ion aerosol inhaler INHALE TWO (2) PUFF(S) BY MOUTH EVERY SIX HOURS NEEDED. [facility] clonidine HCl 0.1 mg tablet TAKE ONE (1) TABLET(S) BY MOUTH ONCE A DAY NEEDED. clonidine HCl 0.1 mg tablet TAKE ONE (1) TABLET(S) BY MOUTH ONCE A DAY NEEDED. No clonidine HCl 0.1 mg tablet TAKE ONE (1) TABLET(S) BY MOUTH ONCE A DAY NEEDED. [facility] fluoxetine 40 mg capsule TAKE ONE (1) CAPSULE(S) BY MOUTH DAILY. fluoxetine 40 mg capsule TAKE ONE (1) CAPSULE(S) BY MOUTH DAILY. No fluoxetine 40 mg capsule TAKE ONE (1) CAPSULE(S) BY MOUTH DAILY. [facility] doxepin 50 mg capsule TAKE ONE (1) OR TWO (2) CAPSULE(S) BY MOUTH AT BEDTIME NEEDED. doxepin 50 mg capsule TAKE ONE (1) OR TWO (2) CAPSULE(S) BY MOUTH AT BEDTIME NEEDED. No doxepin 50 mg capsule TAKE ONE (1) OR TWO (2) CAPSULE(S) BY MOUTH AT BEDTIME NEEDED. [facility] fluconazole 200 mg tablet TAKE ONE (1) TABLET(S) BY MOUTH DAILY. fluconazole 200 mg tablet TAKE ONE (1) TABLET(S) BY MOUTH DAILY. No fluconazol e 200 mg tablet TAKE ONE (1) TABLET(S) BY MOUTH DAILY. [facility] fluoxetine 40 mg capsule TAKE TWO (2) CAPSULE(S) BY MOUTH DAILY. fluoxetine 40 mg capsule TAKE TWO (2) CAPSULE(S) BY MOUTH DAILY. No fluoxetine 40 mg capsule TAKE TWO (2) CAPSULE(S) BY MOUTH DAILY. [facility] gabapentin 300 mg capsule TAKE ONE (1) CAPSULE(S) BY MOUTH THREE TIMES A DAY. gabapentin 300 mg capsule TAKE ONE (1) CAPSULE(S) BY MOUTH THREE TIMES A DAY. No gabapentin 300 mg capsule TAKE ONE (1) CAPSULE(S) BY MOUTH THREE TIMES A DAY. [facility] hydrocodone 10 mg-acetamin ophen 325 mg tablet TAKE ONE (1) TABLET(S) BY MOUTH FOUR TIMES A DAY NEEDED. hydrocodone 10 mg-acetamin ophen 325 mg tablet TAKE ONE (1) TABLET(S) BY MOUTH FOUR TIMES A DAY NEEDED. No hydrocodon e 10 mg-acetami nophen 325 mg tablet TAKE ONE (1) TABLET(S) BY MOUTH FOUR TIMES A DAY NEEDED. [facility] losartan 50 mg tablet Take 1 tablet every day by oral route. losartan 50 mg tablet Take 1 tablet every day by oral route. No 1 Q1D losartan 50 mg tablet Take 1 tablet every day by oral route. [facility] meloxicam 15 mg tablet TAKE ONE (1) TABLET(S) BY MOUTH EVERY DAY. meloxicam 15 mg tablet TAKE ONE (1) TABLET(S) BY MOUTH EVERY DAY. No meloxicam 15 mg tablet TAKE ONE (1) TABLET(S) BY MOUTH EVERY DAY. [facility] metronidazo le 500 mg tablet TAKE ONE (1) TABLET(S) BY MOUTH EVERY EIGHT HOURS. metronidazo le 500 mg tablet TAKE ONE (1) TABLET(S) BY MOUTH EVERY EIGHT HOURS. No metronidaz ole 500 mg tablet TAKE ONE (1) TABLET(S) BY MOUTH EVERY EIGHT HOURS. [facility] ondansetron 8 mg disintegrat ing tablet Place 1 tablet twice a day by translingua l route. ondansetron 8 mg dis[address] ing tablet Place 1 tablet twice a day by translingua l route. No 1 BID ondansetro n 8 mg dis[address] ting tablet Place 1 tablet twice a day by translingu al route. [facility] quetiapine 25 mg tablet TAKE ONE (1) TABLET(S) BY MOUTH TWICE A DAY. quetiapine 25 mg tablet TAKE ONE (1) TABLET(S) BY MOUTH TWICE A DAY. No quetiapine 25 mg tablet TAKE ONE (1) TABLET(S) BY MOUTH TWICE A DAY. [facility] gabapentin 300 mg capsule TAKE ONE (1) CAPSULE(S) BY MOUTH THREE TIMES A DAY. gabapentin 300 mg capsule TAKE ONE (1) CAPSULE(S) BY MOUTH THREE TIMES A DAY. No gabapentin 300 mg capsule TAKE ONE (1) CAPSULE(S) BY MOUTH THREE TIMES A DAY. [facility] quetiapine 300 mg tablet TAKE ONE (1) TABLET(S) BY MOUTH AT BEDTIME. quetiapine 300 mg tablet TAKE ONE (1) TABLET(S) BY MOUTH AT BEDTIME. No quetiapine 300 mg tablet TAKE ONE (1) TABLET(S) BY MOUTH AT BEDTIME. [facility] tetracyclin e 500 mg capsule TAKE ONE (1) CAPSULE(S) BY MOUTH FOUR TIMES A DAY. tetracyclin e 500 mg capsule TAKE ONE (1) CAPSULE(S) BY MOUTH FOUR TIMES A DAY. No tetracycli ne 500 mg capsule TAKE ONE (1) CAPSULE(S) BY MOUTH FOUR TIMES A DAY. [facility] tramadol 50 mg tablet TAKE ONE (1) TABLET(S) BY MOUTH DAILY NEEDED. tramadol 50 mg tablet TAKE ONE (1) TABLET(S) BY MOUTH DAILY NEEDED. No tramadol 50 mg tablet TAKE ONE (1) TABLET(S) BY MOUTH DAILY NEEDED. [facility] hydrocodone 10 mg-acetamin ophen 325 mg tablet Take 1 tablet every 4 hours by oral route as needed. hydrocodone 10 mg-acetamin ophen 325 mg tablet Take 1 tablet every 4 hours by oral route as needed. No 1 Q4H hydrocodon e 10 mg-acetami nophen 325 mg tablet Take 1 tablet every 4 hours by oral route as needed. [facility] albuterol sulfate HFA 90 mcg/actuati on aerosol inhaler INHALE TWO (2) PUFF(S) BY MOUTH EVERY SIX HOURS NEEDED. albuterol sulfate HFA 90 mcg/actuati on aerosol inhaler INHALE TWO (2) PUFF(S) BY MOUTH EVERY SIX HOURS NEEDED. No albuterol sulfate HFA 90 mcg/actuat ion aerosol inhaler INHALE TWO (2) PUFF(S) BY MOUTH EVERY SIX HOURS NEEDED. [facility] clonidine HCl 0.1 mg tablet TAKE ONE (1) TABLET(S) BY MOUTH ONCE A DAY NEEDED. clonidine HCl 0.1 mg tablet TAKE ONE (1) TABLET(S) BY MOUTH ONCE A DAY NEEDED. No clonidine HCl 0.1 mg tablet TAKE ONE (1) TABLET(S) BY MOUTH ONCE A DAY NEEDED. [facility] doxepin 50 mg capsule TAKE ONE (1) OR TWO (2) CAPSULE(S) BY MOUTH DAILY AT BEDTIME NEEDED. doxepin 50 mg capsule TAKE ONE (1) OR TWO (2) CAPSULE(S) BY MOUTH DAILY AT BEDTIME NEEDED. No doxepin 50 mg capsule TAKE ONE (1) OR TWO (2) CAPSULE(S) BY MOUTH DAILY AT BEDTIME NEEDED. [facility] fluconazole 200 mg tablet TAKE ONE (1) TABLET(S) BY MOUTH DAILY. fluconazole 200 mg tablet TAKE ONE (1) TABLET(S) BY MOUTH DAILY. No fluconazol e 200 mg tablet TAKE ONE (1) TABLET(S) BY MOUTH DAILY. [facility] fluoxetine 40 mg capsule TAKE TWO (2) CAPSULE(S) BY MOUTH DAILY. fluoxetine 40 mg capsule TAKE TWO (2) CAPSULE(S) BY MOUTH DAILY. No fluoxetine 40 mg capsule TAKE TWO (2) CAPSULE(S) BY MOUTH DAILY. [facility] gabapentin 300 mg capsule TAKE ONE (1) CAPSULE(S) BY MOUTH THREE TIMES A DAY. gabapentin 300 mg capsule TAKE ONE (1) CAPSULE(S) BY MOUTH THREE TIMES A DAY. No gabapentin 300 mg capsule TAKE ONE (1) CAPSULE(S) BY MOUTH THREE TIMES A DAY. [facility] hydrocodone 10 mg-acetamin ophen 325 mg tablet TAKE ONE (1) TABLET(S) BY MOUTH FOUR TIMES A DAY NEEDED. hydrocodone 10 mg-acetamin ophen 325 mg tablet TAKE ONE (1) TABLET(S) BY MOUTH FOUR TIMES A DAY NEEDED. No hydrocodon e 10 mg-acetami nophen 325 mg tablet TAKE ONE (1) TABLET(S) BY MOUTH FOUR TIMES A DAY NEEDED. [facility] meloxicam 15 mg tablet TAKE ONE (1) TABLET(S) BY MOUTH ONCE A DAY. meloxicam 15 mg tablet TAKE ONE (1) TABLET(S) BY MOUTH ONCE A DAY. No meloxicam 15 mg tablet TAKE ONE (1) TABLET(S) BY MOUTH ONCE A DAY. [facility] losartan 50 mg tablet Take 1 tablet every day by oral route. losartan 50 mg tablet Take 1 tablet every day by oral route. No 1 Q1D losartan 50 mg tablet Take 1 tablet every day by oral route. [facility] meloxicam 15 mg tablet TAKE ONE (1) TABLET(S) BY MOUTH EVERY DAY. meloxicam 15 mg tablet TAKE ONE (1) TABLET(S) BY MOUTH EVERY DAY. No meloxicam 15 mg tablet TAKE ONE (1) TABLET(S) BY MOUTH EVERY DAY. [facility] metronidazo le 500 mg tablet TAKE ONE (1) TABLET(S) BY MOUTH EVERY EIGHT HOURS. metronidazo le 500 mg tablet TAKE ONE (1) TABLET(S) BY MOUTH EVERY EIGHT HOURS. No metronidaz ole 500 mg tablet TAKE ONE (1) TABLET(S) BY MOUTH EVERY EIGHT HOURS. [facility] ondansetron 8 mg disintegrat ing tablet TAKE ONE (1) TABLET(S) BY MOUTH TWICE A DAY. ondansetron 8 mg disintegrat ing tablet TAKE ONE (1) TABLET(S) BY MOUTH TWICE A DAY. No ondansetro n 8 mg disintegra ting tablet TAKE ONE (1) TABLET(S) BY MOUTH TWICE A DAY. [facility] quetiapine 25 mg tablet TAKE ONE (1) TABLET(S) BY MOUTH TWICE A DAY. quetiapine 25 mg tablet TAKE ONE (1) TABLET(S) BY MOUTH TWICE A DAY. No quetiapine 25 mg tablet TAKE ONE (1) TABLET(S) BY MOUTH TWICE A DAY. [facility] quetiapine 300 mg tablet TAKE ONE (1) TABLET(S) BY MOUTH AT BEDTIME. quetiapine 300 mg tablet TAKE ONE (1) TABLET(S) BY MOUTH AT BEDTIME. No quetiapine 300 mg tablet TAKE ONE (1) TABLET(S) BY MOUTH AT BEDTIME. [facility] rabeprazole 20 mg tablet,bonny yed release TAKE ONE (1) TABLET(S) BY MOUTH TWICE A DAY. rabeprazole 20 mg tablet,bonny yed release TAKE ONE (1) TABLET(S) BY MOUTH TWICE A DAY. No rabeprazol e 20 mg tablet,del ayed release TAKE ONE (1) TABLET(S) BY MOUTH TWICE A DAY. [facility] sucralfate 1 gram tablet TAKE ONE (1) TABLET(S) BY MOUTH THREE TIMES A DAY ON AN EMPTY STOMACH. sucralfate 1 gram tablet TAKE ONE (1) TABLET(S) BY MOUTH THREE TIMES A DAY ON AN EMPTY STOMACH. No sucralfate 1 gram tablet TAKE ONE (1) TABLET(S) BY MOUTH THREE TIMES A DAY ON AN EMPTY STOMACH. [facility] tetracyclin e 500 mg capsule TAKE ONE (1) CAPSULE(S) BY MOUTH FOUR TIMES A DAY. tetracyclin e 500 mg capsule TAKE ONE (1) CAPSULE(S) BY MOUTH FOUR TIMES A DAY. No tetracycli ne 500 mg capsule TAKE ONE (1) CAPSULE(S) BY MOUTH FOUR TIMES A DAY. [facility] tramadol 50 mg tablet TAKE ONE (1) TABLET(S) BY MOUTH DAILY NEEDED. tramadol 50 mg tablet TAKE ONE (1) TABLET(S) BY MOUTH DAILY NEEDED. No tramadol 50 mg tablet TAKE ONE (1) TABLET(S) BY MOUTH DAILY NEEDED. [facility] quetiapine 25 mg tablet TAKE ONE (1) TABLET(S) BY MOUTH TWICE A DAY. quetiapine 25 mg tablet TAKE ONE (1) TABLET(S) BY MOUTH TWICE A DAY. No quetiapine 25 mg tablet TAKE ONE (1) TABLET(S) BY MOUTH TWICE A DAY. [facility] quetiapine 300 mg tablet TAKE ONE (1) TABLET(S) BY MOUTH AT BEDTIME. quetiapine 300 mg tablet TAKE ONE (1) TABLET(S) BY MOUTH AT BEDTIME. No quetiapine 300 mg tablet TAKE ONE (1) TABLET(S) BY MOUTH AT BEDTIME. [facility] doxepin 25 mg capsule TAKE ONE (1) TO TWO (2) CAPSULE(S) BY MOUTH DAILY AT BEDTIME. doxepin 25 mg capsule TAKE ONE (1) TO TWO (2) CAPSULE(S) BY MOUTH DAILY AT BEDTIME. No doxepin 25 mg capsule TAKE ONE (1) TO TWO (2) CAPSULE(S) BY MOUTH DAILY AT BEDTIME. [facility] fluoxetine 40 mg capsule TAKE ONE (1) CAPSULE (40 MG) BY MOUTH DAILY. fluoxetine 40 mg capsule TAKE ONE (1) CAPSULE (40 MG) BY MOUTH DAILY. No fluoxetine 40 mg capsule TAKE ONE (1) CAPSULE (40 MG) BY MOUTH DAILY. [facility] gabapentin 300 mg capsule TAKE ONE (1) CAPSULE (300 MG) BY MOUTH 3 TIMES PER DAY. gabapentin 300 mg capsule TAKE ONE (1) CAPSULE (300 MG) BY MOUTH 3 TIMES PER DAY. No gabapentin 300 mg capsule TAKE ONE (1) CAPSULE (300 MG) BY MOUTH 3 TIMES PER DAY. [facility] hydrocodone 10 mg-acetamin ophen 325 mg tablet TAKE ONE (1) TABLET(S) BY MOUTH FOUR TIMES A DAY NEEDED. hydrocodone 10 mg-acetamin ophen 325 mg tablet TAKE ONE (1) TABLET(S) BY MOUTH FOUR TIMES A DAY NEEDED. No hydrocodon e 10 mg-acetami nophen 325 mg tablet TAKE ONE (1) TABLET(S) BY MOUTH FOUR TIMES A DAY NEEDED. [facility] meloxicam 15 mg tablet TAKE ONE (1) TABLET(S) BY MOUTH EVERY DAY. meloxicam 15 mg tablet TAKE ONE (1) TABLET(S) BY MOUTH EVERY DAY. No meloxicam 15 mg tablet TAKE ONE (1) TABLET(S) BY MOUTH EVERY DAY. [facility] quetiapine 25 mg tablet TAKE ONE (1) TABLET(S) BY MOUTH TWICE A DAY. quetiapine 25 mg tablet TAKE ONE (1) TABLET(S) BY MOUTH TWICE A DAY. No quetiapine 25 mg tablet TAKE ONE (1) TABLET(S) BY MOUTH TWICE A DAY. [facility] quetiapine 300 mg tablet TAKE ONE (1) TABLET(S) BY MOUTH AT BEDTIME. quetiapine 300 mg tablet TAKE ONE (1) TABLET(S) BY MOUTH AT BEDTIME. No quetiapine 300 mg tablet TAKE ONE (1) TABLET(S) BY MOUTH AT BEDTIME. [facility] doxepin 25 mg capsule TAKE ONE (1) TO TWO (2) CAPSULE(S) BY MOUTH DAILY AT BEDTIME. doxepin 25 mg capsule TAKE ONE (1) TO TWO (2) CAPSULE(S) BY MOUTH DAILY AT BEDTIME. No doxepin 25 mg capsule TAKE ONE (1) TO TWO (2) CAPSULE(S) BY MOUTH DAILY AT BEDTIME. [facility] doxepin 50 mg capsule TAKE ONE (1) OR TWO (2) CAPSULE(S) BY MOUTH AT BEDTIME NEEDED. doxepin 50 mg capsule TAKE ONE (1) OR TWO (2) CAPSULE(S) BY MOUTH AT BEDTIME NEEDED. No doxepin 50 mg capsule TAKE ONE (1) OR TWO (2) CAPSULE(S) BY MOUTH AT BEDTIME NEEDED. [facility] fluoxetine 40 mg capsule TAKE ONE (1) CAPSULE (40 MG) BY MOUTH DAILY. fluoxetine 40 mg capsule TAKE ONE (1) CAPSULE (40 MG) BY MOUTH DAILY. No fluoxetine 40 mg capsule TAKE ONE (1) CAPSULE (40 MG) BY MOUTH DAILY. [facility] fluoxetine 60 mg tablet TAKE ONE (1) TABLET(S) BY MOUTH ONCE A DAY. fluoxetine 60 mg tablet TAKE ONE (1) TABLET(S) BY MOUTH ONCE A DAY. No fluoxetine 60 mg tablet TAKE ONE (1) TABLET(S) BY MOUTH ONCE A DAY. [facility] gabapentin 300 mg capsule TAKE ONE (1) CAPSULE(S) BY MOUTH THREE TIMES A DAY. gabapentin 300 mg capsule TAKE ONE (1) CAPSULE(S) BY MOUTH THREE TIMES A DAY. No gabapentin 300 mg capsule TAKE ONE (1) CAPSULE(S) BY MOUTH THREE TIMES A DAY. [facility] hydrocodone 10 mg-acetamin ophen 325 mg tablet TAKE ONE (1) TABLET(S) BY MOUTH FOUR TIMES A DAY. hydrocodone 10 mg-acetamin ophen 325 mg tablet TAKE ONE (1) TABLET(S) BY MOUTH FOUR TIMES A DAY. No hydrocodon e 10 mg-acetami nophen 325 mg tablet TAKE ONE (1) TABLET(S) BY MOUTH FOUR TIMES A DAY. [facility] meloxicam 15 mg tablet TAKE ONE (1) TABLET(S) BY MOUTH DAILY. meloxicam 15 mg tablet TAKE ONE (1) TABLET(S) BY MOUTH DAILY. No meloxicam 15 mg tablet TAKE ONE (1) TABLET(S) BY MOUTH DAILY. [facility] quetiapine 25 mg tablet TAKE ONE (1) TABLET(S) BY MOUTH TWICE A DAY. quetiapine 25 mg tablet TAKE ONE (1) TABLET(S) BY MOUTH TWICE A DAY. No quetiapine 25 mg tablet TAKE ONE (1) TABLET(S) BY MOUTH TWICE A DAY. [facility] quetiapine 300 mg tablet TAKE 1/2 TABLET(S) BY MOUTH DAILY AT BEDTIME FOR 1 WEEK THEN TAKE ONE (1) TABLET(S) BY MOUTH DAILY. quetiapine 300 mg tablet TAKE 1/2 TABLET(S) BY MOUTH DAILY AT BEDTIME FOR 1 WEEK THEN TAKE ONE (1) TABLET(S) BY MOUTH DAILY. No quetiapine 300 mg tablet TAKE 1/2 TABLET(S) BY MOUTH DAILY AT BEDTIME FOR 1 WEEK THEN TAKE ONE (1) TABLET(S) BY MOUTH DAILY. [facility] albuterol sulfate HFA 90 mcg/actuati on aerosol inhaler Inhale 2 puffs every 6 hours by inhalation route as needed. albuterol sulfate HFA 90 mcg/actuati on aerosol inhaler Inhale 2 puffs every 6 hours by inhalation route as needed. No 2puff(s ) Q6H albuterol sulfate HFA 90 mcg/actuat ion aerosol inhaler Inhale 2 puffs every 6 hours by inhalation route as needed. [facility] doxepin 50 mg capsule TAKE ONE (1) TO 2 CAPSULES BY MOUTH DAILY AT BEDTIME NEEDED. doxepin 50 mg capsule TAKE ONE (1) TO 2 CAPSULES BY MOUTH DAILY AT BEDTIME NEEDED. No doxepin 50 mg capsule TAKE ONE (1) TO 2 CAPSULES BY MOUTH DAILY AT BEDTIME NEEDED. [facility] fluoxetine 60 mg tablet TAKE ONE (1) TABLET(S) BY MOUTH ONCE A DAY. fluoxetine 60 mg tablet TAKE ONE (1) TABLET(S) BY MOUTH ONCE A DAY. No fluoxetine 60 mg tablet TAKE ONE (1) TABLET(S) BY MOUTH ONCE A DAY. [facility] gabapentin 300 mg capsule TAKE ONE (1) CAPSULE (300 MG) BY MOUTH 3 TIMES PER DAY. gabapentin 300 mg capsule TAKE ONE (1) CAPSULE (300 MG) BY MOUTH 3 TIMES PER DAY. No gabapentin 300 mg capsule TAKE ONE (1) CAPSULE (300 MG) BY MOUTH 3 TIMES PER DAY. [facility] hydrocodone 10 mg-acetamin ophen 325 mg tablet TAKE ONE (1) TABLET(S) BY MOUTH FOUR TIMES A DAY NEEDED. hydrocodone 10 mg-acetamin ophen 325 mg tablet TAKE ONE (1) TABLET(S) BY MOUTH FOUR TIMES A DAY NEEDED. No hydrocodon e 10 mg-acetami nophen 325 mg tablet TAKE ONE (1) TABLET(S) BY MOUTH FOUR TIMES A DAY NEEDED. [facility] No known medications No Un car[facility] No known medications No Un car[facility] No known medications No Un car[facility] No known medications No Un car[facility] Vital Signs Vital Name Observation Time Observation Value Comments S ource Height 2022-12-22 00:00:00 72 [in_i] [facility] BP Diastolic 2022-12-22 00:00:00 84 mm[Hg] [facility] BP Systolic 2022-12-22 00:00:00 122 mm[Hg] [facility] BMI (Body Mass Index) 2022-12-22 00:00:00 24.4 kg/m2 [facility] Body Weight 2022-12-22 00:00:00 2880 [oz_av] [facility] BMI (Body Mass Index) 2022-11-30 00:00:00 23.6 kg/m2 [facility] BP Systolic 2022-11-30 00:00:00 168 mm[Hg] [facility] BP Diastolic 2022-11-30 00:00:00 78 mm[Hg] [facility] Height 2022-11-30 00:00:00 72 [in_i] [facility] Body Weight 2022-11-30 00:00:00 2784 [oz_av] [facility] Height 2022-11-26 00:00:00 72 [in_i] [facility] Body Weight 2022-11-26 00:00:00 2752 [oz_av] [facility] BMI (Body Mass Index) 2022-11-26 00:00:00 23.3 kg/m2 [facility] BP Systolic 2022-11-26 00:00:00 128 mm[Hg] [facility] BP Diastolic 2022-11-26 00:00:00 84 mm[Hg] [facility] BP Diastolic 2022-08-20 00:00:00 68 mm[Hg] [facility] Height 2022-08-20 00:00:00 72 [in_i] [facility] BMI (Body Mass Index) 2022-08-20 00:00:00 25.1 kg/m2 [facility] BP Systolic 2022-08-20 00:00:00 116 mm[Hg] [facility] Body Weight 2022-08-20 00:00:00 2960 [oz_av] [facility] BP Diastolic 2022-08-13 00:00:00 70 mm[Hg] [facility] Height 2022-08-13 00:00:00 72 [in_i] [facility] BMI (Body Mass Index) 2022-08-13 00:00:00 24.3 kg/m2 [facility] BP Systolic 2022-08-13 00:00:00 122 mm[Hg] [facility] Body Weight 2022-08-13 00:00:00 2864 [oz_av] [facility] Height 2022-07-17 00:00:00 72 [in_i] [facility] BP Diastolic 2022-06-25 00:00:00 60 mm[Hg] [facility] Height 2022-06-25 00:00:00 72 [in_i] [facility] BMI (Body Mass Index) 2022-06-25 00:00:00 25.4 kg/m2 [facility] BP Systolic 2022-06-25 00:00:00 124 mm[Hg] [facility] Body Weight 2022-06-25 00:00:00 2992 [oz_av] [facility] BP Diastolic 2022-06-04 00:00:00 78 mm[Hg] [facility] Height 2022-06-04 00:00:00 72 [in_i] [facility] BP Systolic 2022-06-04 00:00:00 118 mm[Hg] [facility] Body height 2015-12-19 16:25:00 185.4 cm [facility] Body weight 2015-12-19 16:25:00 87.091 kg [facility] BMI 2015-12-19 16:25:00 25.33 kg/m2 [facility] Temperature Oral (F) 2020-08-24 00:15:00 98.0 F [facility] Heart Rate 2020-08-24 00:15:00 Penny [facility] Respitory Rate 2020-08-24 00:15:00 [facility] Systolic (mm Hg) 2020-08-24 00:15:00 [facility] Diastolic (mm Hg) 2020-08-24 00:15:00 [facility] Temperature Oral (F) 2020-08-23 21:04:00 97.9 F [facility] Heart Rate 2020-08-23 21:04:00 [facility] Respitory Rate 2020-08-23 21:04:00 [facility] Systolic (mm Hg) 2020-08-23 21:04:00 [facility] Diastolic (mm Hg) 2020-08-23 21:04:00 [facility] Temperature Oral (F) 2020-08-23 17:14:00 98.2 F [facility] Heart Rate 2020-08-23 17:14:00 [facility] Respitory Rate 2020-08-23 17:14:00 [facility] Systolic (mm Hg) 2020-08-23 17:14:00 [facility] Diastolic (mm Hg) 2020-08-23 17:14:00 [facility] Height 2020-08-22 22:49:00 182.88 cm [facility] Weight 2020-08-22 22:49:00 [facility] BMI Calculated 2020-08-22 22:49:00 [facility] Procedures Procedure Date / Time Performed Performing Clinician Source ASSIGNMENT OF BENEFITS 2020-08-05 18:34:40 Docto r Unassigned, Michie [facility] ANKLE, MIN. 3 VIEWS 2015-12-19 16:34:00 Seth Pandya [facility] Circumcision [facility] Extraction of Jackson Tooth [facility] Remove Tonsils and Adenoids [facility] Appendectomy [facility] Procedure on Ankle [facility] Plan of Care Planned Activity Planned Date Details Comments Source Diagnostic Test Pending 2022-11-26 00:00:00 BMP, serum or plasma [code = BMP, serum or plasma] [facility] Diagnostic Test Pending 2022-11-26 00:00:00 CBC w/ auto diff [code = CBC w/ auto diff] [facility] Encounters Start Date/Time End Date/Time Encounter Type Admission Type Attending Clinicians Care Facility Care Department Encounter ID Source 2024-04-18 10:35:00 Outpatient Eduardo Amee [facility] [id number] [facility] 2024-04-07 13:08:00 Outpatient Amee Clark [facility] [id number] [facility] 2024-04-06 09:16:00 Outpatient Amee Clark [facility] [id number] [facility] 2023-09-21 08:58:00 Outpatient Amee Clark [facility] [id number] [facility] 2023-08-26 09:52:00 Outpatient Amee Clark [facility] [id number] [facility] 2023-06-25 14:57:00 Outpatient Amee Clark [facility] [id number] [facility] 2023-05-26 13:56:00 Outpatient Amee Clark [facility] [id number] [facility] 2023-04-27 15:08:02 Outpatient Amee Clark [facility] [id number] [facility] 2023-05-14 00:00:00 2023-05-14 00:00:00 Outpatient R[facility]SE[facility] [id number] [facility] 2023-04-17 00:00:00 2023-04-17 00:00:00 Outpatient [facility]SE[facility] [id number] [facility] 2023-02-28 00:00:00 2023-02-28 00:00:00 Outpatient R[facility]SE_[facility] [id number] [facility] 2023-02-08 00:00:00 2023-02-08 00:00:00 Outpatient BRADEN_F [facility] [id number] [facility] 2023-01-19 00:00:00 2023-01-19 00:00:00 Outpatient ERICKSON_R [facility] [id number] [facility] 2023-01-02 00:00:00 2023-01-02 00:00:00 Outpatient ERICKSON_R [facility] [id number] [facility] 2022-12-22 00:00:00 2022-12-22 00:00:00 Gunnar Naqvi, DO: [place] [address] , Ph. [facility], DR. NAQVI [id number] [facility] 2022-12-15 00:00:00 2022-12-15 00:00:00 Outpatient ERICKSON_R [facility] [id number] [facility] 2022-12-15 00:00:00 2022-12-15 00:00:00 Outpatient ERICKSON_R [facility] [id number] [facility] 2022-11-30 00:00:00 2022-11-30 00:00:00 Outpatient ERICKSON[facility] [id number] [facility] 2022-11-30 00:00:00 2022-11-30 00:00:00 Gunnar Naqvi, DO: [place] [address] , Ph. [facility], DR. NAQVI [id number] [facility] 2022-11-26 00:00:00 2022-11-26 00:00:00 Gunnar Naqvi, DO: [place] [address] , Ph. [facility], DR. NAQVI [id number] [facility] 2022-11-10 00:00:00 2022-11-10 00:00:00 Outpatient [facility]SON[facility] [id number] [facility] 2022-11-10 00:00:00 2022-11-10 00:00:00 Outpatient [facility] [id number] [facility] 2022-10-06 00:00:00 2022-10-06 00:00:00 Outpatient [facility] [id number] [facility] 2022-09-01 00:00:00 2022-09-01 00:00:00 Outpatient [facility]SON[facility] [id number] [facility] 2022-08-20 00:00:00 2022-08-20 00:00:00 Gunnar Naqvi, DO: [place] [address] , Ph. [facility], DR. NAQVI [id number] [facility] 2022-08-17 00:00:00 2022-08-17 00:00:00 Gunnar Naqvi, DO: [place] [address] , Ph. [facility], DR. NAQVI [id number] [facility] 2022-08-13 00:00:00 2022-08-13 00:00:00 Gunnar Naqvi, DO: [place] [address] , Ph. [facility], DR. NAQVI [id number] [facility] 2022-07-27 00:00:00 2022-07-27 00:00:00 Outpatient [facility]SON[facility] [id number] [facility] 2022-07-27 00:00:00 2022-07-27 00:00:00 [facility] [id number] [facility] 2022-07-27 00:00:00 2022-07-27 00:00:00 Outpatient [facility] [id number] [facility] 2022-07-17 00:00:00 2022-07-17 00:00:00 Gunnar Naqvi, DO: [address] [place] [address] , Ph. [facility], DR. NAQVI [id number] [facility] 2022-06-25 00:00:00 2022-06-25 00:00:00 Outpatient [facility] [id number] [facility] 2022-06-25 00:00:00 2022-06-25 00:00:00 Outpatient [facility] [id number] [facility] 2022-06-25 00:00:00 2022-06-25 00:00:00 Gunnar Naqvi, DO: [address] [place] [address] , Ph. [facility], DR. NAQVI [id number] [facility] 2022-06-04 00:00:00 2022-06-04 00:00:00 Outpatient [facility]_R [facility] [id number] [facility] 2022-06-04 00:00:00 2022-06-04 00:00:00 Outpatient [facility] [id number] [facility] 2022-06-04 00:00:00 2022-06-04 00:00:00 Gunnar Naqvi, DO: [address], [address], [place] [address] , Ph. [phone] [facility], DR. NAQVI [id number] [facility] 2022-06-03 00:00:00 2022-06-03 00:00:00 Outpatient [facility] [id number] [facility] 2022-06-02 00:00:00 2022-06-02 00:00:00 Outpatient [facility]R [facility] [id number] [facility] 2020-08-24 10:10:00 2020-08-24 10:10:00 Outpatient [facility] [id number] [facility] 2020-08-22 19:08:00 2020-08-24 02:04:00 Inpatient [facility] [id number] [facility] 2020-08-22 14:08:00 2020-08-23 21:04:00 Inpatient ALEJANDRA [facility]ON [facility] [id number] [facility] 2020-08-08 00:00:00 2020-08-08 00:00:00 Letter (Out) Lab, Pcp [facility] [address] .114 [id number] [facility] 2020-08-08 00:00:00 2020-08-08 00:00:00 Letter (Out) Lab, Pcp [facility] [address] 84.114 [id number] [facility] 2020-08-05 13:35:13 2020-08-05 13:55:13 Laboratory Only Lab, Adc Fam Pob Tamie Rodriguez [facility] [address] [id number] [facility] 2020-08-05 13:00:00 2020-08-05 13:00:00 Outpatient [facility] [id number] [facility] 2020-08-05 00:00:00 2020-08-05 00:00:00 Orders Only Doctor Unassigned, Michie [facility] [id number] [facility] 2020-07-27 08:20:00 2020-07-27 08:28:42 Outpatient Ami [facility] [id number] [facility] 2015-12-19 09:00:00 2015-12-19 13:48:36 Office Visit Foot, [facility] Panchbhavi, Conrado [facility] 1..840.114 [id number] [facility] Results Test Description Test Time Test Comments Results Result Co mments [facility] [id number] 16:34:00* Test Item Value Reference Range Interpretation Comme nts Negative (test code = Negative) 3 [facility] [id number] 02:55:00* Test Item Value Reference Range Interpretation Comme nts Ammonia (test code = Ammonia) [id number] 23:59:00* Test Item Value Reference Range Interpretation Comme nts Vitamin B12 Lvl (test code = Vitamin B12 Lvl) [id number] 23:59:00* Test Item Value Reference Range Interpretation Comme nts RPR (test code = RPR) Non Reactive (08/22 6:59 PM) [id number] 22:48:00* Test Item Value Reference Range Interpretation Comme nts Glucose Lvl (test code = Glucose Lvl) 86 70-99 [id number] 22:48:00* Test Item Value Reference Range Interpretation Comme nts WBC (test code = WBC) 4.0 3.7-10.4 [facility] [id number] 22:48:00* Test Item Value Reference Range Interpretation Comme nts Ca Ion WB (test code = Ca Ion WB) 1.20 1.05-1.25 [facility] Notes Date/Time Note Provider Source 2020-08-23 03:59:00 EXAM: MRI BRAIN WITH OUT CONTRAST DATE: 08/23/2020 3:23 AM INDICATION: - encephalopathy, ataxia, confusion, blurry vision. COMPARISON: None available TECHNIQUE: Multiplanar, multisequence MRI of the brain without contrast. IV contrast: None. FINDINGS: No restricted diffusion or hemosiderin deposition in the brain. Focal T2 hyperintensity in the right frontal white matter. Otherwise, unremarkable signal emanating from the brain parenchyma. No hydrocephalus, mass effect, or extra-axial collection. Mild generalized cerebral volume loss. Larger intracranial vascular flow voids are preserved. Cerebellar tonsils terminate in normal position. Mild paranasal sinus mucosal thickening. Mastoid air cells are clear. Normal marrow signal. No definitive abnormal T2 signal in the optic nerves or chiasm. IMPRESSION: No acute intracranial abnormality. Focal nonspecific T2 hyperintensity in the deep right frontal white matter. [facility] 2020-08-23 03:59:00 EXAM: MRI BRAIN WITH OUT CONTRAST DATE: 08/23/2020 3:23 AM INDICATION: - encephalopathy, ataxia, confusion, blurry vision. COMPARISON: None available TECHNIQUE: Multiplanar, multisequence MRI of the brain without contrast. IV contrast: None. FINDINGS: No restricted diffusion or hemosiderin deposition in the brain. Focal T2 hyperintensity in the right frontal white matter. Otherwise, unremarkable signal emanating from the brain parenchyma. No hydrocephalus, mass effect, or extra-axial collection. Mild generalized cerebral volume loss. Larger intracranial vascular flow voids are preserved. Cerebellar tonsils terminate in normal position. Mild paranasal sinus mucosal thickening. Mastoid air cells are clear. Normal marrow signal. No definitive abnormal T2 signal in the optic nerves or chiasm.
[2024-07-18] MEDS ORDERED: NA CHLORIDE 0.9% 1,000 ML ONE ×2 (19:39→23:53)
[2024-07-18 19:48] LABS: Absolute Lymphocytes (CBC) 1.1 K/uL (0.7-4.9); Absolute Monocytes 0.6 K/uL (0.1-1.3); Absolute Neutrophil 4.7 K/uL (1.8-8.0); Basophils % 0.3 % (0-1.3); Eosinophils % 0.4 % (0-4.4); Hematocrit 39.6 % (39.6-49.0); Hemoglobin 14.2 g/dL (13.6-17.9); Lymphocytes % 16.3 % (15.3-44.8); MCHC 35.8 g/dL (32.0-36.0); MCV 92.1 fL (80-100); MPV 7.8 fL (7.6-11.3); Monocytes % 9.9 % (3.3-12.3); Neutrophils % 73.1 % (41.7-73.7); Nucleated Red Blood Cells % 0.1 % (0-0); Platelets 218 thou/uL (152-406)
--- NOTE | 2024-07-18 19:51 | RAD REPORT ---
EXAMINATION: ONE VIEW CHEST XR CLINICAL INDICATION: COUGH TECHNIQUE: Frontal chest projection is submitted. Examination is limited by patient positioning and t echnique. COMPARISON: 07/14/2023 FINDINGS: The lungs are well inflated and clear. Calcified granuloma left upper lobe. The heart is normal in si ze. Right posterior rib fractures are subacute. Tortuous thoracic aorta. IMPRESSION: No acute intrathoracic abnormalities.
[2024-07-18 20:01] LABS: PT Prothrombin Time 10.4 SECONDS (10-13.0); PTT, Activated Partial Thromb 28.9 SECONDS (27.2-37.4); Protime INR 0.91
[2024-07-18 20:11] LABS: Albumin 3.8 g/dL (3.4-5.0); Albumin/Globulin Ratio 1.2 (1.1-1.8); Anion Gap 15.9 mEq/L (5.0-15.0); Bilirubin Direct 0.2 mg/dL (0-0.2); Bilirubin Indirect, Calculated 0.2 mg/dL (0.2-0.8); Bilirubin Total 0.4 mg/dL (0.2-1.0); Globulin 3.1 g/dL (2.3-3.5); Magnesium 1.6 mg/dL (1.6-2.4); Potassium 3.9 mEq/L (3.5-5.1); Protein, Total 6.9 g/dL (6.4-8.2); Troponin High Sensitivity 11.8 pg/mL (<58.9)
--- NOTE | 2024-07-18 20:45 | RAD REPORT ---
EXAM: CT brain without contrast HISTORY: CONFUSED COMPARISON: 09/13/2023 TECHNIQUE: Multiple contiguous axial images were obtained and a CT of the brain without contrast. Sag ittal and coronal reformats were performed. One or more of the following dose reduction techniques were used: Automated exposure control, adjust ment of the mA and/or kV according to patient size, and/or iterative reconstruction. FINDINGS: No evidence of hydrocephalus, intracranial hemorrhage, or extra-axial fluid collection. Mild brain atrophy with mild periventricular and deep white matter chronic microvascular ischemic ch anges present. No evidence of midline shift or areas of brain edema. The calvarium is intact. The visualized paranasal sinuses and mastoid air cells are essentially clear . IMPRESSION: No evidence of acute intracranial abnormality.
--- NOTE | 2024-07-18 20:51 | EDPHYS ---
Physician Documentation [facility] Name: Jak Gauthier Age: 64 yrs Sex: Male : 1960 Arrival Date: 07/18/2024 Time: 18:41 Bed 17 Private MD: ED Physician Osmel Pate HPI: 07/18 19:27 This 64 yrs old Male presents to ER via Wheelchair with complaints of Altered Mental kb Status. 20:45 Patient is a 64-year-old male who was brought in for altered mental status that started kb 6 to 7 months ago. Sister states patient refused to come to the emergency room for evaluation so she obtained a power of water resources engineer and made him come today. States nothing is changed over the last 6 or 7 months patient has been forgetting how to do things intermittently, such as change the channel on the TV. States he really has not been eating and he stopped taking his medications sometime ago.. Historical: - Allergies: 19:04 No Known Allergies; bm8 - Home Meds: 19:04 Albuterol Inhl 2 inhalations [Active]; clonidine HCl 0.1 mg Oral tablet 1 tab as needed bm8 for Hypertension [Active]; doxepin 50 mg Oral capsule every day at bedtime [Active]; fluoxetine 40 mg Oral capsule 2 caps daily [Active]; gabapentin 300 mg Oral capsule 3 times per day [Active]; hydrocodone-acetaminophen 10-325 mg Oral tablet every 6 hours [Active]; losartan 50 mg Oral tablet 1 tab daily [Active]; meloxicam 15 mg Oral tablet daily [Active]; quetiapine 300 mg Oral tablet every day at bedtime [Active]; quetiapine 25 mg Oral tablet 2 times per day [Active]; rabeprazole 20 mg Oral tablet 1 tab every 12 hours [Active]; tramadol 50 mg Oral tablet once [Active]; - PMHx: 19:04 Alcoholism; Bipolar disorder; depressive disorder; Schizophrenia; bm8 - PSHx: 19:04 None; bm8 - Immunization history:: Adult Immunizations unknown. - Infectious Disease History:: Denies. - Social history:: Smoking status: Patient reports the use of cigarette tobacco products, smokes one-half pack cigarettes per day. ROS: 19:27 Constitutional: As per HPI kb Exam: 20:00 ECG was reviewed by the Attending Physician. kb 20:49 Constitutional: This is a well developed, well nourished patient who is awake, alert, kb and in no acute distress. Head/Face: Normocephalic, atraumatic. ENT: Moist Mucous membranes Cardiovascular: Regular rate Respiratory: Respirations even and unlabored. No increased work of breathing. Talking in full sentences Abdomen/GI: Soft, non-tender. No distention Skin: Warm, dry with normal turgor. Normal color. MS/ Extremity: Pulses equal, no cyanosis. Neurovascular intact. Full, normal range of motion. 20:49 Neuro: Orientation: to person, place, Vital Signs: 19:02 BP 94 / 70; Pulse 103; Resp 20; Pulse Ox 97% ; Weight 68.04 kg; Height 6 ft. 0 in. ; bm8 Pain 0/10; 20:00 BP 140 / 98; Pulse 75; Resp 16; Pulse Ox 100% ; me1 21:15 BP 142 / 97; Pulse 71; Resp 12; Pulse Ox 100% ; me1 21:22 BP 126 / 96; Pulse 76; Resp 16; Pulse Ox 100% ; me1 21:59 BP 133 / 90; Pulse 80; Resp 17; Pulse Ox 100% ; me1 04/ 00:02 BP 124 / 87; Pulse 73; Resp 18; Temp 98; Pulse Ox 100% ; Weight 65.77 kg; Pain 0/10; bm8 07/18 19:02 Body Mass Index 20.34 (65.77 kg, 182.88 cm) bm8 07/18 19:02 Pain Scale: Adult bm8 07/19 00:02 Pain Scale: Adult bm8 Jennifer Coma Score: 00:02 Eye Response: spontaneous(4). Motor Response: obeys commands(6). Verbal Response: bm8 oriented(5). Total: 15. MDM: 07/18 19:06 Medical Screening Exam initiated kb 19:27 Differential Diagnosis: CVA, electrolyte abnormality, volume depletion. Data reviewed: kb vital signs, nurses notes. Historians other than the Patient: Family Member: sister. 20:45 Consideration of Admission/Observation Patient was admitted/placed on observation. kb Escalation of care including admission/observation considered. Management of patient was discussed with the following: Hospitalist: Pt accepted for admission by Dr Gomez. Counseling: I had a detailed discussion with the patient and/or guardian regarding the historical points, exam findings, and any diagnostic results supporting the discharge/admit diagnosis, lab results, radiology results, the need for further work-up and treatment in the hospital. 07/18 19:12 Order name: Basic Metabolic Panel; Complete Time: 20:12 kb 07/18 19:12 Order name: CBC with Diff; Complete Time: 19:55 kb 07/18 19:12 Order name: Hepatic Function; Complete Time: 20:12 kb 07/18 19:12 Order name: Magnesium; Complete Time: 20:12 kb 07/18 19:12 Order name: Protime (+inr); Complete Time: 20:10 kb 07/18 19:12 Order name: Ptt, Activated; Complete Time: 20:10 kb 07/18 19:13 Order name: Troponin High Sensitivity; Complete Time: 20:12 kb 07/18 19:25 Order name: UDS; Complete Time: 21:55 kb 07/18 19:26 Order name: Urinalysis w/ reflexes; Complete Time: 22:01 kb 07/18 20:12 Order name: ETOH Level; Complete Time: 21:48 kb 07/18 20:34 Order name: Urine Osmolality; Complete Time: 22:52 kb 07/18 20:34 Order name: Osmolality, Serum; Complete Time: 22:48 kb 07/18 20:34 Order name: Urine Sodium Random; Complete Time: 21:55 kb 07/18 22:11 Order name: Magnesium EDMS 07/18 22:11 Order name: Thyroid Stimulating Hormone EDMS 07/18 22:11 Order name: CBC with Automated Diff EDMS 07/18 22:11 Order name: CBC with Automated Diff EDMS 07/18 22:11 Order name: Comprehensive Metabolic Panel EDMS 07/18 22:11 Order name: Comprehensive Metabolic Panel EDMS 07/19 05:43 Order name: Magnesium EDMS 07/19 05:43 Order name: Thyroid Stimulating Hormone EDMS 07/18 19:13 Order name: CT Head Brain wo Cont; Complete Time: 20:51 kb 07/18 19:13 Order name: Chest Single View XRAY; Complete Time: 19:51 kb 07/18 19:13 Order name: Cardiac monitoring; Complete Time: 19:48 kb 07/18 19:13 Order name: EKG - Nurse/Tech; Complete Time: 20:09 kb 07/18 19:13 Order name: IV Saline Lock; Complete Time: 19:42 kb 07/18 19:13 Order name: Labs collected and sent; Complete Time: 19:42 kb 07/18 19:13 Order name: NPO; Complete Time: 19:42 kb 07/18 19:13 Order name: O2 Per Protocol; Complete Time: 19:42 kb 07/18 19:13 Order name: O2 Sat Monitoring; Complete Time: 19:43 kb EC:00 Rate is 82 beats/min. Rhythm is regular. QRS [place] is Normal. MS interval is normal at kb 164 msec. QRS interval is normal at 84 msec. QT interval is normal at 415 msec. Administered Medications: 19:46 Drug: NS 0.9% IV 1000 ml IV at 1000 ml once; to be given as a bolus over 60 minutes me1 Route: IV; Rate: 1000 ml; Site: left antecubital; 21:22 Follow up: Response: No adverse reaction; IV Status: Completed infusion; IV Intake: me1 1000ml Disposition: 07/19 07:01 Co-signature as Attending Physician, Osmel Pate MD I reviewed the patient's care rt provided by the Advanced Practice Provider and agree with the diagnosis and treatment plan. Disposition Summary: 07/18/24 20:51 Hospitalization Ordered Notes: Hospitalization Status: Inpatient Admission kb Provider: Jerardo Gomez Condition: Stable kb Problem: new kb Symptoms: are unchanged kb Bed/Room Type: Standard Location: Telemetry/MedSurg (Inpatient)(07/19/24 13:00) bd Room Assignment: 207(07/19/24 13:00) bd Diagnosis - Altered mental status, unspecified kb - Hyponatremia kb Forms: - Medication Reconciliation Form kb - SBAR form kb - Leadership Thank You Letter kb Signatures: Dispatcher [employer] EDAnnetta Hernández, SLICING MACHINE OPERATOR-C SLICING MACHINE OPERATOR-Jazzy Lemus Ryan, MD MD rt Sue Jordan RN RN me1 Reta Nix Brad, RN RN bm8 Corrections: (The following items were deleted from the chart) 07/18 19:13 19:13 BASIC METABOLIC PANEL+C.LAB.BRZ ordered. EDMS EDMS 19:13 19:13 CBC+H.LAB.BRZ ordered. EDMS EDMS 19:13 19:13 HEPATIC FUNCTION+C.LAB.BRZ ordered. EDMS EDMS 19:13 19:13 MAGNESIUM+C.LAB.BRZ ordered. EDMS EDMS 19:13 19:13 PROTIME (+INR)+COAG.LAB.BRZ ordered. EDMS EDMS 19:13 19:13 PTT, ACTIVATED+COAG.LAB.BRZ ordered. EDMS EDMS 19:13 19:13 Troponin High Sensitivity+C.LAB.BRZ ordered. EDMS EDMS 19:13 19:13 Head Brain Wo Cont+CT.RAD.BRZ ordered. EDMS EDMS 19:13 19:13 Chest Single View+RAD.RAD.BRZ ordered. EDMS EDMS 20:35 20:35 Osmolality, Urine ordered. EDMS EDMS 20:35 20:35 OSMOLALITY, SERUM+SC.LAB.BRZ ordered. EDMS EDMS 20:35 20:35 URINE SODIUM RANDOM+CHEM UR.LAB.BRZ ordered. EDMS EDMS 23:45 20:51 Telemetry/MedSurg (Inpatient) kb kmf 23:45 20:51 kb kmf 23:45 23:45 km kmf 07/19 13:00 07/18 23:45 BR ER HOLD [facility] bd 07/19 13:00 07/18 23:45 ERHOLD- [facility] bd
--- NOTE | 2024-07-18 20:51 | ER ---
Nurse's Notes [facility] Name: Jak Gauthier Age: 64 yrs Sex: Male : 1960 Arrival Date: 07/18/2024 Time: 18:41 Bed 17 Private MD: Diagnosis: Altered mental status, unspecified;Hyponatremia Presentation: 07/18 19:02 Chief complaint: Parent and/or Guardian states: Sister states that he has not been bm8 himself for 6-7 months he is losing wt not taking his home medications and just staring off all the time. Coronavirus screen: At this time, the client does not indicate any symptoms associated with coronavirus-19. Ebola Screen: Patient negative for fever greater than or equal to 101.5 degrees Fahrenheit, and additional compatible Ebola Virus Disease symptoms Patient denies exposure to infectious person. Patient denies travel to an Ebola-affected area in the 21 days before illness onset. No symptoms or risks identified at this time. Initial Sepsis Screen: Does the patient meet any 2 criteria? No. Patient's initial sepsis screen is negative. Does the patient have a suspected source of infection? No. Patient's initial sepsis screen is negative. Risk Assessment: Do you want to hurt yourself or someone else? Patient reports no desire to harm self or others. Onset of symptoms is unknown. 19:02 Method Of Arrival: Wheelchair bm8 19:02 Acuity: AMARA 3 bm8 Triage Assessment: 19:04 General: Appears in no apparent distress. comfortable, slender, well groomed, well bm8 nourished, Behavior is calm, cooperative, appropriate for age, flat. Pain: Denies pain. EENT: No signs and/or symptoms were reported regarding the EENT system. Neuro: No deficits noted. Level of Consciousness is awake, alert, obeys commands, Oriented to person, situation. Cardiovascular: Denies chest pain, Heart tones S1 S2 present. Respiratory: Airway is patent Respiratory effort is even, unlabored. GI: No signs and/or symptoms were reported involving the gastrointestinal system. : No signs and/or symptoms were reported regarding the genitourinary system. Derm: No signs and/or symptoms reported regarding the dermatologic system. Musculoskeletal: No signs and/or symptoms reported regarding the musculoskeletal system. Historical: - Allergies: 19:04 No Known Allergies; bm8 - Home Meds: 19:04 Albuterol Inhl 2 inhalations [Active]; clonidine HCl 0.1 mg Oral tablet 1 tab as needed bm8 for Hypertension [Active]; doxepin 50 mg Oral capsule every day at bedtime [Active]; fluoxetine 40 mg Oral capsule 2 caps daily [Active]; gabapentin 300 mg Oral capsule 3 times per day [Active]; hydrocodone-acetaminophen 10-325 mg Oral tablet every 6 hours [Active]; losartan 50 mg Oral tablet 1 tab daily [Active]; meloxicam 15 mg Oral tablet daily [Active]; quetiapine 300 mg Oral tablet every day at bedtime [Active]; quetiapine 25 mg Oral tablet 2 times per day [Active]; rabeprazole 20 mg Oral tablet 1 tab every 12 hours [Active]; tramadol 50 mg Oral tablet once [Active]; - PMHx: 19:04 Alcoholism; Bipolar disorder; depressive disorder; Schizophrenia; bm8 - PSHx: 19:04 None; bm8 - Immunization history:: Adult Immunizations unknown. - Infectious Disease History:: Denies. - Social history:: Smoking status: Patient reports the use of cigarette tobacco products, smokes one-half pack cigarettes per day. Screenin:20 [facility] ED Fall Risk Assessment (Adult) History of falling in the last 3 months, me1 including since admission No falls in past 3 months (0 pts) Confusion or Disorientation No (0 pts) Intoxicated or Sedated No (0 pts) Impaired Gait No (0 pts) Mobility Assist Device Used No (0 pt) Altered Elimination No (0 pt) Score/Fall Risk Level 0 - 2 = Low Risk Maintained a safe environment, Provided non-skid footwear, Hourly rounding (assess needs \T\ fall precautionary measures) done. Abuse screen: Denies threats or abuse. Nutritional screening: No deficits noted. Tuberculosis screening: No symptoms or risk factors identified. Assessment: 19:20 General: Appears in no apparent distress. well groomed, well developed, well nourished, me1 Behavior is cooperative, appropriate for age, flat, quiet, Reports Sister states that he has not been himself for 6-7 months he is losing wt not taking his home medications and just staring off all the time. Pain: Denies pain. Neuro: Level of Consciousness is awake, alert, obeys commands, Oriented to person, place, time, situation, Appropriate for age patient responds verbally with one to two words at at time if he responds at all. Voice is very quiet and he is slow to respond. Cardiovascular: Patient's skin is warm and dry. Respiratory: Airway is patent Respiratory effort is even, unlabored, Respiratory pattern is regular, symmetrical. GI: No signs and/or symptoms were reported involving the gastrointestinal system. : No signs and/or symptoms were reported regarding the genitourinary system. EENT: No signs and/or symptoms were reported regarding the EENT system. Derm: Skin is intact, is healthy with good turgor, Skin is pink, warm \T\ dry. Musculoskeletal: No signs and/or symptoms reported regarding the musculoskeletal system. 07/19 00:02 Reassessment: Patient appears in no apparent distress at this time. Patient and/or bm8 family updated on plan of care and expected duration. Pain level reassessed. Patient is alert, oriented x 3, equal unlabored respirations, skin warm/dry/pink. Patient denies pain at this time. Patient states feeling better. Patient states symptoms have improved. Vital Signs: 07/18 19:02 BP 94 / 70; Pulse 103; Resp 20; Pulse Ox 97% ; Weight 68.04 kg; Height 6 ft. 0 in. ; bm8 Pain 0/10; 20:00 BP 140 / 98; Pulse 75; Resp 16; Pulse Ox 100% ; me1 21:15 BP 142 / 97; Pulse 71; Resp 12; Pulse Ox 100% ; me1 21:22 BP 126 / 96; Pulse 76; Resp 16; Pulse Ox 100% ; me1 21:59 BP 133 / 90; Pulse 80; Resp 17; Pulse Ox 100% ; me1 07/19 00:02 BP 124 / 87; Pulse 73; Resp 18; Temp 98; Pulse Ox 100% ; Weight 65.77 kg; Pain 0/10; bm8 07/18 19:02 Body Mass Index 20.34 (65.77 kg, 182.88 cm) bm8 07/18 19:02 Pain Scale: Adult bm8 07/19 00:02 Pain Scale: Adult bm8 Jennifer Coma Score: 00:02 Eye Response: spontaneous(4). Motor Response: obeys commands(6). Verbal Response: bm8 oriented(5). Total: 15. ED Course: 07/18 18:43 Patient arrived in ED. im 19:04 Triage completed. bm8 19:04 Arm band placed on left wrist. bm8 19:06 [facility] kb 19:06 Osmel Pate MD is Attending Physician. kb 19:20 Patient has correct armband on for positive identification. Bed in low position. Call me1 light in reach. Side rails up X2. Provided Education on: POC. Verbalized understanding.. Client placed on continuous cardiac and pulse oximetry monitoring. NIBP monitoring applied. trimmer meat on. Pulse ox on. NIBP on. 19:20 No provider procedures requiring assistance completed. me1 19:27 Sue Jordan, MICHELE is Primary Nurse. me1 19:42 Initial lab(s) drawn, by me, sent to lab. Inserted saline lock: 22 gauge in left me1 antecubital area, using aseptic technique. Missed attempt(s): 22 gauge in right antecubital area. 19:43 Basic Metabolic Panel Sent. me1 19:43 CBC with Diff Sent. me1 19:43 Hepatic Function Sent. me1 19:43 Magnesium Sent. me1 19:43 Protime (+inr) Sent. me1 19:43 Ptt, Activated Sent. me1 19:43 Troponin High Sensitivity Sent. me1 19:47 Chest Single View XRAY In Process Unspecified. EDMS 20:38 CT Head Brain wo Cont In Process Unspecified. EDMS 20:46 Osmolality, Serum Sent. rk3 20:51 Jerardo Gomez MD is Hospitalizing Provider. kb 21:17 UDS Sent. me1 21:17 Urinalysis w/ reflexes Sent. me1 21:17 Urine Osmolality Sent. me1 21:17 Osmolality, Serum Sent. me1 21:17 Urine Sodium Random Sent. me1 21:17 Urine collected: clean catch specimen, ptasy colored. me1 07/19 00:02 Patient admitted, IV remains in place. bm8 Administered Medications: 07/18 19:46 Drug: NS 0.9% IV 1000 ml IV at 1000 ml once; to be given as a bolus over 60 minutes me1 Route: IV; Rate: 1000 ml; Site: left antecubital; 21:22 Follow up: Response: No adverse reaction; IV Status: Completed infusion; IV Intake: me1 1000ml Medication: 19:20 VIS not applicable for this client. me1 Intake: 21:22 IV: 1000ml; Total: 1000ml. me1 Outcome: 20:51 Decision to Hospitalize by Provider. al 07/19 00:02 Admitted to ER Hold. Please see [facility] for further documentation. bm8 Condition: stable Instructed on the need for admit, Demonstrated understanding of instructions, follow-up care, medications, 14:08 Patient left the ED. ph Signatures: Dispatcher [employer] EDAnnetta Hernández, MACHINE ACCOUNTANT-C MACHINE ACCOUNTANT-CkCarie Cabral RN RN Liza Kowalski Michelle RN RN me1 Ovi Swan RN RN bm8 Jia La rk3 Corrections: (The following items were deleted from the chart) 07/18 21:18 19:02 Chief complaint: Parent and/or Guardian states: Sister states that he has not me1 been himself for 6-7 months he is losing wt not taking his home medications and just staring off all the time. bm8
[2024-07-18 21:54] LABS: Barbiturates NEGATIVE (NEGATIVE); Benzodiazepines NEGATIVE (NEGATIVE); Cocaine NEGATIVE (NEGATIVE); METHAMPHETAM NEGATIVE (NEGATIVE); Methadone NEGATIVE (NEGATIVE); Opiates NEGATIVE (NEGATIVE); Phencyclidine NEGATIVE (NEGATIVE); THC Cannibis NEGATIVE (NEGATIVE)
[2024-07-18 21:58] LABS: Calcium Oxalate Crystals- Ur Few /HPF (None Seen); Specific Gravity 1.019 (1.005-1.030); Sqamous Epithelial <5 /HPF (None Seen); Urine Bacteria None Seen /HPF (<20); Urine Bilirubin 1+ (Negative); Urine Blood Negative (Negative); Urine Clarity Extremely Turbid (Clear); Urine Color Yellow (Yellow); Urine Culture Reflex Order NOT NEEDED; Urine Glucose NEGATIVE (Negative); Urine Ketones 2+ (Negative); Urine Microscopic Reflex YN ORDER UMIC; Urine Mucus 2+ /HPF (None Seen); Urine Nitrite NEGATIVE (Negative); Urine Protein TRACE (Negative); Urine RBC <5 /HPF (None Seen); Urine Urobilinogen 1+ (Normal); Urine WBC <5 /HPF (<5)
[2024-07-18] MEDS ORDERED: ACETAMINOPHEN 500 MG TAB PO PRN (22:06)
[2024-07-18] MEDS ORDERED: ALPRAZOLAM 0.25 MG TABLET PO PRN (22:06)
[2024-07-18] MEDS: NA CHLORIDE 0.9% 1,000 ML IV SCH (23:00)
[2024-07-19] MEDS ORDERED: HOME MED 1 EA UNK (Doxepin Hcl [Doxepin Hcl] 50 MG Capsule) PO PRN (01:20)
[2024-07-19] MEDS ORDERED: HYDRALAZINE HCL 25 MG TABLET PO PRN (01:20)
--- NOTE | 2024-07-19 01:25 | P.HP ---
Patient History Date of Service: 07/19/24 Reason for admission: Acute metabolic encephalopathy History of Present Illness: 64-year-old male with a past medical history of schizophrenia, bipolar disorder, major depressive disorder, hypertension, neuropathy presenting with acute metabolic encephalopathy. Patient is a poor historian and history is related by his sister who is at bedside. She states he has not been eating or drinking anything for the last few months due to not being able to swallow. Associated symptoms include diarrhea. They have not followed with a medical dosimetrist in the past. In addition he has a significant psychiatric history. He has never had heart attack or stroke. He denies fevers, dysuria, shortness of breath, chest pain, and chills Allergies No Known Allergies Allergy (Unverified 11/15/22 19:13) Home Medications: Hydrocodone Bit/Acetaminophen [Hydrocodon-Acetaminophn 10-325] 1 tab PO QID PRN 11/15/22 Doxepin HCl 50 mg PO BEDTIME PRN 08/16/23 Gabapentin 300 mg PO TID 08/16/23 Fluoxetine HCl [Prozac] 40 mg PO DAILY 09/08/23 Metoprolol Tartrate [Lopressor*] 50 mg PO BID #240 tab 09/10/23 lisinopriL [Prinivil*] 20 mg PO DAILY #90 tab 09/10/23 Hydralazine HCl 25 mg PO DAILY PRN #30 tab 09/14/23 Quetiapine Fumarate [Seroquel] 25 mg PO BID 09/14/23 levETIRAcetam [Keppra] 500 mg PO BID #60 tab 09/14/23 - Past Medical/Surgical History Diabetic: No -: Neuropathy -: Depression -: Bipolar disorder -: Schizophrenia -: Hypertension -: alcohol abuse -: Sx right leg - Social History Alcohol use: Yes CD- Drugs: No Caffeine use: Yes Review of Systems is unable to be obtained General: As per HPI Physical Examination - Physical Exam General: In no apparent distress HEENT: Normocephalic Neck: Supple Respiratory: Clear to auscultation bilaterally Cardiovascular: No edema Gastrointestinal: Normal bowel sounds Musculoskeletal: No clubbing Integumentary: No rashes Neurological: Normal strength at 5/5 x4 extr Lymphatics: No axilla or inguinal lymphadenopathy - Studies Laboratory Data (last 24 hrs) 07/18/24 07/18/24 07/18/24 19:41 19:41 19:41 WBC 6.50 Hgb 14.2 Hct 39.6 Plt Count 218 PT 10.4 INR 0.91 APTT 28.9 Sodium 122 L Potassium 3.9 BUN 17 Creatinine 1.11 Glucose 116 H Magnesium 1.6 Total Bilirubin 0.4 AST 73 H ALT 158 H Alkaline Phosphatase 95 Assessment and Plan - Plan Acute metabolic encephalopathy Hyponatremia Dehydration Transaminitis Hypertension Schizophrenia Bipolar disorder Major depressive disorder Seizure disorder Admit to floor Start IV normal saline Hypoosmolar hyponatremia Hold Prozac, doxepin, and Seroquel for hyponatremia Resume lisinopril, hydralazine, and metoprolol Continue Keppra Continue gabapentin DVT prophylaxis with Lovenox - Advance Directives Does patient have a Living Will: No Does patient have a Durable POA for Healthcare: Yes
[2024-07-19 05:14] LABS: Absolute Eosinophils 0.1 K/uL (0-0.5); Absolute Lymphocytes (CBC) 1.3 K/uL (0.7-4.9); Absolute Monocytes 0.7 K/uL (0.1-1.3); Absolute Neutrophil 3.5 K/uL (1.8-8.0); Basophils % 0.6 % (0-1.3); Eosinophils % 1.5 % (0-4.4); Hematocrit 34.6 % (39.6-49.0); Hemoglobin 12.5 g/dL (13.6-17.9); Lymphocytes % 23.5 % (15.3-44.8); MCH 33.4 pg (27.0-35.0); MCHC 36.1 g/dL (32.0-36.0); MCV 92.5 fL (80-100); Monocytes % 11.9 % (3.3-12.3); Neutrophils % 62.5 % (41.7-73.7); Nucleated Red Blood Cells % 0.1 % (0-0); Platelets 205 thou/uL (152-406); RBC Red Blood Cell Count 3.74 M/uL (4.33-5.43); Red Cell Distribution Width 11.8 % (12.1-15.2)
[2024-07-19 05:36] LABS: Albumin 3.2 g/dL (3.4-5.0); Albumin/Globulin Ratio 1.2 (1.1-1.8); Anion Gap 14.7 mEq/L (5.0-15.0); Bilirubin Total 0.4 mg/dL (0.2-1.0); Globulin 2.7 g/dL (2.3-3.5); Magnesium 1.6 mg/dL (1.6-2.4); Potassium 3.7 mEq/L (3.5-5.1); Protein, Total 5.9 g/dL (6.4-8.2); Thyroid Stimulating Hormone 1.97 uIU/mL (0.358-3.740)
[2024-07-19] MEDS: MAGNESIUM SULFATE 1 gm IVPB 1 GM/100 ML BAG IV ONE (08:11)
[2024-07-19] MEDS: POTASSIUM CL SA 10 MEQ TAB PO ONE (08:12)
[2024-07-19] MEDS ORDERED: lisinopriL 20 MG TAB ONE (08:33)
[2024-07-19] MEDS ORDERED: METOPROLOL TAR 50 MG TAB ONE (08:33)
[2024-07-19] MEDS ORDERED: GABAPENTIN 300 MG CAP ONE (08:33)
[2024-07-19] MEDS ORDERED: levETIRAcetam 500 MG TAB ONE (08:33)
[2024-07-19] MEDS ORDERED: POTASSIUM CL SA 10 MEQ TAB PO ONE (08:34)
[2024-07-19] MEDS ORDERED: MAGNESIUM SULFATE 1 gm IVPB 1 GM/100 ML BAG IV ONE (08:34)
[2024-07-19] MEDS: lisinopriL 20 MG TAB PO SCH (09:00)
[2024-07-19] MEDS: levETIRAcetam 500 MG TAB PO SCH (09:00)
[2024-07-19] MEDS: GABAPENTIN 300 MG CAP PO SCH (09:00)
[2024-07-19] MEDS: METOPROLOL TAR 50 MG TAB PO SCH (09:00)
[2024-07-19] MEDS ORDERED: ONDANSETRON 4 MG/2 ML VIAL ONE (09:18)
[2024-07-19] MEDS: ONDANSETRON 4 MG/2 ML VIAL IV PRN (09:20)
[2024-07-19] MEDS: FLUCONAZOLE 200mg IVPB 200 MG/100 ML BAG IV SCH (20:10)
[2024-07-19] MEDS: NYSTATIN 500,000 UNIT/5 ML UDC PO SCH (20:11)
[2024-07-20 05:38] LABS: Anion Gap 14.8 mEq/L (5.0-15.0); Potassium 3.8 mEq/L (3.5-5.1)
[2024-07-20] MEDS: NA CHLORIDE 0.9% 1,000 ML IV SCH (13:00)
--- NOTE | 2024-07-20 13:01 | P.PN ---
Date of Service: 07/20/24 Subjective Awake, soft spoken, thrush to mouth no new complaints ROS 10 point ROS as noted above, otherwise negative Physical Exam General: NAD, AAO x3 HEENT: Normocephalic Neck: Supple Respiratory: Clear BBS, symmetrical chest wall movement, on RA Cardiovascular: No edema Gastrointestinal: Normal bowel sounds Musculoskeletal: No clubbing Integumentary: No rashes Neurological: Normal strength at 5/5 x4 extr Lymphatics: No axilla or inguinal lymphadenopathy Vitals Reviewed Problem list Acute metabolic encephalopathy Hyponatremia Dehydration Transaminitis Hypertension Schizophrenia Bipolar disorder Major depressive disorder Seizure disorder Assessment and Plan Acute metabolic encephalopathy Hyponatremia Dehydration Thrush Transaminitis Hypertension Schizophrenia Bipolar disorder Major depressive disorder Seizure disorder Hypoosmolar hyponatremia- improving, continue IVF Hold Prozac, doxepin, and Seroquel for hyponatremia Continue lisinopril, hydralazine, and metoprolol Continue Keppra Continue gabapentin Started fluconazole and nystatin PO DVT prophylaxis with Lovenox Full code LOS 2 days Time Spent Managing Pts Care (In Minutes): 35
[2024-07-20] MEDS: NA CHLORIDE 0.9% 500 ML IV ONE (17:48)
[2024-07-20] MEDS: ENSURE ENLIVE 237 ML CAN PO SCH (21:00)
[2024-07-20 21:33] LABS: Absolute Eosinophils 0.1 K/uL (0-0.5); Absolute Lymphocytes (CBC) 1.2 K/uL (0.7-4.9); Absolute Monocytes 0.6 K/uL (0.1-1.3); Absolute Neutrophil 3.6 K/uL (1.8-8.0); Basophils % 0.6 % (0-1.3); Eosinophils % 1.2 % (0-4.4); Hematocrit 35.6 % (39.6-49.0); Hemoglobin 12.8 g/dL (13.6-17.9); Lymphocytes % 22.1 % (15.3-44.8); MCH 33.4 pg (27.0-35.0); MCHC 35.8 g/dL (32.0-36.0); MCV 93.1 fL (80-100); MPV 7.7 fL (7.6-11.3); Monocytes % 10.7 % (3.3-12.3); Neutrophils % 65.4 % (41.7-73.7); Nucleated Red Blood Cells % 0.1 % (0-0); Platelets 194 thou/uL (152-406); RBC Red Blood Cell Count 3.83 M/uL (4.33-5.43); Red Cell Distribution Width 11.5 % (12.1-15.2)
[2024-07-20 21:48] LABS: Anion Gap 12.3 mEq/L (5.0-15.0); Magnesium 1.6 mg/dL (1.6-2.4); Phosphorus 3.3 mg/dL (2.5-4.9); Potassium 4.3 mEq/L (3.5-5.1)
--- NOTE | 2024-07-20 22:40 | RAD REPORT ---
EXAM: Soft Tissue Neck W/Contr INDICATION: trouble swallowing Sagittal and coronal reformations were generated. This exam was performed according to our department al dose-optimization program, which includes automated exposure control, adjustment of the mA and/or kV according to patient size and/or use of iterative reconstruction technique. IV contrast was administered. COMPARISON: 09/07/2023 FINDINGS: Mucosal spaces: Nasopharynx, oropharynx, oral cavity, larynx and hypopharynx are normal. No suspiciou s masses are identified. Epiglottis is normal in configuration. True vocal cords cords are normally situated. Piriform sinuses are well-aerated. Significant distention of the esophagus noted filled with presumed food stuff. Lymph Nodes: Lymph node evaluation is limited due to non-contrast technique. No gross pathologic appe aring cervical lymph nodes. Salivary Glands: Unremarkable. Thyroid Gland: Normal Included Intracranial Structures: Grossly unremarkable. Included Orbits: Normal Paranasal Sinuses: Predominantly clear Tympanomastoid Cavities: Normal Vascular Structures: Normal Osseous Structures: Congenital block vertebra C6 and C7. 4 mm anterolisthesis C5 on 6. Included Lung Apices: Normal IMPRESSION: Significantly distended esophagus is noted filled with food stuff. Distal obstructing esophageal lesi on is possible. Upper endoscopy would be recommended for further evaluation.
[2024-07-21 02:05] VITALS: BMI 19.6
[2024-07-21 04:52] LABS: Absolute Basophils 0.1 K/uL (0-0.5); Absolute Eosinophils 0.1 K/uL (0-0.5); Absolute Lymphocytes (CBC) 1.2 K/uL (0.7-4.9); Absolute Monocytes 0.6 K/uL (0.1-1.3); Absolute Neutrophil 4.2 K/uL (1.8-8.0); Basophils % 1.2 % (0-1.3); Eosinophils % 1.5 % (0-4.4); Hematocrit 34.1 % (39.6-49.0); Hemoglobin 12.3 g/dL (13.6-17.9); Lymphocytes % 19.1 % (15.3-44.8); MCH 33.3 pg (27.0-35.0); MCHC 36.1 g/dL (32.0-36.0); MCV 92.1 fL (80-100); MPV 7.6 fL (7.6-11.3); Monocytes % 9.9 % (3.3-12.3); Neutrophils % 68.3 % (41.7-73.7); Platelets 209 thou/uL (152-406); Red Cell Distribution Width 11.7 % (12.1-15.2)
[2024-07-21 05:12] LABS: Anion Gap 11.9 mEq/L (5.0-15.0); Magnesium 1.5 mg/dL (1.6-2.4); Phosphorus 3.2 mg/dL (2.5-4.9); Potassium 3.9 mEq/L (3.5-5.1)
--- NOTE | 2024-07-21 08:45 | RAD REPORT ---
EXAMINATION: Abdomen Pelvis W Contrast CLINICAL INDICATION: Male, 64 years old.Difficulty swallowing, food bolus vs mass TECHNIQUE: CT abdomen and pelvis was performed, after the administration of IV contrast, as per [facility] protocol. Axial, sagittal and coronal reconstructions were obtained. One or more of the following dose reduction techniques were used: Automated exposure control, adjustment of the mA and/o r kV according to patient size, and/or iterative reconstruction. Unless otherwise specified, incidental findings do not require dedicated imaging follow-up. [id number]. COMPARISON: 09/07/2023 FINDINGS: LOWER CHEST: No acute process identified.No significant pericardial effusion. Moderate circumferentia l thickening of the distal esophagus which could reflect esophagitis. Endoscopy could better evaluate. UPPER GI: No significant abnormality. LIVER: Hepatic steatosis, but otherwise unremarkable. GALLBLADDER/BILE DUCTS: No biliary ductal dilatation.? PANCREAS: No mass, ductal dilation, or [place]-pancreatic fluid. SPLEEN: Unremarkable. ADRENALS: No adrenal masses. KIDNEYS AND URETERS: No hydronephrosis.No suspicious renal mass.No renal calculi.No ureteral calculi. ABDOMINAL AORTA AND OTHER VESSELS: Normal caliber aorta and IVC. PERITONEUM: No abnormal free fluid. No free air. LYMPH NODES: No pathologic lymphadenopathy. ABDOMINAL WALL: Unremarkable SMALL BOWEL/COLON: Small bowel has normal course and caliber. No colonic wall thickening or pericolon ic inflammatory changes.Nonvisualized appendix but no secondary signs of acute appendicitis. URINARY BLADDER: Underdistended but grossly unremarkable. REPRODUCTIVE ORGANS: Moderate prostatomegaly. MUSCULOSKELETAL: Subacute versus remote bilateral rib fractures. ADDITIONAL FINDINGS: None. IMPRESSION: No acute findings within the abdomen or pelvis. No evidence of impacted food bolus at the distal esop hagus. Wall thickening is present which could reflect esophagitis. Endoscopy could further evaluate.
[2024-07-21] MEDS: NA CHLORIDE 0.9% 1,000 ML IV SCH (09:38)
[2024-07-21] MEDS: ENOXAPARIN 40 MG/0.4 ML SQ SCH (10:00)
[2024-07-21] MEDS ORDERED: propofoL 200 MG/20 ML VIAL IV ONE ×2 (14:39→15:37)
[2024-07-21] MEDS ORDERED: LIDOCAINE 1% MPF 5 ML VIAL ONE (14:39)
[2024-07-21] MEDS ORDERED: GLUCAGON 1 MG/VIAL ONE (15:09)
[2024-07-21] MEDS: NA CHLORIDE 0.9% 1,000 ML ONE (15:55)
[2024-07-21] MEDS ORDERED: SODIUM CHLORIDE 0.9% 10ML INJ IV PRN (16:46)
--- NOTE | 2024-07-21 17:02 | P.PN ---
Date of Service: 07/21/24 Subjective Awake and soft spoken CT soft tissue neck showing food bolus and esophageal mass CT abdomen pelvis with no acute findings EGD today, cleared food bolus, biopsy of mass, dilation of esophagus ROS 10 point ROS as noted above, otherwise negative Physical Exam General: Alert and oriented x3, NAD HEENT: Normocephalic Neck: Supple Respiratory: nonlabored breathing, on RA Cardiovascular: No edema, S1-S2 present, regular rate and rhythm Gastrointestinal: Normal bowel sounds Musculoskeletal: No clubbing Integumentary: No rashes Neurological: Normal strength at 5/5 x4 extr Vitals Reviewed Problem list Acute metabolic encephalopathy Schizophrenia Bipolar disorder Major depressive disorder Seizure disorder Food bolus complicated with esophageal stricture Esophagitis Decreased PO intake Dysphasia Hyponatremia Thrush Transaminitis Hypertension Neuropathy Assessment and Plan Acute metabolic encephalopathy Schizophrenia Bipolar disorder Major depressive disorder Seizure disorder Continue Keppra Supportive care Close monitoring Sister reports he has not taken his medications for 3 months d/t an inablity to swallow Food bolus complicated with esophageal stricture Esophagitis Decreased PO intake Dysphasia Hyponatremia Hypoosmolar hyponatremia- improving, continue IVF Hold Prozac, doxepin, and Seroquel for hyponatremia Speech therapy consulted CT soft tissue neck reports "Significantly distended esophagus is noted filled with food stuff. Distal obstructing esophageal lesion is possible" CT abd/pelvis reports "No acute findings within the abdomen or pelvis. No evidence of impacted food bolus at the distal esophagus. Wall thickening is present which could reflect esophagitis." EGD with Dr. Renteria (07/21), s/p dilation, will follow up on biopsy results then additional dilation will be accomplished Multiple IV contrast administrations, continue IVF Full liquid diet Protonix IV Thrush Continue fluconazole and nystatin PO Transaminitis Gentle IVF Hypertension Continue lisinopril, hydralazine, and metoprolol Neuropathy Continue Gabapentin DVT prophylaxis with Lovenox Full code LOS 2 days Time Spent Managing Pts Care (In Minutes): 35
[2024-07-21] MEDS: PANTOPRAZOLE 40 MG INJ IVP SCH (21:30)
[2024-07-21 22:41] VITALS: O2SAT 100
[2024-07-22 06:24] LABS: Absolute Eosinophils 0.1 K/uL (0-0.5); Absolute Lymphocytes (CBC) 1.3 K/uL (0.7-4.9); Absolute Monocytes 0.6 K/uL (0.1-1.3); Absolute Neutrophil 3.3 K/uL (1.8-8.0); Basophils % 0.6 % (0-1.3); Eosinophils % 2.2 % (0-4.4); Hematocrit 31.5 % (39.6-49.0); Hemoglobin 11.2 g/dL (13.6-17.9); Lymphocytes % 24.2 % (15.3-44.8); MCH 33.3 pg (27.0-35.0); MCHC 35.7 g/dL (32.0-36.0); MCV 93.5 fL (80-100); MPV 7.8 fL (7.6-11.3); Monocytes % 11.5 % (3.3-12.3); Neutrophils % 61.5 % (41.7-73.7); Nucleated Red Blood Cells % 0.1 % (0-0); Platelets 175 thou/uL (152-406); RBC Red Blood Cell Count 3.37 M/uL (4.33-5.43); Red Cell Distribution Width 11.8 % (12.1-15.2)
[2024-07-22 06:46] LABS: Anion Gap 12.8 mEq/L (5.0-15.0); Magnesium 1.4 mg/dL (1.6-2.4); Phosphorus 3.1 mg/dL (2.5-4.9); Potassium 3.8 mEq/L (3.5-5.1)
[2024-07-22] MEDS: POTASSIUM 25 MEQ EFFERV TAB PO ONE (08:33)
[2024-07-22] MEDS: Magnesium Sulfate 2gm IVPB 2 G/50 ML BAG IV ONE (08:33)
[2024-07-23 05:41] LABS: Absolute Eosinophils 0.1 K/uL (0-0.5); Absolute Lymphocytes (CBC) 1.3 K/uL (0.7-4.9); Absolute Monocytes 0.5 K/uL (0.1-1.3); Absolute Neutrophil 2.6 K/uL (1.8-8.0); Basophils % 0.8 % (0-1.3); Eosinophils % 1.9 % (0-4.4); Lymphocytes % 28.6 % (15.3-44.8); MCH 33.5 pg (27.0-35.0); MCHC 36.2 g/dL (32.0-36.0); MCV 92.6 fL (80-100); MPV 7.5 fL (7.6-11.3); Monocytes % 12.1 % (3.3-12.3); Neutrophils % 56.6 % (41.7-73.7); Nucleated Red Blood Cells % 0.2 % (0-0); Platelets 198 thou/uL (152-406); RBC Red Blood Cell Count 3.57 M/uL (4.33-5.43); Red Cell Distribution Width 12.1 % (12.1-15.2)
[2024-07-23 05:47] LABS: Anion Gap 8.9 mEq/L (5.0-15.0); Magnesium 1.6 mg/dL (1.6-2.4); Phosphorus 2.9 mg/dL (2.5-4.9); Potassium 3.9 mEq/L (3.5-5.1)
[2024-07-23] MEDS ORDERED: POTASSIUM CL SA 10 MEQ TAB PO ONE (08:00)
[2024-07-23] MEDS: POTASSIUM 25 MEQ EFFERV TAB PO ONE (08:24)
[2024-07-23] MEDS: MAGNESIUM SULFATE 1 gm IVPB 1 GM/100 ML BAG IV ONE (08:25)
[2024-07-23 16:33] VITALS: BP 93/59; TEMP 97.9
--- NOTE | 2024-07-26 13:09 | EKG ---
Test Date: 2024-07-18 Test Time: 19:45:19 Senior C Web Developer: RIP MEASUREMENT RESULTS: Intervals: Rate: 82 DE: 164 QRSD: 84 QT: 356 QTc: 415 Pilot: P: 74 DE: 164 QRS: -23 T: 63 INTERPRETIVE STATEMENTS: Normal sinus rhythm Normal ECG Compared to ECG 09/13/2023 17:25:05 Myocardial infarct finding no longer present Electronically Signed On 07-26-24 12:48:12 CDT by Guanakito Rodriguez
== END 2024-07-23 16:47 | disposition home or self-care (01) | DRG 70 ==
LOC: ER 18:41 → ERHOLD 22:04 → 2ND 07-19 13:36
PROVIDERS: ADMIT Family Medicine; ATTEND Hospitalist
PROC: 0DB78ZX Excision of Stomach, Pylorus, Via Natural or Artificial Opening Endoscopic, Diagnostic (ICD-10-PCS; 2024-07-21)
PROC: 0DB68ZX Excision of Stomach, Via Natural or Artificial Opening Endoscopic, Diagnostic (ICD-10-PCS; 2024-07-21)
PROC: 0DB28ZX Excision of Middle Esophagus, Via Natural or Artificial Opening Endoscopic, Diagnostic (ICD-10-PCS; 2024-07-21)
PROC: 0DB98ZX Excision of Duodenum, Via Natural or Artificial Opening Endoscopic, Diagnostic (ICD-10-PCS; principal; 2024-07-21 15:00)
DX: G93.41 Metabolic encephalopathy (principal); K29.51 Unspecified chronic gastritis with bleeding; K29.81 Duodenitis with bleeding; E87.1 Hypo-osmolality and hyponatremia; B37.0 Candidal stomatitis; K22.2 Esophageal obstruction; F20.9 Schizophrenia, unspecified; E86.0 Dehydration; F32.9 Major depressive disorder, single episode, unspecified; G40.909 Epilepsy, unspecified, not intractable, without status epilepticus; I10 Essential (primary) hypertension; F17.210 Nicotine dependence, cigarettes, uncomplicated; R74.01 Elevation of levels of liver transaminase levels; Z79.899 Other long term (current) drug therapy
CPT/HCPCS: 36415; 70450; 70491; 71045; 74177; 80048; 80053; 80076; 80307; 81001; 82077; 82947; 83735; 83930; 83935; 84100; 84300; 84443; 84484; 85025; 85610; 85730; 88305; 88312; 92610; 93005; 96360; 96361; 97116; 97161; 99285; J1450; J1610; J1650; J2003; J2405; J2470; J2704; J3475; J7030; Q9967

== ENCOUNTER 2024-08-09 07:41 | Inpatient (IN) | payer BC, OTHER ==
--- OUTSIDE RECORDS SUMMARY | 2024-08-09 07:47 | XMS REPORT | Continuity of Care Document ---
Author Name Unknown Address [address] [address] [place] [address] [facility] Address [address] [address] [place] [address] Care Team Providers Care Bleach Maker Name Role Phone Amee Clark Attending Clinician Unavail able ROUSE_F Attending Clinician Unavailable ERICKSON_R Attending Clinician Unavailable TRAVON BAZAN Attending Clinician Unavail able ALEJANDRA RAZA Attending Clinician Unavaila ble Lab, Pcp Lissa Attending Clinician Unavailable Lab, Adc Fam Pob I Attending Clinician Unavailab Tamie Denney Attending Clinician [phone] TAMIE HENDERSON Attending Clinician Unavailable Doctor Unassigned, [place] Attending Clinician U AMARI Dent Attending Clinician Unavailable Foot, [facility] Attending Clinician Unavailable Conrado Mejia MD Attending Clinician [phone] ROUSE_F Admitting Clinician Unavailable ERICKSON_R Admitting Clinician Unavailable FRANCISCO HANNA Admitting Clinician Unavailab le Payers Payer Name Policy Type Policy Number Effective Date Expirati on Date Source [place] [id number] 2022 00:00:00 [facility] BCBS BLUE ADVANTAGE HMO [id number] 2020 00:00:00 Problems Condition Name Condition Details Condition Category Status Onset Date Resolution Date Last Treatment Date Treating Clinician Comments Source [place] a of esophagus [place] a of Esophagus Problem Active 11-30 00:00: 00 [facility] Acute gastritis Acute Gastritis Problem Active 11-30 00:00: 00 [facility] Hiatal hernia Hiatal Hernia Problem Active 11-30 00:00: 00 [facility] Nausea and vomiting Nausea and Vomiting Problem Active 11-30 00:00: 00 [facility] Dysphagia Dysphagia Problem Active 11-30 00:00: 00 [facility] Hyponatrem ia Hyponatrem ia Problem Active 11-26 00:00: 00 [facility] Chronic kidney disease stage 3A Chronic Kidney Disease Stage 3a Problem Active 08-20 00:00: 00 [facility] Schizoaffe ctive disorder, depressive type Schizoaffe ctive Disorder, Depressive Type Problem Active 06-26 00:00: 00 [facility] Anxiety disorder Anxiety Disorder Problem Active 06-26 00:00: 00 [facility] Anemia Anemia Problem Active 06-25 00:00: 00 [facility] Insomnia Insomnia Problem Active 06-04 00:00: 00 [facility] Chronic back pain Chronic Back Pain Problem Active 3 00:00: 00 [facility] Auditory hallucinat ions Auditory Hallucinat ions Problem Active 3- 00:00: 00 [facility] Schizophre shavon Schizophre shavon Problem Active 3 00:00: 00 [facility] Tobacco user Tobacco User Problem Active 3- 00:00: 00 [facility] AMS AMS Active [facility] Diagnosis Active 08-22 00:00: 00 2020-08-31 21:37:00 [facility] Allergies, Adverse Reactions, Alerts Allergy Name Allergy Type Status Severity Reaction(s) Onset Date Inactive Date Treating Clinician Comments Source No Known Medicati on Allergie s No Known Medicati on Allergie s Active Ferny Penny NO KNOWN ALLERGIE S Drug Class Active [facility] Social History Social Habit Start Date Stop Date Quantity Comments Source Exposure to SARS-CoV-2 (event) 2020-07-06 00:00:00 2020-08-05 13:39:00 Yes [facility] Alcohol intake 2015-12-19 00:00:00 2015-12-19 00:00:00 0 /d [facility] Cigarettes smoked current (pack per day) - Reported 2015-09-30 00:00:00 2015-09-30 00:00:00 [facility] Cigarette pack-years 2015-09-30 00:00:00 2015-09-30 00:00:00 [facility] Tobacco use and exposure 2015-09-30 00:00:00 2015-09-30 00:00:00 Former smokeless tobacco user [facility] History of tobacco use 2012-09-29 00:00:00 Snuff User [facility] Sex Assigned At 1960 00:00:00 1960 00:00:00 [facility] Smoking Status Start Date Stop Date Source Heavy Tobacco Smoker [facility] Ex-smoker 2015-09-30 00:00:00 2015[facility]09[facility] Ordered Medication Name Filled Medication Name Start Date Stop Date Current Medication? Ordering Clinician Indication Dosage Frequency Signature (SIG) Comments Components Source FLUoxetine 20 mg oral capsule 08-23 21:05: 00 Yes 20 mg = 1 cap, PO, Daily, # 30 cap, 1 Refill(s), Pharmacy: [facility] [place], 182.88, cm, 08/22/20 17:49:00 CDT, Height, 77.273, [...] Colace) (Do Not Crush) Ferny Penny sennosides, LONG-TERM 08-23 02:00: 00 No Notes: (Same as: Senokot) Ferny Penny meloxicam 15 mg tablet TAKE ONE (1) TABLET(S) BY MOUTH DAILY. meloxicam 15 mg tablet TAKE ONE (1) TABLET(S) BY MOUTH DAILY. No meloxicam 15 mg tablet TAKE ONE (1) TABLET(S) BY MOUTH DAILY. [facility] quetiapine 25 mg tablet TAKE ONE (1) TABLET(S) BY MOUTH TWICE A DAY. quetiapine 25 mg tablet TAKE ONE (1) TABLET(S) BY MOUTH TWICE A DAY. No quetiapine 25 mg tablet TAKE ONE (1) TABLET(S) BY MOUTH TWICE A DAY. [facility] quetiapine 300 mg tablet TAKE ONE (1) TABLET(S) BY MOUTH DAILY. quetiapine 300 mg tablet TAKE ONE (1) TABLET(S) BY MOUTH DAILY. No quetiapine 300 mg tablet TAKE ONE (1) TABLET(S) BY MOUTH DAILY. [facility] tramadol 50 mg tablet TAKE ONE (1) TABLET(S) BY MOUTH ONCE A DAY NEEDED. tramadol 50 mg tablet TAKE ONE (1) TABLET(S) BY MOUTH ONCE A DAY NEEDED. No tramadol 50 mg tablet TAKE ONE (1) TABLET(S) BY MOUTH ONCE A DAY NEEDED. [facility] albuterol sulfate HFA 90 mcg/actuati on aerosol inhaler Inhale 2 puffs every 6 hours by inhalation route as needed. albuterol sulfate HFA 90 mcg/actuati on aerosol inhaler Inhale 2 puffs every 6 hours by inhalation route as needed. No 2puff(s ) Q6H albuterol sulfate HFA 90 mcg/actuat ion aerosol inhaler Inhale 2 puffs every 6 hours by inhalation route as needed. [facility] doxepin 50 mg capsule TAKE ONE (1) TO 2 CAPSULES BY MOUTH DAILY AT BEDTIME NEEDED. doxepin 50 mg capsule TAKE ONE (1) TO 2 CAPSULES BY MOUTH DAILY AT BEDTIME NEEDED. No doxepin 50 mg capsule TAKE ONE (1) TO 2 CAPSULES BY MOUTH DAILY AT BEDTIME NEEDED. [facility] fluoxetine 60 mg tablet TAKE ONE (1) TABLET(S) BY MOUTH ONCE A DAY. fluoxetine 60 mg tablet TAKE ONE (1) TABLET(S) BY MOUTH ONCE A DAY. No fluoxetine 60 mg tablet TAKE ONE (1) TABLET(S) BY MOUTH ONCE A DAY. [facility] gabapentin 300 mg capsule TAKE ONE (1) CAPSULE (300 MG) BY MOUTH 3 TIMES PER DAY. gabapentin 300 mg capsule TAKE ONE (1) CAPSULE (300 MG) BY MOUTH 3 TIMES PER DAY. No gabapentin 300 mg capsule TAKE ONE (1) CAPSULE (300 MG) BY MOUTH 3 TIMES PER DAY. [facility] hydrocodone 10 mg-acetamin ophen 325 mg tablet TAKE ONE (1) TABLET(S) BY MOUTH FOUR TIMES A DAY NEEDED. hydrocodone 10 mg-acetamin ophen 325 mg tablet TAKE ONE (1) TABLET(S) BY MOUTH FOUR TIMES A DAY NEEDED. No hydrocodon e 10 mg-acetami nophen 325 mg tablet TAKE ONE (1) TABLET(S) BY MOUTH FOUR TIMES A DAY NEEDED. [facility] meloxicam 15 mg tablet TAKE ONE (1) TABLET(S) BY MOUTH DAILY. meloxicam 15 mg tablet TAKE ONE (1) TABLET(S) BY MOUTH DAILY. No meloxicam 15 mg tablet TAKE ONE (1) TABLET(S) BY MOUTH DAILY. [facility] quetiapine 25 mg tablet TAKE ONE (1) TABLET(S) BY MOUTH TWICE A DAY. quetiapine 25 mg tablet TAKE ONE (1) TABLET(S) BY MOUTH TWICE A DAY. No quetiapine 25 mg tablet TAKE ONE (1) TABLET(S) BY MOUTH TWICE A DAY. [facility] quetiapine 300 mg tablet TAKE ONE (1) TABLET(S) BY MOUTH DAILY. quetiapine 300 mg tablet TAKE ONE (1) TABLET(S) BY MOUTH DAILY. No quetiapine 300 mg tablet TAKE ONE (1) TABLET(S) BY MOUTH DAILY. [facility] tramadol 50 mg tablet TAKE ONE (1) TABLET(S) BY MOUTH ONCE A DAY NEEDED. tramadol 50 mg tablet TAKE ONE (1) TABLET(S) BY MOUTH ONCE A DAY NEEDED. No tramadol 50 mg tablet TAKE ONE (1) TABLET(S) BY MOUTH ONCE A DAY NEEDED. [facility] albuterol sulfate HFA 90 mcg/actuati on aerosol inhaler INHALE TWO (2) PUFF(S) BY MOUTH EVERY SIX HOURS NEEDED. albuterol sulfate HFA 90 mcg/actuati on aerosol inhaler INHALE TWO (2) PUFF(S) BY MOUTH EVERY SIX HOURS NEEDED. No albuterol sulfate HFA 90 mcg/actuat ion aerosol inhaler INHALE TWO (2) PUFF(S) BY MOUTH EVERY SIX HOURS NEEDED. [facility] doxepin 50 mg capsule TAKE ONE (1) TO 2 CAPSULES BY MOUTH DAILY AT BEDTIME NEEDED. doxepin 50 mg capsule TAKE ONE (1) TO 2 CAPSULES BY MOUTH DAILY AT BEDTIME NEEDED. No doxepin 50 mg capsule TAKE ONE (1) TO 2 CAPSULES BY MOUTH DAILY AT BEDTIME NEEDED. [facility] fluoxetine 60 mg tablet TAKE ONE (1) TABLET(S) BY MOUTH ONCE A DAY. fluoxetine 60 mg tablet TAKE ONE (1) TABLET(S) BY MOUTH ONCE A DAY. No fluoxetine 60 mg tablet TAKE ONE (1) TABLET(S) BY MOUTH ONCE A DAY. [facility] gabapentin 300 mg capsule TAKE ONE (1) CAPSULE (300 MG) BY MOUTH 3 TIMES PER DAY. gabapentin 300 mg capsule TAKE ONE (1) CAPSULE (300 MG) BY MOUTH 3 TIMES PER DAY. No gabapentin 300 mg capsule TAKE ONE (1) CAPSULE (300 MG) BY MOUTH 3 TIMES PER DAY. [facility] hydrocodone 10 mg-acetamin ophen 325 mg tablet TAKE ONE (1) TABLET(S) BY MOUTH FOUR TIMES A DAY NEEDED. hydrocodone 10 mg-acetamin ophen 325 mg tablet TAKE ONE (1) TABLET(S) BY MOUTH FOUR TIMES A DAY NEEDED. No hydrocodon e 10 mg-acetami nophen 325 mg tablet TAKE ONE (1) TABLET(S) BY MOUTH FOUR TIMES A DAY NEEDED. [facility] meloxicam 15 mg tablet TAKE ONE (1) TABLET(S) BY MOUTH DAILY. meloxicam 15 mg tablet TAKE ONE (1) TABLET(S) BY MOUTH DAILY. No meloxicam 15 mg tablet TAKE ONE (1) TABLET(S) BY MOUTH DAILY. [facility] quetiapine 25 mg tablet TAKE ONE (1) TABLET(S) BY MOUTH TWICE A DAY. quetiapine 25 mg tablet TAKE ONE (1) TABLET(S) BY MOUTH TWICE A DAY. No quetiapine 25 mg tablet TAKE ONE (1) TABLET(S) BY MOUTH TWICE A DAY. [facility] quetiapine 300 mg tablet TAKE ONE (1) TABLET(S) BY MOUTH DAILY. quetiapine 300 mg tablet TAKE ONE (1) TABLET(S) BY MOUTH DAILY. No quetiapine 300 mg tablet TAKE ONE (1) TABLET(S) BY MOUTH DAILY. [facility] tramadol 50 mg tablet TAKE ONE (1) TABLET(S) BY MOUTH ONCE A DAY NEEDED. tramadol 50 mg tablet TAKE ONE (1) TABLET(S) BY MOUTH ONCE A DAY NEEDED. No tramadol 50 mg tablet TAKE ONE (1) TABLET(S) BY MOUTH ONCE A DAY NEEDED. [facility] albuterol sulfate HFA 90 mcg/actuati on aerosol inhaler INHALE TWO (2) PUFF(S) BY MOUTH EVERY SIX HOURS NEEDED. albuterol sulfate HFA 90 mcg/actuati on aerosol inhaler INHALE TWO (2) PUFF(S) BY MOUTH EVERY SIX HOURS NEEDED. No albuterol sulfate HFA 90 mcg/actuat ion aerosol inhaler INHALE TWO (2) PUFF(S) BY MOUTH EVERY SIX HOURS NEEDED. [facility] clonidine HCl 0.1 mg tablet Take 1 tablet every day by oral route as needed. clonidine HCl 0.1 mg tablet Take 1 tablet every day by oral route as needed. No 1 Q1D clonidine HCl 0.1 mg tablet Take 1 tablet every day by oral route as needed. [facility] doxepin 50 mg capsule TAKE ONE (1) OR TWO (2) CAPSULE(S) BY MOUTH AT BEDTIME NEEDED. doxepin 50 mg capsule TAKE ONE (1) OR TWO (2) CAPSULE(S) BY MOUTH AT BEDTIME NEEDED. No doxepin 50 mg capsule TAKE ONE (1) OR TWO (2) CAPSULE(S) BY MOUTH AT BEDTIME NEEDED. [facility] fluconazole 200 mg tablet TAKE ONE (1) TABLET(S) BY MOUTH DAILY. fluconazole 200 mg tablet TAKE ONE (1) TABLET(S) BY MOUTH DAILY. No fluconazol e 200 mg tablet TAKE ONE (1) TABLET(S) BY MOUTH DAILY. [facility] fluoxetine 40 mg capsule TAKE TWO (2) CAPSULE(S) BY MOUTH DAILY. fluoxetine 40 mg capsule TAKE TWO (2) CAPSULE(S) BY MOUTH DAILY. No fluoxetine 40 mg capsule TAKE TWO (2) CAPSULE(S) BY MOUTH DAILY. [facility] gabapentin 300 mg capsule TAKE ONE (1) CAPSULE(S) BY MOUTH THREE TIMES A DAY. gabapentin 300 mg capsule TAKE ONE (1) CAPSULE(S) BY MOUTH THREE TIMES A DAY. No gabapentin 300 mg capsule TAKE ONE (1) CAPSULE(S) BY MOUTH THREE TIMES A DAY. [facility] hydrocodone 10 mg-acetamin ophen 325 mg tablet TAKE ONE (1) TABLET(S) BY MOUTH FOUR TIMES A DAY NEEDED. hydrocodone 10 mg-acetamin ophen 325 mg tablet TAKE ONE (1) TABLET(S) BY MOUTH FOUR TIMES A DAY NEEDED. No hydrocodon e 10 mg-acetami nophen 325 mg tablet TAKE ONE (1) TABLET(S) BY MOUTH FOUR TIMES A DAY NEEDED. [facility] meloxicam 15 mg tablet TAKE ONE (1) TABLET(S) BY MOUTH DAILY. meloxicam 15 mg tablet TAKE ONE (1) TABLET(S) BY MOUTH DAILY. No meloxicam 15 mg tablet TAKE ONE (1) TABLET(S) BY MOUTH DAILY. [facility] metronidazo le 500 mg tablet TAKE ONE (1) TABLET(S) BY MOUTH EVERY EIGHT HOURS. metronidazo le 500 mg tablet TAKE ONE (1) TABLET(S) BY MOUTH EVERY EIGHT HOURS. No metronidaz ole 500 mg tablet TAKE ONE (1) TABLET(S) BY MOUTH EVERY EIGHT HOURS. [facility] quetiapine 25 mg tablet TAKE ONE (1) TABLET(S) BY MOUTH TWICE A DAY. quetiapine 25 mg tablet TAKE ONE (1) TABLET(S) BY MOUTH TWICE A DAY. No quetiapine 25 mg tablet TAKE ONE (1) TABLET(S) BY MOUTH TWICE A DAY. [facility] quetiapine 300 mg tablet TAKE ONE (1) TABLET(S) BY MOUTH AT BEDTIME. quetiapine 300 mg tablet TAKE ONE (1) TABLET(S) BY MOUTH AT BEDTIME. No quetiapine 300 mg tablet TAKE ONE (1) TABLET(S) BY MOUTH AT BEDTIME. [facility] tetracyclin e 500 mg capsule TAKE ONE (1) CAPSULE(S) BY MOUTH FOUR TIMES A DAY. tetracyclin e 500 mg capsule TAKE ONE (1) CAPSULE(S) BY MOUTH FOUR TIMES A DAY. No tetracycli ne 500 mg capsule TAKE ONE (1) CAPSULE(S) BY MOUTH FOUR TIMES A DAY. [facility] tramadol 50 mg tablet TAKE ONE (1) TABLET(S) BY MOUTH DAILY NEEDED. tramadol 50 mg tablet TAKE ONE (1) TABLET(S) BY MOUTH DAILY NEEDED. No tramadol 50 mg tablet TAKE ONE (1) TABLET(S) BY MOUTH DAILY NEEDED. [facility] albuterol sulfate HFA 90 mcg/actuati on aerosol inhaler INHALE TWO (2) PUFF(S) BY MOUTH EVERY SIX HOURS NEEDED. albuterol sulfate HFA 90 mcg/actuati on aerosol inhaler INHALE TWO (2) PUFF(S) BY MOUTH EVERY SIX HOURS NEEDED. No albuterol sulfate HFA 90 mcg/actuat ion aerosol inhaler INHALE TWO (2) PUFF(S) BY MOUTH EVERY SIX HOURS NEEDED. [facility] clonidine HCl 0.1 mg tablet TAKE ONE (1) TABLET(S) BY MOUTH ONCE A DAY NEEDED. clonidine HCl 0.1 mg tablet TAKE ONE (1) TABLET(S) BY MOUTH ONCE A DAY NEEDED. No clonidine HCl 0.1 mg tablet TAKE ONE (1) TABLET(S) BY MOUTH ONCE A DAY NEEDED. [facility] doxepin 50 mg capsule TAKE ONE (1) OR TWO (2) CAPSULE(S) BY MOUTH AT BEDTIME NEEDED. doxepin 50 mg capsule TAKE ONE (1) OR TWO (2) CAPSULE(S) BY MOUTH AT BEDTIME NEEDED. No doxepin 50 mg capsule TAKE ONE (1) OR TWO (2) CAPSULE(S) BY MOUTH AT BEDTIME NEEDED. [facility] fluconazole 200 mg tablet TAKE ONE (1) TABLET(S) BY MOUTH DAILY. fluconazole 200 mg tablet TAKE ONE (1) TABLET(S) BY MOUTH DAILY. No fluconazol e 200 mg tablet TAKE ONE (1) TABLET(S) BY MOUTH DAILY. [facility] fluoxetine 40 mg capsule TAKE TWO (2) CAPSULE(S) BY MOUTH DAILY. fluoxetine 40 mg capsule TAKE TWO (2) CAPSULE(S) BY MOUTH DAILY. No fluoxetine 40 mg capsule TAKE TWO (2) CAPSULE(S) BY MOUTH DAILY. [facility] gabapentin 300 mg capsule TAKE ONE (1) CAPSULE(S) BY MOUTH THREE TIMES A DAY. gabapentin 300 mg capsule TAKE ONE (1) CAPSULE(S) BY MOUTH THREE TIMES A DAY. No gabapentin 300 mg capsule TAKE ONE (1) CAPSULE(S) BY MOUTH THREE TIMES A DAY. [facility] hydrocodone 10 mg-acetamin ophen 325 mg tablet TAKE ONE (1) TABLET(S) BY MOUTH FOUR TIMES A DAY NEEDED. hydrocodone 10 mg-acetamin ophen 325 mg tablet TAKE ONE (1) TABLET(S) BY MOUTH FOUR TIMES A DAY NEEDED. No hydrocodon e 10 mg-acetami nophen 325 mg tablet TAKE ONE (1) TABLET(S) BY MOUTH FOUR TIMES A DAY NEEDED. [facility] meloxicam 15 mg tablet TAKE ONE (1) TABLET(S) BY MOUTH EVERY DAY. meloxicam 15 mg tablet TAKE ONE (1) TABLET(S) BY MOUTH EVERY DAY. No meloxicam 15 mg tablet TAKE ONE (1) TABLET(S) BY MOUTH EVERY DAY. [facility] metronidazo le 500 mg tablet TAKE ONE (1) TABLET(S) BY MOUTH EVERY EIGHT HOURS. metronidazo le 500 mg tablet TAKE ONE (1) TABLET(S) BY MOUTH EVERY EIGHT HOURS. No metronidaz ole 500 mg tablet TAKE ONE (1) TABLET(S) BY MOUTH EVERY EIGHT HOURS. [facility] ondansetron 8 mg disintegrat ing tablet Place 1 tablet twice a day by translingua l route. ondansetron 8 mg disintegrat ing tablet Place 1 tablet twice a day by translingua l route. No 1 BID ondansetro n 8 mg disintegra ting tablet Place 1 tablet twice a day by translingu al route. [facility] quetiapine 25 mg tablet TAKE ONE (1) TABLET(S) BY MOUTH TWICE A DAY. quetiapine 25 mg tablet TAKE ONE (1) TABLET(S) BY MOUTH TWICE A DAY. No quetiapine 25 mg tablet TAKE ONE (1) TABLET(S) BY MOUTH TWICE A DAY. [facility] quetiapine 300 mg tablet TAKE ONE (1) TABLET(S) BY MOUTH AT BEDTIME. quetiapine 300 mg tablet TAKE ONE (1) TABLET(S) BY MOUTH AT BEDTIME. No quetiapine 300 mg tablet TAKE ONE (1) TABLET(S) BY MOUTH AT BEDTIME. [facility] tetracyclin e 500 mg capsule TAKE ONE (1) CAPSULE(S) BY MOUTH FOUR TIMES A DAY. tetracyclin e 500 mg capsule TAKE ONE (1) CAPSULE(S) BY MOUTH FOUR TIMES A DAY. No tetracycli ne 500 mg capsule TAKE ONE (1) CAPSULE(S) BY MOUTH FOUR TIMES A DAY. [facility] tramadol 50 mg tablet TAKE ONE (1) TABLET(S) BY MOUTH DAILY NEEDED. tramadol 50 mg tablet TAKE ONE (1) TABLET(S) BY MOUTH DAILY NEEDED. No tramadol 50 mg tablet TAKE ONE (1) TABLET(S) BY MOUTH DAILY NEEDED. [facility] doxepin 25 mg capsule TAKE ONE (1) OR TWO (2) CAPSULE(S) BY MOUTH AT BEDTIME. doxepin 25 mg capsule TAKE ONE (1) OR TWO (2) CAPSULE(S) BY MOUTH AT BEDTIME. No doxepin 25 mg capsule TAKE ONE (1) OR TWO (2) CAPSULE(S) BY MOUTH AT BEDTIME. [facility] albuterol sulfate HFA 90 mcg/actuati on aerosol inhaler INHALE TWO (2) PUFF(S) BY MOUTH EVERY SIX HOURS NEEDED. albuterol sulfate HFA 90 mcg/actuati on aerosol inhaler INHALE TWO (2) PUFF(S) BY MOUTH EVERY SIX HOURS NEEDED. No albuterol sulfate HFA 90 mcg/actuat ion aerosol inhaler INHALE TWO (2) PUFF(S) BY MOUTH EVERY SIX HOURS NEEDED. [facility] clonidine HCl 0.1 mg tablet TAKE ONE (1) TABLET(S) BY MOUTH ONCE A DAY NEEDED. clonidine HCl 0.1 mg tablet TAKE ONE (1) TABLET(S) BY MOUTH ONCE A DAY NEEDED. No clonidine HCl 0.1 mg tablet TAKE ONE (1) TABLET(S) BY MOUTH ONCE A DAY NEEDED. [facility] fluoxetine 40 mg capsule TAKE ONE (1) CAPSULE(S) BY MOUTH DAILY. fluoxetine 40 mg capsule TAKE ONE (1) CAPSULE(S) BY MOUTH DAILY. No fluoxetine 40 mg capsule TAKE ONE (1) CAPSULE(S) BY MOUTH DAILY. [facility] doxepin 50 mg capsule TAKE ONE (1) OR TWO (2) CAPSULE(S) BY MOUTH AT BEDTIME NEEDED. doxepin 50 mg capsule TAKE ONE (1) OR TWO (2) CAPSULE(S) BY MOUTH AT BEDTIME NEEDED. No doxepin 50 mg capsule TAKE ONE (1) OR TWO (2) CAPSULE(S) BY MOUTH AT BEDTIME NEEDED. [facility] fluconazole 200 mg tablet TAKE ONE (1) TABLET(S) BY MOUTH DAILY. fluconazole 200 mg tablet TAKE ONE (1) TABLET(S) BY MOUTH DAILY. No fluconazol e 200 mg tablet TAKE ONE (1) TABLET(S) BY MOUTH DAILY. [facility] fluoxetine 40 mg capsule TAKE TWO (2) CAPSULE(S) BY MOUTH DAILY. fluoxetine 40 mg capsule TAKE TWO (2) CAPSULE(S) BY MOUTH DAILY. No fluoxetine 40 mg capsule TAKE TWO (2) CAPSULE(S) BY MOUTH DAILY. [facility] gabapentin 300 mg capsule TAKE ONE (1) CAPSULE(S) BY MOUTH THREE TIMES A DAY. gabapentin 300 mg capsule TAKE ONE (1) CAPSULE(S) BY MOUTH THREE TIMES A DAY. No gabapentin 300 mg capsule TAKE ONE (1) CAPSULE(S) BY MOUTH THREE TIMES A DAY. [facility] hydrocodone 10 mg-acetamin ophen 325 mg tablet TAKE ONE (1) TABLET(S) BY MOUTH FOUR TIMES A DAY NEEDED. hydrocodone 10 mg-acetamin ophen 325 mg tablet TAKE ONE (1) TABLET(S) BY MOUTH FOUR TIMES A DAY NEEDED. No hydrocodon e 10 mg-acetami nophen 325 mg tablet TAKE ONE (1) TABLET(S) BY MOUTH FOUR TIMES A DAY NEEDED. [facility] losartan 50 mg tablet Take 1 tablet every day by oral route. losartan 50 mg tablet Take 1 tablet every day by oral route. No 1 Q1D losartan 50 mg tablet Take 1 tablet every day by oral route. [facility] meloxicam 15 mg tablet TAKE ONE (1) TABLET(S) BY MOUTH EVERY DAY. meloxicam 15 mg tablet TAKE ONE (1) TABLET(S) BY MOUTH EVERY DAY. No meloxicam 15 mg tablet TAKE ONE (1) TABLET(S) BY MOUTH EVERY DAY. [facility] metronidazo le 500 mg tablet TAKE ONE (1) TABLET(S) BY MOUTH EVERY EIGHT HOURS. metronidazo le 500 mg tablet TAKE ONE (1) TABLET(S) BY MOUTH EVERY EIGHT HOURS. No metronidaz ole 500 mg tablet TAKE ONE (1) TABLET(S) BY MOUTH EVERY EIGHT HOURS. [facility] ondansetron 8 mg disintegrat ing tablet Place 1 tablet twice a day by translingua l route. ondansetron 8 mg dis[address] ing tablet Place 1 tablet twice a day by translingua l route. No 1 BID ondansetro n 8 mg [address] ting tablet Place 1 tablet twice a day by translingu al route. [facility] quetiapine 25 mg tablet TAKE ONE (1) TABLET(S) BY MOUTH TWICE A DAY. quetiapine 25 mg tablet TAKE ONE (1) TABLET(S) BY MOUTH TWICE A DAY. No quetiapine 25 mg tablet TAKE ONE (1) TABLET(S) BY MOUTH TWICE A DAY. [facility] gabapentin 300 mg capsule TAKE ONE (1) CAPSULE(S) BY MOUTH THREE TIMES A DAY. gabapentin 300 mg capsule TAKE ONE (1) CAPSULE(S) BY MOUTH THREE TIMES A DAY. No gabapentin 300 mg capsule TAKE ONE (1) CAPSULE(S) BY MOUTH THREE TIMES A DAY. [facility] quetiapine 300 mg tablet TAKE ONE (1) TABLET(S) BY MOUTH AT BEDTIME. quetiapine 300 mg tablet TAKE ONE (1) TABLET(S) BY MOUTH AT BEDTIME. No quetiapine 300 mg tablet TAKE ONE (1) TABLET(S) BY MOUTH AT BEDTIME. [facility] tetracyclin e 500 mg capsule TAKE ONE (1) CAPSULE(S) BY MOUTH FOUR TIMES A DAY. tetracyclin e 500 mg capsule TAKE ONE (1) CAPSULE(S) BY MOUTH FOUR TIMES A DAY. No tetracycli ne 500 mg capsule TAKE ONE (1) CAPSULE(S) BY MOUTH FOUR TIMES A DAY. [facility] tramadol 50 mg tablet TAKE ONE (1) TABLET(S) BY MOUTH DAILY NEEDED. tramadol 50 mg tablet TAKE ONE (1) TABLET(S) BY MOUTH DAILY NEEDED. No tramadol 50 mg tablet TAKE ONE (1) TABLET(S) BY MOUTH DAILY NEEDED. [facility] hydrocodone 10 mg-acetamin ophen 325 mg tablet Take 1 tablet every 4 hours by oral route as needed. hydrocodone 10 mg-acetamin ophen 325 mg tablet Take 1 tablet every 4 hours by oral route as needed. No 1 Q4H hydrocodon e 10 mg-acetami nophen 325 mg tablet Take 1 tablet every 4 hours by oral route as needed. [facility] albuterol sulfate HFA 90 mcg/actuati on aerosol inhaler INHALE TWO (2) PUFF(S) BY MOUTH EVERY SIX HOURS NEEDED. albuterol sulfate HFA 90 mcg/actuati on aerosol inhaler INHALE TWO (2) PUFF(S) BY MOUTH EVERY SIX HOURS NEEDED. No albuterol sulfate HFA 90 mcg/actuat ion aerosol inhaler INHALE TWO (2) PUFF(S) BY MOUTH EVERY SIX HOURS NEEDED. [facility] clonidine HCl 0.1 mg tablet TAKE ONE (1) TABLET(S) BY MOUTH ONCE A DAY NEEDED. clonidine HCl 0.1 mg tablet TAKE ONE (1) TABLET(S) BY MOUTH ONCE A DAY NEEDED. No clonidine HCl 0.1 mg tablet TAKE ONE (1) TABLET(S) BY MOUTH ONCE A DAY NEEDED. [facility] doxepin 50 mg capsule TAKE ONE (1) OR TWO (2) CAPSULE(S) BY MOUTH DAILY AT BEDTIME NEEDED. doxepin 50 mg capsule TAKE ONE (1) OR TWO (2) CAPSULE(S) BY MOUTH DAILY AT BEDTIME NEEDED. No doxepin 50 mg capsule TAKE ONE (1) OR TWO (2) CAPSULE(S) BY MOUTH DAILY AT BEDTIME NEEDED. [facility] [facility] fluconazole 200 mg tablet TAKE ONE (1) TABLET(S) BY MOUTH DAILY. fluconazole 200 mg tablet TAKE ONE (1) TABLET(S) BY MOUTH DAILY. No fluconazol e 200 mg tablet TAKE ONE (1) TABLET(S) BY MOUTH DAILY. [facility] fluoxetine 40 mg capsule TAKE TWO (2) CAPSULE(S) BY MOUTH DAILY. fluoxetine 40 mg capsule TAKE TWO (2) CAPSULE(S) BY MOUTH DAILY. No fluoxetine 40 mg capsule TAKE TWO (2) CAPSULE(S) BY MOUTH DAILY. [facility] gabapentin 300 mg capsule TAKE ONE (1) CAPSULE(S) BY MOUTH THREE TIMES A DAY. gabapentin 300 mg capsule TAKE ONE (1) CAPSULE(S) BY MOUTH THREE TIMES A DAY. No gabapentin 300 mg capsule TAKE ONE (1) CAPSULE(S) BY MOUTH THREE TIMES A DAY. [facility] hydrocodone 10 mg-acetamin ophen 325 mg tablet TAKE ONE (1) TABLET(S) BY MOUTH FOUR TIMES A DAY NEEDED. hydrocodone 10 mg-acetamin ophen 325 mg tablet TAKE ONE (1) TABLET(S) BY MOUTH FOUR TIMES A DAY NEEDED. No hydrocodon e 10 mg-acetami nophen 325 mg tablet TAKE ONE (1) TABLET(S) BY MOUTH FOUR TIMES A DAY NEEDED. [facility] meloxicam 15 mg tablet TAKE ONE (1) TABLET(S) BY MOUTH ONCE A DAY. meloxicam 15 mg tablet TAKE ONE (1) TABLET(S) BY MOUTH ONCE A DAY. No meloxicam 15 mg tablet TAKE ONE (1) TABLET(S) BY MOUTH ONCE A DAY. [facility] losartan 50 mg tablet Take 1 tablet every day by oral route. losartan 50 mg tablet Take 1 tablet every day by oral route. No 1 Q1D losartan 50 mg tablet Take 1 tablet every day by oral route. [facility] meloxicam 15 mg tablet TAKE ONE (1) TABLET(S) BY MOUTH EVERY DAY. meloxicam 15 mg tablet TAKE ONE (1) TABLET(S) BY MOUTH EVERY DAY. No meloxicam 15 mg tablet TAKE ONE (1) TABLET(S) BY MOUTH EVERY DAY. [facility] metronidazo le 500 mg tablet TAKE ONE (1) TABLET(S) BY MOUTH EVERY EIGHT HOURS. metronidazo le 500 mg tablet TAKE ONE (1) TABLET(S) BY MOUTH EVERY EIGHT HOURS. No metronidaz ole 500 mg tablet TAKE ONE (1) TABLET(S) BY MOUTH EVERY EIGHT HOURS. [facility] ondansetron 8 mg disintegrat ing tablet TAKE ONE (1) TABLET(S) BY MOUTH TWICE A DAY. ondansetron 8 mg disintegrat ing tablet TAKE ONE (1) TABLET(S) BY MOUTH TWICE A DAY. No ondansetro n 8 mg disintegra ting tablet TAKE ONE (1) TABLET(S) BY MOUTH TWICE A DAY. [facility] quetiapine 25 mg tablet TAKE ONE (1) TABLET(S) BY MOUTH TWICE A DAY. quetiapine 25 mg tablet TAKE ONE (1) TABLET(S) BY MOUTH TWICE A DAY. No quetiapine 25 mg tablet TAKE ONE (1) TABLET(S) BY MOUTH TWICE A DAY. [facility] quetiapine 300 mg tablet TAKE ONE (1) TABLET(S) BY MOUTH AT BEDTIME. quetiapine 300 mg tablet TAKE ONE (1) TABLET(S) BY MOUTH AT BEDTIME. No quetiapine 300 mg tablet TAKE ONE (1) TABLET(S) BY MOUTH AT BEDTIME. [facility] rabeprazole 20 mg tablet,bonny yed release TAKE ONE (1) TABLET(S) BY MOUTH TWICE A DAY. rabeprazole 20 mg tablet,bonny yed release TAKE ONE (1) TABLET(S) BY MOUTH TWICE A DAY. No rabeprazol e 20 mg tablet,del ayed release TAKE ONE (1) TABLET(S) BY MOUTH TWICE A DAY. [facility] sucralfate 1 gram tablet TAKE ONE (1) TABLET(S) BY MOUTH THREE TIMES A DAY ON AN EMPTY STOMACH. sucralfate 1 gram tablet TAKE ONE (1) TABLET(S) BY MOUTH THREE TIMES A DAY ON AN EMPTY STOMACH. No sucralfate 1 gram tablet TAKE ONE (1) TABLET(S) BY MOUTH THREE TIMES A DAY ON AN EMPTY STOMACH. [facility] tetracyclin e 500 mg capsule TAKE ONE (1) CAPSULE(S) BY MOUTH FOUR TIMES A DAY. tetracyclin e 500 mg capsule TAKE ONE (1) CAPSULE(S) BY MOUTH FOUR TIMES A DAY. No tetracycli ne 500 mg capsule TAKE ONE (1) CAPSULE(S) BY MOUTH FOUR TIMES A DAY. [facility] tramadol 50 mg tablet TAKE ONE (1) TABLET(S) BY MOUTH DAILY NEEDED. tramadol 50 mg tablet TAKE ONE (1) TABLET(S) BY MOUTH DAILY NEEDED. No tramadol 50 mg tablet TAKE ONE (1) TABLET(S) BY MOUTH DAILY NEEDED. [facility] quetiapine 25 mg tablet TAKE ONE (1) TABLET(S) BY MOUTH TWICE A DAY. quetiapine 25 mg tablet TAKE ONE (1) TABLET(S) BY MOUTH TWICE A DAY. No quetiapine 25 mg tablet TAKE ONE (1) TABLET(S) BY MOUTH TWICE A DAY. [facility] quetiapine 300 mg tablet TAKE ONE (1) TABLET(S) BY MOUTH AT BEDTIME. quetiapine 300 mg tablet TAKE ONE (1) TABLET(S) BY MOUTH AT BEDTIME. No quetiapine 300 mg tablet TAKE ONE (1) TABLET(S) BY MOUTH AT BEDTIME. [facility] doxepin 25 mg capsule TAKE ONE (1) TO TWO (2) CAPSULE(S) BY MOUTH DAILY AT BEDTIME. doxepin 25 mg capsule TAKE ONE (1) TO TWO (2) CAPSULE(S) BY MOUTH DAILY AT BEDTIME. No doxepin 25 mg capsule TAKE ONE (1) TO TWO (2) CAPSULE(S) BY MOUTH DAILY AT BEDTIME. [facility] fluoxetine 40 mg capsule TAKE ONE (1) CAPSULE (40 MG) BY MOUTH DAILY. fluoxetine 40 mg capsule TAKE ONE (1) CAPSULE (40 MG) BY MOUTH DAILY. No fluoxetine 40 mg capsule TAKE ONE (1) CAPSULE (40 MG) BY MOUTH DAILY. [facility] gabapentin 300 mg capsule TAKE ONE (1) CAPSULE (300 MG) BY MOUTH 3 TIMES PER DAY. gabapentin 300 mg capsule TAKE ONE (1) CAPSULE (300 MG) BY MOUTH 3 TIMES PER DAY. No gabapentin 300 mg capsule TAKE ONE (1) CAPSULE (300 MG) BY MOUTH 3 TIMES PER DAY. [facility] hydrocodone 10 mg-acetamin ophen 325 mg tablet TAKE ONE (1) TABLET(S) BY MOUTH FOUR TIMES A DAY NEEDED. hydrocodone 10 mg-acetamin ophen 325 mg tablet TAKE ONE (1) TABLET(S) BY MOUTH FOUR TIMES A DAY NEEDED. No hydrocodon e 10 mg-acetami nophen 325 mg tablet TAKE ONE (1) TABLET(S) BY MOUTH FOUR TIMES A DAY NEEDED. [facility] meloxicam 15 mg tablet TAKE ONE (1) TABLET(S) BY MOUTH EVERY DAY. meloxicam 15 mg tablet TAKE ONE (1) TABLET(S) BY MOUTH EVERY DAY. No meloxicam 15 mg tablet TAKE ONE (1) TABLET(S) BY MOUTH EVERY DAY. [facility] quetiapine 25 mg tablet TAKE ONE (1) TABLET(S) BY MOUTH TWICE A DAY. quetiapine 25 mg tablet TAKE ONE (1) TABLET(S) BY MOUTH TWICE A DAY. No quetiapine 25 mg tablet TAKE ONE (1) TABLET(S) BY MOUTH TWICE A DAY. [facility] quetiapine 300 mg tablet TAKE ONE (1) TABLET(S) BY MOUTH AT BEDTIME. quetiapine 300 mg tablet TAKE ONE (1) TABLET(S) BY MOUTH AT BEDTIME. No quetiapine 300 mg tablet TAKE ONE (1) TABLET(S) BY MOUTH AT BEDTIME. [facility] doxepin 25 mg capsule TAKE ONE (1) TO TWO (2) CAPSULE(S) BY MOUTH DAILY AT BEDTIME. doxepin 25 mg capsule TAKE ONE (1) TO TWO (2) CAPSULE(S) BY MOUTH DAILY AT BEDTIME. No doxepin 25 mg capsule TAKE ONE (1) TO TWO (2) CAPSULE(S) BY MOUTH DAILY AT BEDTIME. [facility] doxepin 50 mg capsule TAKE ONE (1) OR TWO (2) CAPSULE(S) BY MOUTH AT BEDTIME NEEDED. doxepin 50 mg capsule TAKE ONE (1) OR TWO (2) CAPSULE(S) BY MOUTH AT BEDTIME NEEDED. No doxepin 50 mg capsule TAKE ONE (1) OR TWO (2) CAPSULE(S) BY MOUTH AT BEDTIME NEEDED. [facility] fluoxetine 40 mg capsule TAKE ONE (1) CAPSULE (40 MG) BY MOUTH DAILY. fluoxetine 40 mg capsule TAKE ONE (1) CAPSULE (40 MG) BY MOUTH DAILY. No fluoxetine 40 mg capsule TAKE ONE (1) CAPSULE (40 MG) BY MOUTH DAILY. [facility] fluoxetine 60 mg tablet TAKE ONE (1) TABLET(S) BY MOUTH ONCE A DAY. fluoxetine 60 mg tablet TAKE ONE (1) TABLET(S) BY MOUTH ONCE A DAY. No fluoxetine 60 mg tablet TAKE ONE (1) TABLET(S) BY MOUTH ONCE A DAY. [facility] gabapentin 300 mg capsule TAKE ONE (1) CAPSULE(S) BY MOUTH THREE TIMES A DAY. gabapentin 300 mg capsule TAKE ONE (1) CAPSULE(S) BY MOUTH THREE TIMES A DAY. No gabapentin 300 mg capsule TAKE ONE (1) CAPSULE(S) BY MOUTH THREE TIMES A DAY. [facility] hydrocodone 10 mg-acetamin ophen 325 mg tablet TAKE ONE (1) TABLET(S) BY MOUTH FOUR TIMES A DAY. hydrocodone 10 mg-acetamin ophen 325 mg tablet TAKE ONE (1) TABLET(S) BY MOUTH FOUR TIMES A DAY. No hydrocodon e 10 mg-acetami nophen 325 mg tablet TAKE ONE (1) TABLET(S) BY MOUTH FOUR TIMES A DAY. [facility] meloxicam 15 mg tablet TAKE ONE (1) TABLET(S) BY MOUTH DAILY. meloxicam 15 mg tablet TAKE ONE (1) TABLET(S) BY MOUTH DAILY. No meloxicam 15 mg tablet TAKE ONE (1) TABLET(S) BY MOUTH DAILY. [facility] quetiapine 25 mg tablet TAKE ONE (1) TABLET(S) BY MOUTH TWICE A DAY. quetiapine 25 mg tablet TAKE ONE (1) TABLET(S) BY MOUTH TWICE A DAY. No quetiapine 25 mg tablet TAKE ONE (1) TABLET(S) BY MOUTH TWICE A DAY. [facility] quetiapine 300 mg tablet TAKE 1/2 TABLET(S) [...] TAKE ONE (1) TABLET(S) BY MOUTH DAILY. [facility] albuterol sulfate HFA 90 mcg/actuati on aerosol inhaler Inhale 2 puffs every 6 hours by inhalation route as needed. albuterol sulfate HFA 90 mcg/actuati on aerosol inhaler Inhale 2 puffs every 6 hours by inhalation route as needed. No 2puff(s ) Q6H albuterol sulfate HFA 90 mcg/actuat ion aerosol inhaler Inhale 2 puffs every 6 hours by inhalation route as needed. [facility] doxepin 50 mg capsule TAKE ONE (1) TO 2 CAPSULES BY MOUTH DAILY AT BEDTIME NEEDED. doxepin 50 mg capsule TAKE ONE (1) TO 2 CAPSULES BY MOUTH DAILY AT BEDTIME NEEDED. No doxepin 50 mg capsule TAKE ONE (1) TO 2 CAPSULES BY MOUTH DAILY AT BEDTIME NEEDED. [facility] fluoxetine 60 mg tablet TAKE ONE (1) TABLET(S) BY MOUTH ONCE A DAY. fluoxetine 60 mg tablet TAKE ONE (1) TABLET(S) BY MOUTH ONCE A DAY. No fluoxetine 60 mg tablet TAKE ONE (1) TABLET(S) BY MOUTH ONCE A DAY. [facility] gabapentin 300 mg capsule TAKE ONE (1) CAPSULE (300 MG) BY MOUTH 3 TIMES PER DAY. gabapentin 300 mg capsule TAKE ONE (1) CAPSULE (300 MG) BY MOUTH 3 TIMES PER DAY. No gabapentin 300 mg capsule TAKE ONE (1) CAPSULE (300 MG) BY MOUTH 3 TIMES PER DAY. [facility] hydrocodone 10 mg-acetamin ophen 325 mg tablet TAKE ONE (1) TABLET(S) BY MOUTH FOUR TIMES A DAY NEEDED. hydrocodone 10 mg-acetamin ophen 325 mg tablet TAKE ONE (1) TABLET(S) BY MOUTH FOUR TIMES A DAY NEEDED. No hydrocodon e 10 mg-acetami nophen 325 mg tablet TAKE ONE (1) TABLET(S) BY MOUTH FOUR TIMES A DAY NEEDED. [facility] No known medications No Un carl [facility] No known medications No Un carl [facility] No known medications No Un carl [facility] No known medications No Un carl [facility] Vital Signs Vital Name Observation Time Observation Value Comments S ource Height 2022-12-22 00:00:00 72 [in_i] [facility] BP Diastolic 2022-12-22 00:00:00 84 mm[Hg] [facility] BP Systolic 2022-12-22 00:00:00 122 mm[Hg] [facility] BMI (Body Mass Index) 2022-12-22 00:00:00 24.4 kg/m2 [facility] Body Weight 2022-12-22 00:00:00 2880 [oz_av] [facility] BMI (Body Mass Index) 2022-11-30 00:00:00 23.6 kg/m2 [facility] BP Systolic 2022-11-30 00:00:00 168 mm[Hg] [facility] BP Diastolic 2022-11-30 00:00:00 78 mm[Hg] [facility] Height 2022-11-30 00:00:00 72 [in_i] [facility] Body Weight 2022-11-30 00:00:00 2784 [oz_av] [facility] Height 2022-11-26 00:00:00 72 [in_i] [facility] Body Weight 2022-11-26 00:00:00 2752 [oz_av] [facility] BMI (Body Mass Index) 2022-11-26 00:00:00 23.3 kg/m2 [facility] BP Systolic 2022-11-26 00:00:00 128 mm[Hg] [facility] BP Diastolic 2022-11-26 00:00:00 84 mm[Hg] [facility] BP Diastolic 2022-08-20 00:00:00 68 mm[Hg] [facility] Height 2022-08-20 00:00:00 72 [in_i] [facility] BMI (Body Mass Index) 2022-08-20 00:00:00 25.1 kg/m2 [facility] BP Systolic 2022-08-20 00:00:00 116 mm[Hg] [facility] Body Weight 2022-08-20 00:00:00 2960 [oz_av] [facility] BP Diastolic 2022-08-13 00:00:00 70 mm[Hg] [facility] Height 2022-08-13 00:00:00 72 [in_i] [facility] BMI (Body Mass Index) 2022-08-13 00:00:00 24.3 kg/m2 [facility] BP Systolic 2022-08-13 00:00:00 122 mm[Hg] [facility] Body Weight 2022-08-13 00:00:00 2864 [oz_av] [facility] Height 2022-07-17 00:00:00 72 [in_i] [facility] BP Diastolic 2022-06-25 00:00:00 60 mm[Hg] [facility] Height 2022-06-25 00:00:00 72 [in_i] [facility] BMI (Body Mass Index) 2022-06-25 00:00:00 25.4 kg/m2 [facility] BP Systolic 2022-06-25 00:00:00 124 mm[Hg] [facility] Body Weight 2022-06-25 00:00:00 2992 [oz_av] [facility] BP Diastolic 2022-06-04 00:00:00 78 mm[Hg] [facility] Height 2022-06-04 00:00:00 72 [in_i] [facility] BP Systolic 2022-06-04 00:00:00 118 mm[Hg] [facility] Body height 2015-12-19 16:25:00 185.4 cm [facility] Body weight 2015-12-19 16:25:00 87.091 kg [facility] BMI 2015-12-19 16:25:00 25.33 kg/m2 [facility] Temperature Oral (F) 2020-08-24 00:15:00 98.0 F [facility] Heart Rate 2020-08-24 00:15:00 Penny urbano [facility] Respitory Rate 2020-08-24 00:15:00 [facility] Systolic (mm Hg) 2020-08-24 00:15:00 [facility] Diastolic (mm Hg) 2020-08-24 00:15:00 [facility] Temperature Oral (F) 2020-08-23 21:04:00 97.9 F [facility] Heart Rate 2020-08-23 21:04:00 [facility] Respitory Rate 2020-08-23 21:04:00 [facility] Systolic (mm Hg) 2020-08-23 21:04:00 [facility] Diastolic (mm Hg) 2020-08-23 21:04:00 [facility] Temperature Oral (F) 2020-08-23 17:14:00 98.2 F [facility] Heart Rate 2020-08-23 17:14:00 [facility] Respitory Rate 2020-08-23 17:14:00 [facility] Systolic (mm Hg) 2020-08-23 17:14:00 [facility] Diastolic (mm Hg) 2020-08-23 17:14:00 [facility] Height 2020-08-22 22:49:00 182.88 cm [facility] Weight 2020-08-22 22:49:00 [facility] BMI Calculated 2020-08-22 22:49:00 [facility] Procedures Procedure Date / Time Performed Performing Clinician Source ASSIGNMENT OF BENEFITS 2020-08-05 18:34:40 Docto r Unassigned, [place] [facility] ANKLE, MIN. 3 VIEWS 2015-12-19 16:34:00 Seth Pandya [facility] Circumcision [facility] Extraction of [place] Tooth [facility] Remove Tonsils and Adenoids [facility] Appendectomy [facility] Procedure on Ankle [facility] Plan of Care Planned Activity Planned Date Details Comments Source Diagnostic Test Pending 2022-11-26 00:00:00 BMP, serum or plasma [code = BMP, serum or plasma] [facility] Diagnostic Test Pending 2022-11-26 00:00:00 CBC w/ auto diff [code = CBC w/ auto diff] [facility] Encounters Start Date/Time End Date/Time Encounter Type Admission Type Attending Clinicians Care Facility Care Department Encounter ID Source 2024-04-18 10:35:00 Outpatient Eduardo Amee [facility] [id number] [facility] 2024-04-07 13:08:00 Outpatient Amee Clark [facility] [id number] [facility] 2024-04-06 09:16:00 Outpatient Amee Clark [facility] [id number] [facility] 2023-09-21 08:58:00 Outpatient Amee Clark [facility] [id number] [facility] 2023-08-26 09:52:00 Outpatient Amee Clark [facility] [id number] [facility] 2023-06-25 14:57:00 Outpatient Amee Clark [facility] [id number] [facility] 2023-05-26 13:56:00 Outpatient Amee Clark [facility] [id number] [facility] 2023-04-27 15:08:02 [facility] [id number] [facility] 2023-05-14 00:00:00 2023-05-14 00:00:00 Outpatient [facility] [id number] [facility] 2023-04-17 00:00:00 2023-04-17 00:00:00 Outpatient [facility] [id number] [facility] 2023-02-28 00:00:00 2023-02-28 00:00:00 Outpatient [facility] [id number] [facility] 2023-02-08 00:00:00 2023-02-08 00:00:00 Outpatient BRADEN[facility] [id number] [facility] 2023-01-19 00:00:00 2023-01-19 00:00:00 Outpatient [facility] [id number] [facility] 2023-01-02 00:00:00 2023-01-02 00:00:00 Outpatient [facility] [id number] [facility] 2022-12-22 00:00:00 2022-12-22 00:00:00 Gunnar Naqvi, DO: [place] [address] , Ph. [phone] [facility], DR. NAQVI [id number] [facility] 2022-12-15 00:00:00 2022-12-15 00:00:00 Outpatient [facility] [id number] [facility] 2022-12-15 00:00:00 2022-12-15 00:00:00 Outpatient [facility] [id number] [facility] 2022-11-30 00:00:00 2022-11-30 00:00:00 Outpatient [facility] [id number] [facility] 2022-11-30 00:00:00 2022-11-30 00:00:00 Gunnar Naqvi, DO: [place] [address] , Ph. [facility], DR. NAQVI [id number] [facility] 2022-11-26 00:00:00 2022-11-26 00:00:00 Gunnar Naqvi, DO: [place] [address] , Ph. [facility], DR. NAQVI [id number] [facility] 2022-11-10 00:00:00 2022-11-10 00:00:00 Outpatient [facility] [id number] [facility] 2022-11-10 00:00:00 2022-11-10 00:00:00 Outpatient [facility] [id number] [facility] 2022-10-06 00:00:00 2022-10-06 00:00:00 Outpatient [facility] [id number] [facility] 2022-09-01 00:00:00 2022-09-01 00:00:00 Outpatient [facility] [id number] [facility] 2022-08-20 00:00:00 2022-08-20 00:00:00 Gunnar Naqvi, DO: [place] [address] , Ph. [phone] [facility], DR. NAQVI [id number] [facility] 2022-08-17 00:00:00 2022-08-17 00:00:00 Gunnar Naqvi, DO: [place] [address] , Ph. [facility], DR. NAQVI [id number] [facility] 2022-08-13 00:00:00 2022-08-13 00:00:00 Gunnar Naqvi, DO: [place] [address] , Ph. [facility], DR. NAQVI [id number] [facility] 2022-07-27 00:00:00 2022-07-27 00:00:00 Outpatient [facility] [id number] [facility] 2022-07-27 00:00:00 2022-07-27 00:00:00 Outpatient [facility] [id number] [facility] 2022-07-27 00:00:00 2022-07-27 00:00:00 Outpatient [facility] [id number] [facility] 2022-07-17 00:00:00 2022-07-17 00:00:00 Gunnar Naqvi, DO: [address] [place] [address] , Ph. [facility], DR. NAQVI [id number] [facility] 2022-06-25 00:00:00 2022-06-25 00:00:00 Outpatient [facility] [id number] [facility] 2022-06-25 00:00:00 2022-06-25 00:00:00 Outpatient [facility] [id number] [facility] 2022-06-25 00:00:00 2022-06-25 00:00:00 Gunnar Naqvi, DO: [address] [place] [address] , Ph. [facility], DR. NAQVI [id number] [facility] 2022-06-04 00:00:00 2022-06-04 00:00:00 Outpatient [facility] [id number] [facility] 2022-06-04 00:00:00 2022-06-04 00:00:00 Outpatient [facility] [id number] [facility] 2022-06-04 00:00:00 2022-06-04 00:00:00 Gunnar Naqvi, DO: [address], [place] [place], [place] [address] , Ph. [facility], DR. NAQVI [id number] [facility] 2022-06-03 00:00:00 2022-06-03 00:00:00 Outpatient [facility] [id number] [facility] 2022-06-02 00:00:00 2022-06-02 00:00:00 Outpatient [facility] [id number] [facility] 2020-08-24 10:10:00 2020-08-24 10:10:00 Outpatient [facility] [id number] [facility] 2020-08-22 19:08:00 2020-08-24 02:04:00 Inpatient [facility] [id number] [facility] 2020-08-22 14:08:00 2020-08-23 21:04:00 Inpatient ALEJANDRA HORTON [facility] [id number] [facility] 2020-08-08 00:00:00 2020-08-08 00:00:00 Letter (Out) Lab, Pcp [facility] [address] .114 [id number] [facility] 2020-08-08 00:00:00 2020-08-08 00:00:00 Letter (Out) Lab, Pcp [facility] 84.114 [id number] [facility] 2020-08-05 13:35:13 2020-08-05 13:55:13 Laboratory Only Lab, Adc Fam Pob Tamie Rodriguez [facility] [id number] [facility] 2020-08-05 13:00:00 2020-08-05 13:00:00 Outpatient [facility] [id number] [facility] 2020-08-05 00:00:00 2020-08-05 00:00:00 Orders Only Doctor Unassigned, [place] [facility] [id number] [facility] 2020-07-27 08:20:00 2020-07-27 08:28:42 Outpatient Ami [facility] [id number] [facility] 2015-12-19 09:00:00 2015-12-19 13:48:36 Office Visit Foot, [facility]hav[facility], Conrado [facility] 1..840.114 350.1.13.10 4.2.7.2.686 [id number] [facility] Results Test Description Test Time Test Comments Results Result Co mments [facility] [id number] 16:34:00* Test Item Value Reference Range Interpretation Comme nts Negative (test code = Negative) 3 [facility] ClinicsCHEM [id number] 02:55:00* Test Item Value Reference Range Interpretation Comme nts Ammonia (test code = Ammonia) 22.0 [facility] [id number] 23:59:00* Test Item Value Reference Range Interpretation Comme nts Vitamin B12 Lvl (test code = Vitamin B12 Lvl) [facility] [id number] 23:59:00* Test Item Value Reference Range Interpretation Comme nts RPR (test code = RPR) Non Reactive (08/22 6:59 PM) [facility] [id number] 22:48:00* Test Item Value Reference Range Interpretation Comme nts Glucose Lvl (test code = Glucose Lvl) 86 70-99 [facility] [id number] 22:48:00* Test Item Value Reference Range Interpretation Comme nts WBC (test code = WBC) 4.0 3.7-10.4 [facility] [id number] 22:48:00* Test Item Value Reference Range Interpretation Comme nts Ca Ion WB (test code = Ca Ion WB) 1.20 1.05-1.25 [facility] Notes Date/Time Note Provider Source 2020-08-23 03:59:00 [...] in the deep right frontal white matter. [facility] 2020-08-23 03:59:00 EXAM: MRI BRAIN WITH OUT [...]
[2024-08-09] MEDS ORDERED: ONDANSETRON 4 MG/2 ML VIAL ONE (08:03)
[2024-08-09] MEDS ORDERED: NA CHLORIDE 0.9% 1,000 ML ONE (08:03)
[2024-08-09 08:15] LABS: Absolute Lymphocytes (CBC) 0.9 K/uL (0.7-4.9); Absolute Monocytes 0.7 K/uL (0.1-1.3); Absolute Neutrophil 6.7 K/uL (1.8-8.0); Basophils % 0.6 % (0-1.3); Hematocrit 37.7 % (39.6-49.0); Lymphocytes % 10.5 % (15.3-44.8); MCHC 34.4 g/dL (32.0-36.0); MCV 93.1 fL (80-100); MPV 7.4 fL (7.6-11.3); Neutrophils % 80.9 % (41.7-73.7); Platelets 399 thou/uL (152-406); RBC Red Blood Cell Count 4.05 M/uL (4.33-5.43); Red Cell Distribution Width 13.1 % (12.1-15.2)
[2024-08-09 08:31] LABS: Albumin 3.8 g/dL (3.4-5.0); Anion Gap 10.6 mEq/L (5.0-15.0); Bilirubin Total 0.4 mg/dL (0.2-1.0); Magnesium 1.7 mg/dL (1.6-2.4); Potassium 3.6 mEq/L (3.5-5.1); Protein, Total 7.8 g/dL (6.4-8.2)
--- NOTE | 2024-08-09 09:03 | ER ---
Nurse's Notes [facility] Name: Jak Gauthier Age: 64 yrs Sex: Male : 1960 Arrival Date: 08/09/2024 Time: 07:41 Bed 6 Private MD: Diagnosis: Esophageal stricture;Vomiting;Acute kidney injury Presentation: 08/09 07:51 Chief complaint: N/V x weeks, not tolerating fluids/meds x 2 days. Coronavirus screen: hb At this time, the client does not indicate any symptoms associated with coronavirus-19. Ebola Screen: No symptoms or risks identified at this time. Initial Sepsis Screen: Does the patient meet any 2 criteria? No. Patient's initial sepsis screen is negative. Does the patient have a suspected source of infection? No. Patient's initial sepsis screen is negative. Risk Assessment: Do you want to hurt yourself or someone else? Patient reports no desire to harm self or others. Onset of symptoms is unknown. 07:51 Method Of Arrival: Ambulatory hb 07:51 Acuity: AMARA 3 hb Historical: - Allergies: 07:52 No Known Allergies; hb - PMHx: 07:52 Alcoholism; Bipolar disorder; depressive disorder; Schizophrenia; hb - Immunization history:: Adult Immunizations up to date. - Infectious Disease History:: Denies. - Social history:: Smoking status: Patient denies any tobacco usage or history of. Screenin:55 [facility] ED Fall Risk Assessment (Adult) History of falling in the last 3 months, ph including since admission No falls in past 3 months (0 pts) Confusion or Disorientation No (0 pts) Intoxicated or Sedated No (0 pts) Impaired Gait No (0 pts) Mobility Assist Device Used No (0 pt) Altered Elimination No (0 pt) Score/Fall Risk Level 0 - 2 = Low Risk Oriented to surroundings, Maintained a safe environment, Hourly rounding (assess needs \T\ fall precautionary measures) done, Used ambulatory aids as needed (educated on \T\ assisted with). Abuse screen: Denies threats or abuse. Denies injuries from another. Nutritional screening: No deficits noted. Tuberculosis screening: No symptoms or risk factors identified. Assessment: 07:56 General: Appears in no apparent distress. emaciated, Behavior is cooperative. Pain: ph Denies pain. Neuro: Level of Consciousness is awake, alert, obeys commands, Oriented to person, place, situation. Cardiovascular: Capillary refill < 3 seconds in bilateral fingers Patient's skin is warm and dry. Respiratory: Airway is patent Respiratory effort is even, unlabored, Respiratory pattern is regular, symmetrical. GI: Abdomen is non-distended, Reports intolerance of fluids, intolerance of food, nausea, vomiting, Patient currently denies abdominal pain, diarrhea. Derm: Skin is pink, warm \T\ dry. Vital Signs: 07:53 BP 130 / 90; Pulse 99; Resp 17; Temp 98.2; Pulse Ox 96% on R/A; Weight 58.97 kg; Height hb 6 ft. 0 in. ; Pain 0/10; 09:00 BP 127 / 89; Pulse 94; Resp 18; Pulse Ox 99% ; ph 10:30 BP 154 / 89; Pulse 95; Resp 16; Temp 98; Pulse Ox 99% on R/A; ph 07:53 Body Mass Index 17.63 (58.97 kg, 182.88 cm) hb 07:53 Pain Scale: Adult hb ED Course: 07:45 Patient arrived in ED. mr 07:46 Carie Caban, RN is Primary Nurse. ph 07:46 Osmel Pate MD is Attending Physician. rt 07:52 Triage completed. hb 07:52 Arm band placed on. hb 07:55 Patient has correct armband on for positive identification. Bed in low position. Call ph light in reach. Side rails up X 1. Pulse ox on. NIBP on. 08:05 Initial lab(s) drawn, by me, sent to lab. Inserted saline lock: 20 gauge in left ph antecubital area, using aseptic technique. Blood collected. Flushed with 10 mL NS. 08:14 Lipase Sent. ph 08:14 CMP Sent. ph 08:14 CBC with Diff Sent. ph 08:38 EKG done, by ED staff, reviewed by Carie Caban RN. ph 09:02 Jerardo Gomez MD is Hospitalizing Provider. rt 11:02 No provider procedures requiring assistance completed. Patient admitted, IV remains in ph place. Administered Medications: 08:14 Drug: Ondansetron IVP 4 mg IVP once; over 2 minutes Route: IVP; Site: left antecubital; ph 09:17 Follow up: Response: No adverse reaction ph 08:14 Drug: NS 0.9% IV 1000 ml IV at 1 bolus Per protocol; to be given as a bolus over 60 ph minutes Route: IV; Rate: 1 bolus; Site: left antecubital; 09:30 Follow up: Response: No adverse reaction; IV Status: Completed infusion; IV Intake: ph 1000ml Medication: 07:56 VIS not applicable for this client. ph Intake: 09:30 IV: 1000ml; Total: 1000ml. ph Outcome: 09:02 Decision to Hospitalize by Provider. rt 11:02 Admitted to Med/surg accompanied by tech, via wheelchair, room 229, ph 11:02 Condition: stable 11:02 Instructed on the need for admit, 11:03 Patient left the ED. ph Signatures: Amarilis Vides, Carie Jurado RN RN ph Mady Dominguez, MICHELE RN Osmel Pate MD MD rt
--- NOTE | 2024-08-09 09:03 | EDPHYS ---
Physician Documentation [facility] Name: Jak Gauthier Age: 64 yrs Sex: Male : 1960 Arrival Date: 08/09/2024 Time: 07:41 Bed 6 Private MD: ED Physician Osmel Pate HPI: 08/09 08:01 This 64 yrs old Male presents to ER via Ambulatory with complaints of Vomiting. rt 08:01 Patient with history of esophageal stricture presents to the ED with nausea, vomiting, rt reportedly inability to tolerate anything by mouth over the past few days. The sister states that she believes that he has been eating foods when he has not been supposed to. Denies other acute complaints at this time, symptoms are moderate in severity, no other aggravating or alleviating factors.. Historical: - Allergies: :52 No Known Allergies; hb - PMHx: :52 Alcoholism; Bipolar disorder; depressive disorder; Schizophrenia; hb - Immunization history:: Adult Immunizations up to date. - Infectious Disease History:: Denies. - Social history:: Smoking status: Patient denies any tobacco usage or history of. ROS: 08:01 Constitutional: Negative for fever, chills, and weight loss, Cardiovascular: Negative rt for chest pain, palpitations, and edema, Respiratory: Negative for shortness of breath, cough, wheezing, and pleuritic chest pain, MS/Extremity: Negative for injury and deformity, Skin: Negative for injury, rash, and discoloration, Neuro: Negative for headache, weakness, numbness, tingling, and seizure, 08:01 Abdomen/GI: Positive for vomiting, Negative for abdominal pain, Exam: 08:01 Constitutional: This is a well developed, well nourished patient who is awake, alert, rt and in no acute distress. Chest/axilla: Normal chest wall appearance and motion. Nontender with no deformity. No lesions are appreciated. Cardiovascular: Regular rate and rhythm with a normal S1 and S2. No gallops, murmurs, or rubs. Normal PMI, no JVD. No pulse deficits. Respiratory: Lungs have equal breath sounds bilaterally, clear to auscultation and percussion. No rales, rhonchi or wheezes noted. No increased work of breathing, no retractions or nasal flaring. Abdomen/GI: Soft, non-tender, with normal bowel sounds. No distension or tympany. No guarding or rebound. No evidence of tenderness throughout. Skin: Warm, dry with normal turgor. Normal color with no rashes, no lesions, and no evidence of cellulitis. MS/ Extremity: Pulses equal, no cyanosis. Neurovascular intact. Full, normal range of motion. 09:25 ECG was reviewed by the Attending Physician. rt Vital Signs: 07:53 BP 130 / 90; Pulse 99; Resp 17; Temp 98.2; Pulse Ox 96% on R/A; Weight 58.97 kg; Height hb 6 ft. 0 in. ; Pain 0/10; 09:00 BP 127 / 89; Pulse 94; Resp 18; Pulse Ox 99% ; ph 10:30 BP 154 / 89; Pulse 95; Resp 16; Temp 98; Pulse Ox 99% on R/A; ph 07:53 Body Mass Index 17.63 (58.97 kg, 182.88 cm) hb 07:53 Pain Scale: Adult hb MDM: 07:53 Medical Screening Exam initiated rt 09:26 Differential diagnosis: Esophageal stricture, LEN, electrolyte disturbance. Data rt reviewed: vital signs, nurses notes, lab test result(s), EKG. Consideration of Admission/Observation Patient was admitted/placed on observation. Management of patient was discussed with the following: Lead Technical Architect: Discussed with Dr. Renteria, can perform EGD procedure on patient, requests barium swallow study. I considered the following discharge prescriptions or medication management in the emergency department Medications were administered in the Emergency Department. See MAR. Test considered but Not performed: CT: Benign abdominal examination, vomiting most likely due to known esophageal stricture, do not believe that CT scan of the abdomen pelvis is indicated. Care significantly affected by the following chronic conditions: Esophageal stricture. Counseling: I had a detailed discussion with the patient and/or guardian regarding the historical points, exam findings, and any diagnostic results supporting the discharge/admit diagnosis, lab results, the need for further work-up and treatment in the hospital. Response to treatment: There is no appreciated change of the patient's symptoms at this time. 08/09 07:57 Order name: CBC with Diff; Complete Time: 08:31 rt 08/09 07:57 Order name: CMP; Complete Time: 08:31 rt 08/09 07:57 Order name: Lipase; Complete Time: 08:31 rt 08/09 07:57 Order name: Magnesium; Complete Time: 08:31 rt 08/09 09:17 Order name: CBC with Automated Diff EDMS 08/09 09:17 Order name: CBC with Automated Diff EDMS 08/09 09:17 Order name: Comprehensive Metabolic Panel EDMS 08/09 09:17 Order name: Comprehensive Metabolic Panel EDMS 08/09 09:14 Order name: Esophagram Only EDMS 08/09 08:03 Order name: EKG; Complete Time: 08:03 rt 08/09 09:17 Order name: CONS Physician Consult EDMS 08/09 07:57 Order name: IV Saline Lock; Complete Time: 08:14 rt 08/09 07:57 Order name: Labs collected and sent; Complete Time: 08:14 rt 08/09 08:03 Order name: EKG - Nurse/Tech; Complete Time: 08:38 rt EC:25 Rate is 100 beats/min. Rhythm is regular, Normal Sinus Rhythm with No ectopy. QRS [place] rt is Normal. [place] interval is normal. QRS interval is normal. QT interval is prolonged at 487 msec. No Q waves. T waves are Normal. No ST changes noted. Interpreted by me. Administered Medications: 08:14 Drug: Ondansetron IVP 4 mg IVP once; over 2 minutes Route: IVP; Site: left antecubital; ph 09:17 Follow up: Response: No adverse reaction ph 08:14 Drug: NS 0.9% IV 1000 ml IV at 1 bolus Per protocol; to be given as a bolus over 60 ph minutes Route: IV; Rate: 1 bolus; Site: left antecubital; 09:30 Follow up: Response: No adverse reaction; IV Status: Completed infusion; IV Intake: ph 1000ml Disposition Summary: 08/09/24 09:02 Hospitalization Ordered Notes: Hospitalization Status: Inpatient Admission rt Provider: Jerardo Gomez rt Location: Telemetry/MedSurg (Inpatient) rt Condition: Stable rt Problem: an ongoing problem rt Symptoms: are unchanged rt Bed/Room Type: Standard rt Room Assignment: 229(08/09/24 09:59) ss Diagnosis - Esophageal stricture rt - Vomiting rt - Acute kidney injury rt Forms: - Medication Reconciliation Form rt - SBAR form rt - Leadership Thank You Letter rt Signatures: Dispatcher [employer] Vanna Lambert RN RN ss Carie Caban RN RN Mady Dominguez, RN RN Osmel Pate MD MD rt Corrections: (The following items were deleted from the chart) :14 08:52 Barium Swallow Modified ordered. EDMS EDMS 09:57 09:02 rt 09:59 09:57 [facility]
--- NOTE | 2024-08-09 09:15 | P.HP ---
Patient History Date of Service: 08/09/24 History of Present Illness: 64-year-old male with a past medical history of depressive disorder, schizophrenia, bipolar, alcoholism presenting with nausea and vomit and inability to tolerate anything by mouth for the last several months. he denies chest pain, fevers, chills. His sister is at bedside. He rates the discomfort as an 8 out of 10. He has not taken any medication for this problem. Allergies No Known Allergies Allergy (Unverified 11/15/22 19:13) Home Medications: Quetiapine Fumarate [Seroquel] 25 mg PO BEDTIME 09/14/23 levETIRAcetam [Keppra] 500 mg PO BID #60 tab 09/14/23 Pantoprazole [Protonix Tab] 40 mg PO DAILY #30 tab 07/23/24 ARIPiprazole [Aripiprazole] 10 mg PO BEDTIME 08/09/24 Escitalopram [Lexapro] 10 mg PO BEDTIME 08/09/24 - Past Medical/Surgical History Diabetic: No -: Neuropathy -: Depression -: Bipolar disorder -: Schizophrenia -: Hypertension -: alcohol abuse -: Sx right leg - Social History Alcohol use: Yes CD- Drugs: No Caffeine use: Yes Review of Systems General: Unremarkable Eyes: Unremarkable ENT: Unremarkable Respiratory: Unremarkable Cardiovascular: Unremarkable Gastrointestinal: Nausea, Vomiting Genitourinary: Unremarkable Musculoskeletal: Unremarkable Integumentary: Unremarkable Neurological: Unremarkable Physical Examination - Physical Exam General: In no apparent distress, Cachectic, Other (Temporal wasting) HEENT: Atraumatic, Normocephalic Neck: Supple Respiratory: Clear to auscultation bilaterally, Normal air movement Cardiovascular: Normal pulses Capillary refill: <2 Seconds Gastrointestinal: Normal bowel sounds Musculoskeletal: No clubbing, No swelling Integumentary: No rashes, No breakdown Neurological: Normal gait, Normal speech Lymphatics: No axilla or inguinal lymphadenopathy - Studies Laboratory Data (last 24 hrs) 08/09/24 08/09/24 08:05 08:05 WBC 8.20 Hgb 13.0 L Hct 37.7 L Plt Count 399 Sodium 145 Potassium 3.6 BUN 25 H Creatinine 1.65 H Glucose 160 H Magnesium 1.7 Total Bilirubin 0.4 AST 26 ALT 49 Alkaline Phosphatase 102 Lipase 11 L Assessment and Plan - Plan Esophageal stricture Vomiting Acute kidney injury Depression Bipolar Schizophrenia Keep n.p.o. Start IV fluid Will consider TPN if prolonged n.p.o. status. General surgery with Dr. Nelson consulted Speech therapy evaluation after endoscopy Start PPI and as needed pain medication Zofran IV as needed Obtain CBC, CMP, mag, Phos in the a.m. Avoid nephrotoxin DVT prophylaxis with - Advance Directives Does patient have a Living Will: No Does patient have a Durable POA for Healthcare: Yes
[2024-08-09] MEDS: NA CHLORIDE 0.9% 1,000 ML IV SCH (12:54)
[2024-08-09 13:47] VITALS: BMI 26.6
--- NOTE | 2024-08-09 14:30 | RAD REPORT ---
EXAM: Esophagram Only HISTORY: [facility] MAIN Y dysphagia COMPARISON: None EXPOSURE: 00:37 minutes; skin dose: 83.75 mGy FINDINGS: A double contrast barium swallow/esophagram was performed. Effervescent granules were administered. Patulous appearance of the proximal and mid to distal esophagus. Focal severe stricture seen along the mid thoracic esophagus, which measures 3.2 mm in length (calibr ated relative to external ruler), with luminal diameter measuring 3 mm in AP dimension. Esophageal motility is otherwise normal. No mucosal lesions are seen in the esophagus. No extrinsic compression on the esophagus is seen. Small sliding hiatal hernia. No gastroesophageal reflux. IMPRESSION: Focal severe stricture of the mid thoracic esophagus measuring 3.2 mm in length, with luminal diamete r measuring 3 mm in AP dimension. Small sliding hiatal hernia.
[2024-08-09] MEDS ORDERED: SODIUM CHLORIDE 0.9% 10ML INJ IV PRN (17:41)
--- NOTE | 2024-08-09 18:18 | CON ---
Date of Consultation: 08/09/2024 Brief History Of Present Illness: The patient is a 64-year-old male known to me from recent admissio n whereby he had severe dysphagia. He ultimately had an EGD which was unable to be completed with e standard scope and required a pediatric scope to traverse a stricture which was significant and at about 22-25 cm in the mid portion of the esophagus. He ultimately had biopsies performed at that [facility] as well and the stricture was biopsied and did not show evidence of malignancy on those biopsies. He ultimately was discharged home with instructions to follow up with Gastroenterology for an ultimat e balloon dilatation after biopsies were performed. He did follow up in clinic and we had arranged s diane he had not followed up with GI to have him have a balloon dilation of his esophagus with myself. However, he continued to eat solid food despite my repeated instructions not to eat solid foods unt il we take care of his esophageal stricture to allow for proper food passage. However, he was noncom pliant with this and as such came to the ER with the above issues of inability to tolerate p.o., naus ea, vomiting, and unable to pass swallowing of solid objects. Past Medical History: Significant for neuropathy, depression, bipolar, schizophrenia, hypertension, alcohol abuse. He has had surgery of his right leg in addition he had the EGD as described above. Allergies: NO KNOWN DRUG ALLERGIES. Home Medications: Included doxepin, Prozac, metoprolol, Prinivil, hydralazine, Seroquel, Keppra, Ens ure Max Protein, Ensure Enlive, nystatin powder, and pantoprazole. Social History: He drinks alcohol recreationally. Denies recreational drug use. Review of Systems: Ten-point review of systems other than HPI, negative. Physical Examination: General: At the time of my examination, he is awake, alert, and oriented. Psychiatric: He is appropriate and conversive. He has a flat affect, similar to previous exams. Neck: Supple without JVD. Chest: Normal to expansion and excursion. Cardiovascular: Regular rate and rhythm. Pulmonary: Clear to auscultation bilaterally. Abdomen: Soft. Extremities: No clubbing, cyanosis, or edema. Skin: Warm and dry. Laboratory Data: Revealed a white blood cell count of 8.2, hemoglobin 13.0, hematocrit of 37.7, plat elet count is 399, neutrophils are 80%. Sodium 145, potassium 3.6, chloride 111, carbon dioxide 27, BUN 25, creatinine 1.6, glucose is 160, total bilirubin 0.4, AST 26, ALT 49, alkaline phosphatase is 102, lipase is 11. He had imaging performed, which included a barium swallow study, which was offici ally read as focal severe stricture of the mid thoracic esophagus measuring 3.2 mm in length with lum inal diameter measuring 3 mm in AP dimension. Assessment And Plan: This is a 64-year-old male who comes in with severe esophageal stricture as stephan cribed above. 1. NPO or clear liquid diet and NPO after midnight. 2. I have discussed the risks, benefits, and alternatives of esophagogastroduodenoscopy with balloon dilatation including, but not limited to, bleeding, infection, damage to surrounding tissues, need fo r further operative procedures, injury to intestines including perforation of the esophagus, need for emergency surgery, blood clots, heart attack, stroke, other unforeseen complications in the perioper ative period. The patient displayed understanding of the above-stated plan, agreed to proceed as ind icated. Thank you for this interesting consult. DOTTY/DEVAN Voice ID: [id number] Report ID: [id number]
[2024-08-09] MEDS: ONDANSETRON 4 MG/2 ML VIAL IV PRN (19:10)
[2024-08-09] MEDS: MORPHINE 2 MG/ML SYR IV PRN (20:38)
[2024-08-09] MEDS: HYDRALAZINE HCL 20 MG/ML VIAL IV ONE (22:17)
[2024-08-10 06:30] LABS: Absolute Eosinophils 0.1 K/uL (0-0.5); Absolute Lymphocytes (CBC) 1.5 K/uL (0.7-4.9); Absolute Monocytes 0.5 K/uL (0.1-1.3); Basophils % 0.8 % (0-1.3); Eosinophils % 1.8 % (0-4.4); Hematocrit 34.8 % (39.6-49.0); Hemoglobin 11.8 g/dL (13.6-17.9); MCH 32.1 pg (27.0-35.0); MCV 94.7 fL (80-100); MPV 7.5 fL (7.6-11.3); Monocytes % 10.1 % (3.3-12.3); Neutrophils % 57.3 % (41.7-73.7); Platelets 289 thou/uL (152-406); RBC Red Blood Cell Count 3.68 M/uL (4.33-5.43); Red Cell Distribution Width 13.1 % (12.1-15.2)
[2024-08-10 06:54] LABS: Albumin 3.1 g/dL (3.4-5.0); Anion Gap 9.2 mEq/L (5.0-15.0); Bilirubin Total 0.4 mg/dL (0.2-1.0); Globulin 3.2 g/dL (2.3-3.5); Potassium 3.2 mEq/L (3.5-5.1); Protein, Total 6.3 g/dL (6.4-8.2)
[2024-08-10] MEDS: PANTOPRAZOLE 40 MG INJ IVP SCH (07:47)
[2024-08-10] MEDS: KCL 20 MEQ/100 mL IVPB 100 ML IV SCH (10:36)
[2024-08-10] MEDS ORDERED: propofoL 200 MG/20 ML VIAL IV ONE (11:39)
[2024-08-10] MEDS ORDERED: LIDOCAINE 1% MPF 5 ML VIAL ONE (11:39)
--- NOTE | 2024-08-10 11:44 | EKG ---
Test Date: 2024-08-09 Test Time: 08:33:36 Maintenance Trainer: PH MEASUREMENT RESULTS: Intervals: Rate: 100 MN: 152 QRSD: 70 QT: 378 QTc: 487 [place]: P: 56 MN: 152 QRS: -6 T: 73 INTERPRETIVE STATEMENTS: Normal sinus rhythm Prolonged QT Abnormal ECG Compared to ECG 07/18/2024 19:45:19 Prolonged QT interval now present Electronically Signed On 08-10-24 11:40:49 CDT by Guanakito Rodriguez
--- NOTE | 2024-08-10 12:31 | P.PN ---
Subjective Date of Service: 08/10/24 Subjective: No chest pain or shortness of breath. No nausea or vomiting. No abdominal pain. No obvious bleeding. Looks comfortable in the bed. Complaining of swallowing issues. Objective: General appearance: Alert and comfortable CVS: Normal S1 and S2 Lungs: Clear to auscultation bilaterally Abdomen: Soft, bowel sounds present, no tenderness Extremities: No lower extremity edema Physical Examination - Vital Signs Temperature: 98.1 F Blood Pressure: 139/84 Pulse: 73 Respirations: 16 Pulse Ox (%): 97 Assessment And Plan - Plan 1. Esophageal stricture: Continue PPI, surgery is on board, plan for intervention today. 2. Vomiting: Resolved, continue as needed medications. 3. Acute kidney injury: Secondary to volume depletion, improved, continue IV fluids. 4. Depression, Bipolar, Schizophrenia: Continue home medications when he starts taking diet. 5. Hypertension: Seems situational, as needed medications for now. 6. Chronic anemia: Monitor closely. 7. Hypokalemia: Replace and monitor. Plan discussed with patient and nursing staff, discharge plan depending on cl inical progress.
[2024-08-10] MEDS: levETIRAcetam 500 MG in NA CHLORIDE 0.9% 100 ML IV SCH (13:15)
[2024-08-11 05:47] LABS: Absolute Lymphocytes (CBC) 1.5 K/uL (0.7-4.9); Absolute Monocytes 0.6 K/uL (0.1-1.3); Absolute Neutrophil 5.8 K/uL (1.8-8.0); Basophils % 0.6 % (0-1.3); Eosinophils % 0.3 % (0-4.4); Hematocrit 29.5 % (39.6-49.0); Hemoglobin 10.2 g/dL (13.6-17.9); Lymphocytes % 19.5 % (15.3-44.8); MCH 32.4 pg (27.0-35.0); MCHC 34.6 g/dL (32.0-36.0); MCV 93.5 fL (80-100); MPV 7.6 fL (7.6-11.3); Neutrophils % 72.6 % (41.7-73.7); Platelets 246 thou/uL (152-406); RBC Red Blood Cell Count 3.15 M/uL (4.33-5.43)
[2024-08-11 06:06] LABS: Anion Gap 9.4 mEq/L (5.0-15.0); Magnesium 1.2 mg/dL (1.6-2.4); Phosphorus 2.7 mg/dL (2.5-4.9); Potassium 3.4 mEq/L (3.5-5.1)
[2024-08-11] MEDS: POTASSIUM 25 MEQ EFFERV TAB PO ONE (08:16)
[2024-08-11] MEDS: KCL 20 MEQ/100 mL IVPB 100 ML IV SCH (08:18)
[2024-08-11] MEDS: Magnesium Sulfate 2gm IVPB 2 G/50 ML BAG IV ONE (08:59)
[2024-08-11 09:16] VITALS: O2SAT 97
[2024-08-11 09:42] VITALS: BP 107/67; TEMP 98.4
--- NOTE | 2024-08-11 11:17 | P.DS ---
Admission Date: 08/09/24 Discharge Date: 08/11/24 Discharge Condition: GOOD Brief History of Present Illness: Discharge diagnosis: 1. Esophageal stricture: -surgery is on board, status post dilatation yesterday, continue liquid diet for now, follow-up in the clinic next week - Continue PPI 2. Vomiting: Resolved. 3. Acute kidney injury: Secondary to volume depletion, improved with IV fluids. 4. Depression, Bipolar, Schizophrenia: Continue home medications. 5. Hypertension: Seems situational, resolved 6. Chronic anemia: Follow-up with PCP 7. Hypokalemia, hypomagnesemia: Replaced Plan discussed with patient and nursing staff, discussed with Dr. Renteria, [place] home, close follow-up as an outpatient. Hospital course: 64-year-old patient admitted with esophageal stricture, surgery was consulted, he had an endoscopy done yesterday, I do not have the full report, I discussed with Dr. Renteria, he was able to partially dilate the stricture, he is recommending liquid diet for now, follow-up in the clinic next week for repeat intervention if needed, when I see the patient today he is doing well without any acute problems, surgical team cleared him to discharge, otherwise no other acute issues going on so I am planning to discharge him to go home. He had some high blood pressure but that got better now, electrolytes were low this morning which are being replaced, he will be discharged to go home after completing the infusions. Subjective: No chest pain or shortness of breath. No nausea or vomiting. No abdominal pain. No obvious bleeding. Looks comfortable in the bed. Objective: General appearance: Alert and comfortable CVS: Normal S1 and S2 Lungs: Clear to auscultation bilaterally Abdomen: Soft, bowel sounds present, no tenderness Extremities: No lower extremity edema Vital Signs/Physical Exam: Temp Pulse Resp BP Pulse Ox 98.4 F 70 16 107/67 96 08/11/24 08:00 08/11/24 08:00 08/11/24 08:00 08/11/24 08:00 08/11/24 08:00 Laboratory Data at Discharge: WBC 7.90 thou/uL (4.3-10.9) 08/11/24 05:25 Hgb 10.2 g/dL (13.6-17.9) L D 08/11/24 05:25 Hct 29.5 % (39.6-49.0) L 08/11/24 05:25 Plt Count 246 thou/uL (152-406) 08/11/24 05:25 Sodium 142 mEq/L (136-145) 08/11/24 05:25 Potassium 3.4 mEq/L (3.5-5.1) L 08/11/24 05:25 BUN 14 mg/dL (7-18) 08/11/24 05:25 Creatinine 0.71 mg/dL (0.70-1.30) 08/11/24 05:25 Glucose 84 mg/dL (74-106) 08/11/24 05:25 Phosphorus 2.7 mg/dL (2.5-4.9) 08/11/24 05:25 Magnesium 1.2 mg/dL (1.6-2.4) L 08/11/24 05:25 Total Bilirubin 0.4 mg/dL (0.2-1.0) 08/10/24 06:22 AST 29 U/L (15-37) 08/10/24 06:22 ALT 39 U/L (16-61) 08/10/24 06:22 Alkaline Phosphatase 83 U/L (45-117) 08/10/24 06:22 Lipase 11 U/L (13-75) L 08/09/24 08:05 Home Medications: Quetiapine Fumarate [Seroquel] 25 mg PO BEDTIME 09/14/23 levETIRAcetam [Keppra] 500 mg PO BID #60 tab 09/14/23 Pantoprazole [Protonix Tab*] 40 mg PO DAILY #30 tab 07/23/24 ARIPiprazole [Aripiprazole] 10 mg PO BEDTIME 08/09/24 Escitalopram [Lexapro*] 10 mg PO BEDTIME 08/09/24 Diet: full liqui Activity: Ad agusto Followup: Jose Alberto Renteria MD [ACTIVE - CAN ADMIT] - 1 Week NONE,NONE [Primary Care Provider] - 2-3 Days (f/u with PCP in 3-5 days with CBC, CMP, Mg and phos) Time spent managing pt's care (in minutes): 32
== END 2024-08-11 12:46 | disposition home or self-care (01) | DRG 392 ==
LOC: ER 07:41 → ERHOLD 09:11 → 2ND 10:16
PROVIDERS: ADMIT Family Medicine; ATTEND Hospitalist
PROC: 0D738ZZ Dilation of Lower Esophagus, Via Natural or Artificial Opening Endoscopic (ICD-10-PCS; principal; 2024-08-10 12:00)
DX: K22.2 Esophageal obstruction (principal); N17.9 Acute kidney failure, unspecified; Z68.1 Body mass index [BMI] 19.9 or less, adult; R64 Cachexia; F31.9 Bipolar disorder, unspecified; F20.9 Schizophrenia, unspecified; I10 Essential (primary) hypertension; E86.9 Volume depletion, unspecified; D64.9 Anemia, unspecified; E87.6 Hypokalemia; Z79.899 Other long term (current) drug therapy
CPT/HCPCS: 36415; 74220; 80048; 80053; 82947; 83690; 83735; 84100; 85025; 93005; 96361; 96374; 99285; C1726; J0360; J1953; J2003; J2270; J2405; J2470; J2704; J3475; J3480; J7030